=== PATIENT | female | born 1940 | race Caucasian/White ===

== ENCOUNTER → 2016-10-06 | Outpatient (CLI) | payer BC ==
[~2016-10-06] MED LIST: ACET325T30 PO; ALBUAER2 INH; CALC-20 PO; CALC500C3 PO; CARB1SOL OPB; CITA20TA9 PO; CTP/1 PO; DOCU-94 PO; HYDRCRE28 PR; LANS15CA6 PO; LEVE500T13 PO; LORA-741 PO; LSN20 PO; MAGNSUS5 PO; POLY335019 PO; PSYL55.43 PO; SENN8.6T15 PO; SYMIN160 INH; TRAM-10 PO
== END | disposition home or self-care (01) ==
LOC: C.LABSPEC 18:21
PROVIDERS: ATTEND Obstetrics & Gynecology
DX: N76.0 Acute vaginitis (principal)

== ENCOUNTER → 2016-11-26 | Outpatient (CLI) | payer BC ==
--- NOTE | 2016-11-26 15:09 | DIAGNOSTIC IMAGING REPORT ---
TWO VIEW CHEST CLINICAL HISTORY: Bronchiectasis. Cough. FINDINGS: PA and lateral chest radiographs are compared to study dated 04/05/2016 and correlated with chest CT dated 05/10/2016. The cardiomediastinal silhouette is unremarkable. There is atherosclerotic calcification of the thoracic aorta. Chronic interstitial thickening and nodularity is similar to previous. No airspace consolidation or pleural effusion is identified. Linear atelectasis versus scarring is present in the upper lobes bilaterally. There is no pneumothorax. The skeletal structures are osteopenic. Degenerative change and hyperkyphosis are noted in the thoracic spine. IMPRESSION: Chronic parenchymal changes and nodularity as above. No airspace consolidation or pleural effusion is identified. Electronically signed by: Diogo Moreno M.D. 11/26/2016 3:08 PM Dictated Date/Time: 11/26/2016 3:06 PM
== END | disposition home or self-care (01) ==
LOC: C.RAD1850 14:47
PROVIDERS: ATTEND Student in an Organized Health Care Education/Training Program
DX: R05 Cough (principal); Z87.09 Personal history of other diseases of the respiratory system

== ENCOUNTER → 2016-11-30 | Outpatient (CLI) | payer BC ==
[2016-11-30 12:27] LABS: BASO % 0.3 %; BASO ABS # 0.02 K/uL (0-0.2); COMPLETE YES; EOS % 2.2 %; HEMATOCRIT 38.1 % (37-47); IG% 0.1 %; LYMPH % 30.4 %; LYMPH ABS # 2.21 K/uL (1.2-3.4); MEAN CORPUSCULAR HEMOGLOBIN 27.8 pg (25-34); MEAN CORPUSCULAR HGB CONC 32.3 g/dl (32-36); MEAN PLATELET VOLUME 10.8 fL (7.4-10.4); MONO % 11.4 %; NEUT % 55.6 %; PLATELET COUNT 288 K/uL (130-400); RED BLOOD COUNT 4.43 M/uL (4.2-5.4); WHITE BLOOD COUNT 7.27 K/uL (4.8-10.8)
[2016-11-30 12:52] LABS: BLOOD UREA NITROGEN 10 mg/dl (7-18); BUN/CREATININE RATIO 16.3 (10-20); CALCIUM 9.2 mg/dl (8.5-10.1); CARBON DIOXIDE 29 mmol/L (21-32); CHLORIDE 100 mmol/L (98-107); CREATININE 0.63 mg/dl (0.60-1.20); GLUCOSE 84 mg/dl (70-99); POTASSIUM 4.6 mmol/L (3.5-5.1); SODIUM 136 mmol/L (136-145)
[2016-11-30 12:56] LABS: FERRITIN 45.9 ng/ml (8.0-388.0)
== END | disposition home or self-care (01) ==
LOC: C.LABWYN 16:42
PROVIDERS: ATTEND Internal Medicine
DX: D64.9 Anemia, unspecified (principal); E87.1 Hypo-osmolality and hyponatremia

== ENCOUNTER → 2017-04-07 | Outpatient (CLI) | payer BC ==
[2017-04-07 08:33] LABS: BASO % 0.4 %; BASO ABS # 0.02 K/uL (0-0.2); COMPLETE YES; HEMATOCRIT 38.9 % (37-47); IG% 0.2 %; LYMPH % 43.7 %; LYMPH ABS # 2.33 K/uL (1.2-3.4); MEAN CELL VOLUME 84.9 fL (80-100); MEAN CORPUSCULAR HEMOGLOBIN 27.3 pg (25-34); MEAN CORPUSCULAR HGB CONC 32.1 g/dl (32-36); MEAN PLATELET VOLUME 9.7 fL (7.4-10.4); MONO % 9.9 %; NEUT % 42.8 %; PLATELET COUNT 322 K/uL (130-400); RED BLOOD COUNT 4.58 M/uL (4.2-5.4); WHITE BLOOD COUNT 5.33 K/uL (4.8-10.8)
[2017-04-07 08:44] LABS: ALT/SGPT 20 U/L (12-78); BLOOD UREA NITROGEN 12 mg/dl (7-18); BUN/CREATININE RATIO 16.9 (10-20); CALCIUM 9.4 mg/dl (8.5-10.1); CARBON DIOXIDE 27 mmol/L (21-32); CHLORIDE 104 mmol/L (98-107); CHOLESTEROL 273 mg/dl (0-200); CREATININE 0.71 mg/dl (0.60-1.20); GLUCOSE 83 mg/dl (70-99); POTASSIUM 4.2 mmol/L (3.5-5.1); SODIUM 139 mmol/L (136-145); TRIGLYCERIDES 117 mg/dl (0-150); VERY LOW DENSITY LIPOPROT CALC 23 mg/dl
[2017-04-07 08:55] LABS: ALKALINE PHOSPHATASE 74 U/L (45-117); AST/SGOT 21 U/L (15-37); CHOLESTEROL/HDL RATIO 2.9; HDL CHOLESTEROL 95 mg/dl; LDL CHOLESTEROL CALCULATED 155 mg/dl
== END | disposition home or self-care (01) ==
LOC: C.LABWYN 08:05
PROVIDERS: ATTEND Internal Medicine
DX: E87.1 Hypo-osmolality and hyponatremia (principal); D64.9 Anemia, unspecified; I10 Essential (primary) hypertension

== ENCOUNTER → 2017-06-20 | Outpatient (CLI) | payer BC ==
--- NOTE | 2017-06-21 07:53 | MAMMOGRAPHY REPORT ---
BILATERAL DIGITAL SCREENING MAMMOGRAM TOMOSYNTHESIS WITH CAD: 06/20/2017 CLINICAL HISTORY: Asymptomatic. Personal history of breast cancer. TECHNIQUE: Breast tomosynthesis in addition to standard 2D mammography was performed. Current study was also evaluated with a Computer Aided Detection (CAD) system. COMPARISON: Comparison is made to exams dated: 06/15/2016 mammogram, 06/12/2015 mammogram, 06/19/2014 m ammogram, 06/07/2014 mammogram, and 06/03/2014 mammogram - [facility]. BREAST COMPOSITION: The tissue of both breasts is heterogeneously dense, which may obscure small mas ses. FINDINGS: There is a focal area of architectural distortion and associated asymmetry in the lower ou ter middle one third of the right breast, for which additional targeted ultrasound and possible addit ional mammographic views are recommended. There is stable asymmetry in the medial right breast and evidence of prior surgery in the left breast . A stable metallic biopsy marker in the 12:00 right breast and a few benign-appearing calcification s bilaterally. No other suspicious mass, architectural distortion or cluster of microcalcifications i s seen. IMPRESSION: ACR BI-RADS CATEGORY 0: INCOMPLETE EVALUATION: NEED ADDITIONAL IMAGING EVALUATION The focal area of architectural distortion and associated asymmetry in the lower outer right breast n eeds additional evaluation. The patient will be called to schedule an appointment. Approximately 10% of breast cancers are not detected with mammography. A negative mammographic report should not delay biopsy if a clinically suggestive mass is present. Yajaira Davila M.D. ay/:06/20/2017 21:11:10 It Security Specialist: Toyin MCCANN(Naman)(Cristela), [facility] letter sent: Addl Imaging 0 BI-RADS Code: ACR BI-RADS Category 0: Incomplete Evaluation: Need Additional Imaging Evaluation
== END | disposition home or self-care (01) ==
LOC: C.MAMM 10:14
PROVIDERS: ATTEND Obstetrics & Gynecology
DX: Z12.31 Encounter for screening mammogram for malignant neoplasm of breast (principal); R92.8 Other abnormal and inconclusive findings on diagnostic imaging of breast; N64.89 Other specified disorders of breast; Z85.3 Personal history of malignant neoplasm of breast

== ENCOUNTER → 2017-06-24 | Outpatient (CLI) | payer BC ==
--- NOTE | 2017-06-24 14:55 | MAMMOGRAPHY REPORT ---
ULTRASOUND OF RIGHT BREAST: 06/24/2017 CLINICAL HISTORY: Callback from screening mammogram for right breast asymmetry and associated archite ctural distortion. COMPARISON: Comparison is made to exams dated: 06/20/2017 mammogram, 06/15/2016 mammogram, 06/12/2015 m ammogram, 11/28/2014 mammogram, 06/03/2014 mammogram, and 05/30/2013 mammogram - [facility]. TECHNIQUE: Real-time targeted ultrasound of the right breast was performed. FINDINGS: Real-time, high-resolution targeted ultrasound was performed of the right breast in the re gion of the asymmetry with associated architectural distortion seen on the recent screening mammogram . In the right 9:00 subareolar breast, there is an irregular hypoechoic ill-defined mass with non-ci rcumscribed margins which measures 6 x 8 x 4 mm. This corresponds with the mammographic asymmetry wi th associated architectural distortion and is suspicious for malignancy. Recommend ultrasound guided core needle biopsy for further evaluation. Ultrasound was performed of the right axilla, which demo nstrates morphologically normal right axillary lymph nodes without evidence of axillary adenopathy. IMPRESSION: ACR BI-RADS CATEGORY 5: HIGHLY SUGGESTIVE OF MALIGNANCY - FOLLOW-UP RECOMMENDED 1. Irregular hypoechoic 8 mm mass in the right 9:00 subareolar breast, which corresponds with the kevin mographic asymmetry with associated architectural distortion. The mass is suspicious for malignancy and ultrasound-guided core needle biopsy is recommended for further evaluation. 2. No evidence of right axillary adenopathy. A phone call was made to the physician's office to confirm faxed results were received. The patient was verbally notified of the results. She tentatively scheduled the biopsy before leaving the [facility]. Shala Navarro M.D. /:06/24/2017 13:51:12 Medication Technician: Julia CROSS)(M), [facility] letter sent: Abnormal 4/5 BI-RADS Code: ACR BI-RADS Category 5: Highly Suggestive Of Malignancy
== END | disposition home or self-care (01) ==
LOC: C.MAMM 12:54
PROVIDERS: ATTEND Obstetrics & Gynecology
DX: N63 Unspecified lump in breast (principal)

== ENCOUNTER → 2017-06-29 | Outpatient (CLI) | payer BC ==
--- NOTE | 2017-06-29 08:40 | Discharge Instructions ---
Discharge Instructions Procedure Procedure Date: Jun 29, 2017. Reason for visit: Right Mass. Discharge Discharge Date: Jun 29, 2017. Discharge Diagnosis: post right breast ultrasound guided core biopsy Instructions Activity Recommendations: Additional Limitations (see below) Return to School/Work: no limitations Recommended Home Diet: No Limitations Provider Instructions: ACTIVITY RECOMMENDATIONS: * No lifting, pushing, pulling or exercising the affected side for three days. RETURN TO SCHOOL/WORK: * You may return to work/school after the procedure, but do not perform any strenuous activities for 24 to 48 hours. MEDICATIONS: * Tylenol (two 325 mg) every four to six hours if needed for mild pain (if not allergic to Tylenol). DIET: * Resume previous diet. SPECIAL CARE INSTRUCTIONS: * Keep biopsy site dry for 24 hours. May shower after 24 hours, but do not soak (bathe) incision. * May remove Tegaderm (plastic patch) tomorrow AFTER showering. * Leave the steri-strips on for one week. Allow the steri-strips to fall off by themselves. If not off after one week, you may remove them. You may place a Bandaid crosswise over the strips, if desired. * Apply ice 10 minutes on and 10 minutes off as needed. * Wear a bra at bedtime to sleep more comfortably for 2-3 days. * Your referring physician should have the results after approximately 5 to 7 business days. * Call for unusual bleeding, fever, drainage, etc or if you have any questions call [phone] during normal business hours or after hours call Dr Davila, . FOLLOW UP VISIT: Follow-up with Referring Physician as scheduled. Allergies Coded Allergies: Amoxicillin (Unverified Allergy, Intermediate, NAUSEA, 04/27/16) MAR OF 04/27/16 SAYS "NO KNOWN DRUG ALLERGIES" Clavulanic Acid (Unverified Allergy, Intermediate, NAUSEA, 04/27/16) MAR OF 04/27/16 SAYS "NO KNOWN DRUG ALLERGIES" Doxycycline (Unverified Allergy, Intermediate, NAUSEA, 04/27/16) MAR OF 04/27/16 SAYS "NO KNOWN DRUG ALLERGIES" Mometasone (Unverified Allergy, Intermediate, UNKNOWN, 04/27/16) MAR OF 04/27/16 SAYS "NO KNOWN DRUG ALLERGIES" Nitrofurantoin (Unverified Allergy, Intermediate, UNKNOWN, 04/27/16) MAR OF 04/27/16 SAYS "NO KNOWN DRUG ALLERGIES" Povidone Iodine (Verified Allergy, Mild, RED RASH AND SKIN IRRITATION, 04/27) MAR OF 04/27/16 SAYS "NO KNOWN DRUG ALLERGIES" Sulfa Antibiotics (Verified Adverse Reaction, Mild, NAUSEA/VOMITING, ) MAR OF 04/27/16 SAYS "NO KNOWN DRUG ALLERGIES" Harish Andrade Recommendations: Call your doctor if: * Temperature above 101 degrees * Pain not relieved by pain medicine ordered * There is increased drainage or redness from any incision * You have any unanswered questions or concerns. Your Doctors Instructions noted above were prepared by provider Yajaira Davila. Patient Signature Section: Patient Instructions Signature Page Juliamichele Rodriguez Patient (or Guardian) Signature/Date: I have read and understand the instructions given to me by my caregivers. Caregiver/RN/Doctor Signature/Date: The above-named patient and/or guardian has received patient instructions on this date. + Original Patient Signature Page (only) stays with chart. Please make copy for patient.
--- NOTE | 2017-06-29 13:16 | MAMMOGRAPHY REPORT ---
ULTRASOUND GUIDED BIOPSY RIGHT BREAST: 06/29/2017 CLINICAL HISTORY: Patient presents for ultrasound-guided core biopsy of a suspicious 8 mm spiculated hypoechoic mass in the 9:00 right breast. Remote history of left breast cancer status post breast co nservation therapy. COMPARISON: Comparison is made to exams dated: 06/24/2017 ultrasound, 06/20/2017 mammogram, 06/15/2016 mammogram, 06/12/2015 mammogram, 11/28/2014 mammogram, and 06/19/2014 mammogram - [facility] [address] [place]. PATIENT CONSENT: The procedure, risks and benefits were discussed with the patient and informed conse nt was obtained both verbally and in writing. Specific risks to this procedure include: bleeding, in fection, puncture of adjacent structure, nontarget biopsy, sampling error, pain, metal allergy and me dication reaction. PROCEDURE DESCRIPTION: A time out was performed and the right breast was agreed as the site of biopsy . The skin was prepped and draped in the usual sterile fashion. ChloraPrep was used for cleansing pu rposes as the patient reported a possible Betadine allergy. The spiculated, taller than wide hypoech oic mass in the 9:00 right breast was chosen as the target for biopsy. Subcutaneous and intraparenchy mal 1% buffered lidocaine, with and without epinephrine, was administered as local anesthesia. A skin incision was made. Through the incision, 5 samples were taken with a 14 gauge Achieve biopsy device . A ribbon shaped metallic marker was placed at the biopsy site. Hemostasis was achieved after manual compression. The patient tolerated the procedure well and there was no immediate complication. The samples were sent to the pathology department in an appropriately labeled container. Postprocedure right CC and ML 2-D and most images were obtained. There is a new ribbon-shaped biopsy marker clip within the mass with associated architectural distortion in question, in the 9:00 middle one third of the right breast. No significant post biopsy hematoma. IMPRESSION: ULTRASOUND GUIDED BIOPSY Status post ultrasound-guided core biopsy of a suspicious spiculated right 9:00 breast mass, with rib bon-shaped biopsy marker clip placed at the site. The patient will receive notification of the biopsy results from her referring physician. Yajaira Davila M.D. ay/:06/29/2017 09:33:10 Ham Pumper: Kiersten MCCANN(R)(M), [facility]
--- NOTE | 2017-06-29 13:17 | MAMMOGRAPHY REPORT ---
UNILATERAL RIGHT DIGITAL DIAGNOSTIC MAMMOGRAM TOMOSYNTHESIS: 06/29/2017 CLINICAL HISTORY: Status post ultrasound guided core biopsy of an irregular spiculated 6 mm mass in t he 9:00 right breast. Personal history of remote left breast cancer status post breast conservation therapy. Please refer to the report from right breast ultrasound guided core biopsy performed at the same time for full detail. IMPRESSION: POST PROCEDURE IMAGING FOR MARKER PLACEMENT Please refer to the report from right breast ultrasound guided core biopsy performed at the same time for full detail. Approximately 10% of breast cancers are not detected with mammography. A negative mammographic report should not delay biopsy if a clinically suggestive mass is present. Yajaira Davila M.D. ay/:06/29/2017 08:41:41 Boot And Saddle Repair Person: Kiersten CROSS)(Cristela), [facility] BI-RADS Code: Post Procedure Imaging For Marker Placement
== END | disposition home or self-care (01) ==
LOC: C.MAMM 07:49
PROVIDERS: ATTEND Obstetrics & Gynecology
DX: D05.11 Intraductal carcinoma in situ of right breast (principal)

== ENCOUNTER → 2017-07-25 | Outpatient (CLI) | payer BC ==
[~2017-07-25] MED LIST changes: -ALBUAER2 INH; +HYDR-3126 PO; -LANS15CA6 PO; -LEVE500T13 PO; +LISI-729 PO; -LSN20 PO; -MAGNSUS5 PO; +MOMLX PO; +PROP1TAB PO; +PSYL0.524 PO; -PSYL55.43 PO; +SENN1TAB86 PO; -SENN8.6T15 PO
--- NOTE | 2017-07-25 14:55 | MAMMOGRAPHY REPORT ---
SPECIMEN: 07/25/2017 CLINICAL HISTORY: Right breast lumpectomy specimen. Biopsy proven carcinoma in the 9:00 axis. Please refer to the report from right breast ultrasound-guided needle localization performed at the s ida time for full detail. IMPRESSION: SPECIMEN Please refer to the report from right breast ultrasound-guided needle localization performed at the s ida time for full detail. Yajaira Davila M.D. ay/:07/25/2017 11:53:15 International Controller: Gabrielle Bateman, [facility]
--- NOTE | 2017-07-25 14:55 | MAMMOGRAPHY REPORT ---
NEEDLE LOCALIZATION RIGHT BREAST: 07/25/2017 CLINICAL HISTORY: Biopsy proven carcinoma in the 9:00 right breast. Patient presents for preoperativ e needle and wire localization. COMPARISON: Comparison is made to exams dated: 07/15/2017 breast MRI, 06/29/2017 ultrasound biopsy, 1 mammogram, 06/24/2017 ultrasound, 06/20/2017 mammogram, and 06/15/2016 mammogram - [facility]. PATIENT CONSENT: The risks of the procedure were explained to the patient and informed consent was ob tained. The patient denied eating or drinking anything this morning that would preclude anesthesia. She also denied allergy to lidocaine. PROCEDURE DESCRIPTION: Prior mammograms, ultrasounds and ultrasound-guided biopsy dated 06/29/2017 we re reviewed. The hypoechoic solid mass in the 9:00 right breast is the intended target for preoperat nu localization. The associated ribbon-shaped biopsy marker clip is identified in the post procedur e mammograms from the same date. With the patient in the supine position, repeat targeted ultrasound was performed in the 9:00 right b reast. The hypoechoic mass and associated ribbon-shaped biopsy marker clip is identified at amenable to ultrasound-guided localization. The skin was cleansed with Betadine. 1% buffered lidocaine with out epinephrine was administered as local anesthesia. A 5cm Barraza II needle and wire combination wa s inserted into the breast and through the mass. Optimal positioning was confirmed and the wire was l ocked in place, leaving both the needle and wire within the breast, as per surgeon's preference. Rig ht CC and ML post localization 2-D and tomosynthesis images were obtained. There is alignment of the ribbon-shaped biopsy marker clip with the notch in the needle. Architectural distortion is seen malachi rounding the biopsy marker clip. The entire procedure including approach and needle length were discussed with the operating surgeon yesi hills to surgery. The patient tolerated the procedure well and there was no immediate complication. She was transferred to the operating room in satisfactory condition. The specimen radiograph demonstrates a portion of the localizing needle and wire, the central ribbon- shaped biopsy marker clip as well as a mass with associated architectural distortion, compatible with successful preoperative localization and subsequent surgical excision. IMPRESSION: NEEDLE LOCALIZATION Status post successful preoperative localization and subsequent surgical excision for recent biopsy-p roven carcinoma in the 9:00 right breast. The imaged specimen includes the intended abnormality. The patient will receive notification of the pathology results from her referring physician. Yajaira Davila M.D. ay/:07/25/2017 11:57:43 Dentures Lab Technician: Gabrielle CROSS)(M), [facility]
--- NOTE | 2017-07-25 14:57 | MAMMOGRAPHY REPORT ---
UNILATERAL RIGHT DIGITAL DIAGNOSTIC MAMMOGRAM TOMOSYNTHESIS: 07/25/2017 CLINICAL HISTORY: Status post ultrasound-guided needle localization of biopsy-proven carcinoma in the 9:00 right breast. Please refer to the report from right breast ultrasound-guided needle localization performed at the s ida time for full detail. IMPRESSION: Please refer to the report from right breast ultrasound-guided needle localization performed at the s ida time for full detail. Approximately 10% of breast cancers are not detected with mammography. A negative mammographic report should not delay biopsy if a clinically suggestive mass is present. Yajaira Davila M.D. ay/:07/25/2017 08:25:08 Inspector Experimental Assembly: Gabrielle MCCANN(Naman)(M), [facility] BI-RADS Code: n/a
== END | disposition home or self-care (01) ==
LOC: C.MAMM 07:43
PROVIDERS: ATTEND Surgery
DX: C50.911 Malignant neoplasm of unspecified site of right female breast (principal)

== ENCOUNTER → 2017-09-23 | Outpatient (CLI) | payer BC ==
[~2017-09-23] MED LIST changes: +ACET-1346 PO; -ACET325T30 PO; +ANAS1TAB59 PO; -CTP/1 PO; +HYDR25SU20 PR; +PROP80TA2 PO; +SENN8.6T96 PO; +TAMO20TA5 PO; +TAMOXIFEN CITRATE PO; +VNTHFA/IN INH
--- NOTE | 2017-09-23 10:43 | DIAGNOSTIC IMAGING REPORT ---
CHEST 2 VIEWS ROUTINE HISTORY: Productive cough. Atypical chest pain. BRONCHIECTASIS COMPARISON: Chest 11/26/2016. FINDINGS: The heart is normal in size. No pleural effusions. No pneumothorax. Small linear scarlike density within the right upper lobe, unchanged. Surgical clips within the right breast. Stable scarlike density within the left upper lobe compared to a 07/03/2015 examination. No new focal lung consolidations to suggest pneumonia. IMPRESSION: Stable chronic changes as described above. No new focal lung consolidations to suggest pneumonia. Electronically signed by: Lewis Mcgarry M.D. 09/23/2017 10:42 AM Dictated Date/Time: 09/23/2017 10:37 AM
== END | disposition home or self-care (01) ==
LOC: C.RAD 10:21
PROVIDERS: ATTEND Internal Medicine
DX: Z51.0 Encounter for antineoplastic radiation therapy (principal); J47.9 Bronchiectasis, uncomplicated; D05.11 Intraductal carcinoma in situ of right breast

== ENCOUNTER → 2017-10-27 | Outpatient (CLI) | payer BC ==
[~2017-10-27] MED LIST changes: -ANAS1TAB59 PO; -HYDR25SU20 PR; -PROP80TA2 PO; -SENN8.6T96 PO; -TAMO20TA5 PO; -TAMOXIFEN CITRATE PO
[2017-10-27 12:24] LABS: HEMATOCRIT 41.1 % (37-47); HEMOGLOBIN 13.2 g/dL (12.0-16.0); MEAN CELL VOLUME 87.3 fL (80-100); MEAN CORPUSCULAR HGB CONC 32.1 g/dl (32-36); MEAN PLATELET VOLUME 10.1 fL (7.4-10.4); PLATELET COUNT 308 K/uL (130-400); RED CELL DISTRIBUTION WIDTH CV 14.5 % (11.5-14.5); RED CELL DISTRIBUTION WIDTH SD 46.5 fL (36.4-46.3); WHITE BLOOD COUNT 5.29 K/uL (4.8-10.8)
[2017-10-27 13:32] LABS: ALBUMIN 3.7 gm/dl (3.4-5.0); ALT/SGPT 21 U/L (12-78); BLOOD UREA NITROGEN 17 mg/dl (7-18); CALCIUM 9.3 mg/dl (8.5-10.1); CARBON DIOXIDE 28 mmol/L (21-32); CREATININE 0.67 mg/dl (0.60-1.20); GLUCOSE 85 mg/dl (70-99); POTASSIUM 3.9 mmol/L (3.5-5.1); SODIUM 134 mmol/L (136-145)
[2017-10-27 13:35] LABS: ALKALINE PHOSPHATASE 77 U/L (45-117); AST/SGOT 21 U/L (15-37); TOTAL PROTEIN 7.6 gm/dl (6.4-8.2); TRANSFERRIN 313 mg/dl (200-360)
== END | disposition home or self-care (01) ==
LOC: C.LABWYN 09:44
PROVIDERS: ATTEND Internal Medicine
DX: D64.9 Anemia, unspecified (principal); E87.1 Hypo-osmolality and hyponatremia

== ENCOUNTER → 2017-11-17 | Outpatient (CLI) | payer BC ==
[~2017-11-17] MED LIST changes: +ANAS1TAB19 PO
[2017-11-17 13:22] VITALS: BP 156/75; PULSE 72; TEMP 36.8; O2SAT 96
--- NOTE | 2017-11-17 16:45 | Radiation Oncology Follow-Up ---
Radiation Oncology Follow-Up Date of Visit Nov 17, 2017. Reason For Visit One-month follow-up in cancer survivorship care plan Radiation Completion Date Hypo - 10/11/17 Diagnosis (1) Breast cancer Onset Date: 06/29/2017 Histology Subtype: Ductal Stage: l Permanent Comment: Abnormal right breast mammogram Status post ultrasound-guided core needle biopsy 06/29/2017 Infiltrating ductal carcinoma, grade 2 Estrogen receptor positive, progesterone receptor positive, HER-2/saud negative Status post image guided localization lumpectomy and sentinel lymph node biopsy 07/25/2017 Stage pT1b pN0M0 Oncotype DX score of 18 Status post completion of radiation therapy 10/11/2017. She received 5130 cGy utilizing hypo-fractionation. Last Edited By: Debbie Daugherty on Oct 19, 2017 10:09 History of Present Illness Ms. Rodriguez was diagnosed with a left breast cancer in 1993. She was treated with external radiation using tangential beams delivering a dose of 50 Gy without a boost. She has been followed since then has done well with bilateral screening mammograms. On 06/20/2017 she was found to have a new focal area of architectural distortion and associated asymmetry in the lower outer middle one third of the right breast. Additional targeted ultrasound and mammographic images were recommended. On 06/24/2017 the patient underwent an ultrasound of the right breast. This showed an irregular hypoechoic 8mm mass in the right breast at the 9 o'clock position in the subareolar region corresponding to the mammographic abnormality. This mass is suspicious and an ultrasound-guided core needle biopsy was recommended for further evaluation. There was no evidence of right axillary adenopathy appreciated. On 06/29/2017 patient underwent an ultrasound-guided core needle biopsy at the 9 o'clock position of the right breast. She had previously undergone a benign stereotactic biopsy of the right breast on 06/19/2014. This did show calcifications with no tumor seen. Case: [id number]. The more recent biopsy unfortunately revealed an infiltrating ductal carcinoma oftype. [place] grade 2 of 3. 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 There was no perineural or lymphovascular space invasion identified. Estrogen receptors were positive (100%, strong). Progesterone receptors were weak positive (1%, strongly). HER-2/saud was negative by IHC and confirmed negative by FISH analysis. Case: [id number]. Patient was seen by Dr. Ben Lopez who discussed treatment options with this patient. Patient ultimately opted to proceed with a breast conserving therapy consisting of a right partial mastectomy and sentinel normal biopsy. This was performed on 07/25/2017. This confirmed an invasive carcinoma [place] grade 2 of 3 measuring 0.8 x 0.8 x 0.5 cm. 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 The margins were evaluated and were negative. The invasive carcinoma was 2 mm from the anterior margin. The DCIS was less than 1 mm from the anterior margin. A total of 2 sentinel lymph nodes were identified and both were negative. The final AJCC pathologic staging was therefore a pT1b pN0( sn-), ER positive, OH positive and HER-2/saud negative. Patient was seen by Dr. Gael Del Valle for evaluation and discussion of the role of adjuvant therapy. He has ordered an Oncotype DX test with results pending. We were asked to see the patient in referral to discuss with her the role of adjuvant radiation. Her Oncotype DX score came back at 18. This was reviewed with the patient by medical oncology. Final decision was no chemotherapy. She completed radiation therapy October 11, 2017. She received 5130 cGy utilizing hypo-fractionation. Interim History She has been doing well over this past month. The skin irritation that occurred at the end of treatment has completely resolved. She has continued to use the gel daily. She has noted no masses or tenderness and no change of the axilla. She has had no swelling of her arm. She would like to return to using her regular deodorant. She was seen in medical oncology and is now on a aromatase inhibitor. She is tolerating this well. She denies hot flashes. She may have some mild increase in arthralgias. Allergies Coded Allergies: Povidone Iodine (Verified Allergy, Mild, RED RASH AND SKIN IRRITATION, ) MAR OF 04/27/16 SAYS "NO KNOWN DRUG ALLERGIES" Amoxicillin (Unverified Adverse Reaction, Intermediate, NAUSEA, 07/25/17) Clavulanic Acid (Unverified Adverse Reaction, Intermediate, NAUSEA, ) Doxycycline (Unverified Adverse Reaction, Intermediate, NAUSEA, 07/25/17) Mometasone (Unverified Adverse Reaction, Intermediate, NAUSEA, 07/25/17) Nitrofurantoin (Unverified Adverse Reaction, Intermediate, nausea, ) Sulfa Antibiotics (Verified Adverse Reaction, Mild, NAUSEA/VOMITING, 07/25) MAR OF 04/27/16 SAYS "NO KNOWN DRUG ALLERGIES" Home Medications Scheduled Anastrozole (Arimidex), 1 TAB PO DAILY Budesonide/Formoterol Fumarate (Symbicort 160/4.5 Inhaler ), 2 PUFFS INH BID Calcium Carbonate-Vitamin D (Calcium 600 + D), 1 TAB PO BID Citalopram Hydrobromide (Celexa), 30 MG PO QAM Docusate Sodium (Colace), 1 CAP PO BID17 Hydrocortisone (Rectal) (Proctozone-Hc), 1 APPLN OH BID Lisinopril (Zestril), 5 MG PO QAM Polyethylene Glycol 3350 (Miralax), 17 GM PO QAM Propranolol (Inderal), 60 MG PO QAM Psyllium (Metamucil), 1 DOSE PO QAM Sennosides-Docusate Sodium (Sennalax-S), 1 TAB PO NOON Scheduled PRN Acetaminophen (Acetaminophen), 2 TABS PO Q4 PRN for Pain Albuterol Hfa (Ventolin Hfa), 2-4 PUFFS INH Q4 PRN for SOB/Wheezing Calcium Carbonate (Tums), 1 TAB PO QID PRN for Indigestion Carboxymethylcellulose Sodium (Refresh), 1 DROP OPB Q6 PRN for DRYNESS Hydroxyzine Hcl (Atarax), 25 MG PO UD PRN for ITCHING Lorazepam (Ativan), 0.5 MG PO Q4 PRN for Anxiety Magnesium Hydroxide (Milk of Magnesia), 1 DOSE PO UD PRN for Constipation Tramadol (Ultram), 50 MG PO Q4H PRN for Pain Review of Systems Gastrointestinal: Symptoms: WNL GI Comments: Chronic Constipation Oral: Symptoms: No Problems Respiratory: Symptoms: WNL Urinary: Symptoms: WNL Skin: Symptoms: No Problems Breast: Right Upper Arm Measurement: 26.5 Right Mid Arm Measurement: 20.9 Right Wrist Measurement: 15.0 Left Upper Arm Measurement: 27.2 Left Mid Arm Measurement: 20.9 Left Wrist Measurement: 14.6 Arm Dominence: Right Additional Notes: She completed a distress management report and answered "no" to all questions. Physical Exam Vital Signs Date Time Temp Pulse Resp B/P (MAP) Pulse Ox O2 Delivery O2 Flow Rate FiO2 11/17/17 13:22 36.8 72 16 156/75 96 ECOG Performance Status: 0 Fatigue: None General Appearance: no apparent distress Eyes: normal inspection, EOMI ENT: normal ENT inspection, hearing grossly normal Neck: no adenopathy, thyroid normal Respiratory/Chest: lungs clear, no respiratory distress, no accessory muscle use Breast: Breast examination reveals well-healed incisions of the right breast. There are no masses or tenderness and no axillary adenopathy. She has no skin retractions or nipple changes. Using the [place] score of cosmesis she has excellent outcome. The left breast showed no masses or tenderness and no axillary adenopathy. Cardiovascular: regular rate, rhythm, no gallop, no murmur Extremities: no pedal edema Neurologic/Psychiatric: no motor/sensory deficits, alert, normal mood/affect Pain Management Patient Reports Pain: No Pain Management Plan She denies pain therefore requires no pain management. Laboratory Laboratory Results: not applicable Pathology Pathology Results: not applicable Imaging Imaging Studies: not applicable Assessment & Plan Plan: She will continue regular follow-up with medical oncology and her primary care physician. She continues on the aromatase inhibitor. We discussed follow- up mammography. She had a mammogram scheduled for May. We discussed canceling that appointment and going forward with a right breast mammogram in 2 months and then bilateral mammography in 8 months. The studies were set up for the patient. Today we completed a cancer survivorship care plan. A copy of the document was given to the patient. She was given a survivorship booklet. We asked her to return to our office in 6 months. She may call if she has any questions or concerns. Total Time In Follow-Up I spent 20 minutes speaking to the patient and performing examination. I spent 20 minutes reviewing information, preparing the survivorship document, and completing this note. Copy To Ben Miller M.D.; Gael Del Valle MD; Justin Garg M.D. Problem Qualifiers (1) Breast cancer: Breast location: central portion of breast Estrogen receptor status: positive Patient sex: female Laterality: right Qualified Codes: C50.111 - Malignant neoplasm of central portion of right female breast; Z17.0 - Estrogen receptor positive status [ER+]
== END | disposition home or self-care (01) ==
LOC: C.ONC 13:01
PROVIDERS: ATTEND Physician Assistant Medical
DX: Z08 Encounter for follow-up examination after completed treatment for malignant neoplasm (principal); Z92.3 Personal history of irradiation; Z85.3 Personal history of malignant neoplasm of breast

== ENCOUNTER → 2017-12-20 | Outpatient (CLI) | payer BC ==
[2017-12-20 13:01] LABS: BLOOD UREA NITROGEN 17 mg/dl (7-18); CALCIUM 9.2 mg/dl (8.5-10.1); CARBON DIOXIDE 30 mmol/L (21-32); CREATININE 0.62 mg/dl (0.60-1.20); GLUCOSE 81 mg/dl (70-99); POTASSIUM 4.8 mmol/L (3.5-5.1); SODIUM 137 mmol/L (136-145)
== END | disposition home or self-care (01) ==
LOC: C.LABWYN 15:46
PROVIDERS: ATTEND Internal Medicine
DX: E87.1 Hypo-osmolality and hyponatremia (principal)

== ENCOUNTER → 2018-01-16 | Outpatient (CLI) | payer BC ==
--- NOTE | 2018-01-17 07:40 | MAMMOGRAPHY REPORT ---
UNILATERAL RIGHT DIGITAL DIAGNOSTIC MAMMOGRAM TOMOSYNTHESIS WITH CAD: 01/16/2018 CLINICAL HISTORY: 77-year-old woman with right breast invasive ductal carcinoma diagnosed in June 2017 status post lumpectomy and radiation therapy. She presents for the first evaluation in the [facility] after treatment. TECHNIQUE: Right breast tomosynthesis in addition to standard 2D mammography was performed. Spot mag nification right CC and ML views were also performed over the surgical site. Current study was also evaluated with a Computer Aided Detection (CAD) system. COMPARISON: Comparison is made to exams dated: 07/25/2017 specimen, 06/20/2017 mammogram, 06/15/2016 m ammogram, 06/12/2015 mammogram, 11/28/2014 mammogram, and 06/19/2014 mammogram - [facility]ter. BREAST COMPOSITION: The tissue of the right breast is heterogeneously dense, which may obscure small masses. FINDINGS: There is expected architectural distortion in the central right breast, at the site of rece nt lumpectomy. Both the dumbbell-shaped and ribbon shaped biopsy marker clips were removed at the ti me of surgery. Now, 2 slightly larger linear surgical clips are seen in the posterior, retroareolar right breast. There is mild diffuse skin thickening and trabecular edema, likely related to prior tr eatment. Minimal vascular calcification and a few benign rim calcifications in the right breast. No suspicious mass, architectural distortion, suspicious asymmetry or cluster of suspicious microcalcif ications is seen. IMPRESSION: ACR-BI-RADS CATEGORY 3: PROBABLY BENIGN Expected postsurgical and postradiation changes in the right breast, without definite mammographic ev idence of malignancy. Recommend another close follow-up right diagnostic tomosynthesis mammogram in 6 months, to ensure longer stability after treatment. Annual left mammography will also be due at at time. These results and recommendations were discussed with the patient at the time of the exam. Approximately 10% of breast cancers are not detected with mammography. A negative mammographic report should not delay biopsy if a clinically suggestive mass is present. Yajaira Davila M.D. ay/:01/16/2018 11:52:12 Software Engineer Developer: Toyin CROSS)(Cristela), [facility] letter sent: Follow Up Recommended 3 BI-RADS Code: ACR-BI-RADS Category 3: Probably Benign
== END | disposition home or self-care (01) ==
LOC: C.MAMM 11:13
PROVIDERS: ATTEND Physician Assistant Medical
DX: Z85.3 Personal history of malignant neoplasm of breast (principal); Z92.3 Personal history of irradiation

== ENCOUNTER → 2018-01-18 | Outpatient (CLI) | payer BC ==
--- NOTE | 2018-01-18 16:40 | DIAGNOSTIC IMAGING REPORT ---
CHEST 2 VIEWS ROUTINE CLINICAL HISTORY: SOB, COUGH COMPARISON STUDY: 09/23/2017 FINDINGS: There is a retrocardiac opacity consistent with a hiatal hernia. Heart is normal in size. There is no failure. There is pulmonary emphysema. There is chronic linear scarring/atelectatic change in the perihilar regions. There is no acute parenchymal consolidation. There are no significant pleural effusions.[ IMPRESSION: Emphysema and stable areas of scarring. No acute findings Electronically signed by: Francis Leyva M.D. 01/18/2018 4:39 PM Dictated Date/Time: 01/18/2018 4:38 PM
== END | disposition home or self-care (01) ==
LOC: C.RAD1850 16:22
PROVIDERS: ATTEND Nurse Practitioner Adult Health
DX: R06.02 Shortness of breath (principal); R05 Cough; J43.9 Emphysema, unspecified

== ENCOUNTER → 2018-01-26 | Outpatient (CLI) | payer BC ==
--- NOTE | 2018-01-26 15:56 | DIAGNOSTIC IMAGING REPORT ---
SINGLE VIEW PELVIS; 2 VIEWS RIGHT HIP CLINICAL HISTORY: Right hip pain. FINDINGS: An AP view of the pelvis with AP and frog-leg views of the right hip are compared to study dated 01/31/2016. The skeletal structures are osteopenic. There is no radiographic evidence of acute fracture involving the hips or bony pelvis. There is mild arthritic change and joint space narrowing seen in the hips. Sclerotic change is noted in the sacroiliac joints. Lumbosacral spondylosis is partially visualized. The overlying soft tissues are within normal limits. Enthesophytes arise from the anterior superior iliac spine bilaterally. Phleboliths are noted in the pelvis. There is no bowel obstruction. Atherosclerotic calcification is observed in the femoral arteries. IMPRESSION: Osteopenia and mild degenerative change as above. No acute bony abnormality is seen involving the hips or pelvis. Electronically signed by: Diogo Moreno M.D. 01/26/2018 3:55 PM Dictated Date/Time: 01/26/2018 3:53 PM
== END | disposition home or self-care (01) ==
LOC: C.LAB1850 15:21
PROVIDERS: ATTEND Internal Medicine
DX: M54.9 Dorsalgia, unspecified (principal); R26.9 Unspecified abnormalities of gait and mobility; M85.861 Other specified disorders of bone density and structure, right lower leg

== ENCOUNTER → 2018-01-27 | Outpatient (CLI) | payer BC ==
--- NOTE | 2018-01-27 12:17 | DIAGNOSTIC IMAGING REPORT ---
L FOOT MIN 3 VIEWS ROUTINE CLINICAL HISTORY: M25.476 Swelling of foot [id number] Injury of foot, leftleftR pain. Trauma. COMPARISON: None. DISCUSSION: Nondisplaced transverse cortical fracture base fifth metatarsal. Mild degenerative change of the remaining osseous structures. Mild soft tissue edema. No evidence for dislocation. IMPRESSION: Nondisplaced transverse cortical fracture base fifth metatarsal. The above report was generated using voice recognition software. It may contain grammatical, syntax or spelling errors. Electronically signed by: Paul Georges M.D. 01/27/2018 12:16 PM Dictated Date/Time: 01/27/2018 12:12 PM
== END | disposition home or self-care (01) ==
LOC: C.RAD1850 11:54
PROVIDERS: ATTEND Internal Medicine
DX: S99.922A Unspecified injury of left foot, initial encounter (principal); M25.476 Effusion, unspecified foot; X58.XXXA Exposure to other specified factors, initial encounter

== ENCOUNTER → 2018-02-07 | Outpatient (CLI) | payer BC | END | disposition home or self-care (01) | LOC: C.MAMM 10:42 | PROVIDERS: ATTEND Internal Medicine | DX: M81.0 Age-related osteoporosis without current pathological fracture (principal) ==

== ENCOUNTER → 2018-05-11 | Day surgery (SDC) | payer BC ==
[2018-05-05 09:13] VITALS: Ht 158.8 cm; Wt 61.4 kg
[~2018-05-11] VITALS: Ht 158.8 cm; Wt 61.4 kg
[~2018-05-11] MED LIST changes: -ANAS1TAB19 PO; -CALC500C3 PO; -HYDR-3126 PO; +HYDR25SU20 PR; -HYDRCRE28 PR; +IOPAMIDOL INJ 61% 15 ML VIAL ONE; +LIDOCAINE HCL 1% MPF 5 ML VIAL ONE; -MOMLX PO; -PROP1TAB PO; +PROP80TA2 PO; +SENN8.6T96 PO; +SODIUM CHLORIDE 0.9% INJ 10 ML VIAL ONE; +TAMO20TA5 PO; +TAMOXIFEN CITRATE PO; -VNTHFA/IN INH
--- NOTE | 2018-05-11 14:22 | History & Physical Bridge - SC ---
H&P Re-Evaluation Bridge Note: I have examined the patient, reviewed the History & Physical and in the interval since the performance of the History & Physical I have noted the following changes of clinical significance: No changes noted
--- NOTE | 2018-05-11 14:48 | [facility] Post Operative Brief Note ---
Immediate Operative Summary Operative Date May 11, 2018. Pre-Operative Diagnosis Right sacral radiculopathy Lumbar spinal stenosis Post-Operative Diagnosis Same Procedure(s) Performed Lumbar Epidural Steroid Injection Surgeon Dr Cassidy Farm Assistant Surgeon(s) None Estimated Blood Loss 0 Findings Consistent with Post-Op Diagnosis Specimens NA Drains None Anesthesia Type Local Complication(s) none Disposition Disposition:
--- NOTE | 2018-05-11 14:49 | Discharge Instructions ---
Discharge Instructions Date of Service May 11, 2018. Visit Reason for Visit: Radiculopathy, Sacral And Sacrococcgeal Region Discharge Discharge Diagnosis / Problem: right leg pain Discharge Goals Goal(s): Decrease discomfort, Improve function Medications Stopped Medications Name(s): Was told to avoid ASA products. Activity Recommendations Activity Limitations: resume your previous activity Anesthesia . Post Anesthesia Instructions: If you have had General Anesthesia or IV Sedation: * Do not drive today. * Resume driving when surgeon permits. * Do not make important decisions or sign legal documents today. * Call surgeon for: 1. Temperature elevations greater than 101 degrees F. 2. Uncontrollable pain. 3. Excessive bleeding. 4. Persistent nausea and vomiting. 5. Medication intolerance (nausea, vomiting or rash). * For nausea and vomiting use only clear liquids such as: tea, soda, bouillon until nausea subsides, then gradually increase diet as tolerated. * If you have any concerns or questions, call your surgeon's office. If physician is unavailable and it is an emergency, call 911 or go to the nearest emergency room. . Diet Recommendations Recommended Home Diet: resume previous diet Procedures Procedures Performed: Lumbar Epidural Steroid Injection Pending Studies Studies pending at discharge: no Medical Emergencies . Who to Call and When: Medical Emergencies: If at any time you feel your situation is an emergency, please call 911 immediately. . Non-Emergent Contact Non-Emergency issues call your: Specialist . . "Provider Documentation" section prepared by Ilan Cassidy. .
[2018-05-11 14:54] VITALS: BP 159/67; PULSE 64; O2SAT 97
--- NOTE | 2018-05-11 16:47 | OPERATIVE REPORT ---
DATE OF OPERATION: 05/11/2018 PREOPERATIVE DIAGNOSIS: Lumbar stenosis L5-S1 with a right S1 radiculopathy. POSTOPERATIVE DIAGNOSIS: Lumbar stenosis L5-S1 with a right S1 radiculopathy. PROCEDURE: Right paramedian L5-S1 intralaminar epidural steroid injection under fluoroscopic guidance. INDICATIONS: Patient is a 77-year-old white female who has had a 1 year history of low back pain with radiating pain down the right L5 dermatomal distribution. She has failed physical therapy and presents today for an epidural injection to provide her with relief from radicular pain. PHYSICAL EXAMINATION: Pleasant female, seated comfortably. She has some right buttocks pain, tenderness to palpation, right radicular pain. She has a negative seated straight leg raise without focal motor or sensory deficits. CONSENT: Verbal and written consent was obtained from the patient. Risks and benefits were reviewed. Risks include but are not limited to epidural abscess, epidural hematoma, allergic reaction, dural puncture. Patient wishes to proceed. DETAILS OF PROCEDURE: Patient was taken back to the special procedures room of the [facility] where she was maintained in a prone position. Backside was cleansed with Betadine x3 and a dry sterile dressing was applied. Fluoroscope was used to identify the L5-S1 intralaminar space and overlying skin was anesthetized with 4 mL of lidocaine 1% with a 25-gauge 1.5-inch needle. A 22-gauge 3-1/2 inch Tuohy needle was then directed down towards the intralaminar space. It was advanced under lateral fluoroscopic guidance. Loss of resistance was noted at a depth of 6.5 cm. Isovue-300 contrast 1 mL was injected which demonstrated epidural uptake pattern. She then underwent injection after negative aspiration of 40 mg Depo-Medrol and 4 mL of preservative-free sodium chloride. Injection was well tolerated. DISPOSITION: 1. Patient is taken out into the discharge recovery area where she will be discharged home once discharge criteria are met. 2. Follow up in the [facility] office in 4 weeks' time. I attest to the content of the Intraoperative Record and any orders documented therein. Any exception s are noted below.
== END | disposition home or self-care (01) ==
LOC: X.SURG 13:15
PROVIDERS: ATTEND Physical Medicine & Rehabilitation
DX: M48.061 Spinal stenosis, lumbar region without neurogenic claudication (principal); M54.18 Radiculopathy, sacral and sacrococcygeal region; L57.0 Actinic keratosis; M19.90 Unspecified osteoarthritis, unspecified site; Z85.820 Personal history of malignant melanoma of skin; Z85.828 Personal history of other malignant neoplasm of skin; Z85.3 Personal history of malignant neoplasm of breast; Z88.2 Allergy status to sulfonamides

== ENCOUNTER → 2018-05-18 | Outpatient (CLI) | payer BC ==
[~2018-05-18] MED LIST changes: -IOPAMIDOL INJ 61% 15 ML VIAL ONE; -LIDOCAINE HCL 1% MPF 5 ML VIAL ONE; -SODIUM CHLORIDE 0.9% INJ 10 ML VIAL ONE
[2018-05-18 13:43] VITALS: BP 119/64; PULSE 72; TEMP 37.2; O2SAT 93
--- NOTE | 2018-05-18 14:34 | Radiation Oncology Follow-Up ---
Radiation Oncology Follow-Up Date of Visit May 18, 2018. Reason For Visit 6 month follow up Radiation Completion Date 10/11/17 Diagnosis (1) Breast cancer Onset Date: 06/29/2017 Histology Subtype: Ductal Stage: l Permanent Comment: Abnormal right breast mammogram Status post ultrasound-guided core needle biopsy 06/29/2017 Infiltrating ductal carcinoma, grade 2 Estrogen receptor positive, progesterone receptor positive, HER-2/saud negative Status post image guided localization lumpectomy and sentinel lymph node biopsy 07/25/2017 Stage pT1b pN0M0 Oncotype DX score of 18 Status post completion of radiation therapy 10/11/2017. She received 5130 cGy utilizing hypo-fractionation. Last Edited By: Debbie Daugherty on Oct 19, 2017 10:09 History of Present Illness Ms. Rodriguez was diagnosed with a left breast cancer in 1993. She was treated with external radiation using tangential beams delivering a dose of 50 Gy without a boost. She has been followed since then has done well with bilateral screening mammograms. On 06/20/2017 she was found to have a new focal area of architectural distortion and associated asymmetry in the lower outer middle one third of the right breast. Additional targeted ultrasound and mammographic images were recommended. On 06/24/2017 the patient underwent an ultrasound of the right breast. This showed an irregular hypoechoic 8mm mass in the right breast at the 9 o'clock position in the subareolar region corresponding to the mammographic abnormality. This mass is suspicious and an ultrasound-guided core needle biopsy was recommended for further evaluation. There was no evidence of right axillary adenopathy appreciated. On 06/29/2017 patient underwent an ultrasound-guided core needle biopsy at the 9 o'clock position of the right breast. She had previously undergone a benign stereotactic biopsy of the right breast on 06/19/2014. This did show calcifications with no tumor seen. Case: [id number]. The more recent biopsy unfortunately revealed an infiltrating ductal carcinoma oftype. Killian grade 2 of 3. 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 There was no perineural or lymphovascular space invasion identified. Estrogen receptors were positive (100%, strong). Progesterone receptors were weak positive (1%, strongly). HER-2/saud was negative by IHC and confirmed negative by FISH analysis. Case: [id number]. Patient was seen by Dr. Ben Lopez who discussed treatment options with this patient. Patient ultimately opted to proceed with a breast conserving therapy consisting of a right partial mastectomy and sentinel normal biopsy. This was performed on 07/25/2017. This confirmed an invasive carcinoma Killian grade 2 of 3 measuring 0.8 x 0.8 x 0.5 cm. 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 The margins were evaluated and were negative. The invasive carcinoma was 2 mm from the anterior margin. The DCIS was less than 1 mm from the anterior margin. A total of 2 sentinel lymph nodes were identified and both were negative. The final AJCC pathologic staging was therefore a pT1b pN0( sn-), ER positive, [place] positive and HER-2/saud negative. Patient was seen by Dr. Gael Del Valle for evaluation and discussion of the role of adjuvant therapy. He has ordered an Oncotype DX test with results pending. We were asked to see the patient in referral to discuss with her the role of adjuvant radiation. Her Oncotype DX score came back at 18. This was reviewed with the patient by medical oncology. Final decision was no chemotherapy. She completed radiation therapy October 11, 2017. She received 5130 cGy utilizing hypo-fractionation. Interim History She has been doing well over the past 6 months. She denies any changes to her breast. She is noted no masses or tenderness and no change of the axilla. She has no swelling of her arm. She is up-to-date on mammography. She had been placed on Arimidex for antiestrogen therapy. She unfortunately developed arthralgias. She reviewed this with the medical oncologist and she was changed to tamoxifen. She is tolerating this very well. She denies joint pain or discomfort. She has no hot flashes. Allergies Coded Allergies: Povidone Iodine (Verified Allergy, Mild, RED RASH AND SKIN IRRITATION, ) MAR OF 04/27/16 SAYS "NO KNOWN DRUG ALLERGIES" Amoxicillin (Unverified Adverse Reaction, Intermediate, NAUSEA, 05/11/18) Clavulanic Acid (Unverified Adverse Reaction, Intermediate, NAUSEA, ) Doxycycline (Unverified Adverse Reaction, Intermediate, NAUSEA, 05/11/18) Mometasone (Unverified Adverse Reaction, Intermediate, NAUSEA, 05/11/18) Nitrofurantoin (Unverified Adverse Reaction, Intermediate, nausea, 05/11/18 ) Sulfa Antibiotics (Verified Adverse Reaction, Mild, NAUSEA/VOMITING, ) MAR OF 04/27/16 SAYS "NO KNOWN DRUG ALLERGIES" Home Medications Scheduled Budesonide/Formoterol Fumarate (Symbicort 160/4.5 Inhaler ), 2 PUFFS INH BID Calcium Carbonate-Vitamin D (Calcium 600 + D), 1 TAB PO BID Citalopram Hydrobromide (Celexa), 40 MG PO QAM Docusate Sodium (Colace), 1 CAP PO BID17 Lisinopril (Zestril), 5 MG PO QAM Polyethylene Glycol 3350 (Miralax), 17 GM PO QAM Propranolol (Inderal), 80 MG PO DAILY Psyllium (Metamucil), 1 DOSE PO QAM Sennosides-Docusate Sodium (Sennalax-S), 1 TAB PO NOON Sennosides-Docusate Sodium (Doc-Q-Lax), 1 TAB PO BID Tamoxifen Citrate (Nolvadex), 1 TAB PO DAILY Scheduled PRN Acetaminophen (Acetaminophen), 2 TABS PO Q4 PRN for Pain Carboxymethylcellulose Sodium (Refresh), 1 DROP OPB Q6 PRN for DRYNESS Hydrocortisone Acetate (Rectal (Anusol-Hc), 1 SUPP WY HS PRN for CONSTI Lorazepam (Ativan), 0.5 MG PO Q4 PRN for Anxiety Tramadol (Ultram), 50 MG PO Q4H PRN for Pain Review of Systems Gastrointestinal: Symptoms: Constipation GI Comments: under control with meds Oral: Symptoms: No Problems Respiratory: Symptoms: WNL Urinary: Symptoms: WNL Skin: Symptoms: No Problems Breast: Right Upper Arm Measurement: 26.0 Right Mid Arm Measurement: 20.5 Right Wrist Measurement: 15.0 Left Upper Arm Measurement: 26.5 Left Mid Arm Measurement: 20.5 Left Wrist Measurement: 15.5 Arm Dominence: Right Physical Exam Vital Signs Date Time Temp Pulse Resp B/P (MAP) Pulse Ox O2 Delivery O2 Flow Rate FiO2 05/18/18 13:43 37.2 72 20 119/64 93 Fatigue: None General Appearance: no apparent distress Eyes: normal inspection, EOMI ENT: normal ENT inspection, hearing grossly normal Neck: no adenopathy, thyroid normal Respiratory/Chest: lungs clear, no respiratory distress, no accessory muscle use Breast: Breast examination reveals bilateral well-healed incisions. There are no masses or tenderness and no axillary adenopathy. On the right there is mild fibrous changes in the area of the incision. There is no edema. She has no nipple changes or skin retractions. Using the Momence score cosmesis she has an excellent outcome. Cardiovascular: regular rate, rhythm, no gallop, no murmur Extremities: no pedal edema Neurologic/Psychiatric: no motor/sensory deficits, alert, normal mood/affect Pain Management Patient Reports Pain: Yes Side: Right Pain Location: Back Patient Preferred Pain Scale: 0 - 10 Initial Pain Intensity: 5.0 Pain Management Plan This is related to arthritis discomfort in her lower back. This is being followed by her primary care provider. Laboratory Laboratory Results: not applicable Pathology Pathology Results: were reviewed, and pertinent findings noted in HPI Imaging Imaging Studies: were reviewed, and pertinent findings noted below Imaging Comments Patient: SUE RODRIGUEZ [facility] Rec: [id number] Address1: [address] Address2: [facility] ID: [id number] Date: 1940 Sex: F Ref Phy: Aliza Pena M.D. Att Phy: Debbie Daugherty PA-C [facility] Phy: [facility] Phy: Yajaira Davila MD [facility] Zip: [place] [address] SC: C.MAMM Report #: [id number] Dental Practitioner: MARCOS Diagnosis: HX R BREAST CA, S/P RADIATION Service Date: 01/16/18 MNE: [id number] Ordering Dr: Debbie Daugherty PA-C CC: Debbie Daugherty PA-C CONF: DICTATED BY: Yajaira Davila MD MAMMOGRAPHY REPORT UNILATERAL RIGHT DIGITAL DIAGNOSTIC MAMMOGRAM TOMOSYNTHESIS WITH CAD: 01/16/2018 CLINICAL HISTORY: 77-year-old woman with right breast invasive ductal carcinoma diagnosed in June 2017 status post lumpectomy and radiation therapy. She presents for the first evaluation in the right breast after treatment. TECHNIQUE: Right breast tomosynthesis in addition to standard 2D mammography was performed. Spot magnification right CC and ML views were also performed over the surgical site. Current study was also evaluated with a Computer Aided Detection (CAD) system. COMPARISON: Comparison is made to exams dated: 07/25/2017 specimen, 06/20/2017 mammogram, 06/15/2016 mammogram, 06/12/2015 mammogram, 11/28/2014 mammogram, and mammogram - [facility]. BREAST COMPOSITION: The tissue of the right breast is heterogeneously dense, which may obscure small masses. FINDINGS: There is expected architectural distortion in the central right breast , at the site of recent lumpectomy. Both the dumbbell-shaped and ribbon shaped biopsy marker clips were removed at the time of surgery. Now, 2 slightly larger linear surgical clips are seen in the posterior, retroareolar right breast. There is mild diffuse skin thickening and trabecular edema, likely related to prior treatment. Minimal vascular calcification and a few benign rim calcifications in the right breast. No suspicious mass, architectural distortion, suspicious asymmetry or cluster of suspicious microcalcifications is seen. IMPRESSION: ACR-BI-RADS CATEGORY 3: PROBABLY BENIGN Expected postsurgical and postradiation changes in the right breast, without definite mammographic evidence of malignancy. Recommend another close follow- up right diagnostic tomosynthesis mammogram in 6 months, to ensure longer stability after treatment. Annual left mammography will also be due at that time. These results and recommendations were discussed with the patient at the time of the exam. Approximately 10% of breast cancers are not detected with mammography. A negative mammographic report should not delay biopsy if a clinically suggestive mass is present. Yajaira Davila M.D. ay/:01/16/2018 11:52:12 Senior Devops Engineer: Toyin MCCANN(Naman)(Cristela), [facility] letter sent: Follow Up Recommended 3 BI-RADS Code: ACR-BI-RADS Category 3: Probably Benign Dictated by: Yajaira Davila MD Signed by: Yajaira Davila MD Assessment & Plan Plan: Continue with scheduled mammography. She has mammogram scheduled for July 18, 2018. Continue follow-up with her primary care physician and medical oncologist. We asked her to return to our office in 1 year. She may call if she has any questions or concerns in the interim. Total Time In Follow-Up I spent 20 minutes speaking to the patient in performing examination. I spent 15 minutes reviewing information and completing this note. AK Copy To Ben Miller M.D.; Gael Del Valle MD; Justin Garg M.D. Problem Qualifiers (1) Breast cancer: Breast location: central portion of breast Estrogen receptor status: positive Patient sex: female Laterality: right Qualified Codes: C50.111 - Malignant neoplasm of central portion of right female breast; Z17.0 - Estrogen receptor positive status [ER+]
== END | disposition home or self-care (01) ==
LOC: C.ONC 13:15
PROVIDERS: ATTEND Physician Assistant Medical
DX: Z08 Encounter for follow-up examination after completed treatment for malignant neoplasm (principal); Z92.3 Personal history of irradiation; Z85.3 Personal history of malignant neoplasm of breast

== ENCOUNTER 2021-08-14 08:03 | Inpatient (IN) ==
--- NOTE | 2021-08-14 08:30 | Emergency Department Note ---
Impression & Plan Confusion ED Provider Note Provider: Tripp Orellana MD DATE OF SERVICE: 08/14/2021 CHIEF COMPLAINT: Confusion HISTORY OF PRESENT ILLNESS: Patient is a 80-year-old female past medical history of benign tremor, osteoporosis, breast cancer, subdural hematoma status post evacuation, and recent fall with right distal tibial fracture presenting via ambulance from her facility today with report acute onset this morning of confusion. Evidently last night the patient was oriented and doing well. She recently fell and was seen by orthopedics and placed in a boot with her right foot. Per EMS nursing report the patient evidently this morning did not remember this and does intermittently seem to be confused about what is going on. Patient herself denies any pain. She is unable to tell me the year or why she is here. Patient denies shortness of breath or headache or dizziness. She denies any nausea or pain. She states her tremors a little bit worse but she always has it. Patient does repeatedly ask for my name during the interview seemingly forgetting it. REVIEW OF SYSTEMS: A total of 10 review of systems was obtained and negative except as stated above in the HPI. PAST MEDICAL HISTORY: As noted above MEDICATIONS: Reviewed medication list from the facility SOCIAL HISTORY: Resides at [facility] PHYSICAL EXAM: GENERAL: alert and oriented to person in no acute distress on stretcher but not oriented to recent events or year Head: Atraumatic with for prior but appear to be healed bur hole sites from prior subdural evacuation EYES: No injection, discharge or icterus. PERRL NECK: Trachea midline. Supple. ENT: Mucous membranes pink and moist. LUNGS: Airway patent. No retractions. Breath sounds clear HEART: Regular rate and rhythm. No chest wall tenderness ABDOMEN: Soft and non-tender, without guarding or rebound. SKIN: Acyanotic, warm, dry, without rashes EXTREMITIES: Without swelling, tenderness or deformity except for boot on the right lower foot with intact sensation in the right foot. NEUROLOGICAL: No focal deficits with resting tremor of the upper extremities appreciated no aphasia. No facial droop or slurred speech. EK bpm normal sinus rhythm. No PVC or PAC. No acute ST segment elevation or depression some nonspecific T wave changes. CONTINUOUS CARDIAC MONITORING: was ordered and showed a heart rate of 70-90s bpm in normal sinus rhythm Patient's laboratory studies and imaging reviewed. Differential includes Infection, dehydration, metabolic abnormality, hypo/hyperglycemia, electrolyte disturbance, anemia, hypoxia, cardiac sources, intracerebral event, toxicologic, neurologic, as well as other pathologies. IMPRESSION/MEDICAL DECISION MAKING: Patient presents with onset of confusion overnight. Patient fell several days ago and broke her ankle and does not remember this. Acute change per EMS report from the staff. Patient noted to be somewhat hypertensive here. No significant focal numbness or weakness. Patient does repeat questions and asks my name several times during the interview. CT the head shows evidence of chronic with possible acute subdural hemorrhage. Discussed with the patient and given her somewhat confused state her daughter via phone. Discussed with Dr. Simon of [facility] and attempted to push the images there electronically for him to evaluate. In discussion with the patient's daughter via phone reports that the patient usually frequently calling her daughter and asking for updates and giving updates when she is at the ER in the hospital and this is not like her to not be in as close contact as normal. Upon reviewing the imaging with neurosurgery they believed the images were similar and did not see any findings to explain her confusion from this and there was no mass- effect. Again we did not have recent comparative imaging here but they did not again do not feel that this was a new bleed. Blood work here is reassuring. Patient is known to be hypertensive. Chest x- ray clear. Given the question of possible head injury a CT there is her compl aints completed though she does not have significant pain here. No significant lecture light abnormalities of thyroid dysfunction or troponin elevation. Urine sample was ordered and cath sample was obtained not that impressive for UTI. Given her confusion believe she needs further work-up here and the hospitalist was contacted. DIAGNOSIS: Acute confusion DISPOSITION: Hospitalist will evaluate for further care. I did update the patient's daughter Guillermina via phone regarding the lack of findings at this point but plan for further care here at the hospital for further evaluation. She did inquired about the possibility of an MRI being performed and I stated of the hospitalist team would likely consider this and be in close contact with her to try to further update her and work to evaluate her mothers confusion. Past Med/Surg History Medical History (Updated 08/14/21 @ 12:55 by Rey Del Toro MD) Acute subdural hematoma H/O malignant neoplasm of breast History of basal cell cancer Surgical History S/P breast lumpectomy S/P dilation and curettage S/P knee surgery Family History Father Hypertension Stroke Unknown Cancer Denies family history of Colon cancer Ovarian cancer Prostate cancer Myocardial infarction Breast cancer Social History Smoking Status: Never smoker Second Hand Exposure: Yes; Hx Alcohol Use: No Hx Substance Use: No Preferred Language: Uzbek Communication Ability: Effective Visual Impairment: No Limitations Hearing Ability: Normal Beliefs That Will Affect Care: None marital status: current occupational status: retired Feels Safe at Home: Yes Childhood Exposure to Second-Hand Smoke: No Dental Care, Regularly: Yes Physical Activity Frequency: 1-2 Times per Week Seatbelt Use: always Sunscreen Use: Yes Allergies Allergies Allergy/AdvReac Type Severity Reaction Status Date / Time povidone-iodine Allergy Mild RED RASH Verified 08/14/21 10:56 AND SKIN IRRITATION amoxicillin AdvReac Intermediate NAUSEA Verified 08/14/21 10:56 clavulanic acid AdvReac Intermediate NAUSEA Verified 08/14/21 10:56 doxycycline AdvReac Intermediate NAUSEA Verified 08/14/21 10:56 mometasone furoate AdvReac Intermediate NAUSEA Verified 08/14/21 10:56 nitrofurantoin AdvReac Intermediate nausea Verified 08/14/21 10:56 Sulfa (Sulfonamide AdvReac Mild NAUSEA/VOMI Verified 08/14/21 10:56 Antibiotics) TING Home Meds Home Medications Medication Instructions Recorded Confirmed polyethylene glycol 3350 17 17 gm PO QAM 05/17/19 08/14/21 gram/dose oral powder (Miralax) sennosides 8.6 mg-docusate sodium 1 tab PO QDL 05/17/19 08/14/21 50 mg tablet (Senna Plus) tamoxifen 20 mg tablet 20 mg PO QAM 06/02/19 08/14/21 calcium carbonate 600 mg (1,500 1 tab PO BID tab 06/04/19 08/14/21 mg)-vitamin D3 200 unit tablet docusate sodium 100 mg capsule 100 mg PO BID cap 06/04/19 08/14/21 cholecalciferol (vitamin D3) 50 50 mcg PO QAM 03/03/21 08/14/21 mcg (2,000 unit) capsule hydrocortisone 2.5 % topical cream 1 applic AZ DAILY PRN 04/24/21 08/14/21 with perineal applicator (Proctozone-HC) artificial tears with lanolin eye 1 applic OPB HS 08/14/21 08/14/21 ointment citalopram 40 mg tablet (Celexa) 40 mg PO QAM 08/14/21 08/14/21 guaifenesin 100 mg/5 mL oral 200 mg PO Q4H PRN 08/14/21 08/14/21 liquid (Tussin Expectorant) lisinopril 10 mg tablet 5 mg PO QAM 08/14/21 08/14/21 polyvinyl alcohol-povidone (PF) 1 drp OPHTHALMIC (EYE) 6XD 08/14/21 08/14/21 1.4 %-0.6 % eye drops in a dropperette (Refresh Classic (PF)) propranolol 120 mg capsule,24 120 mg PO QAM 08/14/21 08/14/21 hr,extended release Previous Rx's Medication Instructions Recorded acetaminophen 500 mg capsule 500 mg PO BID PRN #180 cap 03/31/20 tramadol 50 mg tablet 50 mg PO HS PRN #30 tab 09/02/20 budesonide-formoterol HFA 160 2 puff INH BID #10.2 gm 02/05/21 mcg-4.5 mcg/actuation aerosol inhaler (Symbicort) gabapentin 400 mg capsule 400 mg PO TID #90 cap 06/29/21 lorazepam 0.5 mg tablet (Ativan) 0.5 mg PO Q12H PRN #20 tab 07/16/21 Results & Data (ED) Vital Signs Vital Signs - 24 hr 08/14/21 08:10 08/14/21 08:23 08/14/21 08:26 Temperature 36.7 C Temperature Source Oral Pulse Rate 80 81 Pulse Rate [Apical] Pulse Rate from SpO2 Sensor 238 H Pulse Rhythm Regular Pulse Rhythm [Apical] Pulse Strength Normal Respiratory Rate 22 17 Respiratory Effort / Characteristics Non-Labored Spontaneous Respiratory Depth Normal Respiratory Pattern Regular Blood Pressure 227/87 H Blood Pressure [Left Arm] Blood Pressure Mean 133 Blood Pressure Mean [Left Arm] Blood Pressure Position Sitting Blood Pressure Position [Left Arm] Pulse Oximetry 94 84 L 98 Oxygen Delivery Method Room Air Nasal Cannula Oxygen Flow Rate 2 Sepsis Recent Fever Within 48 Hours No Sepsis New/Unexplained Change in Mental Status No Sepsis Action Taken by Nursing No Action Required 08/14/21 08:30 08/14/21 08:40 08/14/21 08:56 Temperature Temperature Source Pulse Rate 74 76 79 Pulse Rate [Apical] Pulse Rate from SpO2 Sensor 75 Pulse Rhythm Pulse Rhythm [Apical] Pulse Strength Respiratory Rate 19 22 Respiratory Effort / Characteristics Respiratory Depth Respiratory Pattern Blood Pressure Blood Pressure [Left Arm] Blood Pressure Mean Blood Pressure Mean [Left Arm] Blood Pressure Position Blood Pressure Position [Left Arm] Pulse Oximetry 96 Oxygen Delivery Method Oxygen Flow Rate Sepsis Recent Fever Within 48 Hours Sepsis New/Unexplained Change in Mental Status Sepsis Action Taken by Nursing 08/14/21 08:58 08/14/21 09:00 08/14/21 11:00 Temperature Temperature Source Pulse Rate 78 Pulse Rate [Apical] 77 Pulse Rate from SpO2 Sensor 77 Pulse Rhythm Pulse Rhythm [Apical] Regular Pulse Strength Respiratory Rate 18 14 16 Respiratory Effort / Characteristics Non-Labored Non-Labored Respiratory Depth Normal Normal Respiratory Pattern Blood Pressure 207/93 H Blood Pressure [Left Arm] 198/91 H 158/78 H Blood Pressure Mean 131 Blood Pressure Mean [Left Arm] 126 104 Blood Pressure Position Blood Pressure Position [Left Arm] Lying Pulse Oximetry 100 99 94 Oxygen Delivery Method Nasal Cannula Room Air Oxygen Flow Rate 2 Sepsis Recent Fever Within 48 Hours Sepsis New/Unexplained Change in Mental Status Sepsis Action Taken by Nursing 08/14/21 13:00 Temperature Temperature Source Pulse Rate Pulse Rate [Apical] 92 H Pulse Rate from SpO2 Sensor Pulse Rhythm Pulse Rhythm [Apical] Regular Pulse Strength Respiratory Rate 16 Respiratory Effort / Characteristics Non-Labored Respiratory Depth Normal Respiratory Pattern Blood Pressure Blood Pressure [Left Arm] 164/84 H Blood Pressure Mean Blood Pressure Mean [Left Arm] 110 Blood Pressure Position Blood Pressure Position [Left Arm] Pulse Oximetry 95 Oxygen Delivery Method Room Air Oxygen Flow Rate Sepsis Recent Fever Within 48 Hours Sepsis New/Unexplained Change in Mental Status Sepsis Action Taken by Nursing Laboratory Data Result diagrams: 08/14/21 08:25 08/14/21 08:25 Lab Results 08/14/21 08/14/21 08/14/21 Range/Units 08:25 08:25 08:25 WBC 7.35 (4.8-10.8) K/uL RBC 3.77 L (4.2-5.4) M/uL Hgb 10.8 L (12.0-16.0) g/dL Hct 34.1 L (37-47) % MCV 90.5 (80-100) fL MCH 28.6 (25-34) pg MCHC 31.7 L (32-36) g/dL RDW Std Deviation 47.0 H (36.4-46.3) fL RDW Coeff of Adarsh 14.1 (11.5-14.5) % Plt Count 300 (130-400) K/uL MPV 9.3 (7.4-10.4) fL Immature Gran % (Auto) 0.3 % Neut % (Auto) 68.4 % Lymph % (Auto) 21.1 % Madison % (Auto) 7.9 % Eos % (Auto) 1.9 % Baso % (Auto) 0.4 % Neut # (Auto) 5.03 (1.4-6.5) K/uL Lymph # (Auto) 1.55 (1.2-3.4) K/uL Madison # (Auto) 0.58 (0.11-0.59) K/uL Eos # (Auto) 0.14 (0-0.5) K/uL Baso # (Auto) 0.03 (0-0.2) K/uL Immature Gran # (Auto) 0.02 (0.00-0.02) K/uL PT 9.8 (9.0-12.0) Seconds INR 1.0 (0.9-1.1) Sodium 139 (136-145) mmol/L Potassium 3.8 (3.5-5.1) mmol/L Chloride 104 (98-107) mmol/L Carbon Dioxide 27 (21-32) mmol/L Anion Gap 8.0 (3-11) BUN 13 (7-18) mg/dl Creatinine 0.71 (0.6-1.2) mg/dl Est Cr Clr Drug Dosing 49.1 ml/min Est GFR ( Amer) 92.6 ml/min Est GFR (Non-Af Amer) 79.9 ml/min BUN/Creatinine Ratio 18.5 (10-20) Glucose 101 H (70-99) mg/dl Lactate (0.4-2.0) mmol/L Calcium 8.8 (8.5-10.1) mg/dl Total Bilirubin 0.5 (0.2-1) mg/dl AST 20 (15-37) U/L ALT 18 (12-78) U/L Alkaline Phosphatase 54 (45-117) U/L Troponin I < 0.015 (0-0.045) ng/ml Total Protein 6.8 (6.4-8.2) gm/dl Albumin 2.9 L (3.4-5.0) gm/dl Globulin 3.9 (2.5-4.0) gm/dl Albumin/Globulin Ratio 0.7 L (0.9-2) TSH 1.180 (0.300-4.500) uIu/ml Urine Color Urine Appearance (Clear) Urine pH (4.5-7.5) Ur Specific Titus (1.000-1.030) Urine Protein (Negative) Urine Glucose (UA) (Negative) Urine Ketones (Negative) Urine Blood (Negative) Urine Nitrite (Negative) Urine Bilirubin (Negative) Urine Urobilinogen (Negative) Ur Leukocyte Esterase (Negative) Urine RBC Urine WBC Ur Epithelial Cells Amorphous Sediment (None Prsent) Urine Bacteria 08/14/21 08/14/21 Range/Units 08:25 11:50 WBC (4.8-10.8) K/uL RBC (4.2-5.4) M/uL Hgb (12.0-16.0) g/dL Hct (37-47) % MCV (80-100) fL MCH (25-34) pg MCHC (32-36) g/dL RDW Std Deviation (36.4-46.3) fL RDW Coeff of Adarsh (11.5-14.5) % Plt Count (130-400) K/uL MPV (7.4-10.4) fL Immature Gran % (Auto) % Neut % (Auto) % Lymph % (Auto) % Madison % (Auto) % Eos % (Auto) % Baso % (Auto) % Neut # (Auto) (1.4-6.5) K/uL Lymph # (Auto) (1.2-3.4) K/uL Madison # (Auto) (0.11-0.59) K/uL Eos # (Auto) (0-0.5) K/uL Baso # (Auto) (0-0.2) K/uL Immature Gran # (Auto) (0.00-0.02) K/uL PT (9.0-12.0) Seconds INR (0.9-1.1) Sodium (136-145) mmol/L Potassium (3.5-5.1) mmol/L Chloride (98-107) mmol/L Carbon Dioxide (21-32) mmol/L Anion Gap (3-11) BUN (7-18) mg/dl Creatinine (0.6-1.2) mg/dl Est Cr Clr Drug Dosing ml/min Est GFR ( Amer) ml/min Est GFR (Non-Af Amer) ml/min BUN/Creatinine Ratio (10-20) Glucose (70-99) mg/dl Lactate 0.6 (0.4-2.0) mmol/L Calcium (8.5-10.1) mg/dl Total Bilirubin (0.2-1) mg/dl AST (15-37) U/L ALT (12-78) U/L Alkaline Phosphatase (45-117) U/L Troponin I (0-0.045) ng/ml Total Protein (6.4-8.2) gm/dl Albumin (3.4-5.0) gm/dl Globulin (2.5-4.0) gm/dl Albumin/Globulin Ratio (0.9-2) TSH (0.300-4.500) uIu/ml Urine Color Yellow Urine Appearance Cloudy A (Clear) Urine pH 8.5 H (4.5-7.5) Ur Specific Titus 1.014 (1.000-1.030) Urine Protein Negative (Negative) Urine Glucose (UA) Negative (Negative) Urine Ketones Trace H (Negative) Urine Blood Negative (Negative) Urine Nitrite Negative (Negative) Urine Bilirubin Negative (Negative) Urine Urobilinogen Negative (Negative) Ur Leukocyte Esterase Negative (Negative) Urine RBC Not Reportable Urine WBC Not Reportable Ur Epithelial Cells Not Reportable Amorphous Sediment Present A (None Prsent) Urine Bacteria Not Reportable Administered Medications Discontinued Medications Acetaminophen (Acetaminophen 650 Mg Supp) 650 mg AZ NOW STA Stop: 08/14/21 11:38 Last Admin: 08/14/21 12:39 Dose: Not Given Documented by: [id number] Acetaminophen (Acetaminophen 325 Mg Tab) 650 mg PO NOW STA Stop: 08/14/21 11:38 Last Admin: 08/14/21 11:49 Dose: 650 mg Documented by: [id number] Imaging Data Radiologist's Impression: Chest X-Ray 08/14/21 08:26 SINGLE VIEW CHEST CLINICAL HISTORY: Change in mental status. FINDINGS: An AP, portable, upright chest radiograph is compared to study dated 11/12/2020 and correlated with chest CT dated 05/10/2016. A hiatal hernia is noted. The heart is top normal for projection noting atherosclerotic calcifica tion of the thoracic aorta. Chronic interstitial thickening and nodularity is similar to prior studies. There is bibasilar scarring/atelectasis. No airspace consolidation or large pleural effusion is identified. No pneumothorax is seen. The skeletal structures are osteopenic. The bony thorax is grossly intact. IMPRESSION: Chronic changes as above with no acute cardiopulmonary abnormality. ACT 112: Negative or not required by law. Electronically signed by: Diogo Moreno M.D. 08/14/2021 9:[address] 08/14/21 08:26 CT SCAN OF THE BRAIN WITHOUT IV CONTRAST CLINICAL HISTORY: Change in mental status. COMPARISON STUDY: CT of the brain dated 04/27/2016 TECHNIQUE: Unenhanced axial CT scan of the brain is performed from the vertex to the skull base. A dose lowering technique was utilized adhering to the principles of ALARA. CT DOSE: 614.27 mGy.cm FINDINGS: Brain parenchyma: There are age-related involutional changes noting mild subcortical and periventricular microangiopathic change. There is no parenchymal hemorrhage, mass effect, or evidence of acute territorial ischemia by CT criteria. Hyman-white matter differentiation is preserved. There is a low- attenuation extra-axial collection along the frontal convexity which measures up to 7 mm in diameter. This likely represents a chronic subdural hemorrhage/hygroma. There is hyperdense thickening versus trace hypodense extra- axial fluid seen along the anterior falx. There is also mildly complex fluid along the anterior bifrontal convexity seen on axial images #18-24. Ventricles, sulci, cisterns: Prominent secondary to involutional change. Intracranial vasculature: There is atherosclerotic calcification of the cavernous carotid and vertebral arteries. Calvarium: There are bilateral frontal and parietal chen holes. Sinuses and mastoids: There is subtotal opacification of the maxillary antra and the left ethmoid sinuses. Thickening and sclerosis of the sinus constantino indicating chronicity. Mild mucosal thickening is noted within the right ethmoid sinuses. The mastoid air cells are well pneumatized. Orbits: The bony orbits are grossly intact. There are bilateral ocular lens implants. IMPRESSION: 1. There is no parenchymal hemorrhage, mass effect, or evidence of acute territorial ischemia by CT criteria. 2. There is a small low-attenuation extra-axial fluid collection along the right frontal convexity which likely resents a chronic subdural hematoma/hygroma. 3. There is hyperdense thickening versus trace complex/hyperdense extra-axial fluid along the anterior interhemispheric falx, as well as minimally complex fluid seen anteriorly along the bifrontal convexity. These findings are suspicious for a small acute to subacute on chronic subdural hemorrhage. Correlation with any more recent prior outside imaging examinations is recommended. ACT 112: Negative or not required by law. Electronically signed by: Diogo Moreno M.D. 08/14/2021 9:[address] 08/14/21 09:42 CT cervical spine wo con CLINICAL HISTORY: fall TECHNIQUE: Multidetector row helical CT of the cervical spine was performed without administration of intravenous contrast. Coronal and sagittal reform ations were obtained. Automated dose lowering techniques and/or adjustment according to patient size were utilized for this exam. Comparison: None available at the time of this dictation. FINDINGS: No acute fractures or subluxations are identified. The alignment is normal. Degenerative changes are seen in the visualized spine. Biapical scarring is seen. Calcification of the posterior longitudinal ligament is incidentally noted. IMPRESSION: Degenerative changes without evidence of acute bony injury. ACT 112: Negative or not required by law. Electronically signed by: Derick Dubose M.D. 08/14/2021 10:36 AM Discharge Plan Visit Data Chief Complaint: Confusion Stated Complaint: AMS, CONFUSION ED Provider: Tripp Orellana Discharge Problem: Confusion Patient Disposition: Being Evaluated by Hospitalist Forms Stand Alone Forms: My [facility] Prescriptions Prescriptions: No Action sennosides-docusate sodium [Senna Plus] 8.6-50 mg tablet 1 tab PO QDL RF: 0 polyethylene glycol 3350 [Miralax] 17 gram/dose powder 17 gm PO QAM RF: 0 acetaminophen 500 mg capsule 500 mg PO BID PRN (Reason: pain) Qty: 180 RF: 3 tramadol 50 mg tablet 50 mg PO HS PRN (Reason: pain) Qty: 30 RF: 2 Symbicort 160-4.5 mcg/actuation HFA aerosol inhaler 2 puff INH BID Qty: 10.2 RF: 11 gabapentin 400 mg capsule 400 mg PO TID Qty: 90 RF: 5 lorazepam [Ativan] 0.5 mg tablet 0.5 mg PO Q12H PRN (Reason: anxiety) Qty: 20 RF: 0 tamoxifen 20 mg tablet 20 mg PO QAM RF: 0 docusate sodium 100 mg capsule 100 mg PO BID RF: 0 calcium carbonate-vitamin D3 600 mg(1,500mg) -200 unit tablet 1 tab PO BID RF: 0 hydrocortisone [Proctozone-HC] 2.5 % cream with perineal applicator 1 applic [place] DAILY PRN (Reason: Hemorrhoids) RF: 0 cholecalciferol (vitamin D3) 50 mcg (2,000 unit) capsule 50 mcg PO QAM RF: 0 guaifenesin [Tussin Expectorant] 100 mg/5 mL Liquid 200 mg PO Q4H PRN (Reason: Cough) RF: 0 Refresh Classic (PF) 1.4-0.6 % Dropperette 1 drp OPHTHALMIC (EYE) 6XD RF: 0 Refresh P.M. (lanolin) Ointment 1 applic OPB HS RF: 0 citalopram [Celexa] 40 mg tablet 40 mg PO QAM RF: 0 lisinopril 10 mg tablet 5 mg PO QAM RF: 0 propranolol 120 mg capsule,extended release 24 hr 120 mg PO QAM RF: 0 Referrals Referrals: Justin Garg MD [Primary Care Provider] -
[2021-08-14 08:36] LABS: Basophils # (auto) 0.03 K/uL (0-0.2); Basophils % (auto) 0.4 %; Eosinophils # (auto) 0.14 K/uL (0-0.5); Eosinophils % (auto) 1.9 %; Hematocrit (blood only) 34.1 % (37-47); Hemoglobin 10.8 g/dL (12.0-16.0); Immature Granulocytes # (auto) 0.02 K/uL (0.00-0.02); Immature Granulocytes % (auto) 0.3 %; Lymphocytes # (auto) 1.55 K/uL (1.2-3.4); Lymphocytes % (auto) 21.1 %; Mean Corpuscular Hemoglobin 28.6 pg (25-34); Mean Corpuscular Hgb Conc 31.7 g/dL (32-36); Mean Corpuscular Volume 90.5 fL (80-100); Mean Platelet Volume 9.3 fL (7.4-10.4); Monocytes # (auto) 0.58 K/uL (0.11-0.59); Monocytes % (auto) 7.9 %; Neutrophils # (auto) 5.03 K/uL (1.4-6.5); Neutrophils % (auto) 68.4 %; Platelet Count 300 K/uL (130-400); RDW Coefficient of Variation 14.1 % (11.5-14.5); Red Blood Count 3.77 M/uL (4.2-5.4); White Blood Count 7.35 K/uL (4.8-10.8)
[2021-08-14 08:49] LABS: Prothrombin Time 9.8 Seconds (9.0-12.0)
[2021-08-14 08:55] LABS: Alanine Aminotransferase 18 U/L (12-78); Albumin Level 2.9 gm/dl (3.4-5.0); Aspartate Aminotransferase 20 U/L (15-37); BUN Creatinine Ratio 18.5 (10-20); Blood Urea Nitrogen 13 mg/dl (7-18); Calcium 8.8 mg/dl (8.5-10.1); Carbon Dioxide 27 mmol/L (21-32); Chloride 104 mmol/L (98-107); Creatinine Clr Calc Pharmacy 49.1 ml/min; Est GFR (African American) 92.6 ml/min; Est GFR (Non-African American) 79.9 ml/min; Glucose 101 mg/dl (70-99); Potassium 3.8 mmol/L (3.5-5.1); Sodium 139 mmol/L (136-145)
[2021-08-14 09:06] LABS: Albumin Globulin Ratio 0.7 (0.9-2); Alkaline Phosphatase 54 U/L (45-117); Bilirubin,Total 0.5 mg/dl (0.2-1); Globulin 3.9 gm/dl (2.5-4.0); Total Protein 6.8 gm/dl (6.4-8.2); Troponin I < 0.015 ng/ml (0-0.045)
--- NOTE | 2021-08-14 09:09 | CT Scan Report ---
CT SCAN OF THE BRAIN WITHOUT IV CONTRAST CLINICAL HISTORY: Change in mental status. COMPARISON STUDY: CT of the brain dated 04/27/2016 TECHNIQUE: Unenhanced axial CT scan of the brain is performed from the vertex to the skull base. A do se lowering technique was utilized adhering to the principles of ALARA. CT DOSE: 614.27 mGy.cm FINDINGS: Brain parenchyma: There are age-related involutional changes noting mild subcortical and periventric ular microangiopathic change. There is no parenchymal hemorrhage, mass effect, or evidence of acute t erritorial ischemia by CT criteria. Hyman-white matter differentiation is preserved. There is a low-at tenuation extra-axial collection along the frontal convexity which measures up to 7 mm in diameter. T his likely represents a chronic subdural hemorrhage/hygroma. There is hyperdense thickening versus tr ham hypodense extra-axial fluid seen along the anterior falx. There is also mildly complex fluid dallin g the anterior bifrontal convexity seen on axial images #18-24. Ventricles, sulci, cisterns: Prominent secondary to involutional change. Intracranial vasculature: There is atherosclerotic calcification of the cavernous carotid and vertebr al arteries. Calvarium: There are bilateral frontal and parietal chen holes. Sinuses and mastoids: There is subtotal opacification of the maxillary antra and the left ethmoid sin uses. Thickening and sclerosis of the sinus constantino indicating chronicity. Mild mucosal thickening is n oted within the right ethmoid sinuses. The mastoid air cells are well pneumatized. Orbits: The bony orbits are grossly intact. There are bilateral ocular lens implants. IMPRESSION: 1. There is no parenchymal hemorrhage, mass effect, or evidence of acute territorial ischemia by CT c riteria. 2. There is a small low-attenuation extra-axial fluid collection along the right frontal convexity wh ich likely resents a chronic subdural hematoma/hygroma. 3. There is hyperdense thickening versus trace complex/hyperdense extra-axial fluid along the anterio r interhemispheric falx, as well as minimally complex fluid seen anteriorly along the bifrontal conve xity. These findings are suspicious for a small acute to subacute on chronic subdural hemorrhage. Cor relation with any more recent prior outside imaging examinations is recommended. ACT 112: Negative or not required by law. Electronically signed by: Diogo Moreno M.D. 08/14/2021 9:08 AM
--- NOTE | 2021-08-14 09:53 | XRay Report ---
SINGLE VIEW CHEST CLINICAL HISTORY: Change in mental status. FINDINGS: An AP, portable, upright chest radiograph is compared to study dated 11/12/2020 and correlat ed with chest CT dated 05/10/2016. A hiatal hernia is noted. The heart is top normal for projection no ting atherosclerotic calcification of the thoracic aorta. Chronic interstitial thickening and nodular ity is similar to prior studies. There is bibasilar scarring/atelectasis. No airspace consolidation o r large pleural effusion is identified. No pneumothorax is seen. The skeletal structures are osteopen ic. The bony thorax is grossly intact. IMPRESSION: Chronic changes as above with no acute cardiopulmonary abnormality. ACT 112: Negative or not required by law. Electronically signed by: Diogo Moreno M.D. 08/14/2021 9:52 AM
--- NOTE | 2021-08-14 10:37 | CT Scan Report ---
CT cervical spine wo con CLINICAL HISTORY: fall TECHNIQUE: Multidetector row helical CT of the cervical spine was performed without administration of intravenous contrast. Coronal and sagittal reformations were obtained. Automated dose lowering techn iques and/or adjustment according to patient size were utilized for this exam. Comparison: None available at the time of this dictation. FINDINGS: No acute fractures or subluxations are identified. The alignment is normal. Degenerative changes are seen in the visualized spine. Biapical scarring is seen. Calcification of the posterior longitudinal ligament is incidentally noted. IMPRESSION: Degenerative changes without evidence of acute bony injury. ACT 112: Negative or not required by law. Electronically signed by: Derick Dubose M.D. 08/14/2021 10:36 AM
[2021-08-14] MEDS ORDERED: ACETAMINOPHEN 325 MG TAB PO STA (11:37)
[2021-08-14] MEDS ORDERED: ACETAMINOPHEN 650 MG SUPP PR STA (11:37)
[2021-08-14 12:03] LABS: Appearance Urine Cloudy (Clear); Bilirubin Urine Negative (Negative); Blood Urine Negative (Negative); Color Urine Yellow; Glucose Urine UA Negative (Negative); Ketones Urine Trace (Negative); Leukocyte Esterase Urine Negative (Negative); Nitrite Urine Negative (Negative); Protein Urine Negative (Negative); Specific Gravity Urine 1.014 (1.000-1.030); Urobilinogen Urine Negative (Negative); pH Urine 8.5 (4.5-7.5)
[2021-08-14 12:17] LABS: Amorphous Sediment Urine Present (None Prsent)
--- NOTE | 2021-08-14 12:23 | History & Physical Report ---
Date of Service August 14, 2021 Assessment & Plan (1) Subdural hematoma: Plan: Patient presents with encephalopathy of undetermined etiology at this time. Initial serology and urine analysis are unremarkable. Images of her brain appear to be consistent with a resolving subdural hematoma. Reportedly Dr. Ugalde spoke with Dr. Simon of [facility] neurosurgery who reviewed the images and felt this was evolution of resolution of previous chronic subdu ral hematoma but did not feel this was an acute new bleed. Repeat imaging 24 hours to determine if any change look for secondary causes of metabolic or toxic encephalopathy provide a safe environment and supportive care stopping neurontin and ultram in case of toxic encephalopathy, these are long standing meds however with age gfr is changing, these are typically for LBP, will apply lidoderm patch (2) Fracture of distal end of fibula: Plan: Recent fall with tib-fib fracture splinting remains in place certainly concerned if there is a metabolic cause of her fall prior to this that may be now manifesting itself as encephalopathy (3) Depression: Plan: Continues on Celexa (4) Breast cancer: Plan: Continues on tamoxifen (5) Hypertension: Plan: Lisinopril is used and propranolol may be used for tremor (6) Asthma: Plan: continue symbicort (7) DVT prophylaxis: Plan: Chemoprophylaxis contraindicated with concern for subdural hematoma History of Present Illness Primary Care Provider: Justin Garg MD 80-year-old female past medical history of benign tremor, osteoporosis, breast cancer, subdural hematoma status post evacuation, and recent fall. 08/11/21. with right distal tibial fracture presenting via ambulance from her facility today with report acute onset this morning of confusion. Evidently last night the patient was oriented and doing well. Shewas seen by orthopedics and placed in a boot 08/11/21 of her right foot. Per EMS nursing report the patient evidently this morning did not remember this and does intermittently seem to be confused about what is going on. Patient herself denies any pain. She is unable to tell me the year or why she is here. Patient denies shortness of breath or headache or dizziness. She denies any nausea or pain. She states her tremors a little bit worse but she always has it. Patient does repeatedly ask for my name during the interview seemingly forgetting it. CT of head 11/19/21 shows small extra axial fluid collection representing chronic sdh, there are other areas that may seem to be actue on chronic shh, however m[place] [facility] [place] concurs this is not acute but evolution of change of previous sdh Allergies Allergy/AdvReac Type Severity Reaction Status Date / Time povidone-iodine Allergy Mild RED RASH Verified 08/14/21 10:56 AND SKIN IRRITATION amoxicillin AdvReac Intermediate NAUSEA Verified 08/14/21 10:56 clavulanic acid AdvReac Intermediate NAUSEA Verified 08/14/21 10:56 doxycycline AdvReac Intermediate NAUSEA Verified 08/14/21 10:56 mometasone furoate AdvReac Intermediate NAUSEA Verified 08/14/21 10:56 nitrofurantoin AdvReac Intermediate nausea Verified 08/14/21 10:56 Sulfa (Sulfonamide AdvReac Mild NAUSEA/VOMI Verified 08/14/21 10:56 Antibiotics) TING Home Medications Medication Instructions Recorded Confirmed Type polyethylene glycol 3350 17 17 gm PO QAM 05/17/19 08/14/21 History gram/dose oral powder (Miralax) sennosides 8.6 mg-docusate sodium 1 tab PO QDL 05/17/19 08/14/21 History 50 mg tablet (Senna Plus) tamoxifen 20 mg tablet 20 mg PO QAM 06/02/19 08/14/21 History calcium carbonate 600 mg (1,500 1 tab PO BID tab 06/04/19 08/14/21 History mg)-vitamin D3 200 unit tablet docusate sodium 100 mg capsule 100 mg PO BID cap 06/04/19 08/14/21 History acetaminophen 500 mg capsule 500 mg PO BID PRN #180 cap 03/31/20 08/14/21 Rx tramadol 50 mg tablet 50 mg PO HS PRN #30 tab 09/02/20 08/14/21 Rx budesonide-formoterol HFA 160 2 puff INH BID #10.2 gm 02/05/21 08/14/21 Rx mcg-4.5 mcg/actuation aerosol inhaler (Symbicort) cholecalciferol (vitamin D3) 50 50 mcg PO QAM 03/03/21 08/14/21 History mcg (2,000 unit) capsule hydrocortisone 2.5 % topical cream 1 applic OK DAILY PRN 04/24/21 08/14/21 History with perineal applicator (Proctozone-HC) gabapentin 400 mg capsule 400 mg PO TID #90 cap 06/29/21 08/14/21 Rx lorazepam 0.5 mg tablet (Ativan) 0.5 mg PO Q12H PRN #20 tab 07/16/21 08/14/21 Rx artificial tears with lanolin eye 1 applic OPB HS 08/14/21 08/14/21 History ointment citalopram 40 mg tablet (Celexa) 40 mg PO QAM 08/14/21 08/14/21 History guaifenesin 100 mg/5 mL oral 200 mg PO Q4H PRN 08/14/21 08/14/21 History liquid (Tussin Expectorant) lisinopril 10 mg tablet 5 mg PO QAM 08/14/21 08/14/21 History polyvinyl alcohol-povidone (PF) 1 drp OPHTHALMIC (EYE) 6XD 08/14/21 08/14/21 History 1.4 %-0.6 % eye drops in a dropperette (Refresh Classic (PF)) propranolol 120 mg capsule,24 120 mg PO QAM 08/14/21 08/14/21 History hr,extended release Past Med/Surg History Medical History (Updated 08/14/21 @ 12:55 by Rey Del Toro MD) Acute subdural hematoma H/O malignant neoplasm of breast History of basal cell cancer Surgical History S/P breast lumpectomy S/P dilation and curettage S/P knee surgery Family History Father Hypertension Stroke Unknown Cancer Denies family history of Colon cancer Ovarian cancer Prostate cancer Myocardial infarction Breast cancer Social History Smoking Status: Never smoker Second Hand Exposure: Yes; Hx Alcohol Use: No Hx Substance Use: No Preferred Language: Mauritanian Communication Ability: Effective Visual Impairment: No Limitations Hearing Ability: Normal Beliefs That Will Affect Care: None marital status: current occupational status: retired Feels Safe at Home: Yes Childhood Exposure to Second-Hand Smoke: No Dental Care, Regularly: Yes Physical Activity Frequency: 1-2 Times per Week Seatbelt Use: always Sunscreen Use: Yes Review of Systems Review of Systems: Mild distress and fatigue, has persistent daily intention tremors mild headache resolved with tylenol , no visual changes no speech or swallowing issues no chest pain, pressure or palpitations no shortness of breath, cough or wheezes no abdominal pain, nausea or vomiting, diarrhea or constipation no dysuria, hematuria or frequency right ankle pain with boot in place, no back pain, CVA tenderness or radicular pain bruising of right ankle no focal signs of weakness or numbness or altered sensation no complaints of anxiety or depression.. Physical Exam Physical Exam: The patient appeared well nourished and normally developed. Vital signs as documented. Head exam is normocephalic pt has previous bur holes healed on frontal scalp Neck is without JVD, thyromegaly, or carotid bruits. Lungs are clear to auscultation, no focal loss of breath sounds Cardiac exam, Rhythm is regular.. No murmurs, rubs or gallops. Abdominal exam reveals normal bowel sounds, soft non tender, no masses Extremities are nonedematous and both pedal pulses are present Neurologic exam is alert and oriented, no focal loss of strength or sensation, significant tremor Skin is without bruises or rashes Psychologically is without concerns for anxiety or depression.. Results & Data Results & Data ([facility]) Vital Signs (Past 12 Hours) Vital Signs Temp Pulse Pulse Resp BP BP Pulse Ox 08/14/21 11:00 77 16 158/78 H 94 08/14/21 09:00 78 14 207/93 H 99 08/14/21 08:58 18 198/91 H 100 08/14/21 08:56 79 22 08/14/21 08:40 76 08/14/21 08:30 74 19 96 08/14/21 08:26 98 08/14/21 08:23 81 17 84 L 08/14/21 08:10 98.1 F 80 22 227/87 H 94 PG Care Time/CCT Total # of Minutes Spent Total Time Spent with Patient: Total time spent is greater than 50% in coordination of care (as documented) at patient's floor/unit and/or counseling patient: Coding Level of Care Code INT OBSERVATION CARE 50M LVL 2 Diagnoses Subdural hematoma S06.5X9A Fracture of distal end of fibula S82.831A Encounter type: initial encounter Fracture morphology: unspecified fracture morphology Fracture type: closed Laterality: right Depression F32.9 Breast cancer C50.919 Hypertension I10 DVT prophylaxis Z29.9 Asthma J45.909 (1) Fracture of distal end of fibula Encounter type: initial encounter Fracture morphology: unspecified fracture morphology Fracture type: closed Laterality: right Qualified Code(s): S82.831A - Other fracture of upper and lower end of right fibula, initial encoun ter for closed fracture
[2021-08-14] MEDS ORDERED: HYDROCORTISONE HC 2.5% CRM 30GM TUBE EXT PRN (18:29)
--- NOTE | 2021-08-14 18:33 | Electrocardiogram Report ---
Test Reason : Blood Pressure : / mmHG Vent. Rate : 078 BPM Atrial Rate : 078 BPM P-R Int : 166 ms QRS Dur : 092 ms QT Int : 372 ms P-R-T Axes : 086 021 023 degrees QTc Int : 424 ms Poor data quality, interpretation may be adversely affected Normal sinus rhythm Left atrial enlargement Possible Old Septal infarct (cited on or before 31-JAN-2016) Abnormal ECG When compared with ECG of 14-JUL-2017 10:39, No significant change Confirmed by Benigno Parks ([id number]) on 08/14/2021 6:32:39 PM Referred By: REFERRED SELF Confirmed By:Benigno Parks
[2021-08-14] MEDS: LIDOCAINE 5% 1 PATCH TD SCH (19:16)
[2021-08-14] MEDS: LORazepam 0.5 MG TAB PO PRN (19:16)
[2021-08-14] MEDS: ACETAMINOPHEN 500 MG TAB PO PRN (19:16)
[2021-08-14] MEDS ORDERED: hydrALAZINE HCL 20 MG/ML VIAL IV PRN (20:57)
[2021-08-14] MEDS: ARTIFICIAL TEARS OP SCH (21:27)
[2021-08-14] MEDS: ARTIFICIAL TEARS OP OINT 3.5 GM TUBE OP SCH (21:31)
[2021-08-14] MEDS: CALCIUM 600MG + VIT D 400 IU TAB PO SCH (21:32)
[2021-08-14] MEDS: DOCUSATE SODIUM 100 MG CAP PO SCH (21:33)
[2021-08-15] MEDS: ACETAMINOPHEN 500 MG TAB PO PRN ×2 (00:41→11:51)
[2021-08-15] MEDS: ONDANSETRON INJ 2 MG/ML 2 ML VIAL IV PRN ×2 (04:46→13:22)
[2021-08-15 07:05] LABS: BUN Creatinine Ratio 19.7 (10-20); Calcium 9.7 mg/dl (8.5-10.1); Creatinine Clr Calc Pharmacy 53.7 ml/min; Est GFR (African American) 96.5 ml/min; Est GFR (Non-African American) 83.3 ml/min; Potassium 3.6 mmol/L (3.5-5.1)
[2021-08-15] MEDS: LORazepam 0.5 MG TAB PO PRN (07:27)
--- NOTE | 2021-08-15 08:55 | CT Scan Report ---
CT head/brain wo con CLINICAL HISTORY: 80 years-old Female with eval for changes of SDH. Follow-up study in a patient wit h bilateral subdural collections TECHNIQUE: Multiple axial CT images of the head were obtained without contrast. A dose lowering tech nique was utilized adhering to the principles of ALARA. CT DOSE: 537.48 mGy.cm COMPARISON: None. FINDINGS: No acute intracranial hemorrhage, midline shift, intracranial mass, hydrocephalus, or acute territori al infarct. Small acute versus subacute on chronic subdural hematomas are noted anteriorly measuring up to 5 mm on the left and 7 mm on the right, unchanged. Age-related involutional changes with white matter hypodensities suggestive of chronic microvascular ischemic disease. Cerebral vascular calcific ations. Senescent calcifications of the lentiform nuclei. The calvarium is intact. [place] holes of the calvarium redemonstrated. Moderate mucoperiosteal thicken ing of the paranasal sinuses. Unremarkable mastoid air cells. Prior bilateral lens repair. IMPRESSION: Unchanged subcentimeter acute versus subacute on chronic bifrontal subdural hematomas. N o associated mass effect or midline shift. ACT 112: Negative or not required by law. The above report was generated using voice recognition software. It may contain grammatical, syntax o r spelling errors. Electronically signed by: Enmanuel Deleon M.D. 08/15/2021 8:53 AM
[2021-08-15] MEDS ORDERED: lisinopril 5 MG TAB PO SCH (09:00)
[2021-08-15] MEDS: CALCIUM 600MG + VIT D 400 IU TAB PO SCH ×2 (10:18→22:26)
[2021-08-15] MEDS: POLYETHYLENE (MIRALAX) 17 GM PACK PO SCH (10:18)
[2021-08-15] MEDS: CHOLECALCIFEROL 1,000 UNITS 25 MCG TAB PO SCH (10:19)
[2021-08-15] MEDS: CITALOPRAM 40 MG TAB PO SCH (10:19)
[2021-08-15] MEDS: PROPRANOLOL HCL 60 MG LA CAP PO SCH (10:19)
[2021-08-15] MEDS: TAMOXIFEN CITRATE 10 MG TABLET PO SCH (10:19)
[2021-08-15] MEDS: DOCUSATE SODIUM 100 MG CAP PO SCH ×2 (10:19→22:29)
[2021-08-15] MEDS: FLUTICASONE/VILANTEROL 200/25MCG 14 PUFFS/INHALER INH SCH (10:20)
[2021-08-15] MEDS: DOCUSATE SODIUM/SENNA 50/8.6MG TAB PO SCH (11:51)
--- NOTE | 2021-08-15 18:05 | Hospitalist Progress Note ---
Date of Service August 15, 2021 Assessment & Plan (1) Subdural hematoma: Plan: - Patient presents with encephalopathy of undetermined etiology at this time. - serology and urine analysis are unremarkable. Images of her brain appear to be consistent with a resolving subdural hematoma. - Reportedly Dr. Orellana spoke with Dr. Simon of [facility] rosurgery who reviewed the images and felt this was evolution of resolution of previous chronic subdural hematoma but did not feel this was an acute new bleed. - Repeat imaging performed this AM and findings are stable - No neurologic deficits - Obtain MRI w/o contrast in AM - Neurontin and Ultram held in event could be contributing to toxic encephalopathy (2) Fracture of distal end of fibula: Plan: - Recent fall with tib-fib fracture splinting remains in place - PT/OT (3) Depression: Plan: - Continues on Celexa (4) Breast cancer: Plan: - Continues on tamoxifen (5) Hypertension: Plan: - Lisinopril is used and propranolol may be used for tremor - BP has been uncontrolled. Increase Lisinopril to 10mg daily and watch (6) Asthma: Plan: - continue symbicort (7) DVT prophylaxis: Plan: - Chemoprophylaxis contraindicated with concern for subdural hematoma Plan: Follow up labs in AM, f/u urine culture, MRI ordered for tomorrow AM Discussed case with Dr. Bailon, felt that nothing more to be done at this time if H does not feel that CT findings are new bleeding, he will plan to see in neuro clinic as outpatient PT/OT Discussed plan with patient's daughter, Guillermina May be able to return home tomorrow (to [facility]) Admission and Anticipated Discharge Date Admission Date: August 14, 2021 Supervising Physician Co-Signing Physician Notes Attending Attestation - Chart reviewed, care plan d/w LAURENT Johnson. I agree w/ the klein components of her documentation. 80yo female with fall on 08/10 at her [facility]. this resulted in right distal fibula fracture. s/p ER visit at that time - splinted, d/c back to [facility]. Since the fall she has had ongoing confusion. Uncertain if any head injury during that fall. No head CT on 08/10. Encephalopathy ongoing. Hyponatremia? subacute/chronic SDH? combination of factors vs other? Repeat BMP am. Agree with MRI brain. PT, OT evals. Cont splint right ankle. Jules Judd MD Subjective Julia Rodriguez was seen on rounds this morning. She has a known h/o SDH requiring evacuation. Pt was hospitalized 08/14 due to encephalopathy of unknown etiology. Pt sustained a fall on Friday 08/10, suffered distal tib/fib fracture, splinted and returned to [facility]. Per staff, pt more confused, which was an acute change, prompting her ER eval. Unfortunately, work up at this time is not impressive for an exact cause to explain her symptoms. Urine was not overly impressive, although culture is pending. CT head revealed findings suspicious for a small acute to subacute on chronic SDH. Scans were reviewed by [facility] and they felt that findings did not demonstrate a new bleed. On rounds, pt is awake, alert and offers no complaints. She cannot recollect why she came to the hospital or events from yesterday that lead to her hospitalization. She does recall her recent fall and injury. She denies headache, blurred vision, weakness, numbness/tingling, n/v/d, gu symptoms to include dysuria, hematuria, denies cp or dyspnea. No cough or congestion. No issues reported by nursing staff. Review of Systems Review of Systems: CONSTITUTIONAL: Denies weight loss/gain, fever and chills, fatigue, malaise, generalized weakness. HEENT: Denies changes in vision and hearing. RESPIRATORY: Denies SOB, cough, wheezing. CV: Denies palpitations, CP, lower extremity edema, orthopnea, PND. GI: Denies abdominal pain, nausea, vomiting and diarrhea. : Denies dysuria and urinary frequency, urgency, hesitancy. MUSCULOSKELETAL: +recent fall w/ fracture of R tib/fib SKIN: Denies rash and pruritus. NEUROLOGICAL: Denies headache, syncope, focal weakness, numbness, tingling. PSYCHIATRIC: Denies recent changes in mood. +depression. Physical Exam Physical Exam: GENERAL: 80 yo elderly WF. Well-developed, well-nourished. NAD. LUNGS: Clear to auscultation bilaterally. No accessory muscle use. No W/R/R. CARDIOVASCULAR: Regular rate and rhythm. No M/G/R. No JVD. ABDOMEN: Soft, non-tender and non-distended. No palpable masses. Bowel sounds normoactive x 4 quad. EXTREMITIES: No edema. Non-tender. Peripheral pulses +2/4. Distal RLE in boot. NEUROLOGIC: A&O x3. No focal neurological deficits. CN II-XII grossly intact. Resting tremor noted in B/L UE. PSYCHIATRIC: Cooperative. Appropriate mood and affect. SKIN: Warm, dry, intact. No rashes or lesions. Results & Data Results & Data ([facility]) Vital Signs (Past 12 Hours) Vital Signs Temp Pulse Resp BP Pulse Ox 08/15/21 14:18 37.1 C 90 16 159/64 H 94 08/15/21 07:18 36.8 C 88 16 160/69 H 92 Laboratory Results 08/14/21 08:25 08/15/21 05:[address] 08/15/21 07:00 CT head/brain wo con CLINICAL HISTORY: 80 years-old Female with eval for changes of SDH. Follow-up study in a patient with bilateral subdural collections TECHNIQUE: Multiple axial CT images of the head were obtained without contrast. A dose lowering technique was utilized adhering to the principles of ALARA. CT DOSE: 537.48 mGy.cm COMPARISON: None. FINDINGS: No acute intracranial hemorrhage, midline shift, intracranial mass, hydr ocephalus, or acute territorial infarct. Small acute versus subacute on chronic subdural hematomas are noted anteriorly measuring up to 5 mm on the left and 7 mm on the right, unchanged. Age-related involutional changes with white matter hypodensities suggestive of chronic microvascular ischemic disease. Cerebral vascular calcifications. Senescent calcifications of the lentiform nuclei. The calvarium is intact. [place] holes of the calvarium redemonstrated. Moderate mucoperiosteal thickening of the paranasal sinuses. Unremarkable mastoid air cells. Prior bilateral lens repair. IMPRESSION: Unchanged subcentimeter acute versus subacute on chronic bifrontal subdural hematomas. No associated mass effect or midline shift. ACT 112: Negative or not required by law. The above report was generated using voice recognition software. It may contain grammatical, syntax or spelling errors. Electronically signed by: Enmanuel Deleon M.D. 08/15/2021 8:53 AM PG Care Time/CCT Total # of Minutes Spent Total Time Spent with Patient: Total time spent is greater than 50% in coordination of care (as documented) at patient's floor/unit and/or counseling patient: Coding Level of Care Code 56969 Subseq Obs Care Lvl 2 Diagnoses Subdural hematoma S06.5X9A Fracture of distal end of fibula S82.831A Encounter type: initial encounter Fracture morphology: unspecified fracture morphology Fracture type: closed Laterality: right Depression F32.9 Breast cancer C50.919 Hypertension I10 Asthma J45.909 DVT prophylaxis Z29.9 (1) Fracture of distal end of fibula Encounter type: initial encounter Fracture morphology: unspecified fracture morphology Fracture type: closed Laterality: right Qualified Code(s): S82.831A - Other fracture of upper and lower end of right fibula, initial encounter for closed fracture
[2021-08-15] MEDS: SODIUM CHLORIDE 0.9% 1000ML 1,000 ML IV SCH (19:04)
[2021-08-15] MEDS: ARTIFICIAL TEARS OP SCH (19:09)
[2021-08-15] MEDS: ARTIFICIAL TEARS OP OINT 3.5 GM TUBE OP SCH (22:26)
[2021-08-15] MEDS: LIDOCAINE 5% 1 PATCH TD SCH (22:26)
[2021-08-16] MEDS: ACETAMINOPHEN 500 MG TAB PO PRN (00:25)
[2021-08-16] MEDS: SODIUM CHLORIDE 0.9% 1000ML 1,000 ML IV SCH (06:15)
[2021-08-16 08:08] LABS: Hematocrit (blood only) 32.2 % (37-47); Hemoglobin 10.4 g/dL (12.0-16.0); Mean Corpuscular Hemoglobin 28.4 pg (25-34); Mean Corpuscular Hgb Conc 32.3 g/dL (32-36); Mean Platelet Volume 9.6 fL (7.4-10.4); Platelet Count 323 K/uL (130-400); RDW Coefficient of Variation 13.9 % (11.5-14.5); RDW Standard Deviation 45.4 fL (36.4-46.3); Red Blood Count 3.66 M/uL (4.2-5.4); White Blood Count 7.43 K/uL (4.8-10.8)
[2021-08-16] MEDS: TAMOXIFEN CITRATE 10 MG TABLET PO SCH (08:14)
[2021-08-16] MEDS: PROPRANOLOL HCL 60 MG LA CAP PO SCH (08:14)
[2021-08-16] MEDS: CITALOPRAM 40 MG TAB PO SCH (08:14)
[2021-08-16] MEDS: CHOLECALCIFEROL 1,000 UNITS 25 MCG TAB PO SCH (08:15)
[2021-08-16] MEDS: CALCIUM 600MG + VIT D 400 IU TAB PO SCH ×2 (08:15→19:59)
[2021-08-16] MEDS: POLYETHYLENE (MIRALAX) 17 GM PACK PO SCH (08:16)
[2021-08-16] MEDS: FLUTICASONE/VILANTEROL 200/25MCG 14 PUFFS/INHALER INH SCH (08:16)
[2021-08-16 08:43] LABS: BUN Creatinine Ratio 22.3 (10-20); Calcium 8.8 mg/dl (8.5-10.1); Creatinine Clr Calc Pharmacy 59.1 ml/min; Est GFR (African American) 99.6 ml/min; Potassium 3.9 mmol/L (3.5-5.1)
[2021-08-16] MEDS ORDERED: lisinopril 10 MG TAB PO SCH (09:00)
[2021-08-16 10:39] LABS: Folate (Folic Acid) 15.6 ng/ml (>5.38)
[2021-08-16] MEDS: LORazepam 0.5 MG TAB PO PRN (12:39)
[2021-08-16] MEDS: DOCUSATE SODIUM/SENNA 50/8.6MG TAB PO SCH (12:40)
[2021-08-16] MEDS: DOCUSATE SODIUM 100 MG CAP PO SCH ×2 (12:40→19:59)
--- NOTE | 2021-08-16 13:24 | Magnetic Resonance Report ---
MR brain IAC wo con HISTORY: 80 years-old Female AMS, SDH acutely altered mental status. Acute versus subacute on chroni c subdural hematomas. History of prior brain surgery. COMPARISON: Head CT 08/15/2021, 08/14/2021 and 04/27/2016, brain MRI 02/01/2016 TECHNIQUE: Multiplanar multisequence MRI of the brain was obtained without the use of IV contrast uti lizing internal auditory canal protocol FINDINGS: No restricted diffusion to suggest acute or subacute infarct. Senescent demineralization of the lenti form nuclei. Punctate focus of blooming artifact is noted within the inferior right cerebellar hemisp here. Age-related involutional changes with ex vacuo ventriculomegaly. Moderate T2/FLAIR hyperintensi ties suggest chronic microvascular ischemic disease. Encephalomalacia and gliosis of the left occipit al lobe is new from 2016. The bilateral VII and VIII cranial nerves and internal auditory canals appe ar normal. Cisternal portions of the 5th nerves appear normal. The study is mildly motion degraded. T iny subacute on chronic appearing bifrontal subdural hematomas measure up to approximately 5 mm bilat erally. This appears to have mildly decreased in size on the right from prior. Cerebral venous sinuses and major arterial flow voids appear patent. There are holes of the superior calvarium are redemonstrated. Prior bilateral lens repair. Moderate mucosal thickening of the paranas al sinuses. The mastoid air cells are clear. IMPRESSION: 1. Small subacute on chronic appearing bifrontal subdural hematomas are redemonstrated. There is no a ssociated mass effect or midline shift. 2. Unremarkable appearance of the internal auditory canals, VII and VIII cranial nerves. 3. Atrophy with chronic microvascular ischemic disease. 4. 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 ACT 112: Negative or not required by law. The above report was generated using voice recognition software. It may contain grammatical, syntax o r spelling errors. Electronically signed by: Enmanuel Deleon M.D. 08/16/2021 1:23 PM
[2021-08-16] MEDS ORDERED: lisinopril 10 MG TAB PO STA (17:01)
--- NOTE | 2021-08-16 17:23 | Hospitalist Progress Note ---
Date of Service August 16, 2021 Assessment & Plan (1) Subdural hematoma: Plan: - Patient presents with encephalopathy of undetermined etiology at this time. - serology and urine analysis are unremarkable. Images of her brain appear to be consistent with a resolving subdural hematoma. - Reportedly Dr. Orellana spoke with Dr. Simon of [facility] saud rosurgery who reviewed the images and felt this was evolution of resolution of previous chronic subdural hematoma but did not feel this was an acute new bleed. - Repeat imaging performed this AM and findings are stable - No neurologic deficits - Frontal headache - MRI obtained this AM, results noted above, reviewed CT and MRI films over the phone with Dr. Bailon - Believes findings likely represent subacute SDH which could've occurred weeks ago, certainly unable to provide exact time event occurred - Neurontin and Ultram held in event could be contributing to toxic encephalopathy--however doubt this is the cause (2) Hyponatremia: Plan: ?ENCODING CLERK d/t subacute SDH - Obtain urine and serum osmolalities - Random urine sodium - Trend Sodium (3) Fracture of distal end of fibula: Plan: - Recent fall with tib-fib fracture splinting remains in place - PT/OT (4) Depression: Plan: - Continues on Celexa (5) Breast cancer: Plan: - Continues on tamoxifen (6) Hypertension: Plan: - Pt is on both Lisinopril is used and propranolol. Propranolol may be rxd for her tremor - BP has been uncontrolled - Lisinopril increased to 10mg this AM - BPs still trending high, will give a dose of 10mg now and increase to 20mg daily (7) Asthma: Plan: - continue symbicort (8) DVT prophylaxis: Plan: - Chemoprophylaxis contraindicated with concern for subdural hematoma Plan: Repeat labs in AM Discussed case and reviewed images with Dr. Bailon, does not believe there is an ything more to be done at this time as she is clinically stable. Will see as outpatient. Continue PT/OT Discussed plan with patient's daughter, Guillermina, at bedside. Initial plan was for d/c but daughter was concerned that pt still seems confused. Monitor today, add labs to assess for ENCODING CLERK. Make full admit. May be able to return home tomorrow (to [facility]) at [facility]. Admission and Anticipated Discharge Date Admission Date: August 14, 2021 Supervising Physician Co-Signing Physician Notes Attending Attestation - Pt seen/examined, chart reviewed, care plan d/w LAURENT Johnson. I agree w/ the klein components of her documentation. 80yo female with fall on 08/10 at her [facility]. this resulted in right distal fibula fracture. s/p ER visit at that time - splinted, d/c back to [facility]. Since the fall she has had ongoing confusion. Uncertain if any head injury during that fall. No head CT on 08/10. During my bedside visit the daughter was present. She is concerned that her mother is still confused. She feels there has been no improvement in her confusion since admission. Apparently keeps asking where she is, etc. During the visit she knew the day of the week, could tell me the months of the year backwards starting with August, and knew the year/month. c/o headache yesterday. stated she "felt anxious." stated she "just didn't feel right." VS - BPs elevated, afebrile gen - essential tremor noted of arms face - no droop speech - clear/fluent neck - no JVD mouth - MMM heart - RRR, s1 s2, no murmur lungs - cta b/l abd - soft NT ND BS+ ext - right ankle in splint neuro - strength 5/5 x 4 exts, tremor labs reviewed Na 132 CTs of head and MRI brain reviewed urine cx neg to date A/P: 1. subacute on chronic SDH 2. encephalopathy 3. recent fall on 08/10 with resulting right distal fibula fracture 4. hyponatremia new-onset 5. uncontrolled HTN 6. long-standing essential tremor I suspect encephalopathy is 2nd to #1 My suspicion is that during a recent fall (1-2 weeks ago) she suffered the new subacute SDH This easily could have caused her confusion and headache Neurosurgery at [facility] reviewed CT head from admission and told [facility] ER attending that surgical intervention was not needed Low Na could be contributing to encephalopathy ?reset osmostat or SIADH from SDH? other? agree w/ work-up for low Na keep overnight; obtain neuro consultation strongly consider sending MRI brain to [facility] neurosurgery for their review needs better BP control change observation to full admission status care plan d/w daughter at bedside Jules Judd MD Subjective Julia Rodriguez was seen on rounds this morning. She has a known h/o SDH requiring evacuation back in 2016. Pt was hospitalized 08/14 due to encephalopathy of unknown etiology. Pt sustained a fall on Friday 08/10, suffered distal tib/fib fracture, splinted and returned to [facility]. Per staff, pt more confused, which was an acute change, prompting her ER eval. Unfortunately, work up is somewhat inconclusive for an exact cause to explain her symptoms. Urine was not overly impressive, although culture is pending. CT head revealed findings suspicious for a small acute to subacute on chronic SDH. Scans were reviewed by [facility] and ey felt that findings did not demonstrate a new bleed. On rounds, pt is awake, alert and offers no complaints. She cannot recollect why she came to the hospital or events that lead to her hospitalization. She does recall her recent fall and injury. Today, pt does admit to a right sided frontal headache. She denies blurred vision, weakness, numbness/tingling, n/v/d, gu symptoms to include dysuria, hematuria, denies cp or dyspnea. No cough or congestion. No issues reported by nursing staff. Her daughter, who just traveled from [place], is adamant that her mother is not at her baseline and is still confused. Review of Systems Review of Systems: CONSTITUTIONAL: Denies weight loss/gain, fever and chills, fatigue, malaise, generalized weakness. HEENT: Denies changes in vision and hearing. RESPIRATORY: Denies SOB, cough, wheezing. CV: Denies palpitations, CP, lower extremity edema, orthopnea, PND. GI: Denies abdominal pain, nausea, vomiting and diarrhea. : Denies dysuria and urinary frequency, urgency, hesitancy. MUSCULOSKELETAL: +recent fall w/ fracture of R tib/fib SKIN: Denies rash and pruritus. NEUROLOGICAL: +confusion per daughter, but pt answers screening questions appropriately. Denies headache, syncope, focal weakness, numbness, tingling. PSYCHIATRIC: Denies recent changes in mood. +depression. Physical Exam Physical Exam: GENERAL: 80 yo elderly WF. Well-developed, well-nourished. NAD. LUNGS: Clear to auscultation bilaterally. No accessory muscle use. No W/R/R. CARDIOVASCULAR: Regular rate and rhythm. No M/G/R. No JVD. ABDOMEN: Soft, non-tender and non-distended. No palpable masses. Bowel sounds normoactive x 4 quad. EXTREMITIES: No edema. Non-tender. Peripheral pulses +2/4. Distal RLE in boot. NEUROLOGIC: A&O x3. No focal neurological deficits. CN II-XII grossly intact. Resting tremor noted in B/L UE. PSYCHIATRIC: Cooperative. Appropriate mood and affect. SKIN: Warm, dry, intact. No rashes or lesions. Results & Data Results & Data ([facility]) Vital Signs (Past 12 Hours) Vital Signs Temp Pulse Resp BP BP Pulse Ox 08/16/21 16:51 79 165/85 H 08/16/21 14:40 36.3 C L 77 16 187/82 H 176/82 H 97 08/16/21 07:03 36.8 C 77 16 171/77 H 91 Laboratory Results 08/16/21 06:35 08/16/21 06:35 Diagnostic Findings Internal Auditory Canal MRI 08/16/21 08:00 MR brain IAC wo con HISTORY: 80 years-old Female AMS, SDH acutely altered mental status. Acute versus subacute on chronic subdural hematomas. History of prior brain surgery. COMPARISON: Head CT 08/15/2021, 08/14/2021 and 04/27/2016, brain MRI 02/01/2016 TECHNIQUE: Multiplanar multisequence MRI of the brain was obtained without the use of IV contrast utilizing internal auditory canal protocol FINDINGS: No restricted diffusion to suggest acute or subacute infarct. Senescent demineralization of the lentiform nuclei. Punctate focus of blooming artifact is noted within the inferior right cerebellar hemisphere. Age-related involutional changes with ex vacuo ventriculomegaly. Moderate T2/FLAIR hyperintensities suggest chronic microvascular ischemic disease. Encephalomalacia and gliosis of the left occipital lobe is new from 2016. The bilateral VII and VIII cranial nerves and internal auditory canals appear normal. Cisternal portions of the 5th nerves appear normal. The study is mildly motion degraded. Tiny subacute on chronic appearing bifrontal subdural hematomas measure up to approximately 5 mm bilaterally. This appears to have mildly decreased in size on the right from prior. Cerebral venous sinuses and major arterial flow voids appear patent. There are holes of the superior calvarium are redemonstrated. Prior bilateral lens repair. Moderate mucosal thickening of the paranasal sinuses. The mastoid air cells are clear. IMPRESSION: 1. Small subacute on chronic appearing bifrontal subdural hematomas are redemonstrated. There is no associated mass effect or midline shift. 2. Unremarkable appearance of the internal auditory canals, VII and VIII cranial nerves. 3. Atrophy with chronic microvascular ischemic disease. 4. 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 ACT 112: Negative or not required by law. The above report was generated using voice recognition software. It may contain grammatical, syntax or spelling errors. Electronically signed by: Enmanuel Deleon M.D. 08/16/2021 1:23 PM PG Care Time/CCT Total # of Minutes Spent Total Time Spent with Patient: Total time spent is greater than 50% in coordination of care (as documented) at patient's floor/unit and/or counseling patient: Coding Level of Care Code 09048 Subseq Hosp Care Lvl 3 Diagnoses Subdural hematoma S06.5X9A Fracture of distal end of fibula S82.831A Encounter type: initial encounter Fracture morphology: unspecified fracture morphology Fracture type: closed Laterality: right Depression F32.9 Breast cancer C50.919 Hypertension I10 Asthma J45.909 DVT prophylaxis Z29.9 Hyponatremia E87.1 (1) Fracture of distal end of fibula Encounter type: initial encounter Fracture morphology: unspecified fracture morphology Fracture type: closed Laterality: right Qualified Code(s): S82.831A - Other fracture of upper and lower end of right fibula, initial encounter for closed fracture
[2021-08-16] MEDS: LIDOCAINE 5% 1 PATCH TD SCH (19:57)
[2021-08-16] MEDS: ARTIFICIAL TEARS OP SCH (19:58)
[2021-08-16] MEDS: ARTIFICIAL TEARS OP OINT 3.5 GM TUBE OP SCH (20:20)
[2021-08-17 07:10] LABS: Calcium 9.1 mg/dl (8.5-10.1); Creatinine Clr Calc Pharmacy 54.5 ml/min; Est GFR (Non-African American) 83.7 ml/min; Potassium 3.8 mmol/L (3.5-5.1)
[2021-08-17] MEDS: ACETAMINOPHEN 500 MG TAB PO PRN (08:24)
[2021-08-17] MEDS ORDERED: lisinopril 20 MG TAB PO SCH (09:00)
[2021-08-17] MEDS: POLYETHYLENE (MIRALAX) 17 GM PACK PO SCH ×2 (09:19→12:14)
[2021-08-17] MEDS: CITALOPRAM 40 MG TAB PO SCH (09:19)
[2021-08-17] MEDS: DOCUSATE SODIUM 100 MG CAP PO SCH (09:19)
[2021-08-17] MEDS: TAMOXIFEN CITRATE 10 MG TABLET PO SCH (09:19)
[2021-08-17] MEDS: PROPRANOLOL HCL 60 MG LA CAP PO SCH (09:19)
[2021-08-17] MEDS: CALCIUM 600MG + VIT D 400 IU TAB PO SCH (09:20)
[2021-08-17] MEDS: CHOLECALCIFEROL 1,000 UNITS 25 MCG TAB PO SCH (09:20)
[2021-08-17] MEDS: FLUTICASONE/VILANTEROL 200/25MCG 14 PUFFS/INHALER INH SCH (09:20)
--- NOTE | 2021-08-17 09:20 | Neurology Consultation ---
Date of Consultation August 17, 2021 Assessment & Plan (1) Subdural hematoma: (2) Confusion: (3) Benign familial tremor: (4) Depression: (5) Lumbar radiculopathy: this patient has very small bilateral frontal convexity subdural hematomas with a small amount subacute on top of chronic. These have been stable over the last several days between CT and MRI imaging. Reviewed the CT films and the MRI films and concur that these are small and likely stable. Clinically she is doing well. I do not detect any significant encephalopathy. She may have some very mild underlying dementia but this is quite stable and she seems near her baseline. She has essential tremor of a familial nature which is stable. There is no Parkinson's disease. She is on propranolol. She admits to depression because she does not want to be in the hospital. Her lumbar spine pain and radicular issues are improved and stable currently. Recommendations: 1. I see no need for additional neurologic testing or treatment changes at this time. 2. Repeat CT in 1-2 weeks and follow to make sure the subdurals are improving. 3. We can follow as an outpatient. Overall, I spent a total of 60 minutes with this case including review of records, review of CT and MRI films, direct evaluation of the patient at bedside, and discussion of the case with the patient at bedside, and Dr. Mack, including differential diagnosis and treatment options. History of Present Illness Reason for Consultation: Patient is an 80-year-old, who was asked to see the request of Dr. Mack, for neurologic consultation regarding mental status changes and subdural hematomas. Requesting Physician: Dr. Mack Attending Physician: Gavin Mack MD History of Present Illness Patient is well known to me who I have been following for many years with essential tremor she has tried and failed multiple medications for tremor including gabapentin, primidone, and propranolol ( 120 milligrams does help some but higher doses give her side effects). She continues to have mild to moderate essential tremor of the arms and legs. In March of 2016 she was at [facility] for following of subdural hematomas and some cognitive issues at that time. She ended up having a bur hole drainage procedure and was followed by neurosurgery for 6 months without further issue. They last saw her in July of 2016. the subdurals were small hygromas at that time and she still had some mild cognitive issues. I have been following her for tremor and lumbosacral pain and radiculopathy having last seen her in March of 2021. she lives at [facility] and is stable. On August 11 she caught her foot and fell twisting her ankle and went to the emergency room. X-ray showed a distal fibula fracture. She was put in a boot. Other laboratory studies and chest x-ray were unremarkable. She is afebrile. She was brought to the emergency room early in the morning on August 14 for confusion. Blood pressure was 227/87. She was afebrile. CBC showed mild anemia Chem profile was unremarkable including a TSH. Chest x-ray was unremarkable. CT scan of the head showed some subacute on chronic subdural hematoma of a mild nature in the frontal convexities. MRI of the brain August 16 showed small her subacute on chronic bifrontal subdural hematomas. In addition there was a small ischemic stroke of an old the nature id left occipital head region not seen on the previous MRI of January of 2016. The patient currently feels depressed. She has no pain, headache, vision problems, swallowing problems, weakness, or numbness. Allergies Allergy/AdvReac Type Severity Reaction Status Date / Time povidone-iodine Allergy Mild RED RASH Verified 08/14/21 10:56 AND SKIN IRRITATION amoxicillin AdvReac Intermediate NAUSEA Verified 08/14/21 10:56 clavulanic acid AdvReac Intermediate NAUSEA Verified 08/14/21 10:56 doxycycline AdvReac Intermediate NAUSEA Verified 08/14/21 10:56 mometasone furoate AdvReac Intermediate NAUSEA Verified 08/14/21 10:56 nitrofurantoin AdvReac Intermediate nausea Verified 08/14/21 10:56 Sulfa (Sulfonamide AdvReac Mild NAUSEA/VOMI Verified 08/14/21 10:56 Antibiotics) TING Home Medications Medication Instructions Recorded Confirmed Type polyethylene glycol 3350 17 17 gm PO QAM 05/17/19 08/14/21 History gram/dose oral powder (Miralax) sennosides 8.6 mg-docusate sodium 1 tab PO QDL 05/17/19 08/14/21 History 50 mg tablet (Senna Plus) tamoxifen 20 mg tablet 20 mg PO QAM 06/02/19 08/14/21 History calcium carbonate 600 mg (1,500 1 tab PO BID tab 06/04/19 08/14/21 History mg)-vitamin D3 200 unit tablet docusate sodium 100 mg capsule 100 mg PO BID cap 06/04/19 08/14/21 History acetaminophen 500 mg capsule 500 mg PO BID PRN #180 cap 03/31/20 08/14/21 Rx tramadol 50 mg tablet 50 mg PO HS PRN #30 tab 09/02/20 08/14/21 Rx budesonide-formoterol HFA 160 2 puff INH BID #10.2 gm 02/05/21 08/14/21 Rx mcg-4.5 mcg/actuation aerosol inhaler (Symbicort) cholecalciferol (vitamin D3) 50 50 mcg PO QAM 03/03/21 08/14/21 History mcg (2,000 unit) capsule hydrocortisone 2.5 % topical cream 1 applic CO DAILY PRN 04/24/21 08/14/21 History with perineal applicator (Proctozone-HC) gabapentin 400 mg capsule 400 mg PO TID #90 cap 06/29/21 08/14/21 Rx lorazepam 0.5 mg tablet (Ativan) 0.5 mg PO Q12H PRN #20 tab 07/16/21 08/14/21 Rx artificial tears with lanolin eye 1 applic OPB HS 08/14/21 08/14/21 History ointment citalopram 40 mg tablet (Celexa) 40 mg PO QAM 08/14/21 08/14/21 History guaifenesin 100 mg/5 mL oral 200 mg PO Q4H PRN 08/14/21 08/14/21 History liquid (Tussin Expectorant) lisinopril 10 mg tablet 5 mg PO QAM 08/14/21 08/14/21 History polyvinyl alcohol-povidone (PF) 1 drp OPHTHALMIC (EYE) 6XD 08/14/21 08/14/21 History 1.4 %-0.6 % eye drops in a dropperette (Refresh Classic (PF)) propranolol 120 mg capsule,24 120 mg PO QAM 08/14/21 08/14/21 History hr,extended release lisinopril 20 mg tablet 20 mg PO DAILY #30 tab 08/16/21 Rx Patient History Medical History Acute subdural hematoma H/O malignant neoplasm of breast History of basal cell cancer Surgical History S/P breast lumpectomy S/P dilation and curettage S/P knee surgery Family History Father Hypertension Stroke Unknown Cancer Denies family history of Colon cancer Ovarian cancer Prostate cancer Myocardial infarction Breast cancer Social History Smoking Status: Never smoker Second Hand Exposure: Yes; Hx Alcohol Use: Yes Alcohol type: other Hx Substance Use: No Preferred Language: Thai Communication Ability: Impaired Visual Impairment: No Limitations Hearing Ability: Normal Maintenance Specialist Required: No Beliefs That Will Affect Care: None marital status: Current Living Situation: Shelter Current Living Situation Comment: [facility] [place] current occupational status: retired How many Children do You have: 2 Feels Safe at Home: Yes Safety Concerns: Feels Safe At This Time Childhood Exposure to Second-Hand Smoke: No Dental Care, Regularly: Yes Physical Activity Frequency: 1-2 Times per Week Seatbelt Use: always Sunscreen Use: Yes Assistive Devices: Walker Review of Systems Constitutional: no fever, no fatigue and no weakness Eyes: no diplopia, no eye pain and no worsening vision Ear, Nose, Mouth, Throat: no ear pain, no tinnitus, no hearing loss, no dizziness, no snoring, no hoarseness and no dysphagia Respiratory: no cough and no dyspnea Cardiovascular: no chest pain, no palpitations and no lightheadedness Gastrointestinal: no abdominal pain, no nausea and no vomiting Genitourinary: no dysuria, no urinary frequency and no urinary incontinence Musculoskeletal: + back pain; no neck pain, no radicular pain, no joint pain and no myalgia Integumentary: no rash and no lesions Neurologic: no gait abnormality, no localized weakness, no generalized weakness, no tingling, no numbness, no tremor(s), no abnormal movements, no headache(s), no abnormal speech, no confusion and no memory loss Psychiatric: + depression; no irritability, no anxiety, no difficulty con centrating, no confusion and no hallucinations Endocrine: no fatigue and no flushing Hematologic / Lymphatic: no easy bleeding and no easy bruising Allergy / Immunological: no urticaria and no problem reported Exam (Neuro) Physical Exam: The patient is right-handed. The patient is awake, alert, and attentive. Speech is normal without any aphasia or dysarthria. The patient can name objects, repeat phrases, and has normal spontaneous speech. Mentation and thought processes are intact, with orientation to person, place and time, and normal fund of knowledge. Attention and concentration are normal. Mood and affect are normal and appropriate. General appearance and grooming are normal. Short and long-term memory are intact He conversation. She knew where she lived, where she is now, her age, the town, the day of the week, the month, and the year. he followed commands well and was pleasant and cooperative. Pupils are 3 mm bilaterally and reactive to light. Extraocular eye muscles are intact without nystagmus. Visual acuity and visual anderson seem normal grossly to confrontation. There are no deficits to sensation in the face in all 3 distributions of the fifth cranial nerve bilaterally. Corneal reflexes are positive bilaterally. Facial strength and symmetry was normal bilaterally. Hearing seems normal bilaterally. Palate moves well without asymmetry. There is normal sternocleidomastoid and trapezius (shoulder shrug) strength bilaterally. Tongue is midline with good strength bilaterally. Neck has a full range of motion without discomfort. There are no cervical bruits bilaterally. There are no cranial or ocular bruits. Heart is without murmur. There is a regular rhythm and rate. Cervical, thoracic, and lumbar spine are nontender to palpation. Gait was not tested but stance sitting up in chair is quite normal With outstretched arms there is no drift. There are no resting tremors, but there was [id number] postural and action tremors bilaterally. This included the arms and the right leg. There was no head or voice tremor today. There is no ataxia with finger to nose testing. There is good facility in the hands. No other abnormal involuntary movements are noted. Motor strength is 5/5 diffusely in the arms bilaterally including deltoids, biceps, triceps, brachioradialis, wrist flexors and extensors, geospatial imagery intelligence analyst, and intrinsic hand muscles. Motor strength is 5/5 diffusely in the legs bilaterally including hip flexors, quadriceps, hamstrings, gastrocnemius, tibialis anterior, tibialis posterior, and Peroneii muscles. Toe extensors are normal and there is good bulk in the extensor digitorum brevis muscles bilaterally. The limbs have good tone without rigidity or spasticity. There is no atrophy noted in the muscles. Muscle bulk is normal, there is no tenderness to palpation, no myotonia to percussion, and no fasciculations seen. Sensory examination is intact to touch and pin throughout all 4 limbs diffusely. Reflexes are 1/4 in the biceps, triceps, brachioradialis, quadriceps, and Achilles tendons bilaterally. There is no clonus bilaterally. Toes are downgoing with plantar stimulation on the left, and the right was in a boot which I did not remove. There is no peripheral edema noted in the left foot Results & Data ([facility]) Vital Signs (Past 12 Hours) Vital Signs Temp Pulse Resp BP BP Pulse Ox 08/17/21 07:27 36.9 C 84 16 173/72 H 92 08/16/21 22:49 37.1 C 75 17 162/72 H 95 PG Care Time/CCT Total # of Minutes Spent Total Time Spent with Patient: Total time spent is greater than 50% in coordination of care (as documented) at patient's floor/unit and/or counseling patient: Coding Level of Care Code 86664 Initial Inpt Care Lvl 3 Diagnoses Subdural hematoma S06.5X9A Confusion R41.0 Depression F32.9 Lumbar radiculopathy M54.16 Benign familial tremor G25.0
[2021-08-17] MEDS: DOCUSATE SODIUM/SENNA 50/8.6MG TAB PO SCH (12:01)
[2021-08-17] MEDS: LORazepam 0.5 MG TAB PO PRN (14:51)
[2021-08-17 15:18] VITALS: BP 167/65; PULSE 79; TEMP 97.7; O2SAT 93
--- NOTE | 2021-08-17 19:08 | Discharge Summary ---
Date of Service August 17, 2021 Admission HPI Per Admitting Provider 80-year-old female past medical history of benign tremor, osteoporosis, breast cancer, subdural hematoma status post evacuation, and recent fall. 08/11/21. with right distal tibial fracture presenting via ambulance from her facility today with report acute onset this morning of confusion. Evidently last night the patient was oriented and doing well. Shewas seen by orthopedics and placed in a boot 08/11/21 of her right foot. Per EMS nursing report the patient evidently this morning did not remember this and does intermittently seem to be confused about what is going on. Patient herself denies any pain. She is unable to tell me the year or why she is here. Patient denies shortness of breath or headache or dizziness. She denies any nausea or pain. She states her tremors a little bit worse but she always has it. Patient does repeatedly ask for my name during the interview seemingly forgetting it. CT of head 08/14/21 shows small extra axial fluid collection representing chronic sdh, there are other areas that may seem to be actue on chronic shh, however m[place] [facility] [place] concurs this is not acute but evolution of change of previous sdh Admission Exam Per Admitting Provider The patient appeared well nourished and normally developed. Vital signs as documented. Head exam is normocephalic pt has previous bur holes healed on frontal scalp Neck is without JVD, thyromegaly, or carotid bruits. Lungs are clear to auscultation, no focal loss of breath sounds Cardiac exam, Rhythm is regular.. No murmurs, rubs or gallops. Abdominal exam reveals normal bowel sounds, soft non tender, no masses Extremities are nonedematous and both pedal pulses are present Neurologic exam is alert and oriented, no focal loss of strength or sensation, significant tremor Skin is without bruises or rashes Psychologically is without concerns for anxiety or depression.. Principal Diagnosis Subacute on chronic subdural hematoma Discharge Exam General: Alert to name, place. Nondistressed, sitting up in chair at time of assessment HEENT: Atraumatic, normocephalic. Visual acuity and hearing grossly intact. Pupils equal and reactive to light. Extraocular movements intact without nystagmus Pulm: CTAB A&P. -wheezes, -rales, -rhonchi. Symmetrical chest rise. No increase work of breathing. No respiratory distress. Cardiac: RRR, -mrg. Radial pulses intact and symmetrical. Abdominal: Nontender, nondistended, soft. BS present. extremities: moving all extremities equally, no asymmetrical strength deficits Discharge Data Allergies Allergy/AdvReac Type Severity Reaction Status Date / Time povidone-iodine Allergy Mild RED RASH Verified 08/14/21 10:56 AND SKIN IRRITATION amoxicillin AdvReac Intermediate NAUSEA Verified 08/14/21 10:56 clavulanic acid AdvReac Intermediate NAUSEA Verified 08/14/21 10:56 doxycycline AdvReac Intermediate NAUSEA Verified 08/14/21 10:56 mometasone furoate AdvReac Intermediate NAUSEA Verified 08/14/21 10:56 nitrofurantoin AdvReac Intermediate nausea Verified 08/14/21 10:56 Sulfa (Sulfonamide AdvReac Mild NAUSEA/VOMI Verified 08/14/21 10:56 Antibiotics) TING Consultations 08/14/21 11:28 ED Decision to Admit Stat 08/17/21 07:57 Consult Neurology Routine Ordered Studies 08/14/21 08:26 CT head/brain wo con Stat 08/14/21 09:42 CT cervical spine wo con Stat 08/15/21 07:00 CT head/brain wo con Routine 08/16/21 08:00 MR brain IAC wo con Routine Hospital Course (1) Subdural hematoma: Julia is a 80-year-old female with a past medical history of chronic subdural hematoma who presented with acute altered mental status To do as outpatient: 1. Daily blood pressure checks and blood pressure checks as needed for hypotension, adjust lisinopril as needed for blood pressure. Patient with history of orthostasis, hypertensive during hospital admission but also with increased anxiety 2. Follow mental status, concern for subacute on chronic subdural hematoma as noted below Subdural hematoma - serology and urine analysis are unremarkable. Images of her brain appear to be consistent with a resolving subdural hematoma. - Reportedly Dr. Orellana spoke with Dr. Simon of [facility] neurosurgery who reviewed the images and felt this was evolution of resolution of previous chronic subdural hematoma but did not feel this was an acute new bleed. - No neurologic deficits - CT-H: IMPRESSION: Unchanged subcentimeter acute versus subacute on chronic bifrontal subdural hematomas. No associated mass effect or midline shift. Frontal headache - MRI: Small subacute on chronic appearing bifrontal subdural hematomas are redemonstrated. There is no associated mass effect or midline shift. - Ct-Cspine: IMPRESSION:Degenerative changes without evidence of acute bony injury. -Discussed and reviewed with neurology and patient and family, likely represent subacute SDH which could've occurred weeks ago, certainly unable to provide exact time event occurred. Patient clinically improved during admission, discussed with family that these are subacute and may have contributed to her acute symptoms and if so would have gradual improvement. Patient is at risk for subdural hematoma intracranial injury due to age/falls No surgical intervention was indicated (2) Hyponatremia: Urine and serum osmolarity's did not indicate salt wasting Improving at discharge (3) Fracture of distal end of fibula: - Recent fall with tib-fib fracture splinting remains in place - PT/OT (4) Depression: - Continues on Celexa (5) Breast cancer: - Continues on tamoxifen (6) Hypertension: - Pt is on both Lisinopril is used and propranolol. Propranolol for her tremor - BP has been poorly controlled -Patient required escalation of lisinopril to 20 mg daily for blood pressure control in the hospital, of no on review this has happened patient in previous hospitalizations but has a history of returning and actually becoming hypotensive with dizziness. Discussed with patient and her family, discharged to resume lisinopril 10 mg daily with daily blood pressure checks and blood pressure checks as needed for any orthostasis with further adjustments by Dr. Garg's office (7) Asthma: - continue symbicort (8) DVT prophylaxis: - Chemoprophylaxis contraindicated with concern for subdural hematoma Total Time Total Time Spent Total Time Spent (In Minutes): 45 minutes including direct patient care, review of labs/images, coordination of care, and documentation Discharge Plan Discharge Items Patient Disposition: Personal Fpc Reason For Visit: ENCEPAHLOPATHY, SUDURAL HEMATOMA, RIGHT DISTAL FIB Discharge Diagnosis: Confusion, unclear cause Activity: Resume your previous activity Weightbearing: Full weightbearing Weightbearing Comment: As tolerated Non-emergency contact: Primary Care Provider and Surgeon Call non-emergency contact if: you have any medication questions, your symptoms worsen and your pain is not controlled Follow-up/Referrals: Justin Garg MD [Primary Care Provider] - 09/01/21 10:15 am () Diet: Regular Addtl Attending Provider Instructions: 1. Take medications as outlined on discharge instructions. 2. Continue wearing boot on right leg and follow up with orthopedics as directed. 3. Continue physical therapy at home. 4. Blood pressure has been high during your hospitalization - your Lisinopril has been increased to 20mg once a day. 4. Follow up with family doctor this week to reassess blood pressure. Please have Maxi check your blood pressure DAILY and additionally anytime you are dizzy/lightheaded. If your blood pressure is too low your blood pressure medication (lisinopril) should be reduced. Pending Studies at Discharge: No Stand-Alone Forms: My [employer], Smoking Cessation Skilled Items Patient informed of condition?: Yes DNR: No Discharge Level of Care: Other Communicable Disease: No Discharge Prognosis: Stable Lines: None Urinary Catheter: No Medications and DC Order Prescriptions: New lisinopril 20 mg Tablet 10 mg PO QAM 30 Days Qty: 15 RF: 0 Continued sennosides-docusate sodium [Senna Plus] 8.6-50 mg tablet 1 tab PO QDL RF: 0 polyethylene glycol 3350 [Miralax] 17 gram/dose powder 17 gm PO QAM RF: 0 acetaminophen 500 mg capsule 500 mg PO BID PRN (Reason: pain) Qty: 180 RF: 3 Symbicort 160-4.5 mcg/actuation HFA aerosol inhaler 2 puff INH BID Qty: 10.2 RF: 11 gabapentin 400 mg capsule 400 mg PO TID Qty: 90 RF: 5 lorazepam [Ativan] 0.5 mg tablet 0.5 mg PO Q12H PRN (Reason: anxiety) Qty: 20 RF: 0 tamoxifen 20 mg tablet 20 mg PO QAM RF: 0 docusate sodium 100 mg capsule 100 mg PO BID RF: 0 calcium carbonate-vitamin D3 600 mg(1,500mg) -200 unit tablet 1 tab PO BID RF: 0 hydrocortisone [Proctozone-HC] 2.5 % cream with perineal applicator 1 applic GA DAILY PRN (Reason: Hemorrhoids) RF: 0 cholecalciferol (vitamin D3) 50 mcg (2,000 unit) capsule 50 mcg PO QAM RF: 0 guaifenesin [Tussin Expectorant] 100 mg/5 mL Liquid 200 mg PO Q4H PRN (Reason: Cough) RF: 0 Refresh Classic (PF) 1.4-0.6 % Dropperette 1 drp OPHTHALMIC (EYE) 6XD RF: 0 artificial tears with lanolin Ointment 1 applic OPB HS RF: 0 citalopram [Celexa] 40 mg tablet 40 mg PO QAM RF: 0 propranolol 120 mg capsule,extended release 24 hr 120 mg PO QAM RF: 0 Discontinued tramadol 50 mg tablet 50 mg PO HS PRN (Reason: pain) Qty: 30 RF: 2 lisinopril 10 mg tablet 5 mg PO QAM RF: 0 Discharge Orders: Discharge Order (Routine); Ordered 08/17/21 Ordered By: Gavin Mack Admission Data Admit Date/Time: 08/16/21 17:03 Attending Provider: Gavin Mack Admit Provider: Rey Del Toro Primary Care Provider: Justin Garg Other Providers: Rey Del Toro ; Aris Bailon Other Interventions: Discharge Summary Assessment (RN) Last Done: 08/17/21 16:28 Coding Level of Care Code D/C DAY MANAGEMENT >30 MINS Diagnoses Subdural hematoma S06.5X9A Hyponatremia E87.1 Fracture of distal end of fibula S82.831A Encounter type: initial encounter Fracture morphology: unspecified fracture morphology Fracture type: closed Laterality: right Depression F32.9 Breast cancer C50.919 Hypertension I10 Asthma J45.909 DVT prophylaxis Z29.9
== END 2021-08-17 17:33 | disposition home or self-care (01) | DRG 65 ==
LOC: EDINP 08:03 → ED 08:03 → SUATTDRO 12:32 → 3E 20:00 → SUATTDRO 08-16 17:03

== ENCOUNTER 2023-11-30 05:14 | Inpatient (IN) ==
--- NOTE | 2023-11-30 05:30 | Emergency Department Note ---
Impression & Plan Abscess of anal or rectal region, Hypertensive emergency, Acute pulmonary edema, Intractable pain, Thickened endometrium ED Provider Note Name: SUE COSTA Age: 83 Sex: Female Arrives Via: Ambulance Informant: Patient ED Provider: Basilio Kolb MD Chief Complaint: Rectal pain Impression: As per impressions above Medical Decision Making: Very pleasant 83-year-old female arrives from [facility] for evaluation of rectal pain believed to be secondary to hemorrhoid. Ongoing pain for the last week now the point where she is severely uncomfortable and unable to even lay still in bed overnight. Arrives very anxious and upset and fair amount of distress. Examination without any significant external rectal findings however does have fair amount of tenderness on digital rectal exam. No overt fluctuance. Given amount of pain initial thought was significant hypertension secondary to stress response. She was given IV fentanyl followed by IV Dilaudid with improvement in pain however blood pressure remains significantly elevated. She is given 2 rounds of labetalol IV with minimal improvement in blood pressure. During this she was sent to CT which does reveal a posterior rectal phlegmon. Laboratory findings returning relatively reassuring no evidence of sepsis. Due to continued hypertension a dose of IV hydralazine was ordered. Just prior to this being given blood pressure had trended down to about 180 so it was held for the moment. As patient required multiple rounds of IV narcotics for the pain she is having to likely need to be admitted. I discussed this with the patient she is comfortable with that but is quite anxious. She is awake alert oriented she was given a small dose of IV Ativan which she takes daily p.o. Noted just mild hypoxia but no altered mental status or concern for respiratory issue. With the persistent hypertension EKG was obtained and troponin was added on. Fortunately is relatively reassuring. Patient has allergy to Augmentin thus will be treated with Cipro Flagyl for the perirectal infection. I discussed the case with the hospitalist around 7 AM plan to admit. Unfortunately a few hours later patient rapidly deteriorating. She came severely short of breath anxious. Bronwyn castillo was called and I went to evaluate patient. She was found to be severely hypertensive blood pressure to 70s significantly dyspneic with diffuse wet lung sounds. Examination consistent with acute pulmonary edema likely in the setting of hypertensive crisis. She was given sublingual nitro and Nitropaste while nitro drip was obtained. She was started on BiPAP. She was given a dose of IV Ativan due to severe agitation which did seem to help calm her down and allow us to medically manage her better. She did seem to improve on BiPAP and nitro drip were able to get pressures down to 185. Throughout this hospitalist was at bedside as well helping to co-manage. Patient was given 20 mg IV Lasix as she is Lasix ihsan. Multiple repeat assessments of patient she is answering questions appropriately no neurodeficits. At this point given hypertensive crisis requiring nitro and BiPAP I would hold off on emergently sending her to CT for either chest or even head imaging. I did obtain chest x-ray which shows questionable congestive increase compared to previous. We discussed possibility of aspiration however patient did not seem to be having any issues with that earlier. Also discussed possibility of allergic reaction to IV Cipro she had been receiving however no evidence of hives rash or facial swelling. Of note there is the noted thickened endometrium on CT of the pelvis. Patient denies any rectal or vaginal bleeding that she has noticed. Has not been having specific suprapubic discomfort the last few weeks but does note that she has been having on and off low back pains which has been followed by her PCP. Will not necessarily emergent headache this is 1 more thing that can be further evaluated during her stay in the hospital or early discharge. I did discuss this with the patient made it clear that this will need further evaluation. Triage/Nursing Notes reviewed by Me I do not feel patient was in severe septic or septic shock. I feel her respiratory and cardiac issues are secondary to hypertensive emergency and severe pain amongst other causes. Differential:Perirectal abscess, phlegmon, cellulitis, hemorrhoid, thrombosed hemorrhoid, internal hemorrhoid, shingles, herpetic otherwise, Daksha's, many other pathologies considered. As for hypertension concern for hypertensive urgency/emergency, ACS, many other pathologies considered Vital Signs: reviewed and remarkable for hypertension Interventions: Labetalol 10 mg IV x 2, hydralazine 10 mg IV, Dilaudid 0.25 mg IV, fentanyl 25 mcg IV, Ativan 0.5 mg IV, nitro sublingual tab, nitro 2 inch paste, nitro drip, Lasix 20 mg IV Labs:ED labs Reviewed by me and remarkable for no significant abnormalities Imaging:CT of the pelvis with IV contrast as per my informal interpretation there is some inflammatory stranding in the posterior rectum. There is large mass/thickening of the uterus. Moderate osteoarthritis throughout. Read confirmed by radiologist. EKG:As per my interpretation. Indication hypertension. Normal sinus rhythm 93 bpm with TC of 447. There is no ectopy nor ischemia. There is a left bundle branch block which is similar to EKG of November 01, 2022. Cardiac/Tele Monitoring: Cardiac Monitoring: An Order was placed for continuous cardiac monitoring. The monitor shows a rate of 90 with a normal sinus rhythm. Consults:Dr. Harish Andrade Hospitalist Social Determinants of Health: Patient resides in nursing facility Plan: Disposition:Hospitalization. Condition: Critical History of Present Illness: 83-year-old female arrives for evaluation of rectal pain. Patient with rectal pain over the last week. She states it been gradually worsening. Is now to the point where she has pain all the time. She has been out of abdominal sleep due to the pain. Tylenol at home did not help. Notes a long history of hemorrhoids but had not had any issues many years. Denies any fevers, chills, urinary burning, abdominal pain, suprapubic pain. She has been dealing with some low back pain in the last few months but denies significant pain currently. No pain radiating down her legs at the moment. Denies any black or bloody stools. No recent nausea or vomiting or other concerning signs or symptoms. Past Medical History:See Below Home Medications:See Below Allergies:See Below Vitals:Blood Pressure: 220/120, Pulse 86, RR 22, T 36.8C, O2 96% on RA Physical Exam: GENERAL: Patient is very uncomfortable and anxious appearing and in moderate distress. RESPIRATORY: No dyspnea. Clear to auscultation and equal bilaterally. CARDIOVASCULAR: Regular rate and rhythm.No murmur appreciated. GASTROINTESTINAL: Abdomen soft, non-tender, no peritonitis. RECTAL: Normal perirectal area with only a small nonthrombosed nontender hemorrhoid noted. Entire rectum is quite tender to palpation without fluctuance appreciated. Brown stool. PELVIS: External vaginal examination completed. There is no abscess fluctuance appreciated. There is slight irritation in the left lower but there is no evidence of ulcerations or herpetic lesions. BACK: No midline tenderness, no CVA tenderness EXTREMITIES: Normal motion all extremities, no cyanosis, no edema. NEUROLOGIC: Alert and oriented. No focal neurologic deficits appreciated SKIN: No rash, no jaundice, no diaphoresis. PSYCH: Appropriate GCS: 15 ED Course: Times/Reassessments: Many repeat assessments of patient throughout stay. Despite improvement in pain blood pressure remained elevated thus IV antihypertensives were started. Did have some response though rapidly worsening later during stay. Rapid response called and I attended resuscitation. Critical Care: I have personally spent 90 minutes of critical care time in the direct management of this patient. Acute hypertensive emergency leading to flash pulmonary edema requiring resuscitation. This was a life/limb threatening event. This 90 minutes is in excess of all separately billable procedures. Basilio Kolb MD Past Med/Surg History Medical History Bronchiectasis Subdural hematoma H/O malignant neoplasm of breast History of basal cell cancer Acute subdural hematoma Hypertension Surgical History S/P knee surgery S/P dilation and curettage S/P breast lumpectomy Family History Father Hypertension Stroke Unknown Cancer Denies family history of Colon cancer Ovarian cancer Prostate cancer Myocardial infarction Breast cancer Social History Smoking Status: Unknown if ever smoked Second Hand Exposure: Yes; Do You Dip or Chew Tobacco: No; Hx Alcohol Use: No Hx Substance Use: No Preferred Language: Mohawk Communication Ability: Effective Visual Impairment: No Limitations Hearing Ability: Normal 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 Beliefs That Will Affect Care: None marital status: Current Living Situation: Alone [facility] current occupational status: retired How many Children do You have: 2 Feels Safe at Home: Yes Childhood Exposure to Second-Hand Smoke: No Dental Care, Regularly: Yes Physical Activity Frequency: 1-2 Times per Week Seatbelt Use: always Sunscreen Use: Yes Assistive Devices: Special Shoe and Walker Allergies Allergies Allergy/AdvReac Type Severity Reaction Status Date / Time povidone-iodine Allergy Mild RED RASH Verified 11/24/23 15:02 AND SKIN IRRITATION amoxicillin AdvReac Intermediate NAUSEA Verified 11/24/23 15:02 clavulanic acid AdvReac Intermediate NAUSEA Verified 11/24/23 15:02 doxycycline AdvReac Intermediate NAUSEA Verified 11/24/23 15:02 mometasone furoate AdvReac Intermediate NAUSEA Verified 11/24/23 15:02 nitrofurantoin AdvReac Intermediate nausea Verified 11/24/23 15:02 Sulfa (Sulfonamide AdvReac Mild NAUSEA/VOMI Verified 11/24/23 15:02 Antibiotics) TING Home Meds Home Medications Medication Instructions Recorded Confirmed polyethylene glycol 3350 17 17 gm PO QAM 05/17/19 11/30/23 gram/dose oral powder (Miralax) calcium carbonate 600 mg-vitamin 1 tab PO BIDM 06/04/19 11/30/23 D3 5 mcg (200 unit) tablet docusate sodium 100 mg capsule 100 mg PO BID 06/04/19 11/30/23 cholecalciferol (vitamin D3) 50 50 mcg PO QAM 03/03/21 11/30/23 mcg (2,000 unit) capsule polyvinyl alcohol-povidone (PF) 1 drp OPB QID 08/14/21 11/30/23 1.4 %-0.6 % eye drops in a dropperette (Refresh Classic (PF)) acetaminophen 500 mg capsule 1,000 mg PO TID PRN pain 09/23/21 11/30/23 sennosides 8.6 mg-docusate sodium 1 tab PO BID 10/15/22 11/30/23 50 mg tablet (Senna Plus) alendronate 70 mg tablet (Fosamax) 70 mg PO .weekly 10/26/22 11/30/23 white petrolatum-mineral oil 57.3 1 applic OPB HS 11/01/22 11/30/23 %-42.5 % eye ointment (Refresh P.M.) cyclosporine 0.05 % eye drops in a 1 drp ophthalmic (eye) Q12H 11/30/23 11/30/23 dropperette (Restasis) nystatin 100,000 unit/gram topical 1 applic topical DAILY PRN Rash 11/30/23 11/30/23 cream Previous Rx's Medication Instructions Recorded Flutter Valve #1 ea 10/26/22 fluticasone propionate 50 1 spray intranasal DAILY #16 grams 03/14/23 mcg/actuation nasal spray,suspension propranolol 80 mg capsule,24 80 mg PO QAM #90 caps 06/10/23 hr,extended release citalopram 40 mg tablet (Celexa) 40 mg PO QAM #90 tabs 07/07/23 tamoxifen 20 mg tablet 20 mg PO QAM #30 tabs 07/07/23 lisinopril 2.5 mg tablet 2.5 mg PO DAILY #90 tabs 08/03/23 mecobalamin (vitamin B12) 1,000 1,000 mcg sublingual DAILY #30 tabs 09/09/23 mcg disintegrating tablet,sublingual mirtazapine 15 mg tablet (Remeron) 15 mg PO DAILY #90 tabs 10/06/23 budesonide-formoterol HFA 160 2 puff inhalation BID #10.2 grams 10/29/23 mcg-4.5 mcg/actuation aerosol inhaler buspirone 5 mg tablet 5 mg PO BID #180 tabs 11/01/23 lorazepam 0.5 mg tablet (Ativan) 0.5 mg PO DAILY PRN anxiety #20 11/07/23 tabs nystatin-triamcinolone 100,000 1 applic topical TID #30 grams 11/07/23 unit/gram-0.1 % topical ointment diclofenac sodium 1 % topical gel 2 g topical QID #100 grams 11/24/23 (Voltaren Arthritis Pain) tramadol 50 mg tablet 50 mg PO BID PRN pain #30 tabs 11/25/23 hydrocortisone 1 % topical cream 1 applic [place] BID 10 days #28.4 grams 11/30/23 with perineal applicator hydrocortisone acetate 25 mg 25 mg [place] DAILY #12 ea 11/30/23 rectal suppository Results & Data (ED) Vital Signs Vital Signs - 24 hr 11/30/23 05:25 11/30/23 05:36 11/30/23 06:33 Temperature 36.9 C Temperature Source Oral Pulse Rate 147 H 92 H Pulse Rate [Finger] 121 H Pulse Rhythm Regular Pulse Rhythm [Finger] Regular Pulse Strength Normal Pulse Strength [Finger] Normal Respiratory Rate 20 18 Respiratory Effort / Characteristics Non-Labored Spontaneous Non-Labored Spontaneous Respiratory Depth Normal Normal Respiratory Pattern Regular Regular Blood Pressure 224/104 H 239/104 H Blood Pressure [Right Arm] 199/85 H Blood Pressure Mean 144 Blood Pressure Mean [Right Arm] 123 Blood Pressure Position Lying Blood Pressure Position [Right Arm] Lying Pulse Oximetry 94 93 Oxygen Delivery Method Room Air Room Air Oxygen Flow Rate Sepsis Recent Fever Within 48 Hours No Sepsis New/Unexplained Change in Mental Status N/A Sepsis Action Taken by Nursing No Action Required 11/30/23 06:35 11/30/23 07:26 11/30/23 07:38 Temperature Temperature Source Pulse Rate 85 76 78 Pulse Rate [Finger] Pulse Rhythm Pulse Rhythm [Finger] Pulse Strength Pulse Strength [Finger] Respiratory Rate Respiratory Effort / Characteristics Respiratory Depth Respiratory Pattern Blood Pressure 255/108 H 255/130 H Blood Pressure [Right Arm] Blood Pressure Mean Blood Pressure Mean [Right Arm] Blood Pressure Position Blood Pressure Position [Right Arm] Pulse Oximetry Oxygen Delivery Method Oxygen Flow Rate Sepsis Recent Fever Within 48 Hours Sepsis New/Unexplained Change in Mental Status Sepsis Action Taken by Nursing 11/30/23 08:07 11/30/23 08:29 11/30/23 09:00 Temperature Temperature Source Pulse Rate 87 Pulse Rate [Finger] 90 92 H Pulse Rhythm Pulse Rhythm [Finger] Regular Regular Pulse Strength Pulse Strength [Finger] Normal Respiratory Rate 20 20 Respiratory Effort / Characteristics Non-Labored Spontaneous Non-Labored Spontaneous Respiratory Depth Normal Normal Respiratory Pattern Regular Regular Blood Pressure Blood Pressure [Right Arm] 217/97 H 244/123 H Blood Pressure Mean Blood Pressure Mean [Right Arm] 137 163 Blood Pressure Position Blood Pressure Position [Right Arm] Pulse Oximetry 93 99 Oxygen Delivery Method Room Air Nasal Cannula Oxygen Flow Rate 2 Sepsis Recent Fever Within 48 Hours Sepsis New/Unexplained Change in Mental Status Sepsis Action Taken by Nursing 11/30/23 09:10 Temperature Temperature Source Pulse Rate 83 Pulse Rate [Finger] Pulse Rhythm Pulse Rhythm [Finger] Pulse Strength Pulse Strength [Finger] Respiratory Rate Respiratory Effort / Characteristics Respiratory Depth Respiratory Pattern Blood Pressure Blood Pressure [Right Arm] Blood Pressure Mean Blood Pressure Mean [Right Arm] Blood Pressure Position Blood Pressure Position [Right Arm] Pulse Oximetry Oxygen Delivery Method Oxygen Flow Rate Sepsis Recent Fever Within 48 Hours Sepsis New/Unexplained Change in Mental Status Sepsis Action Taken by Nursing Laboratory Data 11/30/23 05:31 11/30/23 05:31 Lab Results 11/30/23 11/30/23 11/30/23 Range/Units 05:31 05:38 08:11 WBC 8.99 (4.8-10.8) K/ul RBC 3.92 L (4.20-5.40) M/uL Hgb 11.2 L (12.0-16.0) g/dl POC Hgb 12.9 (12.0-16.0) g/dl Hct 34.2 L (37.0-47.0) % POC Hct 38 (37-47) % MCV 87.2 (80.0-100.0) fL MCH 28.6 (25.0-34.0) pg MCHC 32.7 (32.0-36.0) g/dL RDW Std Deviation 45.4 (36.4-46.3) fL RDW Coeff of Adarsh 14.2 (11.5-14.5) % Plt Count 300 (130-400) K/uL MPV 9.8 (9.4-12.4) fL Immature Gran % (Auto) 0.3 % Neut % (Auto) 74.4 % Lymph % (Auto) 14.1 % Craven % (Auto) 9.8 % Eos % (Auto) 1.1 % Baso % (Auto) 0.3 % Neut # (Auto) 6.68 H (1.40-6.50) K/uL Lymph # (Auto) 1.27 (1.20-3.40) K/uL Craven # (Auto) 0.88 H (0.11-0.59) K/uL Eos # (Auto) 0.10 (0.00-0.50) K/uL Baso # (Auto) 0.03 (0.00-0.20) K/uL Immature Gran # (Auto) 0.03 (0.01-0.20) K/uL POC Sodium 140 (135-144) mmol/L Sodium 139 (136-145) mmol/L POC Potassium 3.8 (3.3-5.0) mmol/L Potassium 3.8 (3.5-5.1) mmol/L POC Chloride 102 (101-112) mmol/L Chloride 104 (98-107) mmol/L Carbon Dioxide 28 (21-32) mmol/L POC Total CO2 28 (24-31) mmol/L Anion Gap 7 (3-11) POC Anion Gap 16.0 (16-25) mmol/L POC BUN 13 (7-18) mg/dl BUN 14 (6-23) mg/dl Creatinine 0.68 (0.6-1.2) mg/dl POC Creatinine 0.8 (0.6-1.3) mg/dl Est Cr Clr Drug Dosing 48.7 ml/min Est GFR ( Amer) 93.1 ml/min Est GFR (Non-Af Amer) 80.3 ml/min BUN/Creatinine Ratio 20.6 H (10-20) Glucose 94 (70-99(Fasting)) mg/dl POC Glucose (other) 99 (70-99) mg/dl Calcium 9.1 (8.6-10.3) mg/dl POC Ioniz Calcium Chris 1.22 (1.12-1.32) mmol/l Total Bilirubin 0.4 (0.2-1.0) mg/dl Direct Bilirubin 0.1 (0-0.2) mg/dl AST 20 (13-39) U/L ALT 10 (7-52) U/L Alkaline Phosphatase 59 (34-104) U/L Troponin I High Sens 12.2 (0-14) pg/ml Total Protein 6.8 (6.0-8.3) gm/dl Albumin 4.0 (3.4-5.0) gm/dl Lipase 20 (11-82) U/L SARS-CoV-2, RNA, NAAT NEGATIVE (NEGATIVE) Administered Medications Acetaminophen (Acetaminophen 325 Mg Tab) 650 mg PO Q6H [facility] Stop: 12/30/23 11:59 Last Admin: 11/30/23 18:45 Dose: 650 mg Documented By: Admin: 11/30/23 14:15 Dose: 650 mg Documented By: AMB Artificial Tears (Artificial Tears) 1 drops OP BID JENNIFER; Protocol Stop: 12/30/23 11:29 Last Admin: 11/30/23 15:29 Dose: 1 drops Documented By: AMB Buspirone HCl (Buspirone 5 Mg Tab) 5 mg PO BID [facility] Stop: 12/30/23 11:05 Last Admin: 11/30/23 14:15 Dose: 5 mg Documented By: AMB Citalopram Hydrobromide (Citalopram 40 Mg Tab) 40 mg PO QAM [facility] Stop: 12/30/23 11:05 Last Admin: 11/30/23 14:15 Dose: 40 mg Documented By: AMB Metronidazole (Flagyl) 500 mg in 100 mls @ 100 mls/hr IV Q8H JENNIFER; Protocol Stop: 12/10/23 15:59 Last Infusion: 11/30/23 18:49 Dose: Infused Documented By: Admin: 11/30/23 17:27 Dose: 100 mls/hr Documented By: AMB Lisinopril (Lisinopril 5 Mg Tab) 5 mg PO DAILY [facility] Stop: 12/30/23 11:05 Last Admin: 11/30/23 13:42 Dose: Not Given Documented By: AMB Polyethylene Glycol (Polyethylene (Miralax) 17 Gm Pack) 17 gm PO DAILY [facility] Stop: 12/30/23 11:05 Last Admin: 11/30/23 14:15 Dose: 17 gm Documented By: AMB Propranolol HCl (Propranolol Hcl La 80 Mg Capcr) 80 mg PO [facility] Stop: 12/30/23 11:05 Last Admin: 11/30/23 13:42 Dose: Not Given Documented By: AMB Tamoxifen Citrate (Tamoxifen Citrate 10 Mg Tablet) 20 mg PO [facility] Stop: 12/30/23 11:05 Last Admin: 11/30/23 13:43 Dose: Not Given Documented By: AMB Discontinued Medications Clonidine HCl (Clonidine Hcl 0.1 Mg Tab) 0.1 mg PO NOW ONE Stop: 11/30/23 09:40 Last Admin: 11/30/23 13:06 Dose: Not Given Documented By: AMB Fentanyl Citrate (Fentanyl Citrate Pf 100 Mcg/2 Ml Vial) 25 mcg IV NOW STA Stop: 11/30/23 05:26 Last Admin: 11/30/23 05:33 Dose: 25 mcg Documented By: ALBERTA Furosemide (Furosemide Inj 20 Mg/2 Ml Vial) Confirm Administered Dose 20 mg IV .STK-MED ONE Stop: 11/30/23 10:11 Last Admin: 11/30/23 10:11 Dose: 20 mg Documented By: NA Hydralazine HCl (Hydralazine Hcl 20 Mg/Ml Vial) 10 mg IV NOW STA Stop: 11/30/23 07:25 Last Admin: 11/30/23 09:08 Dose: Not Given Documented By: NA Hydralazine HCl (Hydralazine Hcl 20 Mg/Ml Vial) Confirm Administered Dose 20 mg .ROUTE .STK-MED ONE Stop: 11/30/23 09:06 Last Admin: 11/30/23 09:07 Dose: 10 mg Documented By: NA Hydromorphone HCl (Hydromorphone Inj 0.5 Mg/0.5 Ml Syr) 0.25 mg IV NOW STA Stop: 11/30/23 06:21 Last Admin: 11/30/23 06:32 Dose: 0.25 mg Documented By: ALBERTA Hydromorphone HCl (Hydromorphone Inj 0.5 Mg/0.5 Ml Syr) 0.25 mg IV NOW STA Stop: 11/30/23 07:32 Last Admin: 11/30/23 08:15 Dose: 0.25 mg Documented By: ANGELO Sodium Chloride (Nss) 500 mls @ 999 mls/hr IV .Q31M ONE Stop: 11/30/23 05:55 Last Infusion: 11/30/23 06:07 Dose: Infused Documented By: Admin: 11/30/23 05:34 Dose: 999 mls/hr Documented By: ALBERTA Ciprofloxacin (Cipro / D5w) 400 mg in 200 mls @ 100 mls/hr IV NOW STA; Protocol Stop: 11/30/23 09:11 Last Infusion: 11/30/23 10:59 Dose: Infused Documented By: Infusion: 11/30/23 09:42 Dose: 0 mls/hr Documented By: Admin: 11/30/23 08:16 Dose: 100 mls/hr Documented By: ANGELO Metronidazole (Flagyl) 500 mg in 100 mls @ 100 mls/hr IV NOW STA; Protocol Stop: 11/30/23 08:11 Last Infusion: 11/30/23 09:42 Dose: Infused Documented By: Admin: 11/30/23 08:24 Dose: 100 mls/hr Documented By: ANGELO Nitroglycerin/Dextrose (Nitroglycerin/D5w 100 Mcg/Ml) 250 mls @ 0 mls/hr IV .Q0M JENNIFER; Protocol Stop: 12/30/23 09:59 Last Titration: 11/30/23 17:54 Dose: Infused Documented By: Titration: 11/30/23 10:45 Dose: 0 mcg/min, 0 mls/hr Documented By: Titration: 11/30/23 09:57 Dose: 10 mcg/min, 6 mls/hr Documented By: Admin: 11/30/23 09:50 Dose: 5 mcg/min, 3 mls/hr Documented By: ANGELO Co-signed By: ERICK Ioversol (Optiray 320 500ml) 100 ml IV ONCE ONE Stop: 11/30/23 06:21 Last Admin: 11/30/23 06:21 Dose: 85 ml Documented By: STEVE Labetalol HCl (Labetalol Hcl Iv 5 Mg/Ml 20ml) 10 mg IV NOW STA Stop: 11/30/23 06:21 Last Admin: 11/30/23 06:33 Dose: 10 mg Documented By: ALBERTA Co-signed By: DONNY Labetalol HCl (Labetalol Hcl Iv 5 Mg/Ml 20ml) 10 mg IV NOW STA Stop: 11/30/23 06:48 Last Admin: 11/30/23 07:26 Dose: 10 mg Documented By: BISI Co-signed By: ANGELO Lorazepam (Lorazepam 1 Mg/1 Ml Syr Ed Inj Use) 0.5 mg IV ONE STA Stop: 11/30/23 07:35 Last Admin: 11/30/23 08:23 Dose: 0.5 mg Documented By: ANGELO Lorazepam (Lorazepam 1 Mg/1 Ml Syr Ed Inj Use) Confirm Administered Dose 1 mg .ROUTE .STK-MED ONE Stop: 11/30/23 09:56 Last Admin: 11/30/23 09:56 Dose: 0.5 mg Documented By: ANGELO Nitroglycerin (Nitroglycerin 2% Ointment 30gm Tube) Confirm Administered Dose 18 inch EXT .STK-MED ONE Stop: 11/30/23 09:48 Last Admin: 11/30/23 09:47 Dose: 2 inch Documented By: ANGELO Nitroglycerin (Nitroglycerin Sl 0.4 Mg/Tab Tab) Confirm Administered Dose 0.4 mg .ROUTE .STK-MED ONE Stop: 11/30/23 09:48 Last Admin: 11/30/23 09:46 Dose: 0.4 mg Documented By: ANGELO Nitroglycerin (Nitroglycerin 2% Ointment 30gm Tube) 2 inch EXT NOW STA Stop: 11/30/23 09:48 Last Admin: 11/30/23 10:38 Dose: Not Given Documented By: ANGELO Nitroglycerin (Nitroglycerin Sl 0.4 Mg/Tab Tab) 0.4 mg SL NOW STA Stop: 11/30/23 09:48 Last Admin: 11/30/23 10:39 Dose: Not Given Documented By: ANGELO Nitroglycerin/Dextrose (Nitroglycerin/D5w 100 Mcg/Ml Btl) Confirm Administered Dose 25 mg .ROUTE .STK-MED ONE Stop: 11/30/23 09:51 Last Admin: 11/30/23 10:39 Dose: Not Given Documented By: ANGELO Imaging Data Radiologist's Impression: Pelvis CT 11/30/23 05:25 CT pelvis w/IV con only CLINICAL HISTORY: concern carly-rectal abscess TECHNIQUE: Helical axial images of the pelvis were obtained and displayed at 5 and 1 mm intervals. Automated dose lowering techniques and/or adjustment according to patient size were utilized for this exam. This exam was performed with intravenous contrast. CT DOSE: 463.05 mGy.cm COMPARISON: None available at the time of this dictation. FINDINGS: Bladder: Unremarkable. Reproductive organs: Prominent thickening of the endometrium is seen. Bowel: There is a 7 mm hypodensity in the region of the posterior rectum (series 3 image 291). Lymph nodes Pelvic: Unremarkable. Mesenteric: Unremarkable. Peritoneum: Normal Vessels: Atherosclerotic calcifications are seen. Abdominal wall: A tiny umbilical helical hernia is seen. Bones: Degenerative changes in the visualized spine. IMPRESSION: 1. There is a hypodensity in the posterior rectum, nonspecific, may reflect developing phlegmon. No well-defined abscess is seen. 2. Prominent thickening of the endometrium. If not previously characterized, endometrial biopsy is recommended as this is suspicious for endometrial carcinoma in this postmenopausal patient. ACT 112: Positive. There are findings on this exam that require communication between the performing entity and the patient following Patient Test Result Information Act ([place] Act 112) guidelines. Electronically signed by: Derick Dubose M.D. 11/30/2023 6:48 AM Discharge Plan Visit Data Chief Complaint: Rectal Pain Stated Complaint: HEMORRHOIDS, PAIN X1 WEEK ED Provider: Basilio Kolb Discharge Problem: Abscess of anal or rectal region, Hypertensive emergency, Acute pulmonary edema, Intractable pain, Thickened endometrium Patient Disposition: Admitted As Inpatient Discharge Instructions Interventions: ED Discharge Assessment Last Done: 11/30/23 11:10
[2023-11-30] MEDS: fentaNYL citrate PF 100 MCG/2 ML VIAL IV STA (05:33)
[2023-11-30] MEDS: SODIUM CHLORIDE 0.9% 500 ML IV ONE (05:34)
[2023-11-30 05:50] LABS: iSTAT Creatinine 0.8 mg/dl (0.6-1.3); iSTAT Hemoglobin 12.9 g/dl (12.0-16.0); iSTAT Ionized Calcium 1.22 mmol/l (1.12-1.32); iSTAT Potassium 3.8 mmol/L (3.3-5.0)
[2023-11-30 06:00] LABS: Basophils # (auto) 0.03 K/uL (0.00-0.20); Basophils % (auto) 0.3 %; Eosinophils % (auto) 1.1 %; Hematocrit (blood only) 34.2 % (37.0-47.0); Hemoglobin 11.2 g/dl (12.0-16.0); Immature Granulocytes # (auto) 0.03 K/uL (0.01-0.20); Immature Granulocytes % (auto) 0.3 %; Lymphocytes # (auto) 1.27 K/uL (1.20-3.40); Lymphocytes % (auto) 14.1 %; Mean Corpuscular Hemoglobin 28.6 pg (25.0-34.0); Mean Corpuscular Hgb Conc 32.7 g/dL (32.0-36.0); Mean Corpuscular Volume 87.2 fL (80.0-100.0); Mean Platelet Volume 9.8 fL (9.4-12.4); Monocytes # (auto) 0.88 K/uL (0.11-0.59); Monocytes % (auto) 9.8 %; Neutrophils # (auto) 6.68 K/uL (1.40-6.50); Neutrophils % (auto) 74.4 %; Platelet Count 300 K/uL (130-400); RDW Coefficient of Variation 14.2 % (11.5-14.5); RDW Standard Deviation 45.4 fL (36.4-46.3); Red Blood Count 3.92 M/uL (4.20-5.40); White Blood Count 8.99 K/ul (4.8-10.8)
[2023-11-30] MEDS: OPTIRAY 320 500ml IV ONE (06:21)
[2023-11-30 06:31] LABS: Bilirubin,Total 0.4 mg/dl (0.2-1.0); Total Protein 6.8 gm/dl (6.0-8.3)
[2023-11-30] MEDS: HYDROmorphone INJ 0.5 MG/0.5 ML SYR IV STA ×2 (06:32→08:15)
[2023-11-30] MEDS: LABETALOL HCL IV 5 MG/ML 20ML IV STA ×2 (06:33→07:26)
[2023-11-30 06:34] LABS: Bilirubin Direct 0.1 mg/dl (0-0.2); Calcium 9.1 mg/dl (8.6-10.3); Potassium 3.8 mmol/L (3.5-5.1)
[2023-11-30 06:40] LABS: BUN Creatinine Ratio 20.6 (10-20); Creatinine Clr Calc Pharmacy 48.7 ml/min; Est GFR (African American) 93.1 ml/min; Est GFR (Non-African American) 80.3 ml/min
--- NOTE | 2023-11-30 06:50 | CT Scan Report ---
CT pelvis w/IV con only CLINICAL HISTORY: concern carly-rectal abscess TECHNIQUE: Helical axial images of the pelvis were obtained and displayed at 5 and 1 mm intervals. Au tomated dose lowering techniques and/or adjustment according to patient size were utilized for this e xam. This exam was performed with intravenous contrast. CT DOSE: 463.05 mGy.cm COMPARISON: None available at the time of this dictation. FINDINGS: Bladder: Unremarkable. Reproductive organs: Prominent thickening of the endometrium is seen. Bowel: There is a 7 mm hypodensity in the region of the posterior rectum (series 3 image 291). Lymph nodes Pelvic: Unremarkable. Mesenteric: Unremarkable. Peritoneum: Normal Vessels: Atherosclerotic calcifications are seen. Abdominal wall: A tiny umbilical helical hernia is seen. Bones: Degenerative changes in the visualized spine. IMPRESSION: 1. There is a hypodensity in the posterior rectum, nonspecific, may reflect developing phlegmon. No well-defined abscess is seen. 2. Prominent thickening of the endometrium. If not previously characterized, endometrial biopsy is r ecommended as this is suspicious for endometrial carcinoma in this postmenopausal patient. ACT 112: Positive. There are findings on this exam that require communication between the performing entity and the patient following Patient Test Result Information Act ([place] Act 112) guidelines. Electronically signed by: Derick Dubose M.D. 11/30/2023 6:48 AM
--- NOTE | 2023-11-30 07:34 | History & Physical Report ---
Date of Service November 30, 2023 Assessment & Plan (1) Hypertensive emergency: Plan: With acute pulmonary edema, acute hypoxic respiratory failure, max SBP 240-250 despite several doses IV labetalol and IV hydralazine given prior to that by ED May have been triggered by acute anxiety and pain despite ED treatment with IV opioids and dose of IV lorazepam prior to this. Treated as described above with nitroglycerine drip, lasix IV, IV lorazepam 0.5 mg, bipap from AM until midday Initially planned for ICU admission but improved rapidly so admitted to PCU -acute hypertension has resolved, no longer on nitro drip as of midday, BP normalized -acute hypoxic respiratory failure due to acute pulmonary edema resolved - now with sats in high 90s on 2L pnc -hold off on further diuretics for now -PRN IV labetalol or hydralazine for SBP >180 -lisinopril and propranolol not given today because of dramatic decrease in BP after above treatment - can resume when BP trending up -does not have history of heart failure and no evidence of chronic heart failure on exam (no peripheral edema or gross volume overload), further history from her daughter who corroborates no history of cardiac problems -troponin x 2 was negative. would not be surprising if she develops elevation given cardiac strain event -ordered TTE (2) Rolanda-rectal abscess: Plan: 83 y/o admitted with rectal pain and finding of probable posterior rectal phlegmon on Ct pelvis with contrast, no discrete abscess. Also severely hypertensive in the ED BP 239/104 which persisted despite pain control and labetalol IV Posterior rectal phlegmon - - continue cipro/flagyl - pain control - consider surgical consult if not promptly improving, reimaging at interval - ordered diet for dinner today (3) Hypoxia: Plan: Was not hypoxic on arrival to ED, developed following two small doses of IV opioids initially thought related to hypoventilation Then developed acute hypoxic respiratory failure due to acute pulmonary edema treated as above and resolved Mild, requiring 2L O2 presently -expect she will continue to auto-diurese -would not be surprising if she had some aspiration, monitor for this -caution with opioids -supplemental O2 as needed (4) Hypertension: Plan: see above resume propranolol and lisinopril in AM or when BP trends up daughter reports she is frequently severely hypertensive when acutely anxious, which has been difficult to manage (5) Thickened endometrium: Plan: Noted on CT pelvis, new finding Last BALL ENDER 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 Pena Has history of breast cancer treated in 2017, per chart: "Infiltrating ductal carcinoma, grade 2Estrogen receptor positive, progesterone receptor positive, HER-2/saud negativeStatus post image guided localization lumpectomy and sentinel lymph node biopsy 07/25/2017Stage pT1b [id number] DX score of 18Status post completion of radiation therapy 10/11/2017" -has had no vaginal bleeding -tamoxifen can cause EM hyperplasia and increases risk of endometrial cancer - held for now. Has been on 6-7 years. 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 Plan Chronic medical problems: History of bilateral SDH, traumatic - cognitive impairment accelerated following this Mild cognitive impairment - her daughter reports memory is typically quite poor and she is often confused, often disoriented in hospital setting Essential tremor - treated with propranolol Bronchiectasis history Depression Resident of [facility] Emergency contact listed is daughter Guillermina Rodriguez in [place] [phone] -I updated Guillermina by phone this am and again this afternoon Full code at this time, would not want prolonged life support per discussion with her daughter I spent 45 minutes critical care time at bedside assessing and treating immediately life threatening conditions of hypertensive emergency, acute pulmonary edema, acute hypoxic respiratory failure as documented above. History of Present Illness Chief Complaint: rectal pain Primary Care Provider: Tani Love Dr. Pro 83 y/o presented to ED with worsening rectal pain for past week. Pain has been progressively worsening, severe pain at the time of ED presentation. She attributes this pain to a hemorrhoid, but no hemorrhoid was present on exam. CT pelvis with IV contrast obtained, 7mm hypodensity posterior rectum suggestive of a phlegmon. Given cipro/flagyl. fentanyl 25 mcg, hydromorphone 0.25 mg, then mildly hypoxic on 2L O2 No N/V/D or abdominal pain. Eval in primary care for low back pain for previous week, Lspine xray obtained, currently not having low back pain Severely hypertensive 239/104 - labetalol 10 mg x 2 doses given - pain improved, IV lorazepam given for anxiety, despite this SBP remained 230. Hydralazine 10 mg IV ordered after discussion with ED MD but on recheck SBP down to 180 so held off. Soon after had rapidly progressive shortness of breath, worsening hypoxia, tachypnea and sinus tachycardia with HR in 130s, SBP 240-250. Breath sounds newly coarse and wet sounding. Donavan castillo was called I saw her during this episode with ED MD and donavan castillo team. Denied chest pain, no dyspnea, agitated and unable to give history. Treated with nitroglycerine IV drip increased from 5-->10, lasix 20 mg IV x 1, bipap. Immediate response with BP improving to 160s-180s and excellent UOP, improvement in dyspnea. Nitro drip was held and did not need to be restarted. Came off of bipap. Reassessed in early afternoon, denied CP and dyspnea, though breath sounds still coarse and only needing 2L O2 sats in high 90s. Reports that rectal pain has improved since this morning. Has been going on several weeks, worse past week. She thought was related to hemorrhoids. Confused at baseline but aware at [facility]. Endometrial thickening - noted on pelvic CT. No vaginal bleeding - she denies any history of vaginal bleeding but has been on tamoxifen for breast cancer for 6-7 years Pelvic exam by ED MD unremarkable Allergies Allergy/AdvReac Type Severity Reaction Status Date / Time povidone-iodine Allergy Mild RED RASH Verified 11/24/23 15:02 AND SKIN IRRITATION amoxicillin AdvReac Intermediate NAUSEA Verified 11/24/23 15:02 clavulanic acid AdvReac Intermediate NAUSEA Verified 11/24/23 15:02 doxycycline AdvReac Intermediate NAUSEA Verified 11/24/23 15:02 mometasone furoate AdvReac Intermediate NAUSEA Verified 11/24/23 15:02 nitrofurantoin AdvReac Intermediate nausea Verified 11/24/23 15:02 Sulfa (Sulfonamide AdvReac Mild NAUSEA/VOMI Verified 11/24/23 15:02 Antibiotics) TING Home Medications Medication Instructions Recorded Confirmed Type polyethylene glycol 3350 17 17 gm PO QAM 05/17/19 11/30/23 History gram/dose oral powder (Miralax) calcium carbonate 600 mg-vitamin 1 tab PO BIDM 06/04/19 11/30/23 History D3 5 mcg (200 unit) tablet docusate sodium 100 mg capsule 100 mg PO BID 06/04/19 11/30/23 History cholecalciferol (vitamin D3) 50 50 mcg PO QAM 03/03/21 11/30/23 History mcg (2,000 unit) capsule polyvinyl alcohol-povidone (PF) 1 drp OPB QID 08/14/21 11/30/23 History 1.4 %-0.6 % eye drops in a dropperette (Refresh Classic (PF)) acetaminophen 500 mg capsule 1,000 mg PO TID PRN pain 09/23/21 11/30/23 History sennosides 8.6 mg-docusate sodium 1 tab PO BID 10/15/22 11/30/23 History 50 mg tablet (Senna Plus) Flutter Valve #1 ea 10/26/22 11/24/23 Rx alendronate 70 mg tablet (Fosamax) 70 mg PO .weekly 10/26/22 11/30/23 History white petrolatum-mineral oil 57.3 1 applic OPB HS 11/01/22 11/30/23 History %-42.5 % eye ointment (Refresh P.M.) fluticasone propionate 50 1 spray intranasal DAILY #16 grams 03/14/23 11/30/23 Rx mcg/actuation nasal spray,suspension propranolol 80 mg capsule,24 80 mg PO QAM #90 caps 06/10/23 11/30/23 Rx hr,extended release citalopram 40 mg tablet (Celexa) 40 mg PO QAM #90 tabs 07/07/23 11/30/23 Rx tamoxifen 20 mg tablet 20 mg PO QAM #30 tabs 07/07/23 11/30/23 Rx lisinopril 2.5 mg tablet 2.5 mg PO DAILY #90 tabs 08/03/23 11/30/23 Rx mecobalamin (vitamin B12) 1,000 1,000 mcg sublingual DAILY #30 tabs 09/09/23 11/30/23 Rx mcg disintegrating tablet,sublingual mirtazapine 15 mg tablet (Remeron) 15 mg PO DAILY #90 tabs 10/06/23 11/30/23 Rx budesonide-formoterol HFA 160 2 puff inhalation BID #10.2 grams 10/29/23 11/30/23 Rx mcg-4.5 mcg/actuation aerosol inhaler buspirone 5 mg tablet 5 mg PO BID #180 tabs 11/01/23 11/30/23 Rx lorazepam 0.5 mg tablet (Ativan) 0.5 mg PO DAILY PRN anxiety #20 11/07/23 11/30/23 Rx tabs nystatin-triamcinolone 100,000 1 applic topical TID #30 grams 11/07/23 11/30/23 Rx unit/gram-0.1 % topical ointment diclofenac sodium 1 % topical gel 2 g topical QID #100 grams 11/24/23 11/30/23 Rx (Voltaren Arthritis Pain) tramadol 50 mg tablet 50 mg PO BID PRN pain #30 tabs 11/25/23 11/30/23 Rx cyclosporine 0.05 % eye drops in a 1 drp ophthalmic (eye) Q12H 11/30/23 11/30/23 History dropperette (Restasis) hydrocortisone 1 % topical cream 1 applic NH BID 10 days #28.4 grams 11/30/23 11/30/23 Rx with perineal applicator hydrocortisone acetate 25 mg 25 mg NH DAILY #12 ea 11/30/23 11/30/23 Rx rectal suppository nystatin 100,000 unit/gram topical 1 applic topical DAILY PRN Rash 11/30/23 11/30/23 History cream Past Med/Surg History Medical History Bronchiectasis Subdural hematoma H/O malignant neoplasm of breast History of basal cell cancer Acute subdural hematoma Hypertension Surgical History S/P knee surgery S/P dilation and curettage S/P breast lumpectomy Family History Father Hypertension Stroke Unknown Cancer Denies family history of Colon cancer Ovarian cancer Prostate cancer Myocardial infarction Breast cancer Social History Smoking Status: Unknown if ever smoked Second Hand Exposure: Yes; Do You Dip or Chew Tobacco: No; Hx Alcohol Use: No Hx Substance Use: No Preferred Language: Afghan Communication Ability: Effective Visual Impairment: No Limitations Hearing Ability: Normal Pathology Specialist Required: No Beliefs That Will Affect Care: None marital status: Current Living Situation: Alone Current Living Situation Comment: [employer] current occupational status: retired How many Children do You have: 2 Feels Safe at Home: Yes Childhood Exposure to Second-Hand Smoke: No Dental Care, Regularly: Yes Physical Activity Frequency: 1-2 Times per Week Seatbelt Use: always Sunscreen Use: Yes Assistive Devices: Special Shoe and Walker Physical Exam Physical Exam: PHYSICAL EXAMINATION Last 24h vital signs reviewed, see documentation in flowsheet General: in acute distress, also anxious and mildly agitated HEENT: Normocephalic, atraumatic, pupils round and equal, sclerae anicteric, no conjunctival injection, moist mucus membranes. L eyelid opening is smaller than right with droop- reports this is baseline Lungs: Tachypneic laboring with retractions, wet coarse sounding breath sounds bilaterally with anterior crackles Heart: Tachy Regular rate and rhythm, no murmurs. +JVD and distended EJs Abdomen: Soft, nontender, nondistended. Bowel sounds present. Extremities: Warm, dry, well-perfused. No extremity edema. Neuro: Confused, mildly agitated, makes verbal statements, face symmetric except eyelids, felisha, moves 4 extremities vigorously, has gross UE tremor (baseline) Psych: anxious affect and behavior Results & Data Results & Data Vital Signs (Past 12 Hours) Vital Signs Temp Pulse Pulse Resp BP BP Pulse Ox 11/30/23 06:35 85 11/30/23 06:33 92 H 239/104 H 11/30/23 05:36 121 H 18 199/85 H 93 11/30/23 05:25 36.9 C 147 H 20 224/104 H 94 O2 Del Method 11/30/23 06:35 11/30/23 06:33 11/30/23 05:36 Room Air 11/30/23 05:25 Room Air Laboratory Results 11/30/23 11/30/23 Range/Units 05:38 05:31 WBC 8.99 (4.8-10.8) K/ul RBC 3.92 L (4.20-5.40) M/uL Hgb 11.2 L (12.0-16.0) g/dl POC Hgb 12.9 (12.0-16.0) g/dl Hct 34.2 L (37.0-47.0) % POC Hct 38 (37-47) % MCV 87.2 (80.0-100.0) fL MCH 28.6 (25.0-34.0) pg MCHC 32.7 (32.0-36.0) g/dL RDW Std Deviation 45.4 (36.4-46.3) fL RDW Coeff of Adarsh 14.2 (11.5-14.5) % Plt Count 300 (130-400) K/uL MPV 9.8 (9.4-12.4) fL Immature Gran % (Auto) 0.3 % Neut % (Auto) 74.4 % Lymph % (Auto) 14.1 % [place] % (Auto) 9.8 % Eos % (Auto) 1.1 % Baso % (Auto) 0.3 % Neut # (Auto) 6.68 H (1.40-6.50) K/uL Lymph # (Auto) 1.27 (1.20-3.40) K/uL [place] # (Auto) 0.88 H (0.11-0.59) K/uL Eos # (Auto) 0.10 (0.00-0.50) K/uL Baso # (Auto) 0.03 (0.00-0.20) K/uL Immature Gran # (Auto) 0.03 (0.01-0.20) K/uL POC Sodium 140 (135-144) mmol/L Sodium 139 (136-145) mmol/L POC Potassium 3.8 (3.3-5.0) mmol/L Potassium 3.8 (3.5-5.1) mmol/L POC Chloride 102 (101-112) mmol/L Chloride 104 (98-107) mmol/L Carbon Dioxide 28 (21-32) mmol/L POC Total CO2 28 (24-31) mmol/L Anion Gap 7 (3-11) POC Anion Gap 16.0 (16-25) mmol/L POC BUN 13 (7-18) mg/dl BUN 14 (6-23) mg/dl Creatinine 0.68 (0.6-1.2) mg/dl POC Creatinine 0.8 (0.6-1.3) mg/dl Est Cr Clr Drug Dosing 48.7 ml/min Est GFR ( Amer) 93.1 ml/min Est GFR (Non-Af Amer) 80.3 ml/min BUN/Creatinine Ratio 20.6 H (10-20) Glucose 94 (70-99(Fasting)) mg/dl POC Glucose (other) 99 (70-99) mg/dl Calcium 9.1 (8.6-10.3) mg/dl POC Ioniz Calcium Chris 1.22 (1.12-1.32) mmol/l Total Bilirubin 0.4 (0.2-1.0) mg/dl Direct Bilirubin 0.1 (0-0.2) mg/dl AST 20 (13-39) U/L ALT 10 (7-52) U/L Alkaline Phosphatase 59 (34-104) U/L Troponin I High Sens Pending Total Protein 6.8 (6.0-8.3) gm/dl Albumin 4.0 (3.4-5.0) gm/dl Lipase 20 (11-82) U/L Diagnostic Findings Pelvis CT 11/30/23 05:25 CT pelvis w/IV con only CLINICAL HISTORY: concern rolanda-rectal abscess TECHNIQUE: Helical axial images of the pelvis were obtained and displayed at 5 and 1 mm intervals. Automated dose lowering techniques and/or adjustment according to patient size were utilized for this exam. This exam was performed with intravenous contrast. CT DOSE: 463.05 mGy.cm COMPARISON: None available at the time of this dictation. FINDINGS: Bladder: Unremarkable. Reproductive organs: Prominent thickening of the endometrium is seen. Bowel: There is a 7 mm hypodensity in the region of the posterior rectum (series 3 image 291). Lymph nodes Pelvic: Unremarkable. Mesenteric: Unremarkable. Peritoneum: Normal Vessels: Atherosclerotic calcifications are seen. Abdominal wall: A tiny umbilical helical hernia is seen. Bones: Degenerative changes in the visualized spine. IMPRESSION: 1. There is a hypodensity in the posterior rectum, nonspecific, may reflect developing phlegmon. No well-defined abscess is seen. 2. Prominent thickening of the endometrium. If not previously characterized, endometrial biopsy is recommended as this is suspicious for endometrial carcinoma in this postmenopausal patient. ACT 112: Positive. There are findings on this exam that require communication between the performing entity and the patient following Patient Test Result Information Act ([place] Act 112) guidelines. Electronically signed by: Derick Dubose M.D. 11/30/2023 6:48 AM CXR obtained during code purple - by my interpretation increased vascular markings compatable with acute pulmonary edema later radiologist interpretation read as clear EKG tracings reviewed - sinus tachycardia, LVH pattern, septal Qs unchanged since previous EKGs which I also reviewed PG Care Time/CCT Total # of Minutes Spent Total Time Spent with Patient: Total time spent is greater than 50% in coordination of care (as documented) at patient's floor/unit and/or counseling patient: Coding Level of Care Code 37024 INT INP/OBS CARE 3/75MIN Diagnoses Hypertensive emergency I16.1 Rolanda-rectal abscess K61.1 Hypoxia R09.02 Hypertension I10 Hypertension type: primary hypertension Thickened endometrium R93.89 (4) Hypertension Hypertension type: primary hypertension Qualified Code(s): I10 - Essential (primary) hypertension
[2023-11-30] MEDS: CIPROFLOXACIN / D5W 400 MG/200 ML BAG IV STA (08:16)
--- NOTE | 2023-11-30 08:16 | Electrocardiogram Report ---
Test Reason : Blood Pressure : / mmHG Vent. 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
[2023-11-30] MEDS: LORazepam 1 MG/1 ML SYR ED Inj Use IV STA (08:23)
[2023-11-30] MEDS: metroNIDAZOLE 500 MG/100 ML BAG IV STA (08:24)
[2023-11-30 08:34] LABS: Troponin I High Sensitivity 12.2 pg/ml (0-14)
[2023-11-30] MEDS: hydrALAZINE HCL 20 MG/ML VIAL ONE (09:07)
[2023-11-30] MEDS: hydrALAZINE HCL 20 MG/ML VIAL IV STA (09:08)
[2023-11-30] MEDS: NITROGLYCERIN SL 0.4 MG/TAB TAB ONE (09:46)
[2023-11-30] MEDS: NITROGLYCERIN 2% OINTMENT 30GM TUBE EXT ONE (09:47)
[2023-11-30] MEDS: NITROGLYCERIN/D5W 100MCG/ML 250 ML IV SCH (09:50)
[2023-11-30] MEDS ORDERED: STAT IV Infusion **Titration per Protocol STA (09:53)
[2023-11-30] MEDS: LORazepam 1 MG/1 ML SYR ED Inj Use ONE (09:56)
[2023-11-30] MEDS: FUROSEMIDE INJ 20 MG/2 ML VIAL IV ONE (10:11)
--- NOTE | 2023-11-30 10:15 | XRay Report ---
XR chest 1V portable CLINICAL HISTORY: hypoxia TECHNIQUE: Single frontal radiograph of the chest was obtained. Comparison: Comparison is made to chest radiograph 04/29/2023 FINDINGS: No lines and tubes are seen. Calcified aortic knob is seen. Reticular interstitial opacities are seen . No evidence of pleural effusion or pneumothorax. A hiatal hernia is seen. IMPRESSION: No acute chest disease. ACT 112: Negative or not required by law. Electronically signed by: Derick Dubose M.D. 11/30/2023 10:13 AM
--- NOTE | 2023-11-30 10:25 | Electrocardiogram Report ---
Test Reason : Blood Pressure : / mmHG Vent. 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
[2023-11-30] MEDS: NITROGLYCERIN 2% OINTMENT 30GM TUBE EXT STA (10:38)
[2023-11-30] MEDS: NITROGLYCERIN/D5W 100 MCG/ML BTL ONE (10:39)
[2023-11-30] MEDS: NITROGLYCERIN SL 0.4 MG/TAB TAB SL STA (10:39)
--- NOTE | 2023-11-30 10:45 | Communication Note ---
Date of Service: November 30, 2023 Julia developed worsening hypertension SBP to 240-250s, associated with tachycadia to 130s and dyspnea. Code jonathan called in ED. Very wet/coarse on exam, elevated neck veins, obtained CXR which was read as clear. Discussed with ED MD, presentation consistent with acute pulmonary edema. Nitroglycerin drip started, bipap started, lasix 20 mg IV administered as well as repeat dose of IV lorazepam for severe anxiety. Improved BP to SBP 160s-180s so far, remains tachypneic and coarse. I updated her daughter Guillermina Rodriguez by phone x 20 minutes. She states Julia has severe anxiety and BP spikes severely with anxiety, has memory impairment and is very forgetful with poor short term memory though comes accross well. Has living will which she will obtain. States that Julia would not want to live on half-way life support but to her knowledge would want full treatment inculding intubation and attempt at CPR.
[2023-11-30] MEDS ORDERED: HYDROmorphone INJ 0.5 MG/0.5 ML SYR IV PRN (11:06)
[2023-11-30] MEDS ORDERED: LABETALOL HCL IV 5 MG/ML 20ML IV PRN (11:06)
[2023-11-30] MEDS ORDERED: MELATONIN 3 MG TAB PO PRN (11:06)
[2023-11-30] MEDS ORDERED: hydrALAZINE HCL 20 MG/ML VIAL IV PRN (11:06)
[2023-11-30 11:23] LABS: iSTAT Arterial Blood Gas HCO3 26 meg/L (19-24); iSTAT Arterial Blood Gas pCO2 48 mmHg (35-46); iSTAT Arterial Blood Gas pH 7.34 (7.35-7.45); iSTAT Arterial Blood Gas pO2 311 mmHg (80-95); iSTAT Carbon Dioxide 27 mmol/L (24-31); iSTAT Hematocrit 40 % (37-47); iSTAT Hemoglobin 13.6 g/dl (12.0-16.0); iSTAT Potassium 3.9 mmol/L (3.3-5.0); iSTAT Sodium 137 mmol/L (135-144)
[2023-11-30 11:32] LABS: Appearance Urine Clear (Clear); Bacteria Urine Automated Negative (Negative); Bilirubin Urine Negative (Negative); Blood Urine Negative (Negative); Cast Urine Automated 0 /lpf (0-5); Color Urine Yellow; Epithelial Cell Urine Auto 0-5 /lpf (0-5); Glucose Urine UA Negative (Negative); Ketones Urine Negative (Negative); Leukocyte Esterase Urine Negative (Negative); Nitrite Urine Negative (Negative); RBC Urine Automated 0-4 /hpf (0-4); Specific Gravity Urine 1.019 (1.000-1.030); Urobilinogen Urine Negative (Negative); WBC Urine Automated 0 /hpf (0-5); pH Urine 7.5 (4.5-7.5)
[2023-11-30 11:35] LABS: Protein Urine 1+ (Negative)
--- OUTSIDE RECORDS SUMMARY | 2023-11-30 11:57 | External Medical Summary | Summary of Care ---
Author Name Unknown Organization [facility] Address [address] [place] [address] Phone [phone] Care Team Providers Care Architectural Technician Name Role Phone Justin Garg MD Primary Care Provider [phone] Reason for Visit * Reason Onset Date Comments Test Results 11/23/2023 Encounter Details Date Type Department Care Team (Late st Contact Info) Description 11/23/2023 Telephone Rheumatology [facility] [address] [place] [address] Steven Alaniz MD [address] [place] [address] Test Results Allergies Active Allergy Reactions Criticality Noted Date Comments Amoxicillin Nausea/vomiting High 04/07/2022 Other Reaction(s): Nausea/Vomiting Mometasone Furoate Other (Please comment) 02/26/2015 Throat irritation Amoxicillin-Pot Clavulanate Nausea/vomiting 02/26/2015 Povidone Iodine 02/05/2015 Clavulanic Acid High 04/07/2022 Other Reaction(s): NAUSEA Doxycycline Hyclate Nausea/vomiting 02/26/2015 Nitrofurantoin Macrocrystal Unknown 02/26/2015 Sulfa Antibiotics 09/23/2003 GI Upset documented as of this encounter (statuses as of 11/24/2023) Medications Medication Sig Dispensed Refills Start Date End Date Status Calcium Carb-Cholecalciferol 600-200 MG-UNIT per tablet Take 1 Tablet by mouth in the morning. 0 Active polyethylene glycol 3350 (MIRALAX) 119 gram POWD Take 119 g by mouth once. 0 Active senna-docusate (SENOKOT-S) 8.6-50 MG per tablet Take 1 Tablet by mouth in the morning. 0 Active Acetaminophen 325 MG CAPS Take by mouth. 0 Active LORAzepam (ATIVAN) 0.5 MG Tablet Take 1 Tablet by mouth every 6 hours as needed. 0 Active docusate sodium (COLACE) 100 MG Capsule Take 1 Capsule by mouth in the morning and 1 Capsule before bedtime. 0 Active lisinopril (PRINIVIL) 5 MG Tablet Take 0.5 Tablets by mouth in the morning. 0 Active Budesonide-Formoterol Fumarate 160-4.5 MCG/ACT Inhalation Aerosol Inhale 2 Puffs by mouth in the morning and 2 Puffs before bedtime. 0 Active Dextromethorphan-guaiF ENesin 10-100 MG/5ML Oral Liquid Take 5 mL by mouth in the morning and 5 mL before bedtime. 0 Active Pfjxszpzsfu-Gbwuyasd-M olysorb 0.5-1-0.5 % Ophthalmic Solution Instill into eye. 0 Active citalopram (CELEXA) 40 MG Tablet Take 1 Tablet by mouth in the morning. 0 08/30/2018 Active Tamoxifen Citrate 20 MG Tablet Take 1 Tablet by mouth in the morning. 0 08/30/2018 Active traMADol (ULTRAM) 50 MG Tablet Take 1 Tablet by mouth in the morning. 0 08/25/2018 Active Propranolol HCl ER 120 MG CP24 Take 1 Capsule by mouth in the morning. 0 08/30/2018 Active fluticasone (FLONASE) 50 MCG/ACT nasal spray Administer 1 [place] into nostril in the morning. 0 Active Cholecalciferol (VITAMIN D) 2000 units Capsule Take 2,000 Units by mouth daily. 0 Active guaiFENesin ER 600 MG Oral Tablet Extended Release 12 Hour Take 1 Tablet by mouth 2 times a day as needed for Cough. 0 Active PROCTOZONE-HC 2.5 % rectal cream As directed 0 09/18/2019 Active triamcinolone acetonide (ARISTOCORT) 0.1 % cream As directed 0 11/13/2019 Active Levocetirizine Dihydrochloride 5 MG Oral Tablet Take by mouth daily. 0 Active busPIRone HCl 10 MG Oral Tablet (Buspar) Take 1 Tablet by mouth in the morning and 1 Tablet at noon and 1 Tablet before bedtime. 0 Active Alendronate Sodium 70 MG Oral Tablet (Fosamax) Take 1 Tablet by mouth once a week. (take with 8oz of water, no food, drink or medications for 1/2 hr) 4 Tablet 12 10/27/2022 Active Azelastine HCl 0.1 % Nasal Solution (Astelin) spray 2 spray by intranasal route 2 times every day in each nostril 0 06/22/2022 Active Restasis 0.05 % Ophthalmic Emulsion Instill 1 Drop into eye. 0 Active Mirtazapine 15 MG Oral Tablet (Remeron) Mirtazapine Oral DAILY active 0 Active Refresh P.M. Ophthalmic Ointment 0 Activ e documented as of this encounter (statuses as of 11/24/2023) Active Problems Problem Noted Date Diagnosed Date Bronchiectasis without complication 10/27/2021 Senile osteoporosis 10/27/2021 SDH (subdural hematoma) 10/27/2021 Depression 10/27/2021 CA IN SITU BREAST 09/23/2003 documented as of this encounter (statuses as of 11/24/2023) Immunizations Name Administration Dates Next Due COVID-19 mRNA, LNP-s, No Pre serve, 2-Dose Series (Moderna) 07/21/2021,11/04/2020,10/07/2020 Season Influenza, Quad, PF, Adjuvanted, 65+ Yrs, IM (FLUAD) 06/26/2023 Seasonal Influenza, Quadriva lent Hd, 65+ Yrs 08/03/2022 Seasonal Influenza, Trivalen t, Adjuvanted, 65+ yrs 07/02/2019 Zoster Vaccine Recombinant (Shingrix) 06/16/2019 documented as of this encounter Social History Tobacco Use Types Packs/Day Years Used Date Smoking Tobacco: Never Smokeless Tobacco: Never Alcohol Use Standard Drinks/Week Comments No 0 (1 standard drink = 0.6 oz pur e alcohol) Sex and Gender Information Value Date Recorded Sex Assigned at Female 10/24/2023 8:58 PM EST Gender Identity Female 10/24/2023 8:58 PM EST Sexual Orientation Straight 10/24/2023 8: 58 PM EST Job Start Date Occupation Industry Not on file Not on file Not on file documented as of this encounter Miscellaneous Notes * Telephone Encounter - Steven Alaniz MD - 11/24/2023 2:50 PM EST E-mail was sent today with DEXA results * Telephone Encounter - Cesar Rosa OSA - 11/23/2023 3:16 PM EST [place] - Patient Related Communication Reason for Call: Results of Labs/Imaging and no communication in chart (Physician): Patient is requesting return call with dexa scan results. Thank you KARLA Oliver m documented in this encounter Plan of Treatment Upcoming Encounters Date Type Department Care Team (Late st Contact Info) Description 10/31/2024 11:00 AM EST Office Visit Rheumatology [facility] [id number] [place] [address] Steven Alaniz MD [facility] [employer] [place] [address] Health Maintenance Due Date Last Done Comments Depression Screening 1952 DTaP,Tdap,and Td Vaccines (1 - Tdap) 1958 VITAMIN D LEVEL ONCE IN A LIFETIME-USE SMARTSET# [id number] 1979 Pneumococcal Vaccine: 65+ Years (1 of 1 - PCV) 2004 Zoster Vaccines (2 of 2) 08/11/2019 06/16/2019 COVID-19 Vaccine (4 - 2022-2 4 season) 2023 07/21/2021, 11/04/2020, 10/07/2020 DXA Scan 11/14/2025 11/14/2023, 01/29/2021 Influenza Vaccine (FLU shot) Completed 09/2022, 08/03/2022, 07/02/2019 GARDASIL-HPV IMMUNIZATION SERIES Aged Out No longer eligible b ased on patient's age to complete this topic Hepatitis B Aged Out No longer eligi ble based on patient's age to complete this topic MENINGOCOCCAL (MENACTRA/MENVEO) Aged Out No longer eligible b ased on patient's age to complete this topic documented as of this encounter Medical Devices Not on filedocumented as of this encounter Care Teams Architectural Technician Relationship Specialty Start Date End Date Pro, Justin Mccarthy MD [address] [place] [address] PCP - General Internal Medicine 02/05/15 documented as of this encounter
[2023-11-30] MEDS: cloNIDine HCL 0.1 MG TAB PO ONE (13:06)
[2023-11-30] MEDS: lisinopril 5 MG TAB PO SCH (13:42)
[2023-11-30] MEDS: PROPRANOLOL HCL LA 80 MG CAPCR PO SCH (13:42)
[2023-11-30] MEDS: TAMOXIFEN CITRATE 10 MG TABLET PO SCH (13:43)
[2023-11-30] MEDS: ACETAMINOPHEN 325 MG TAB PO SCH (14:15)
[2023-11-30] MEDS: busPIRone 5 MG TAB PO SCH (14:15)
[2023-11-30] MEDS: CITALOPRAM 40 MG TAB PO SCH (14:15)
[2023-11-30] MEDS: POLYETHYLENE (MIRALAX) 17 GM PACK PO SCH (14:15)
[2023-11-30] MEDS: ARTIFICIAL TEARS OP SCH (15:29)
--- NOTE | 2023-11-30 17:10 | Billing Data ---
Date of Service November 30, 2023 Coding Level of Care Code 15748 CRITICAL CARE
[2023-11-30] MEDS: metroNIDAZOLE 500 MG/100 ML BAG IV SCH (17:27)
[2023-11-30] MEDS: CIPROFLOXACIN / D5W 400 MG/200 ML BAG IV SCH (19:40)
[2023-11-30] MEDS: MIRTAZAPINE TAB 15 MG TAB PO SCH (20:16)
[2023-12-01] MEDS: ACETAMINOPHEN 500 MG TAB PO PRN (06:21)
[2023-12-01 06:47] LABS: Hematocrit (blood only) 34.2 % (37.0-47.0); Hemoglobin 10.9 g/dl (12.0-16.0); Mean Corpuscular Hemoglobin 28.2 pg (25.0-34.0); Mean Corpuscular Hgb Conc 31.9 g/dL (32.0-36.0); Mean Corpuscular Volume 88.4 fL (80.0-100.0); Mean Platelet Volume 9.8 fL (9.4-12.4); Platelet Count 240 K/uL (130-400); RDW Coefficient of Variation 14.3 % (11.5-14.5); Red Blood Count 3.87 M/uL (4.20-5.40); White Blood Count 10.13 K/ul (4.8-10.8)
[2023-12-01 07:04] LABS: Calcium 8.3 mg/dl (8.6-10.3); Creatinine Clr Calc Pharmacy 39.4 ml/min; Est GFR (Non-African American) 63.8 ml/min; Potassium 3.3 mmol/L (3.5-5.1)
[2023-12-01] MEDS: FLUTICASONE/VILANTEROL 100/25MCG 14 PUFFS/INHALER INH SCH (07:54)
[2023-12-01] MEDS: ENOXAPARIN INJ 40 MG/0.4 ML SYR SQ SCH (07:57)
[2023-12-01] MEDS: POTASSIUM CHLORIDE CRTAB 20 MEQ TABCR PO STA (09:37)
[2023-12-01] MEDS: PROPRANOLOL HCL LA 80 MG CAPCR PO ONE (09:37)
[2023-12-01] MEDS: lisinopril 2.5 MG TAB PO SCH (09:41)
[2023-12-01] MEDS: PROCHLORPERAZINE 5 MG in SYRINGE 4 ML IV PRN (15:17)
--- NOTE | 2023-12-01 16:30 | XRay Report ---
SINGLE VIEW CHEST CLINICAL HISTORY: Cough. Hypoxia FINDINGS: An AP, portable, upright chest radiograph is compared to study dated 11/30/2023 and correlate d with chest CT dated 05/10/2016. There is a large hiatal hernia. The heart is enlarged and noting ath erosclerotic calcification of the thoracic aorta. The pulmonary vasculature is noncongested. Chronic interstitial thickening similar to previous. Foci of parenchymal scarring are seen throughout both shannon ngs. The lungs and pleural spaces are clear. No pneumothorax is seen. The skeletal structures are ost eopenic. There are chronic/healed left-sided rib fractures. The distal right clavicle is surgically a bsent. Surgical clips project over the right lower chest. IMPRESSION: 1. Cardiomegaly with no active disease in the chest. 2. Hiatal hernia. ACT 112: Negative or not required by law. Electronically signed by: Diogo Moreno M.D. 12/01/2023 4:28 PM
[2023-12-01] MEDS: PIPER/TAZO 4.5g in D5W MINI-B 100 ML IV ONE (17:13)
[2023-12-01] MEDS ORDERED: Nursing to Pharmacy Communication SCH (18:30)
[2023-12-01] MEDS ORDERED: [UNRECOGNIZED DRUG - OTHER] OP PRN (18:39)
--- NOTE | 2023-12-01 18:51 | Hospitalist Progress Note ---
Date of Service December 01, 2023 Assessment & Plan (1) Hypertensive emergency: Plan: With acute pulmonary edema, acute hypoxic respiratory failure, max SBP 240-250 despite several doses IV labetalol and IV hydralazine given prior to that by ED May have been triggered by acute anxiety and pain despite ED treatment with IV opioids and dose of IV lorazepam prior to this. Treated as described above with nitroglycerine drip, lasix IV, IV lorazepam 0.5 mg, bipap from AM until midday Initially planned for ICU admission but improved rapidly so admitted to PCU -acute hypertension has resolved, BP normal today on usual antihypertensives - propranolol and lisinopril -acute hypoxic respiratory failure due to acute pulmonary edema resolved - now with sats in mid- high 90s on 2L pnc -does not have history of heart failure and no evidence of chronic heart failure on exam (no peripheral edema or gross volume overload), further history from her daughter who corroborates no history of cardiac problems -troponin x 2 was negative -TTE reviewed - no rwma's normal EF 70%, hyperdynamic, no significant valvular disease, moderate concentric LVH (2) Rolanda-rectal abscess: Plan: 83 y/o admitted with rectal pain and finding of probable posterior rectal phlegmon on Ct pelvis with contrast, no discrete abscess. Also severely hypertensive in the ED BP 239/104 which persisted despite pain control and labetalol IV Posterior rectal phlegmon - - change cipro/flagyl to pip-tazo because I think flagyl is causing nausea, also will cover pulmonary pathogens if she did have aspiration - pain control - consider surgical consult if not promptly improving, reimaging at interval (3) Hypoxia: Plan: Was not hypoxic on arrival to ED, developed following two small doses of IV opioids initially thought related to hypoventilation Then developed acute hypoxic respiratory failure due to acute pulmonary edema treated as above and resolved Mild, requiring 2L O2 presently, has loose cough -CXR today - reviewed - hiatal hernia, clear -would not be surprising if she had some aspiration -caution with opioids -supplemental O2 as needed -pip-tazo as above (4) Hypertension: Plan: see above resumed propranolol and lisinopril - well controlled 11/30 daughter reports she is frequently severely hypertensive when acutely anxious, which has been difficult to manage (5) Thickened endometrium: Plan: Noted on CT pelvis, new finding Last WOOL HANDLER 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 Pena Has history of breast cancer treated in 2017, per chart: "Infiltrating ductal carcinoma, grade 2Estrogen receptor positive, progesterone receptor positive, HER-2/saud negativeStatus post image guided localization lumpectomy and sentinel lymph node biopsy 07/25/2017Stage pT1b [id number] DX score of 18Status post completion of radiation therapy 10/11/2017" -has had no vaginal bleeding -tamoxifen can cause EM hyperplasia and increases risk of endometrial cancer. Has been on 6-7 years. -discussed with her sheet metal smith Dr. Pena - she will arrange pelvic ultrasound in her office soon after discharge. Thinks ok to continue tamoxifen from her standpoint and I will also discuss with Dr. Churchill Plan Chronic medical problems: History of bilateral SDH, traumatic - cognitive impairment accelerated following this Mild cognitive impairment - her daughter reports memory is typically quite poor and she is often confused, often disoriented in hospital setting Essential tremor - treated with propranolol Bronchiectasis history Depression Resident of [facility] Emergency contact listed is daughter Guillermina Rodriguez in [place] [phone] -I updated Guillermina by phone x2 11/29, 11/30 Full code at this time, would not want prolonged life support per discussion with her daughter Admission and Anticipated Discharge Date Admission Date: November 30, 2023 Subjective Today has nausea and persistent rectal pain Forgetful but remembers that she was quite short of breath yesterday, today has cough no dyspnea Physical Exam 2 Physical Exam: PHYSICAL EXAMINATION Last 24h vital signs reviewed, see documentation in flowsheet General: calm, lying in bed HEENT: Normocephalic, atraumatic, pupils round and equal, sclerae anicteric, no conjunctival injection, moist mucus membranes. L eyelid opening is smaller than right with droop- reports this is baseline Lungs: Normal resp effort, mildly coarse bilaterally, +cough Heart: Regular rate and rhythm, no murmurs. no JVD Abdomen: Soft, nontender, nondistended. Bowel sounds present. Extremities: Warm, dry, well-perfused. No extremity edema. Neuro: Forgetful oriented to self and hospital, speech intact, face symmetric except eyelids, felisha, moves 4 extremities well, has gross UE tremor (baseline) Psych: normal affect and behavior Results & Data Results & Data Vital Signs (Past 12 Hours) Vital Signs Temp Pulse Pulse Resp BP Pulse Ox O2 Del Method 12/01/23 15:03 37.9 C H 99 H 18 136/80 94 Nasal Cannula 12/01/23 15:00 96 H 12/01/23 11:05 36.9 C 109 H 19 179/79 H 96 Nasal Cannula 12/01/23 10:35 Nasal Cannula 12/01/23 07:13 37.0 C 110 H 19 157/72 H 95 Nasal Cannula 12/01/23 07:13 98 H O2 Flow Rate 12/01/23 15:03 2 12/01/23 15:00 12/01/23 11:05 2 12/01/23 10:35 2 12/01/23 07:13 2 12/01/23 07:13 Laboratory Results 12/01/23 05:53 12/01/23 05:53 PG Care Time/CCT Total # of Minutes Spent Total Time Spent with Patient: I personally spent: 55 minutes today on clinical care activities including: reviewing chart notes and vital signs reviewing labs reviewing studies discussion with bridal sales consultant discussion with student career development specialist examining and counseling the patient counseling the patient's family writing orders documentation Coding Level of Care Code 71666 SUB INP/OBS CARE 3/50MIN Diagnoses Hypertensive emergency I16.1 Rolanda-rectal abscess K61.1 Hypoxia R09.02 Hypertension I10 Hypertension type: primary hypertension Thickened endometrium R93.89 (4) Hypertension Hypertension type: primary hypertension Qualified Code(s): I10 - Essential (primary) hypertension
[2023-12-01] MEDS: cycloSPORINE (RESTASIS) (POM) OP SCH (20:22)
[2023-12-01] MEDS: PIPERACILLIN/TAZOBACTAM 4.5 GM in DEXTROSE 5% MINI-B 100 ML IV SCH (21:48)
[2023-12-01] MEDS: oxyCODONE HCL IR 5 MG TAB (IMMEDIATE RELEASE) PO PRN (21:53)
[2023-12-02] MEDS: ADVANCED PROBIOTIC 625 MG CAPSULE PO SCH (07:36)
--- NOTE | 2023-12-02 17:26 | Hospitalist Progress Note ---
Date of Service December 02, 2023 Assessment & Plan (1) Rolanda-rectal abscess: Plan: 83 y/o admitted with rectal pain and finding of probable posterior rectal phlegmon on Ct pelvis with contrast, no discrete abscess. Also severely hypertensive in the ED BP 239/104 which persisted despite pain control and labetalol IV Posterior rectal phlegmon - - changed cipro/flagyl to pip-tazo because I think flagyl was causing nausea, also will cover pulmonary pathogens if she did have aspiration - pain control - consider surgical consult if not promptly improving, reimaging at interval - seems improved, no pain today (2) Hypertensive emergency: Plan: While in ED had presentation BPs with systolic in 210s and higher, did not respond to doses of labetalol, IV pain medication, and IV lorazepam for severe anxiety. Then developed acute pulmonary edema, acute hypoxic respiratory failure, max SBP 240-250 May have been triggered by acute anxiety and pain despite ED treatment with IV opioids and dose of IV lorazepam prior to this. Treated with nitroglycerin drip, lasix IV, IV lorazepam 0.5 mg, IV lasix, bipap from AM until midday Initially planned for ICU admission but improved rapidly so admitted to PCU -acute hypertension has resolved, BP normal on usual antihypertensives - propranolol and lisinopril -acute hypoxic respiratory failure due to acute pulmonary edema resolved - now with sats in mid- high 90s on 2L pnc -does not have history of heart failure and no evidence of chronic heart failure on exam (no peripheral edema or gross volume overload), further history from her daughter who corroborates no history of cardiac problems -troponin x 2 was negative -TTE 11/30 - no rwma's normal EF 70%, hyperdynamic, no significant valvular disease, moderate concentric LVH, normal volume status (3) Hypoxia: Plan: Was not hypoxic on arrival to ED, developed following two small doses of IV opioids initially thought related to hypoventilation Then developed acute hypoxic respiratory failure due to acute pulmonary edema treated as above and resolved Mild, requiring 2L O2 presently, has loose cough -CXR 11/30 - hiatal hernia, clear -would not be surprising if she had some aspiration -caution with opioids -supplemental O2 as needed -pip-tazo as above -improving (4) Hypertension: Plan: see above resumed propranolol and lisinopril - well controlled 11/30-12/01 daughter reports she is frequently severely hypertensive when acutely anxious, which has been difficult to manage (5) Thickened endometrium: Plan: Noted on CT pelvis, new finding 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 Pena Has history of breast cancer treated in 2017, per chart: "Infiltrating ductal carcinoma, grade 2Estrogen receptor positive, progesterone receptor positive, HER-2/saud negativeStatus post image guided localization lumpectomy and sentinel lymph node biopsy 07/25/2017Stage pT1b [id number] DX score of 18Status post completion of radiation therapy 10/11/2017" -has had no vaginal bleeding, though is forgetful -tamoxifen can cause EM hyperplasia and increases risk of endometrial cancer. Has been on 6-7 years. -discussed with her color sprayer Dr. Pena - she will arrange pelvic ultrasound in her office soon after discharge. -discussed with Dr. Churchill her oncologist - recommended holding tamoxifen until endometrium evaluated Plan Chronic medical problems: History of bilateral SDH, traumatic - cognitive impairment accelerated following this Mild cognitive impairment - her daughter reports memory is typically quite poor and she is often confused, often disoriented in hospital setting Essential tremor - treated with propranolol Bronchiectasis history Depression Resident of [facility] Emergency contact listed is daughter Guillermina Rodriguez in [place] [phone] -I updated Guillermina by phone x2 11/29, 11/30 Full code at this time, would not want prolonged life support per discussion with her daughter Admission and Anticipated Discharge Date Admission Date: November 30, 2023 Subjective No rectal pain or nausea today. Has some low back pain today which is not new, bilateral, nonradiating. Cough seems improved not short of breath Physical Exam 2 Physical Exam: PHYSICAL EXAMINATION Last 24h vital signs reviewed, see documentation in flowsheet General: calm, sitting up in chair HEENT: Normocephalic, atraumatic, pupils round and equal, sclerae anicteric, no conjunctival injection, moist mucus membranes. L eyelid opening is smaller than right with droop- reports this is baseline Lungs: Normal resp effort, clear to auscultation bilaterally with only slight scattered coarse sounds, not coughing presently Heart: Regular rate and rhythm, no murmurs. no JVD Abdomen: Soft, nontender, nondistended. Bowel sounds present. Extremities: Warm, dry, well-perfused. No extremity edema. Neuro: Forgetful oriented to self and hospital, speech intact, face symmetric except eyelids, felisha, moves 4 extremities well, has gross UE tremor (baseline) Psych: normal affect and behavior Results & Data Results & Data Vital Signs (Past 12 Hours) Vital Signs Temp Pulse Resp BP BP Pulse Ox Pulse Ox 12/02/23 15:00 37.0 C 79 18 109/63 95 12/02/23 11:48 94 12/02/23 10:55 37.0 C 76 16 133/54 L 94 12/02/23 08:34 12/02/23 07:32 36.9 C 78 16 129/57 L 95 O2 Del Method O2 Flow Rate O2 Flow Rate 12/02/23 15:00 Nasal Cannula 2 12/02/23 11:48 2 12/02/23 10:55 Nasal Cannula 2 12/02/23 08:34 Nasal Cannula 2 12/02/23 07:32 Nasal Cannula 2 Laboratory Results 12/01/23 05:53 12/01/23 05:53 PG Care Time/CCT Total # of Minutes Spent Total Time Spent with Patient: Total time spent is greater than 50% in coordination of care (as documented) at patient's floor/unit and/or counseling patient: Coding Level of Care Code 01859 SUB INP/OBS CARE 2/35MIN Diagnoses Rolanda-rectal abscess K61.1 Hypertensive emergency I16.1 Hypoxia R09.02 Hypertension I10 Hypertension type: primary hypertension Thickened endometrium R93.89 (4) Hypertension Hypertension type: primary hypertension Qualified Code(s): I10 - Essential (primary) hypertension
[2023-12-03 06:33] LABS: BUN Creatinine Ratio 23.4 (10-20); Est GFR (African American) 82.2 ml/min; Est GFR (Non-African American) 70.9 ml/min; Potassium 3.7 mmol/L (3.5-5.1)
[2023-12-03] MEDS: SODIUM CHLORIDE 0.9% 500 ML IV SCH (09:40)
--- NOTE | 2023-12-03 13:36 | Hospitalist Progress Note ---
Date of Service December 03, 2023 Assessment & Plan (1) Rolanda-rectal abscess: Plan: 83 y/o admitted with rectal pain and finding of probable posterior rectal phlegmon on Ct pelvis with contrast, no discrete abscess. Also severely hypertensive in the ED BP 239/104 which persisted despite pain control and labetalol IV Posterior rectal phlegmon - - cont pip-tazo. I think flagyl was causing nausea, also will cover pulmonary pathogens if she did have aspiration - consider surgical consult if not promptly improving, reimaging at interval probably Tuesday - reports pain today - some rectal pain with passing BM but most of her pain seems to be musculoskeletal - low back and bilateral SI - added scheduled APAP, getting infrequent doses of oxycodone 2.5 mg (2) Hypertensive emergency: Plan: While in ED had presentation BPs with systolic in 210s and higher, did not respond to doses of labetalol, IV pain medication, and IV lorazepam for severe anxiety. Then developed acute pulmonary edema, acute hypoxic respiratory failure, max SBP 240-250 May have been triggered by acute anxiety and pain despite ED treatment with IV opioids and dose of IV lorazepam prior to this. Treated with nitroglycerin drip, lasix IV, IV lorazepam 0.5 mg, IV lasix, bipap from AM until midday Initially planned for ICU admission but improved rapidly so admitted to PCU -acute hypertension has resolved, BP normal on usual antihypertensives - propranolol and lisinopril -acute hypoxic respiratory failure due to acute pulmonary edema resolved - now with sats in mid- high 90s on 2L pnc -does not have history of heart failure and no evidence of chronic heart failure on exam (no peripheral edema or gross volume overload), further history from her daughter who corroborates no history of cardiac problems -troponin x 2 was negative -TTE 11/30 - no rwma's normal EF 70%, hyperdynamic, no significant valvular disease, moderate concentric LVH, normal volume status (3) Hypoxia: Plan: Was not hypoxic on arrival to ED, developed following two small doses of IV opioids initially thought related to hypoventilation Then developed acute hypoxic respiratory failure due to acute pulmonary edema treated as above and resolved Mild, requiring 2L O2 presently, has loose cough -CXR 11/30 - hiatal hernia, clear. Has history of bronchiectasis. COVID neg on admission. -would not be surprising if she had some aspiration -caution with opioids -supplemental O2 as needed -pip-tazo as above -improving (4) Hypertension: Plan: see above resumed propranolol and lisinopril - well controlled 11/30-12/02 overall normal with a few high readings daughter reports she is frequently severely hypertensive when acutely anxious, which has been difficult to manage (5) Thickened endometrium: Plan: Noted on CT pelvis, new finding Last [facility] [employer] [facility] 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 Pena Has history of breast cancer treated in 2017, per chart: "Infiltrating ductal carcinoma, grade 2Estrogen receptor positive, progesterone receptor positive, HER-2/saud negativeStatus post image guided localization lumpectomy and sentinel lymph node biopsy 07/25/2017Stage pT1b [id number] DX score of 18Status post completion of radiation therapy 10/11/2017" -has had no vaginal bleeding, though is forgetful -tamoxifen can cause EM hyperplasia and increases risk of endometrial cancer. Has been on 6-7 years. -discussed with her business applications developer Dr. Pena - she will arrange pelvic ultrasound in her office soon after discharge. -discussed with Dr. Churchill her oncologist - recommended holding tamoxifen until endometrium evaluated Plan Chronic medical problems: History of bilateral SDH, traumatic - cognitive impairment accelerated following this Mild cognitive impairment - her daughter reports memory is typically quite poor and she is often confused, often disoriented in hospital setting Essential tremor - treated with propranolol Bronchiectasis history Depression Resident of [facility] Emergency contact listed is daughter Guillermina Rodriguez in [place] [phone] -I updated Guillermina by phone x2 11/29, 11/30, at bedside 12/01 Full code at this time, would not want prolonged life support per discussion with her daughter Admission and Anticipated Discharge Date Admission Date: November 30, 2023 Subjective Denied rectal pain yesterday but endorses it today. Had only mild discomfort when she had a BM just now. Cough persists but sig improved by observation, not short of breath any longer and mobility improved. Forgetful States she feels anxious, responded to reassurance Physical Exam 2 Physical Exam: PHYSICAL EXAMINATION Last 24h vital signs reviewed, see documentation in flowsheet General: calm, lying in bed HEENT: Normocephalic, atraumatic, pupils round and equal, sclerae anicteric, no conjunctival injection, moist mucus membranes. L eyelid opening is smaller than right with droop- reports this is baseline Lungs: Normal resp effort, clear to auscultation bilaterally with only slight scattered coarse sounds, not coughing presently Heart: Regular rate and rhythm, no murmurs. no JVD Abdomen: Soft, nontender, nondistended. Bowel sounds present. Extremities: Warm, dry, well-perfused. No extremity edema. Neuro: Forgetful oriented to self and hospital, forgot why she was in hospital, speech intact, face symmetric except eyelids, felisha, moves 4 extremities well, has UE tremor (baseline) Psych: mildly anxious affect and behavior Results & Data Results & Data Vital Signs (Past 12 Hours) Vital Signs Temp Pulse Resp BP Pulse Ox O2 Del Method O2 Flow Rate 12/03/23 07:45 Nasal Cannula 2 12/03/23 07:29 36.7 C 76 16 168/89 H 95 Nasal Cannula 2 Laboratory Results 12/01/23 05:53 12/03/23 05:38 PG Care Time/CCT Total # of Minutes Spent Total Time Spent with Patient: Total time spent is greater than 50% in coordination of care (as documented) at patient's floor/unit and/or counseling patient: Coding Level of Care Code 38089 SUB INP/OBS CARE 2/35MIN Diagnoses Rolanda-rectal abscess K61.1 Hypertensive emergency I16.1 Hypoxia R09.02 Hypertension I10 Hypertension type: primary hypertension Thickened endometrium R93.89 (4) Hypertension Hypertension type: primary hypertension Qualified Code(s): I10 - Essential (primary) hypertension
[2023-12-03] MEDS: ACETAMINOPHEN 325 MG TAB PO SCH ×2 (15:54→21:41)
[2023-12-03] MEDS ORDERED: Nursing to Pharmacy Communication SCH (18:00)
[2023-12-04 08:57] LABS: BUN Creatinine Ratio 20.7 (10-20); Calcium 8.3 mg/dl (8.6-10.3); Creatinine Clr Calc Pharmacy 57.1 ml/min; Est GFR (African American) 98.1 ml/min; Est GFR (Non-African American) 84.6 ml/min; Potassium 3.7 mmol/L (3.5-5.1)
--- NOTE | 2023-12-04 14:30 | Hospitalist Progress Note ---
Date of Service December 04, 2023 Assessment & Plan (1) Rolanda-rectal abscess: Plan: 83 y/o admitted with rectal pain and finding of probable posterior rectal phlegmon on Ct pelvis with contrast, no discrete abscess. Also severely hypertensive in the ED BP 239/104 which persisted despite pain control and labetalol IV Posterior rectal phlegmon - pain has significantly improved since presentation in ED - cont pip-tazo. - unreliable historian so will obtain repeat CT of pelvis tomorrow, transition to oral antibiotics and discharge if improved - most ( or all at this point) of her pain seems to be musculoskeletal - low back and bilateral SI - scheduled APAP, stop oxycodone since may provoke delirium - Imodium and probiotic added for antibiotic associated diarrhea (2) Hypertensive emergency: Plan: While in ED had presentation BPs with systolic in 210s and higher, did not respond to doses of labetalol, IV pain medication, and IV lorazepam for severe anxiety. Then developed acute pulmonary edema, acute hypoxic respiratory failure, max SBP 240-250 May have been triggered by acute anxiety and pain despite ED treatment with IV opioids and dose of IV lorazepam prior to this. Treated with nitroglycerin drip, lasix IV, IV lorazepam 0.5 mg, IV lasix, bipap from AM until midday Initially planned for ICU admission but improved rapidly so admitted to PCU -acute hypertension has resolved, BP normal on usual antihypertensives - propranolol and lisinopril -acute hypoxic respiratory failure due to acute pulmonary edema resolved - now with sats in mid- high 90s on 2L pnc -does not have history of heart failure and no evidence of chronic heart failure on exam (no peripheral edema or gross volume overload), further history from her daughter who corroborates no history of cardiac problems -troponin x 2 was negative -TTE 11/30 - no rwma's normal EF 70%, hyperdynamic, no significant valvular disease, moderate concentric LVH, normal volume status (3) Hypoxia: Plan: Was not hypoxic on arrival to ED, developed following two small doses of IV opioids initially thought related to hypoventilation Then developed acute hypoxic respiratory failure due to acute pulmonary edema treated as above and resolved Mild, requiring 2L O2 presently, has loose cough -CXR 11/30 - hiatal hernia, clear. Has history of bronchiectasis. COVID neg on admission. -would not be surprising if she had some aspiration -caution with opioids -supplemental O2 as needed - wean -pip-tazo as above -improving (4) Hypertension: Plan: see above resumed propranolol and lisinopril - well controlled 11/30-12/03 overall normal with a few high readings daughter reports she is frequently severely hypertensive when acutely anxious, which has been difficult to manage (5) Thickened endometrium: Plan: Noted on CT pelvis, new finding Last [employer] 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 Pena Has history of breast cancer treated in 2017, per chart: "Infiltrating ductal carcinoma, grade 2Estrogen receptor positive, progesterone receptor positive, HER-2/saud negativeStatus post image guided localization lumpectomy and sentinel lymph node biopsy 07/25/2017Stage pT1b [id number] DX score of 18Status post completion of radiation therapy 10/11/2017" -has had no vaginal bleeding, though is forgetful -tamoxifen can cause EM hyperplasia and increases risk of endometrial cancer. Has been on 6-7 years. -discussed with her portable trackman Dr. Pena - she will arrange pelvic ultrasound in her office soon after discharge. -discussed with Dr. Churchill her oncologist - recommended holding tamoxifen until endometrium evaluated Plan Chronic medical problems: History of bilateral SDH, traumatic - cognitive impairment accelerated following this Mild cognitive impairment - her daughter reports memory is typically quite poor and she is often confused, often disoriented in hospital setting Essential tremor - treated with propranolol Bronchiectasis history Depression Resident of [facility] Emergency contact listed is daughter Guillermina Rodriguez in [place] [phone] -I updated Guillermina by phone x2 11/29, 11/30, at bedside 12/01, 12/02 Full code at this time, would not want prolonged life support per discussion with her daughter Admission and Anticipated Discharge Date Admission Date: November 30, 2023 Subjective she reports feeling better, stronger and getting up to the bathroom with less assistance. had some loose stools no rectal pain with stools today continues to have bilateral low back pain unchanged continues to have cough, nonproductive Physical Exam 2 Physical Exam: PHYSICAL EXAMINATION Last 24h vital signs reviewed, see documentation in flowsheet General: sitting up in the chair, daughter visiting HEENT: Normocephalic, atraumatic, pupils round and equal, sclerae anicteric, no conjunctival injection, moist mucus membranes. L eyelid opening is smaller than right with droop- reports this is baseline Lungs: Normal resp effort, clear to auscultation bilaterally, dry cough Heart: Regular rate and rhythm, no murmurs. no JVD Abdomen: Soft, nontender, nondistended. Bowel sounds present. Extremities: Warm, dry, well-perfused. No extremity edema. Neuro: oriented to self and hospital, partially oriented to situation, forgetful, speech intact, face symmetric except eyelids, felisha, moves 4 extremities well, has UE tremor (baseline) Psych: normal affect and behavior Results & Data Results & Data Vital Signs (Past 12 Hours) Vital Signs Temp Pulse Resp BP Pulse Ox O2 Del Method O2 Flow Rate 12/04/23 07:45 Nasal Cannula 2 12/04/23 07:18 36.6 C 66 18 175/68 H 98 Nasal Cannula 2 Laboratory Results 12/01/23 05:53 12/04/23 08:18 PG Care Time/CCT Total # of Minutes Spent Total Time Spent with Patient: Total time spent is greater than 50% in coordination of care (as documented) at patient's floor/unit and/or counseling patient: Coding Level of Care Code 06276 SUB INP/OBS CARE 2/35MIN Diagnoses Rolanda-rectal abscess K61.1 Hypertensive emergency I16.1 Hypoxia R09.02 Hypertension I10 Hypertension type: primary hypertension Thickened endometrium R93.89 (4) Hypertension Hypertension type: primary hypertension Qualified Code(s): I10 - Essential (primary) hypertension
[2023-12-05] MEDS: HYDROmorphone INJ 0.5 MG/0.5 ML SYR IV STA ×2 (04:52→06:37)
[2023-12-05] MEDS: hydrALAZINE HCL 20 MG/ML VIAL IV ONE (04:53)
[2023-12-05] MEDS ORDERED: LIDOCAINE 4% CREAM 15 GM TUBE EXT PRN (06:15)
[2023-12-05] MEDS: OPTIRAY 320 100ml IV ONE (08:32)
[2023-12-05] MEDS: lisinopril 5 MG TAB PO SCH (09:04)
--- NOTE | 2023-12-05 09:05 | CT Scan Report ---
CT pelvis w/IV con only HISTORY: 83 years-old Female rectal pain, rectal phlegmon acute pelvic pain COMPARISON: 11/30/2023 TECHNIQUE: Multiple axial CT images of the pelvis were obtained with IV contrast. A dose lowering pat hnique was used consistent with the principals of FILEMON. FINDINGS: Atherosclerosis of the aorta and branch vessels. No lymphadenopathy. There is no bowel obstruction or bowel wall thickening identified. 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 No abscess or supralevator extension. M ild wall thickening of the anal rectal junction with trace adjacent inflammatory stranding. No ascite s or mesenteric inflammation. Uterine enlargement redemonstrated with the postmenopausal anteflexed uterus measuring 13.7 x 6.2 x 8 .1 cm pathologic hypodense masslike thickening within the endometrium is again noted measuring up to 4 cm. Soft tissue thickening is also noted within the cervix with a few probable nabothian cysts. No adnexal mass lesions. Unremarkable urinary bladder. Tiny fat filled umbilical hernia. Unremarkable soft tissues otherwise. No acute fracture. IMPRESSION: 1. 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 No abscess or supralevator extension. 2. Enlarged uterus with prominent pathologic thickening of the endometrium redemonstrated . Follow-up with gynecology is needed. 3. No lymphadenopathy. ACT 112: Negative or not required by law. The above report was generated using voice recognition software. It may contain grammatical, syntax o r spelling errors. Electronically signed by: Enmanuel Deleon M.D. 12/05/2023 9:03 AM
--- NOTE | 2023-12-05 11:23 | Surgery Consultation ---
Date of Consultation December 05, 2023 Assessment & Plan (1) Perianal fistula: This is an 83yF with a PMH of anxiety/depression, HLD, breast ca, h/o subdural hematoma, essential tremor, mild memory loss, who presents to the [facility] on 11/30/23 with complaints of rectal pain over the last 2 weeks that has been worse rachael. In the ER a CT pelvis was obtained that showed hypodensity in the posterior rectum, nonspecific, may reflect developing phlegmon, no well-defined abscess is seen. Patient found to be in hypertensive urgency and has been receiving treatment for such. 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 No abscess or supralevator extension. Patient has never had anything like this before. On 11/30 WBC 10. Vitals show patient is afebrile, on 2 L nasal cannula, and hypertensive. On exam carly-anally there is some mild discomfort to palpation, no obvious drainage or signs of infection easily appreciated. There is nothing to be drained from our perspective at this time. Would treat with a course of antibiotic and have patient follow up with a colorectal surgeon as an outpatient where they may consider fistulotomy. We will sign off but please call back with any questions/concerns. Supervising Physician Co-Signing Physician Notes Patient seen and examined, labs and imaging reviewed, agree with above. 83-year-old female with hypertensive urgency and perianal pain which is resolving with antibiotics. CT scan repeated today showed suspected perianal fistula. No drainage. On exam she is afebrile stable vitals. No obvious abscess or fistula on anal exam. MARIE with good tone, no mass. CT personally reviewed and interpreted and agree that this may represent perianal fistula but nothing on physical exam. At this point there is nothing to drain. Would recommend treatment with antibiotics and warm water soaks. Follow-up with colorectal surgeon as an outpatient. Surgery will sign off, call with questions or concerns History of Present Illness Attending Physician: Vianca Cloud MD History of Present Illness This is an 83yF with a PMH of anxiety/depression, HLD, breast ca, h/o subdural hematoma, essential tremor, mild memory loss, who presents to the [facility] on 11/30/23 with complaints of rectal pain. In the ER a CT pelvis was obtained that showed hypodensity in the posterior rectum, nonspecific, may reflect developing phlegmon, no well-defined abscess is seen. Patient found to be in hypertensive urgency and has been receiving treatment for such. Patient reports her pain started about 2 weeks ago and has been worsening. She denies any drainage. She has had some mild improvement. 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 No abscess or supralevator extension. Patient has never had anything like this before. Allergies Allergy/AdvReac Type Severity Reaction Status Date / Time povidone-iodine Allergy Mild RED RASH Verified 11/24/23 15:02 AND SKIN IRRITATION amoxicillin AdvReac Intermediate NAUSEA Verified 11/24/23 15:02 clavulanic acid AdvReac Intermediate NAUSEA Verified 11/24/23 15:02 doxycycline AdvReac Intermediate NAUSEA Verified 11/24/23 15:02 mometasone furoate AdvReac Intermediate NAUSEA Verified 11/24/23 15:02 nitrofurantoin AdvReac Intermediate nausea Verified 11/24/23 15:02 Sulfa (Sulfonamide AdvReac Mild NAUSEA/VOMI Verified 11/24/23 15:02 Antibiotics) TING Home Medications Medication Instructions Recorded Confirmed Type polyethylene glycol 3350 17 17 gm PO QAM 05/17/19 11/30/23 History gram/dose oral powder (Miralax) calcium carbonate 600 mg-vitamin 1 tab PO BIDM 06/04/19 11/30/23 History D3 5 mcg (200 unit) tablet docusate sodium 100 mg capsule 100 mg PO BID 06/04/19 11/30/23 History cholecalciferol (vitamin D3) 50 50 mcg PO QAM 03/03/21 11/30/23 History mcg (2,000 unit) capsule polyvinyl alcohol-povidone (PF) 1 drp OPB QID 08/14/21 11/30/23 History 1.4 %-0.6 % eye drops in a dropperette (Refresh Classic (PF)) acetaminophen 500 mg capsule 1,000 mg PO TID PRN pain 09/23/21 11/30/23 History sennosides 8.6 mg-docusate sodium 1 tab PO BID 10/15/22 11/30/23 History 50 mg tablet (Senna Plus) Flutter Valve #1 ea 10/26/22 11/24/23 Rx alendronate 70 mg tablet (Fosamax) 70 mg PO .weekly 10/26/22 11/30/23 History white petrolatum-mineral oil 57.3 1 applic OPB HS 11/01/22 11/30/23 History %-42.5 % eye ointment (Refresh P.M.) fluticasone propionate 50 1 spray intranasal DAILY #16 grams 03/14/23 11/30/23 Rx mcg/actuation nasal spray,suspension propranolol 80 mg capsule,24 80 mg PO QAM #90 caps 06/10/23 11/30/23 Rx hr,extended release citalopram 40 mg tablet (Celexa) 40 mg PO QAM #90 tabs 07/07/23 11/30/23 Rx tamoxifen 20 mg tablet 20 mg PO QAM #30 tabs 07/07/23 11/30/23 Rx lisinopril 2.5 mg tablet 2.5 mg PO DAILY #90 tabs 08/03/23 11/30/23 Rx mecobalamin (vitamin B12) 1,000 1,000 mcg sublingual DAILY #30 tabs 09/09/23 11/30/23 Rx mcg disintegrating tablet,sublingual mirtazapine 15 mg tablet (Remeron) 15 mg PO DAILY #90 tabs 10/06/23 11/30/23 Rx budesonide-formoterol HFA 160 2 puff inhalation BID #10.2 grams 10/29/23 11/30/23 Rx mcg-4.5 mcg/actuation aerosol inhaler buspirone 5 mg tablet 5 mg PO BID #180 tabs 11/01/23 11/30/23 Rx lorazepam 0.5 mg tablet (Ativan) 0.5 mg PO DAILY PRN anxiety #20 11/07/23 11/30/23 Rx tabs nystatin-triamcinolone 100,000 1 applic topical TID #30 grams 11/07/23 11/30/23 Rx unit/gram-0.1 % topical ointment diclofenac sodium 1 % topical gel 2 g topical QID #100 grams 11/24/23 11/30/23 Rx (Voltaren Arthritis Pain) tramadol 50 mg tablet 50 mg PO BID PRN pain #30 tabs 11/25/23 11/30/23 Rx cyclosporine 0.05 % eye drops in a 1 drp ophthalmic (eye) Q12H 11/30/23 11/30/23 History dropperette (Restasis) hydrocortisone 1 % topical cream 1 applic NV BID 10 days #28.4 grams 11/30/23 11/30/23 Rx with perineal applicator hydrocortisone acetate 25 mg 25 mg NV DAILY #12 ea 11/30/23 11/30/23 Rx rectal suppository nystatin 100,000 unit/gram topical 1 applic topical DAILY PRN Rash 11/30/23 11/30/23 History cream Patient History Medical History Bronchiectasis Subdural hematoma H/O malignant neoplasm of breast History of basal cell cancer Acute subdural hematoma Hypertension Surgical History S/P knee surgery S/P dilation and curettage S/P breast lumpectomy Family History Father Hypertension Stroke Unknown Cancer Denies family history of Colon cancer Ovarian cancer Prostate cancer Myocardial infarction Breast cancer Social History Smoking Status: Unknown if ever smoked Second Hand Exposure: Yes; Do You Dip or Chew Tobacco: No; Hx Alcohol Use: No Hx Substance Use: No Preferred Language: French Communication Ability: Effective Visual Impairment: No Limitations Hearing Ability: Normal 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 Required: No Beliefs That Will Affect Care: None marital status: Current Living Situation: Alone Current Living Situation Comment: [facility] current occupational status: retired How many Children do You have: 2 Feels Safe at Home: Yes Childhood Exposure to Second-Hand Smoke: No Dental Care, Regularly: Yes Physical Activity Frequency: 1-2 Times per Week Seatbelt Use: always Sunscreen Use: Yes Assistive Devices: Special Shoe and Walker Review of Systems Constitutional: no fever and no chills Gastrointestinal: rectal pain Musculoskeletal: + back pain Physical Exam Physical Exam: awake, no distress Respiratory: on supplemental O2, 2 L Gastrointestinal (Abdomen): Percussion/Palpation: abdomen soft Rectal Exam: no hemorrhoids + mild tenderness to palpation carly-anal area, no obvious signs of drainage or infection Results & Data Vital Signs (Past 12 Hours) Vital Signs Temp Pulse Resp BP BP Pulse Ox O2 Del Method 12/05/23 07:45 Nasal Cannula 12/05/23 07:36 98.1 F 77 16 195/77 H 96 Nasal Cannula 12/05/23 05:09 82 170/75 H 12/05/23 04:30 80 16 210/110 H 96 Nasal Cannula O2 Flow Rate 12/05/23 07:45 2 12/05/23 07:36 2 12/05/23 05:09 12/05/23 04:[address] pelvis w/IV con only HISTORY: 83 years-old Female rectal pain, rectal phlegmon acute pelvic pain COMPARISON: 11/30/2023 TECHNIQUE: Multiple axial CT images of the pelvis were obtained with IV contrast. A dose lowering technique was used consistent with the principals of FILEMON. FINDINGS: Atherosclerosis of the aorta and branch vessels. No lymphadenopathy. There is no bowel obstruction or bowel wall thickening identified. 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 No abscess or supralevator extension. Mild wall thickening of the anal rectal junction with trace adjacent inflammatory stranding. No ascites or mesenteric inflammation. Uterine enlargement redemonstrated with the postmenopausal anteflexed uterus measuring 13.7 x 6.2 x 8.1 cm pathologic hypodense masslike thickening within the endometrium is again noted measuring up to 4 cm. Soft tissue thickening is also noted within the cervix with a few probable nabothian cysts. No adnexal mass lesions. Unremarkable urinary bladder. Tiny fat filled umbilical hernia. Unremarkable soft tissues otherwise. No acute fracture. IMPRESSION: 1. 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 No abscess or supralevator extension. 2. Enlarged uterus with prominent pathologic thickening of the endometrium redemonstrated . Follow-up with gynecology is needed. 3. No lymphadenopathy. ACT 112: Negative or not required by law. The above report was generated using voice recognition software. It may contain grammatical, syntax or spelling errors. Electronically signed by: Enmanuel Deleon M.D. 12/05/2023 9:[address] pelvis w/IV con only CLINICAL HISTORY: concern carly-rectal abscess TECHNIQUE: Helical axial images of the pelvis were obtained and displayed at 5 and 1 mm intervals. Automated dose lowering techniques and/or adjustment accord ing to patient size were utilized for this exam. This exam was performed with intravenous contrast. CT DOSE: 463.05 mGy.cm COMPARISON: None available at the time of this dictation. FINDINGS: Bladder: Unremarkable. Reproductive organs: Prominent thickening of the endometrium is seen. Bowel: There is a 7 mm hypodensity in the region of the posterior rectum (series 3 image 291). Lymph nodes Pelvic: Unremarkable. Mesenteric: Unremarkable. Peritoneum: Normal Vessels: Atherosclerotic calcifications are seen. Abdominal wall: A tiny umbilical helical hernia is seen. Bones: Degenerative changes in the visualized spine. IMPRESSION: 1. There is a hypodensity in the posterior rectum, nonspecific, may reflect developing phlegmon. No well-defined abscess is seen. 2. Prominent thickening of the endometrium. If not previously characterized, endometrial biopsy is recommended as this is suspicious for endometrial carcinoma in this postmenopausal patient. ACT 112: Positive. There are findings on this exam that require communication between the performing entity and the patient following Patient Test Result Information Act ([place] Act 112) guidelines. Electronically signed by: Derick Dubose M.D. 11/30/2023 6:48 AM PG Care Time/CCT Total # of Minutes Spent Total Time Spent with Patient: Total time spent is greater than 50% in coordination of care (as documented) at patient's floor/unit and/or counseling patient: Coding Level of Care Code 30527 INT INP/OBS CARE 2/55MIN Diagnoses Perianal fistula K60.3
[2023-12-05] MEDS: POTASSIUM CHLORIDE CRTAB 20 MEQ TABCR PO STA (12:07)
[2023-12-05] MEDS: FUROSEMIDE INJ 20 MG/2 ML VIAL IV ONE (12:07)
--- NOTE | 2023-12-05 14:07 | Hospitalist Progress Note ---
Date of Service December 05, 2023 Assessment & Plan (1) Rolanda-rectal abscess: Plan: 83 y/o admitted with rectal pain and finding of probable posterior rectal phlegmon on Ct pelvis with contrast, no discrete abscess. Also severely hypertensive in the ED BP 239/104 which persisted despite pain control and labetalol IV Posterior rectal phlegmon - pain has significantly improved since presentation in ED overall though was painful overnight - cont pip-tazo. 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 No abscess or supralevator extension" -consulted general surgery - a lot of her pain seems to be musculoskeletal - low back and bilateral SI - scheduled APAP, PRN tramadol for MSK pain - Imodium PRN and probiotic added for antibiotic associated diarrhea (2) Hypertensive emergency: Plan: While in ED had presentation BPs with systolic in 210s and higher, did not respond to doses of labetalol, IV pain medication, and IV lorazepam for severe anxiety. Then developed acute pulmonary edema, acute hypoxic respiratory failure, max SBP 240-250 May have been triggered by acute anxiety and pain despite ED treatment with IV opioids and dose of IV lorazepam prior to this. Treated with nitroglycerin drip, lasix IV, IV lorazepam 0.5 mg, IV lasix, bipap from AM until midday Initially planned for ICU admission but improved rapidly so admitted to PCU -acute hypertension has resolved, BP normal on usual antihypertensives - propranolol and lisinopril -acute hypoxic respiratory failure due to acute pulmonary edema resolved - now with sats in mid- high 90s on 2L pnc -does not have history of heart failure and no evidence of chronic heart failure on exam (no peripheral edema or gross volume overload), further history from her daughter who corroborates no history of cardiac problems -troponin x 2 was negative -TTE 11/30 - no rwma's normal EF 70%, hyperdynamic, no significant valvular disease, moderate concentric LVH, normal volume status BP has increased again last 48h especially, hypertensive overnight and this am. -lasix 20 mg IV x 1 with potassium supp -PRN IV hydralazine reordered -increased lisinopril to 5 mg -address pain and anxiety, though not painful and not acutely anxious right now (3) Hypoxia: Plan: Was not hypoxic on arrival to ED, developed following two small doses of IV opioids initially thought related to hypoventilation Then developed acute hypoxic respiratory failure due to acute pulmonary edema treated as above and resolved Mild, requiring 2L O2 presently, has loose cough -CXR 11/30 - hiatal hernia, clear. Has history of bronchiectasis. COVID neg on admission. 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 Pena Has history of breast cancer treated in 2017, per chart: "Infiltrating ductal carcinoma, grade 2Estrogen receptor positive, progesterone receptor positive, HER-2/saud negativeStatus post image guided localization lumpectomy and sentinel lymph node biopsy 07/25/2017Stage pT1b [id number] DX score of 18Status post completion of radiation therapy 10/11/2017" -has had no vaginal bleeding, though is forgetful -tamoxifen can cause EM hyperplasia and increases risk of endometrial cancer. Has been on 6-7 years. -discussed with her signs and displays sales representative Dr. Pena - she will arrange pelvic ultrasound in her office soon after discharge. -discussed with Dr. Churchill her oncologist - recommended holding tamoxifen until endometrium evaluated Plan Chronic medical problems: History of bilateral SDH, traumatic - cognitive impairment accelerated following this Mild cognitive impairment - her daughter reports memory is typically quite poor and she is often confused, often disoriented in hospital setting Essential tremor - treated with propranolol Bronchiectasis history Depression Resident of [facility] Emergency contact listed is daughter Guillermina Rodriguez in [place] [phone] -I updated Guillermina by phone x2 11/29, 11/30, at bedside 12/01, 12/02 Full code at this time, would not want prolonged life support per discussion with her daughter Admission and Anticipated Discharge Date Admission Date: November 30, 2023 Subjective had a bad night, had low back pain radiating to bilateral thighs and increased rectal pain, was anxious and hypertensive again, treated with IV hydromorphone 0.25 then 0.5 mg. No pain right now. Breathing and cough has improved. Physical Exam 2 Physical Exam: PHYSICAL EXAMINATION Last 24h vital signs reviewed, see documentation in flowsheet General: lying down on bed HEENT: felisha,MMM. L eyelid opening is smaller than right with droop- reports this is baseline Lungs: Normal resp effort, clear to auscultation bilaterally anteriorly Heart: Regular rate and rhythm, no murmurs. EJs looks distended Abdomen: Soft, nontender, nondistended. Bowel sounds present. Extremities: Warm, dry, well-perfused. No extremity edema. Neuro: oriented to self and hospital, partially oriented to situation, forgetful, speech intact, face symmetric except eyelids, felisha, moves 4 extremities well, has UE tremor (baseline) Psych: anxious affect and behavior Results & Data Results & Data Vital Signs (Past 12 Hours) Vital Signs Temp Pulse Resp BP BP Pulse Ox O2 Del Method 12/05/23 07:45 Nasal Cannula 12/05/23 07:36 36.7 C 77 16 195/77 H 96 Nasal Cannula 12/05/23 05:09 82 170/75 H 12/05/23 04:30 80 16 210/110 H 96 Nasal Cannula O2 Flow Rate 12/05/23 07:45 2 12/05/23 07:36 2 12/05/23 05:09 12/05/23 04:30 2 Laboratory Results 12/01/23 05:53 12/04/23 08:18 PG Care Time/CCT Total # of Minutes Spent Total Time Spent with Patient: Total time spent is greater than 50% in coordination of care (as documented) at patient's floor/unit and/or counseling patient: Coding Level of Care Code 76732 SUB INP/OBS CARE 3/50MIN Diagnoses Rolanda-rectal abscess K61.1 Hypertensive emergency I16.1 Hypoxia R09.02 Hypertension I10 Hypertension type: primary hypertension Thickened endometrium R93.89 (4) Hypertension Hypertension type: primary hypertension Qualified Code(s): I10 - Essential (primary) hypertension
[2023-12-05] MEDS: traMADol HCL 50 MG TABLET PO PRN (16:57)
[2023-12-05] MEDS: KETOROLAC TROMETHAMINE 15 MG/ML VIAL IV ONE (23:50)
[2023-12-05] MEDS: FAMOTIDINE 20 MG TAB PO SCH (23:50)
[2023-12-06] MEDS: hydrALAZINE HCL 20 MG/ML VIAL IV PRN (07:23)
[2023-12-06 11:44] LABS: Basophils # (auto) 0.02 K/uL (0.00-0.20); Basophils % (auto) 0.3 %; Eosinophils # (auto) 0.09 K/uL (0.00-0.50); Eosinophils % (auto) 1.5 %; Hemoglobin 11.2 g/dl (12.0-16.0); Immature Granulocytes # (auto) 0.02 K/uL (0.01-0.20); Immature Granulocytes % (auto) 0.3 %; Lymphocytes # (auto) 1.27 K/uL (1.20-3.40); Lymphocytes % (auto) 20.6 %; Mean Corpuscular Hemoglobin 27.6 pg (25.0-34.0); Mean Corpuscular Hgb Conc 31.1 g/dL (32.0-36.0); Mean Corpuscular Volume 88.7 fL (80.0-100.0); Mean Platelet Volume 9.4 fL (9.4-12.4); Monocytes # (auto) 0.77 K/uL (0.11-0.59); Monocytes % (auto) 12.5 %; Neutrophils % (auto) 64.8 %; Platelet Count 254 K/uL (130-400); RDW Standard Deviation 46.1 fL (36.4-46.3); Red Blood Count 4.06 M/uL (4.20-5.40); White Blood Count 6.17 K/ul (4.8-10.8)
[2023-12-06 11:59] LABS: BUN Creatinine Ratio 23.1 (10-20); C Reactive Protein 1.44 mg/dl (0-0.5); Calcium 8.8 mg/dl (8.6-10.3); Est GFR (African American) 94.5 ml/min; Est GFR (Non-African American) 81.5 ml/min
--- NOTE | 2023-12-06 12:06 | Hospitalist Progress Note ---
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 diverticulitis? new onset IBD? other?? (3) Hypertensive emergency: Plan: present on admission systolics >200 developed acute CHF/pulm edema in the setting of her severely elevated BPs remains on propranolol and lisinopril but BPs still quite labile increase lisinopril to 5mg BID echo this admission - EF 70%, hyperdynamic, no significant valvular disease, moderate concentric LVH giving another dose of lasix 20mg x 1 today; can give PO (4) Hypoxia: Plan: 2nd to pulmonary edema? still requiring NC O2 give lasix again today if unable to wean O2 off then obtain chest CT given prior h/o bronchiectasis, etc (5) Hypertension: Plan: labile 2nd to anxiety? 2nd to pain? combination factors? 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 Pena Has history of breast cancer treated in 2017, per chart: "Infiltrating ductal carcinoma, grade 2Estrogen receptor positive, progesterone receptor positive, HER-2/saud negativeStatus post image guided localization lumpectomy and sentinel lymph node biopsy 07/25/2017Stage pT1b [id number] DX score of 18Status post completion of radiation therapy 10/11/2017" tamoxifen can cause EM hyperplasia and increases risk of endometrial cancer. Has been on such for 6-[address] Cloud discussed her case with iron and steel work supervisor Dr. Pena - she will arrange pelvic ultrasound in her office soon after discharge. Dr Cloud also discussed her care with Dr. Churchill from oncology - she recommended holding tamoxifen until endometrium evaluated post-discharge. Agree with the above plan. (7) Bronchiectasis: Plan: past h/o such has seen [facility] in the past for such add scheduled bronchodilators cont Breo 1 puff daily (8) History of subdural hematoma: Plan: 11/14/22 CT head - FINDINGS: Brain parenchyma: Small chronic bifrontal subdural hemorrhages have not significantly changed from recent prior examinations. There is no associated mass effect. This measures up to 7 mm on the right and 6 mm on the left. No acute subdural blood is identified. There is age-related involutional change noting mild to moderate subcortical and periventricular microangiopathic disease. There is no hemorrhage, mass effect, or evidence of acute territorial ischemia by CT criteria. Hyman-white matter differentiation is preserved. Ventricles, sulci, cisterns: Prominent secondary to involutional change. Intracranial vasculature: There is atherosclerotic calcification of the cavernous carotid and vertebral arteries. Calvarium: There are paired bifrontal chen holes. The skeletal structures are osteopenic. No depressed calvarial fracture is seen. Sinuses and mastoids: There is subtotal opacification of the maxillary antra with hyperdense secretions. This is similar to previous. Thickening and sclerosis of the sinus constantino indicates chronicity. There is irregular opacification of the left ethmoid sinuses. There is moderate mucosal thickening within the right sphenoid sinus and several right anterior ethmoid sinuses. Trace mucosal thickening is seen within the left sphenoid sinus. The mastoid air cells are well pneumatized. Orbits: The bony orbits are grossly intact. There are bilateral ocular lens implants. IMPRESSION: 1. There is no evidence of acute hemorrhage, mass effect, or territorial ischemia by CT criteria. 2. Postoperative change and small chronic bifrontal subdural hemorrhages as above. These are similar to recent prior examinations. 3. Paranasal sinus disease is similar to previous. by report has had cognitive changes/memory impairment ever since her original SDHs Plan Resident of [facility] Emergency contact listed is daughter Guillermina Rodriguez in [place] [phone] Dr Cloud spoke with her multiple times last week DVT proph - since SDHs are remote - lovenox 40mg daily being employed Admission and Anticipated Discharge Date Admission Date: November 30, 2023 Subjective pt reports she had severe rectal pain this am subsequently her BPs were very high - systolic >200 pain now improved states she continues with cough/congestion but denies dyspnea still requiring NC O2 - does not use O2 at home appetite fair no abd pain no N/V moving bowels Review of Systems Review of Systems: gen - no fevers or chills cv - no orthopnea pulm - denies dyspnea at rest GI - no blood per rectum Physical Exam Physical Exam: gen - thin, NAD, coughing at times neck - no obvious JVD mouth - MM dry; lips dry heart - RRR, s1 s2 lungs - course BS b/l, mild rales bases b/l abd - soft NT ND BS+ ext - no edema, pulses 2+ b/l psych - mildly forgetful but awake/alert Results & Data Results & Data Vital Signs (Past 12 Hours) Vital Signs Temp Pulse Resp BP BP Pulse Ox O2 Del Method 12/06/23 11:14 181/69 H 12/06/23 10:09 160/75 H 12/06/23 09:50 Nasal Cannula 12/06/23 06:59 36.8 C 88 18 243/123 H 244/119 H 98 Nasal Cannula O2 Flow Rate 12/06/23 11:14 12/06/23 10:09 12/06/23 09:50 2 12/06/23 06:59 2 Laboratory Results Laboratory Results - last 24 hr 12/06/23 10:37 WBC 6.17 RBC 4.06 L Hgb 11.2 L Hct 36.0 L MCV 88.7 MCH 27.6 MCHC 31.1 L RDW Std Deviation 46.1 RDW Coeff of Adarsh 14.0 Plt Count 254 MPV 9.4 Immature Gran % (Auto) 0.3 Neut % (Auto) 64.8 Lymph % (Auto) 20.6 [place] % (Auto) 12.5 Eos % (Auto) 1.5 Baso % (Auto) 0.3 Neut # (Auto) 4.00 Lymph # (Auto) 1.27 [place] # (Auto) 0.77 H Eos # (Auto) 0.09 Baso # (Auto) 0.02 Immature Gran # (Auto) 0.02 ESR 34 H Sodium 135 L Potassium 4.0 Chloride 99 Carbon Dioxide 31 Anion Gap 5 BUN 15 Creatinine 0.65 Est Cr Clr Drug Dosing 51.0 Est GFR ( Amer) 94.5 Est GFR (Non-Af Amer) 81.5 BUN/Creatinine Ratio 23.1 H Glucose 108 H Calcium 8.8 C-Reactive Protein 1.44 H PG Care Time/CCT Total # of Minutes Spent Total Time Spent with Patient: Total time spent is greater than 50% in coordination of care (as documented) at patient's floor/unit and/or counseling patient: Coding Level of Care Code 38874 SUB INP/OBS CARE 2/35MIN Diagnoses Rolanda-rectal abscess K61.1 Perianal fistula K60.3 Hypertensive emergency I16.1 Hypoxia R09.02 Hypertension I10 Hypertension type: primary hypertension Thickened endometrium R93.89 Bronchiectasis J47.9 History of subdural hematoma Z86.79 (5) Hypertension Hypertension type: primary hypertension Qualified Code(s): I10 - Essential (primary) hypertension
[2023-12-06] MEDS: FUROSEMIDE 20 MG TAB PO ONE (13:33)
[2023-12-06] MEDS: ALBUTEROL HFA 8 GM INHALER INH SCH ×2 (14:35→20:13)
[2023-12-06] MEDS: lisinopril 5 MG TAB PO SCH (19:37)
[2023-12-07 09:04] LABS: BUN Creatinine Ratio 16.9 (10-20); Calcium 8.6 mg/dl (8.6-10.3); Est GFR (African American) 82.2 ml/min; Est GFR (Non-African American) 70.9 ml/min; Potassium 3.6 mmol/L (3.5-5.1)
[2023-12-07] MEDS ORDERED: ALBUTEROL HFA 8 GM INHALER INH PRN (09:05)
[2023-12-07] MEDS: POTASSIUM CHLORIDE CRTAB 20 MEQ TABCR PO STA (12:32)
[2023-12-07] MEDS: FUROSEMIDE 20 MG TAB PO ONE (12:32)
[2023-12-07] MEDS: AMOXICILLIN/CLAVULANATE 875 MG TAB PO SCH (15:16)
--- NOTE | 2023-12-07 19:55 | Hospitalist Progress Note ---
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 diverticulitis? new onset IBD? other?? (3) Hypertensive emergency: Plan: present on admission systolics >200 developed acute CHF/pulm edema in the setting of her severely elevated BPs remains on propranolol and lisinopril increased lisinopril to 5mg BID still labile but overall trend of BPs is that of improvement echo this admission - EF 70%, hyperdynamic, no significant valvular disease, moderate concentric LVH will give another dose of lasix 20mg x 1 today suspect we are near euvolemia (4) Hypoxia: Plan: 2nd to pulmonary edema? 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 Pena Has history of breast cancer treated in 2017, per chart: "Infiltrating ductal carcinoma, grade 2Estrogen receptor positive, progesterone receptor positive, HER-2/saud negativeStatus post image guided localization lumpectomy and sentinel lymph node biopsy 07/25/2017Stage pT1b [id number] DX score of 18Status post completion of radiation therapy 10/11/2017" tamoxifen can cause EM hyperplasia and increases risk of endometrial cancer. Has been on such for 6-[address] Cloud discussed her case with data warehouse developer Dr. Pena - she will arrange pelvic ultrasound in her office soon after discharge. Dr Cloud also discussed her care with Dr. Churchill from oncology - she recommended holding tamoxifen until endometrium evaluated post-discharge. pt's daughter aware of this issue and need for f/u (7) Bronchiectasis: Plan: past h/o such has seen [facility] in the past for such add scheduled bronchodilators cont Breo 1 puff daily (8) History of subdural hematoma: Plan: 11/14/22 CT head - FINDINGS: Brain parenchyma: Small chronic bifrontal subdural hemorrhages have not significantly changed from recent prior examinations. There is no associated mass effect. This measures up to 7 mm on the right and 6 mm on the left. No acute subdural blood is identified. There is age-related involutional change noting mild to moderate subcortical and periventricular microangiopathic disease. There is no hemorrhage, mass effect, or evidence of acute territorial ischemia by CT criteria. Hyman-white matter differentiation is preserved. Ventricles, sulci, cisterns: Prominent secondary to involutional change. Intracranial vasculature: There is atherosclerotic calcification of the cavernous carotid and vertebral arteries. Calvarium: There are paired bifrontal chen holes. The skeletal structures are osteopenic. No depressed calvarial fracture is seen. Sinuses and mastoids: There is subtotal opacification of the maxillary antra with hyperdense secretions. This is similar to previous. Thickening and sclerosis of the sinus constantino indicates chronicity. There is irregular opacification of the left ethmoid sinuses. There is moderate mucosal thickening within the right sphenoid sinus and several right anterior ethmoid sinuses. Trace mucosal thickening is seen within the left sphenoid sinus. The mastoid air cells are well pneumatized. Orbits: The bony orbits are grossly intact. There are bilateral ocular lens implants. IMPRESSION: 1. There is no evidence of acute hemorrhage, mass effect, or territorial ischemia by CT criteria. 2. Postoperative change and small chronic bifrontal subdural hemorrhages as above. These are similar to recent prior examinations. 3. Paranasal sinus disease is similar to previous. by report has had cognitive changes/memory impairment ever since her original SDHs (9) Bilateral thigh pain: Plan: obtain dopplers - r/o DVT if negative could be referred pain from her lumbar spine DJD Plan Resident of [facility] Emergency contact listed is daughter Guillermina Rodriguez in [place] [phone] I spoke with Ms Rodriguez this evening extensive update given discussed plan of care likely can d/c back to [facility] next 1-2 days DVT proph - since SDHs are remote - lovenox 40mg daily being employed Admission and Anticipated Discharge Date Admission Date: November 30, 2023 Subjective patient sitting in chair eating her meal appetite has been good today per nursing staff rectal pain has been minimal did not need any pain meds today - just lidocaine jelly early this am no abd pain during my visit I removed her NC O2 - sats stayed 92% or more for 20+ minutes Review of Systems Review of Systems: cv - no chest pain pulm - minimal cough, no dyspnea, no VOGT GI - no N/V musculo - c/o b/l thigh pain posteriorly - started when ?? she reports earlier in the stay, but this has never been a voiced concern/complaint Physical Exam Physical Exam: gen - thin, NAD, no cough today; looks well; sitting in chair neck - no obvious JVD mouth - MMM heart - RRR, s1 s2, no murmur lungs - airation fair, no obvious rales or wheeze, decreased BS bases abd - soft NT ND BS+ ext - no edema, pulses 2+ b/l Results & Data Results & Data Vital Signs (Past 12 Hours) Vital Signs Temp Pulse Pulse Resp BP Pulse Ox O2 Del Method 12/07/23 19:25 36.8 C 81 14 111/63 93 Room Air 12/07/23 15:11 37.0 C 81 18 170/85 H 97 Room Air 12/07/23 07:59 82 18 95 Nasal Cannula O2 Flow Rate 12/07/23 19:25 12/07/23 15:11 12/07/23 07:59 2 Laboratory Results Laboratory Results - last 24 hr 12/07/23 07:38 Sodium 136 Potassium 3.6 Chloride 99 Carbon Dioxide 31 Anion Gap 6 BUN 13 Creatinine 0.77 Est Cr Clr Drug Dosing 43.0 Est GFR ( Amer) 82.2 Est GFR (Non-Af Amer) 70.9 BUN/Creatinine Ratio 16.9 Glucose 102 H Calcium 8.6 PG Care Time/CCT Total # of Minutes Spent Total Time Spent with Patient: Total time spent is greater than 50% in coordination of care (as documented) at patient's floor/unit and/or counseling patient: Coding Level of Care Code 63846 SUB INP/OBS CARE 350MIN Diagnoses Rolanda-rectal abscess K61.1 Perianal fistula K60.3 Hypertensive emergency I16.1 Hypoxia R09.02 Hypertension I10 Hypertension type: primary hypertension Thickened endometrium R93.89 Bronchiectasis J47.9 History of subdural hematoma Z86.79 Bilateral thigh pain M79.651; M79.652 (5) Hypertension Hypertension type: primary hypertension Qualified Code(s): I10 - Essential (primary) hypertension
[2023-12-08] MEDS: HYDROmorphone INJ 0.5 MG/0.5 ML SYR IV STA (03:20)
--- NOTE | 2023-12-08 07:00 | Ultrasound Report ---
BILATERAL LOWER EXTREMITY VENOUS DOPPLER HISTORY: Acute pain and swelling of the lower legs b/l thigh pain, eval DVT COMPARISON STUDY: None. FINDINGS: Limited visualization of the calf veins secondary to patient body habitus. There is normal compressibility, flow, and augmentation within the bilateral lower extremity deep venous systems. IMPRESSION: No DVT within the right or left lower extremity. ACT 112: Negative or not required by law. Electronically signed by: Enmanuel Deleon M.D. 12/08/2023 6:59 AM
[2023-12-08 08:16] LABS: BUN Creatinine Ratio 18.1 (10-20); Calcium 8.7 mg/dl (8.6-10.3); Est GFR (African American) 89.1 ml/min; Est GFR (Non-African American) 76.9 ml/min
[2023-12-08] MEDS: KETOROLAC TROMETHAMINE 15 MG/ML VIAL IV ONE (08:52)
--- NOTE | 2023-12-08 16:08 | CT Scan Report ---
CT OF THE LUMBAR SPINE CLINICAL HISTORY: L2/L3 radiculopathy, stenosis, pain COMPARISON STUDY: Lumbar spine MRI August 09, 2018. Lumbar spine radiographs November 24, 2023. TECHNIQUE: Helical axial images of the lumbar spine were obtained. Sagittal and coronal reconstruct ions were viewed. Automated exposure control was utilized for the study. A dose lowering technique was utilized adhering to the principles of ALARA. FINDINGS: For purposes of numbering on this exam, the L5-S1 disc space is assigned to axial image 269 of 364. There is moderate lumbar spine levoscoliosis. There is an acute to subacute compression frac ture of the superior plate of L3 with 20% loss of vertebral body height. No significant associated re tropulsion. Fracture slightly extends into the bilateral pedicles. No additional lumbar spine fractur es are present. Severe multilevel facet arthrosis, disc space narrowing and osteophytosis is present. The central canal and neural foramen are suboptimally assessed given CT technique. Suspected moderat e to severe central canal stenosis at L2-L3. There is moderate multilevel neural foraminal stenosis. Small left pleural effusion is incidentally noted. Partially visualized hernia with intrathoracic sto mach. Mild right lower lobe airspace opacities are present. There is a 2 mm right renal calculus. As described on prior studies, marked endometrial thickening is partially imaged on this study. IMPRESSION: 1. Acute to subacute mild compression fracture of the superior endplate of L3. No additional lumbar s pine fractures. 2. Moderate multilevel degenerative disc disease and severe facet arthrosis within the lumbar spine. Suspected moderate to severe central canal stenosis at L2-L3. 3. Moderate lumbar spine levoscoliosis. 4. Endometrial thickening, abnormal in a postmenopausal patient. Nonemergent gynecologic consultation is recommended. ACT 112: Negative or not required by law. Electronically signed by: Ra Novoa M.D. 12/08/2023 4:07 PM
[2023-12-08] MEDS: CELECOXIB 100 MG CAP PO SCH (16:27)
[2023-12-08 19:28] VITALS: O2SAT 92
[2023-12-08] MEDS: CALCITONIN SALMON NA 200 IU/AC 3.7 ML BTL SCH (19:30)
--- NOTE | 2023-12-08 21:15 | Hospitalist Progress Note ---
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 diverticulitis? new onset IBD? other?? (3) Hypertensive emergency: Plan: present on admission systolics >200 developed acute CHF/pulm edema in the setting of her severely elevated BPs remains on propranolol and lisinopril increased lisinopril to 5mg BID still labile but overall trend of BPs is that of improvement with more BP readings <150/160 echo this admission - EF 70%, hyperdynamic, no significant valvular disease, moderate concentric LVH appears euvolemic - no further lasix (4) Hypoxia: Plan: 2nd to pulmonary edema 2nd to bronchiectasis exacerbation resolved (5) Hypertension: Plan: cont lisinopril to 5mg BID cont inderal (6) Thickened endometrium: Plan: Noted on CT pelvis, new finding Last [facility] visit 03/[address] Pena Has history of breast cancer treated in 2017, per chart: "Infiltrating ductal carcinoma, grade 2Estrogen receptor positive, progesterone receptor positive, HER-2/saud negativeStatus post image guided localization lumpectomy and sentinel lymph node biopsy 07/25/2017Stage pT1b [id number] DX score of 18Status post completion of radiation therapy 10/11/2017" tamoxifen can cause EM hyperplasia and increases risk of endometrial cancer. Has been on such for [address] Cloud discussed her case with bag hanger Dr. Pena - she will arrange pelvic ultrasound in her office soon after discharge. Dr Cloud also discussed her care with Dr. Churchill from oncology - she recommended holding tamoxifen until endometrium evaluated post-discharge. pt's daughter aware of this issue and need for f/u (7) Bronchiectasis: Plan: past h/o such has seen [facility] in the past for such albuterol prn cont Breo 1 puff daily (8) History of subdural hematoma: Plan: 11/14/22 CT head - FINDINGS: Brain parenchyma: Small chronic bifrontal subdural hemorrhages have not significantly changed from recent prior examinations. There is no associated mass effect. This measures up to 7 mm on the right and 6 mm on the left. No acute subdural blood is identified. There is age-related involutional change noting mild to moderate subcortical and periventricular microangiopathic disease. There is no hemorrhage, mass effect, or evidence of acute territorial ischemia by CT criteria. Hyman-white matter differentiation is preserved. Ventricles, sulci, cisterns: Prominent secondary to involutional change. Intracranial vasculature: There is atherosclerotic calcification of the cavernous carotid and vertebral arteries. Calvarium: There are paired bifrontal chen holes. The skeletal structures are osteopenic. No depressed calvarial fracture is seen. Sinuses and mastoids: There is subtotal opacification of the maxillary antra with hyperdense secretions. This is similar to previous. Thickening and sclerosis of the sinus constantino indicates chronicity. There is irregular opacification of the left ethmoid sinuses. There is moderate mucosal thickening within the right sphenoid sinus and several right anterior ethmoid sinuses. Trace mucosal thickening is seen within the left sphenoid sinus. The mastoid air cells are well pneumatized. Orbits: The bony orbits are grossly intact. There are bilateral ocular lens implants. IMPRESSION: 1. There is no evidence of acute hemorrhage, mass effect, or territorial ischemia by CT criteria. 2. Postoperative change and small chronic bifrontal subdural hemorrhages as above. These are similar to recent prior examinations. 3. Paranasal sinus disease is similar to previous. by report has had cognitive changes/memory impairment ever since her original SDHs (9) Bilateral thigh pain: Plan: obtained dopplers - NO DVT suspect radicular pain from SEVERE spinal stenosis of l-spine MRI 2018 l-spine: 1. No acute fracture or subluxation. 2. Levoscoliosis of the lumbar spine with advanced multilevel discogenic degenerative changes, spondylitic spurring and facet arthropathy as detailed above resulting in multilevel central canal and foraminal narrowing. 3. Severe central canal stenosis at L2-L3. 4. Nonspecific prominence of the postmenopausal uterus. This finding could be correlated with pelvic ultrasound if of further clinical concern. due to ongoing c/o pain I ordered lumbar spine CT - this shows a mild acute/subacute compression Fracture at L3 I don't suspect this is causing the thigh pain - suspect it is the pre-existing spinal stenosis at L2-L3 added celebrex 100mg daily for pain control cont tylenol scheduled consider gabapentin but hold for now - I am concerned about side effects with her and her baseline dementia she is NOT having back pain at this time - thus, LSO brace likely to not be of significant benefit Plan [facility] Emergency contact listed is daughter Guillermina Rodriguez in [place] [phone] I spoke with Ms Rodriguez 12/06 -- extensive update given discussed plan of care DVT proph - since SDHs are remote - lovenox 40mg daily being employed if pains are controlled on 12/08 consider d/c back to [facility] Admission and Anticipated Discharge Date Admission Date: November 30, 2023 Subjective pt c/o bilateral pain in the L2 or L3 dermatome (ant upper thighs) when pain comes on it is throbbing and like a toothache pain is severe denies any back pain minimal rectal pain (had such with having a BM) but otherwise rectal pain is much better eating fair ambulated 200 feet with PT today with rolling walker; PT does not mention significant pains with walking patient anxious about "feeling in the dark" but we have discussed her problems and care plan numerous times this week we reviewed plan of care once again today Review of Systems Review of Systems: gen - no fevers or chills cv - no cp, no orthopnea pulm - mild cough but no dyspnea GI - no abd pain or N/V Physical Exam Physical Exam: gen - thin, NAD, occasional cough; comfortable neck - no obvious JVD mouth - MMM heart - RRR, s1 s2, no murmur lungs - minimal rales bases, occasional wheeze abd - soft NT ND BS+ ext - no edema, pulses 2+ b/l neuro - patellar reflexes are 3+, achilles on left 3+, 2+ on right; ankle clonus present; strength in legs 5/5 b/l (hip flexion and ankle dorsiflexion/plantarflexion) psych - pleasant confusion Results & Data Results & Data Vital Signs (Past 12 Hours) Vital Signs Temp Pulse Resp BP BP Pulse Ox O2 Del Method 12/08/23 19:30 Room Air 12/08/23 19:28 36.8 C 84 16 133/65 92 Room Air 12/08/23 16:41 168/88 H 12/08/23 15:46 36.9 C 75 16 170/100 H 94 Room Air Laboratory Results Laboratory Results - last 24 hr 12/08/23 06:47 Sodium 138 Potassium 4.0 Chloride 102 Carbon Dioxide 31 Anion Gap 5 BUN 13 Creatinine 0.72 Est Cr Clr Drug Dosing 46.0 Est GFR ( Amer) 89.1 Est GFR (Non-Af Amer) 76.9 BUN/Creatinine Ratio 18.1 Glucose 92 Calcium 8.7 Diagnostic Findings Lumbar Spine CT 12/08/23 14:58 CT OF THE LUMBAR SPINE CLINICAL HISTORY: L2/L3 radiculopathy, stenosis, pain COMPARISON STUDY: Lumbar spine MRI August 09, 2018. Lumbar spine radiographs November 24, 2023. TECHNIQUE: Helical axial images of the lumbar spine were obtained. Sagittal and coronal reconstructions were viewed. Automated exposure control was utilized for the study. A dose lowering technique was utilized adhering to the principles of ALARA. FINDINGS: For purposes of numbering on this exam, the L5-S1 disc space is assigned to axial image 269 of 364. There is moderate lumbar spine levoscoliosis. There is an acute to subacute compression fracture of the superior plate of L3 with 20% loss of vertebral body height. No significant associated retropulsion. Fracture slightly extends into the bilateral pedicles. No additional lumbar spine fractures are present. Severe multilevel facet arthrosis, disc space narrowing and osteophytosis is present. The central canal and neural foramen are suboptimally assessed given CT technique. Suspected moderate to severe central canal stenosis at L2-L3. There is moderate multilevel neural foraminal stenosis. Small left pleural effusion is incidentally noted. Partially visualized hernia with intrathoracic stomach. Mild right lower lobe airspace opacities are present. There is a 2 mm right renal calculus. As described on prior studies, marked endometrial thickening is partially imaged on this study. IMPRESSION: 1. Acute to subacute mild compression fracture of the superior endplate of L3. No additional lumbar spine fractures. 2. Moderate multilevel degenerative disc disease and severe facet arthrosis within the lumbar spine. Suspected moderate to severe central canal stenosis at L2-L3. 3. Moderate lumbar spine levoscoliosis. 4. Endometrial thickening, abnormal in a postmenopausal patient. Nonemergent gynecologic consultation is recommended. ACT 112: Negative or not required by law. Electronically signed by: Ra Novoa M.D. 12/08/2023 4:07 PM PG Care Time/CCT Total # of Minutes Spent Total Time Spent with Patient: Total time spent is greater than 50% in coordination of care (as documented) at patient's floor/unit and/or counseling patient: Coding Level of Care Code 24254 SUB INP/OBS CARE 2/35MIN Diagnoses Rolanda-rectal abscess K61.1 Perianal fistula K60.3 Hypertensive emergency I16.1 Hypoxia R09.02 Hypertension I10 Hypertension type: primary hypertension Thickened endometrium R93.89 Bronchiectasis J47.9 History of subdural hematoma Z86.79 Bilateral thigh pain M79.651; M79.652 (5) Hypertension Hypertension type: primary hypertension Qualified Code(s): I10 - Essential (primary) hypertension
[2023-12-09] MEDS: HYDROmorphone INJ 0.5 MG/0.5 ML SYR IV STA (02:56)
[2023-12-09 07:34] LABS: BUN Creatinine Ratio 27.9 (10-20); C Reactive Protein 0.73 mg/dl (0-0.5); Creatinine Clr Calc Pharmacy 48.7 ml/min; Est GFR (African American) 93.1 ml/min; Est GFR (Non-African American) 80.3 ml/min; Potassium 4.3 mmol/L (3.5-5.1)
[2023-12-09 08:06] VITALS: RESP 18; TEMP 97.3
--- NOTE | 2023-12-09 12:50 | Discharge Summary ---
Date of Service December 09, 2023 Admission HPI Per Admitting Provider 83 y/o presented to ED with worsening rectal pain for past week. Pain has been progressively worsening, severe pain at the time of ED presentation. She attributes this pain to a hemorrhoid, but no hemorrhoid was present on exam. CT pelvis with IV contrast obtained, 7mm hypodensity posterior rectum suggestive of a phlegmon. Given cipro/flagyl. fentanyl 25 mcg, hydromorphone 0.25 mg, then mildly hypoxic on 2L O2 No N/V/D or abdominal pain. Eval in primary care for low back pain for previous week, Lspine xray obtained, currently not having low back pain Severely hypertensive 239/104 - labetalol 10 mg x 2 doses given - pain improved, IV lorazepam given for anxiety, despite this SBP remained 230. Hydralazine 10 mg IV ordered after discussion with ED MD but on recheck SBP down to 180 so held off. Soon after had rapidly progressive shortness of breath, worsening hypoxia, tachypnea and sinus tachycardia with HR in 130s, SBP 240-250. Breath sounds newly coarse and wet sounding. Donavan castillo was called I saw her during this episode with ED MD and donavan castillo team. Denied chest pain, no dyspnea, agitated and unable to give history. Treated with nitroglycerine IV drip increased from 5-->10, lasix 20 mg IV x 1, bipap. Immediate response with BP improving to 160s-180s and excellent UOP, improvement in dyspnea. Nitro drip was held and did not need to be restarted. Came off of bipap. Reassessed in early afternoon, denied CP and dyspnea, though breath sounds still coarse and only needing 2L O2 sats in high 90s. Reports that rectal pain has improved since this morning. Has been going on several weeks, worse past week. She thought was related to hemorrhoids. Confused at baseline but aware at [facility]. Endometrial thickening - noted on pelvic CT. No vaginal bleeding - she denies any history of vaginal bleeding but has been on tamoxifen for breast cancer for 6-7 years Pelvic exam by ED MD unremarkable Discharge Exam gen - thin, NAD, occasional cough; comfortable neck - no obvious JVD mouth - MMM heart - RRR, s1 s2, no murmur lungs - minimal rales bases, occasional wheeze abd - soft NT ND BS+ ext - no edema, pulses 2+ b/l neuro - patellar reflexes are 3+, achilles on left 3+, 2+ on right; ankle clonus present; strength in legs 5/5 b/l (hip flexion and ankle dorsiflexion/plantarflexion) psych - pleasant confusion Discharge Data Allergies Allergy/AdvReac Type Severity Reaction Status Date / Time povidone-iodine Allergy Mild RED RASH Verified 11/24/23 15:02 AND SKIN IRRITATION amoxicillin AdvReac Intermediate NAUSEA Verified 11/24/23 15:02 clavulanic acid AdvReac Intermediate NAUSEA Verified 11/24/23 15:02 doxycycline AdvReac Intermediate NAUSEA Verified 11/24/23 15:02 mometasone furoate AdvReac Intermediate NAUSEA Verified 11/24/23 15:02 nitrofurantoin AdvReac Intermediate nausea Verified 11/24/23 15:02 Sulfa (Sulfonamide AdvReac Mild NAUSEA/VOMI Verified 11/24/23 15:02 Antibiotics) TING Consultations 11/30/23 07:25 ED Decision to Admit Stat 12/05/23 10:37 Consult General Surgery Routine 12/05/23 16:25 Consult [facility] programs Routine Ordered Studies 11/30/23 05:25 CT pelvis w/IV con only Stat 12/05/23 07:18 CT pelvis w/IV con only Urgent 12/07/23 17:25 US venous doppler LE BI Routine 12/08/23 14:58 CT lumbar spine wo con Routine Hospital Course (1) Rolanda-rectal abscess: probable posterior rectal phlegmon on CT pelvis with contrast x 2 no discrete abscess day #9 of abx - cont augmentin plan 14 days in total of IV/PO abx second CT with 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 diverticulitis? new onset IBD? other?? (3) Hypertensive emergency: present on admission systolics >200 developed acute CHF/pulm edema in the setting of her severely elevated BPs remains on propranolol and lisinopril increased lisinopril to 5mg BID still labile but overall trend of BPs is that of improvement with more BP readings <150/160 echo this admission - EF 70%, hyperdynamic, no significant valvular disease, moderate concentric LVH appears euvolemic - no further lasix (4) Hypoxia: 2nd to pulmonary edema 2nd to bronchiectasis exacerbation resolved (5) Hypertension: cont lisinopril to 5mg BID cont inderal (6) Thickened endometrium: Noted on CT pelvis, new finding Last [employer] visit 03/[address] Pena Has history of breast cancer treated in 2017, per chart: "Infiltrating ductal carcinoma, grade 2Estrogen receptor positive, progesterone receptor positive, HER-2/saud negativeStatus post image guided localization lumpectomy and sentinel lymph node biopsy 07/25/2017Stage pT1b [id number] DX score of 18Status post completion of radiation therapy 10/11/2017" tamoxifen can cause EM hyperplasia and increases risk of endometrial cancer. Has been on such for 6-[address] Cloud discussed her case with glycerin operator Dr. Pena - she will arrange pelvic ultrasound in her office soon after discharge. Dr Cloud also discussed her care with Dr. Churchill from oncology - she recommended holding tamoxifen until endometrium evaluated post-discharge. pt's daughter aware of this issue and need for f/u (7) Bronchiectasis: past h/o such has seen [facility] in the past for such albuterol prn cont Breo 1 puff daily (8) History of subdural hematoma: 11/14/22 CT head - FINDINGS: Brain parenchyma: Small chronic bifrontal subdural hemorrhages have not significantly changed from recent prior examinations. There is no associated ma ss effect. This measures up to 7 mm on the right and 6 mm on the left. No acute subdural blood is identified. There is age-related involutional change noting mild to moderate subcortical and periventricular microangiopathic disease. There is no hemorrhage, mass effect, or evidence of acute territorial ischemia by CT criteria. Hyman-white matter differentiation is preserved. Ventricles, sulci, cisterns: Prominent secondary to involutional change. Intracranial vasculature: There is atherosclerotic calcification of the cavernous carotid and vertebral arteries. Calvarium: There are paired bifrontal chen holes. The skeletal structures are osteopenic. No depressed calvarial fracture is seen. Sinuses and mastoids: There is subtotal opacification of the maxillary antra with hyperdense secretions. This is similar to previous. Thickening and sclerosis of the sinus constantino indicates chronicity. There is irregular opacification of the left ethmoid sinuses. There is moderate mucosal thickening within the right sphenoid sinus and several right anterior ethmoid sinuses. Trace mucosal thickening is seen within the left sphenoid sinus. The mastoid air cells are well pneumatized. Orbits: The bony orbits are grossly intact. There are bilateral ocular lens implants. IMPRESSION: 1. There is no evidence of acute hemorrhage, mass effect, or territorial ischemia by CT criteria. 2. Postoperative change and small chronic bifrontal subdural hemorrhages as above. These are similar to recent prior examinations. 3. Paranasal sinus disease is similar to previous. by report has had cognitive changes/memory impairment ever since her original SDHs (9) Bilateral thigh pain: obtained dopplers - NO DVT suspect radicular pain from SEVERE spinal stenosis of l-spine MRI 2018 l-spine: 1. No acute fracture or subluxation. 2. Levoscoliosis of the lumbar spine with advanced multilevel discogenic degenerative changes, spondylitic spurring and facet arthropathy as detailed above resulting in multilevel central canal and foraminal narrowing. 3. Severe central canal stenosis at L2-L3. 4. Nonspecific prominence of the postmenopausal uterus. This finding could be correlated with pelvic ultrasound if of further clinical concern. due to ongoing c/o pain I ordered lumbar spine CT - this shows a mild acute/subacute compression Fracture at L3 I don't suspect this is causing the thigh pain - suspect it is the pre-existing spinal stenosis at L2-L3 added celebrex 100mg daily for pain control cont tylenol scheduled consider gabapentin but hold for now - I am concerned about side effects with her and her baseline dementia she is NOT having back pain at this time - thus, LSO brace likely to not be of significant benefit Plan Resident of [facility] Emergency contact listed is daughter Guillermina Rodriguez in [place] [phone] I spoke with Ms Rodriguez 12/06 -- extensive update given discussed plan of care DVT proph - since SDHs are remote - lovenox 40mg daily being employed if pains are controlled on 12/08 consider d/c back to [facility] Discharge Plan Discharge Items Patient Disposition: Personal Intermediate Reason For Visit: PERIRECTAL PHELGMON Discharge Diagnosis: 1. rolanda-rectal phlegmon - improved - colorectal surgery follow-up needed 2. question of anal fistula - colorectal surgery follow-up needed 3. hypertensive emergency - resolved 4. uncontrolled hypertension - improved 5. acute pulmonary edema due to #3 - resolved 6. chronic bronchiectasis 7. abnormal uterus on CT imaging - gynecology follow-up needed 8. very mild L3 compression fracture 9. severe lumbar spinal stenosis 10. prior history of subdural hematoma 11. cognitive impairment 12. anxiety Activity: Resume your previous activity Non-emergency contact: Primary Care Provider Call non-emergency contact if: you have any medication questions, your symptoms worsen, your pain is not controlled, your pain is worsening, your pain is unusua l for you, your pain is concerning for you and you have a fever Follow-up/Referrals: Aliza Pena MD, [facility] [Physician] - (first available, ideally within 4 weeks - abnormal uterus on CT imaging, need for ultrasound etc. DR Cristela SANDOVAL'S OFFICE, [place], WILL CALL THE PATIENT WITH AN OFFICE VISIT.) Pro,Justin Funez MD [Family Provider] - 12/16/23 11:00 am (5-7 days ) Dayton Mejia MD, [facility] [Physician] - 12/16/23 2:[address] [facility] [Primary Care Provider] - Michelle Wright MD [Outside Practitioners] - (colorectal surgeon for rolanda-rectal phlegmon, ?fistula -- referral is in process.) Diet: Regular Addtl Attending Provider Instructions: Mrs Rodriguez was hospitalized due to a rolanda-rectal phlegmon that was seen on CT scan of the pelvis. This was the cause of her presenting rectal pain. The rolanda-rectal phlegmon was treated with 10+ days of IV then oral antibiotics. Rectal pain has improved while here. General surgery saw Mrs Rodriguez in consult and advised follow-up with a colorectal surgeon after discharge. This referral is in process. Her stay was complicated by acute pulmonary edema due to hypertensive emergency. She had systolic blood pressures well over 200 upon presentation to the hospital. Pulmonary edema resolved with diuretics. She also complained of bilateral upper thigh pain. This is likely due to severe lumbar spinal stenosis. She has seen Dr Cassidy with pain management in the past for this problem. A repeat lumbar spine CT showed a mild compression fracture at L3. She has minimal to no back pain from this compression fracture. If she was to have worsening back pain in the future could consider fitting her for a back brace at the [facility] clinic. This was deferred for now since her low back pain at this time is minimal. Finally, on CT scans, the uterus appears thickened and abnormal. She will need follow-up with [facility], Dr Sandoval, for this problem. Recommendations - 1. follow-up appointments - see separate section. 2. please check orthostatic blood pressures once a day for the next 3 days. If orthostatics are positive please inform her primary care physician, Dr Garg, and blood pressure medicine adjustments would have to be made. Return to [facility] if - * Mrs Rodriguez has uncontrolled rectal pain * Mrs Rodriguez has severe diarrhea * Mrs Rodriguez has worsening shortness of breath * Mrs Rodriguez has uncontrolled back or leg pains * any other concerns It was our pleasure caring for Mrs Rodriguez! Pending Studies at Discharge: No Stand-Alone Forms: My [facility], Smoking Cessation Skilled Items Patient informed of condition?: Yes DNR: No Discharge Level of Care: Other Communicable Disease: No Discharge Prognosis: Stable Lines: None Urinary Catheter: No Medications and DC Order Prescriptions: New albuterol sulfate [Ventolin HFA] 90 mcg/actuation Hfa Aerosol Inhaler 2 puff inhalation QIDR PRN (Reason: cough/wheeze/shortness of breath) Qty: 6.7 0RF Rx Instructions: use with spacer device amoxicillin-pot clavulanate 875-125 mg Tablet 1 tab PO BID Qty: 8 0RF lidocaine [Anecream] 4 % Cream 1 applic EXT TID PRN (Reason: rectal pain) Qty: 15 0RF celecoxib [Celebrex] 100 mg Capsule 100 mg PO DAILY 7 Days Qty: 7 0RF (DME) Spacer for Inhaler Misc See Rx Instructions .Route Qty: 1 0RF Rx Instructions: As directed guaifenesin [Mucinex] 600 mg tablet extended release 12hr 600 mg PO BID 7 Days Qty: 14 0RF Continued polyethylene glycol 3350 [Miralax] 17 gram/dose powder 17 gm PO QAM sennosides-docusate sodium [Senna Plus] 8.6-50 mg tablet 1 tab PO BID Patient Comments: gave verbal to [facility] varsha Cao at [facility], bid, hold if having loose stools Rx Instructions: hold for loose stools fluticasone propionate 50 mcg/actuation spray,suspension 1 spray intranasal DAILY Qty: 16 3RF Rx Instructions: administer into each nostril daily propranolol 80 mg capsule,extended release 24hr 80 mg PO QAM Qty: 90 3RF citalopram [Celexa] 40 mg tablet 40 mg PO QAM Qty: 90 3RF mirtazapine [Remeron] 15 mg tablet 15 mg PO DAILY Qty: 90 1RF budesonide-formoterol 160-4.5 mcg/actuation HFA aerosol inhaler 2 puff inhalation BID Qty: 10.2 2RF Rx Instructions: Needs generic, not symbicort buspirone 5 mg tablet 5 mg PO BID Qty: 180 1RF nystatin-triamcinolone 100,000-0.1 unit/gram-% ointment 1 applic topical TID Qty: 30 2RF Rx Instructions: apply a generous amount to vulva lorazepam [Ativan] 0.5 mg tablet 0.5 mg PO DAILY PRN (Reason: anxiety) Qty: 20 0RF hydrocortisone 1 % cream with perineal applicator 1 applic NE BID 10 Days Qty: 28.4 0RF docusate sodium 100 mg capsule 100 mg PO BID calcium carbonate-vitamin D3 600 mg(1,500mg) -200 unit tablet 1 tab PO BIDM alendronate [Fosamax] 70 mg tablet 70 mg PO .weekly Rx Instructions: wednesdays (DME) Flutter Valve Device See Rx Instructions .MEDSUPPLY Qty: 1 0RF Rx Instructions: Use it every 6 hours when awake. mecobalamin (vitamin B12) 1,000 mcg tablet,disintegrating 1,000 mcg sublingual DAILY Qty: 30 5RF Rx Instructions: place tablet under tongue and allow to dissolve for at least30 secs before swallowing cholecalciferol (vitamin D3) 50 mcg (2,000 unit) capsule 50 mcg PO QAM Refresh Classic (PF) 1.4-0.6 % Dropperette 1 drp OPB QID Refresh P.M. 57.3-42.5 % Ointment 1 applic OPB HS nystatin 100,000 unit/gram Cream 1 applic TOPICAL DAILY PRN (Reason: Rash) cyclosporine [Restasis] 0.05 % Dropperette 1 drp OPHTHALMIC (EYE) Q12H Changed tramadol 50 mg tablet 50 mg PO Q8H PRN (Reason: pain) Qty: 30 0RF lisinopril 5 mg tablet 5 mg PO BID Qty: 60 2RF acetaminophen 500 mg capsule 1,000 mg PO TID MDD 3g 14 Days Qty: 84 0RF Held tamoxifen 20 mg tablet 20 mg PO QAM Qty: 30 5RF Hold Instructions: hold unless directed by Dr Sandoval, your glycerin operator, states it is safe to resume. diclofenac sodium [Voltaren Arthritis Pain] 1 % gel 2 g topical QID Qty: 100 2RF Hold Instructions: please hold until the 1 week of celebrex course is complete. 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
[2023-12-09 13:14] VITALS: BP 168/88; PULSE 82
== END 2023-12-09 13:56 | disposition home or self-care (01) | DRG 304 ==
LOC: ED 05:14 → EDINP 09:11 → SUATTDRO 09:11 → 2S 11:10 → 3N 12-02 20:42

== ENCOUNTER 2023-12-11 08:01 | Inpatient (IN) ==
--- NOTE | 2023-12-11 08:55 | Emergency Department Note ---
Impression & Plan Intractable back pain, Endometrial mass, Uterine mass, Perirectal fistula, Lumbar compression fracture ED Provider Note NAME: SUE COSTA AGE: 83 SEX: F : 1940 ARRIVES VIA: Ambulance INFORMANT: Patient ED PROVIDER(S): Ed Smith MD CHIEF COMPLAINT: Back pain, referred PLAN: Disposition: Admit MEDICAL DECISION MAKING: The patient is a pleasant 83-year-old woman with past medical history of cognitive impairment, remote breast cancer, bronchiectasis who presents to the emergency department from her personal-retirement at [employer] for evaluation of intractable back pain since being discharged from this facility 2 days ago following an admission from 11/29-12/08 for back pain and rectal pain attributed to perirectal fistula where she was treated with antibiotics, seen by surgery with plan for outpatient colorectal surgery follow-up. Her imaging also demonstrated masslike thickening of the endometrium measuring 6 cm in size where uterus was enlarged to 13.7 x 8 x 6 cm. 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 A mild compression fracture of the lumbar spine was also noted. The patient is a poor historian but describes pain that is most severe inferior to bilateral gluteal muscles. She denies fevers, chills, cough congestion. The patient reports she was being treated with Tylenol for pain. Tramadol has been also prescribed on her discharge. On my evaluation the patient is fatigued appearing but no distress, afebrile with blood pressure 160s/80s and vital signs otherwise stable. Mild tenderness to palpation of lower lumbar spine extending bilateral to lower gluteal region. WBC within normal limits without neutrophilia or left shift. H/H approximate to prior values. Platelets within normal limits. Chemistry without metabolic acidosis. BUN/creatinine 27, consistent with patient's clinically dry appearance. LFTs are unremarkable. UA without convincing evidence of infection. CT of the abdomen pelvis was performed and demonstrates no change in small left perirectal fistula. No evidence of abscess. Unchanged 6cm endometrial mass suspicious for malignancy again noted. L3 compression fracture unchanged. Findings were reviewed with the patient and her daughter over the phone. Given the patient's intractable pain, they agree with plan for admission for further evaluation. Case was discussed with Dr. Mack, [facility] [place], who will evaluate the patient for admission. Further management per admitting team. Triage Nursing notes reviewed and agree them. Prior/external medical records reviewed Vital Signs: reviewed Differential diagnosis: Musculoskeletal, disc herniation, fracture, metastatic disease, cord compression, discitis, sciatica, cauda equina, infection, aortic disease, renal colic, gastrointestinal, as well as other pathologies. ER treatment provided: See below. Diagnostics interpreted by me: Cardiac Monitoring: An order for continuous cardiac monitoring was placed and demonstrated normal sinus rhythm, 75 bpm, no ectopy. Laboratory studies: See below Imaging studies: See below Consultation(s): Case was discussed with Dr. Mack, [facility] [place], who will evaluate the patient for admission. HPI: The patient is a pleasant 83-year-old woman with past medical history of cognitive impairment, remote breast cancer, bronchiectasis who presents to the emergency department from her personal-retirement at [facility] for evaluation of intractable back pain since being discharged from this facility 2 days ago following an admission from 11/29-12/08 for back pain and rectal pain attributed to perirectal fistula where she was treated with antibiotics, seen by surgery with plan for outpatient colorectal surgery follow-up. Her imaging also demonstrated masslike thickening of the endometrium measuring 6 cm in size where uterus was enlarged to 13.7 x 8 x 6 cm. 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 A mild compression fracture of the lumbar spine was also noted. The patient is a poor historian but describes pain that is most severe inferior to bilateral gluteal muscles. She denies fevers, chills, cough congestion. The patient reports she was being treated with Tylenol for pain. Tramadol has been also prescribed on her discharge. ROS: See above HPI for pertinent positives & negatives. A total of 10 systems reviewed and were otherwise negative. VITALS:See Below PHYSICAL EXAMINATION: GENERAL: Awake, alert, uncomfortable-appearing, in no distress HENT: Normocephalic, atraumatic. Oropharynx with dry mucous membranes and otherwise unremarkable. EYES: Normal conjunctiva. Sclera non-icteric. NECK: Supple. No nuchal rigidity. FROM. No JVD. RESPIRATORY: Clear to auscultation. CARDIAC: Regular rate, normal rhythm. Extremities warm and well perfused. Pulses equal. ABDOMEN: Soft, non-distended. No tenderness to palpation. No rebound or guarding. No masses. MUSCULOSKELETAL: Chest examination reveals no tenderness. Mild tenderness to palpation of lower lumbar spine extending bilateral to lower gluteal region. There is no CVA tenderness to palpation. No joint edema. LOWER EXTREMITIES: Calves are equal size bilaterally and non-tender. No edema. No discoloration. NEURO: Generalized weakness without focal sensory or motor deficits noted. SKIN: No rash or jaundice noted. Ed Smith MD Past Med/Surg History Medical History Anxiety and depression Bronchiectasis Subdural hematoma H/O malignant neoplasm of breast History of basal cell cancer Acute subdural hematoma Hypertension Surgical History S/P knee surgery S/P dilation and curettage S/P breast lumpectomy Family History Father Hypertension Stroke Unknown Cancer Denies family history of Colon cancer Ovarian cancer Prostate cancer Myocardial infarction Breast cancer Social History Smoking Status: Never smoker Second Hand Exposure: Yes; Do You Dip or Chew Tobacco: No; Hx Alcohol Use: No Hx Substance Use: No Preferred Language: Hebrew Communication Ability: Effective Visual Impairment: No Limitations Hearing Ability: Normal 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 Beliefs That Will Affect Care: None marital status: Current Living Situation: Personal Care Facility Current Living Situation Comment: [facility] current occupational status: retired How many Children do You have: 2 Other Information That Helps Us Care for You: No Feels Safe at Home: Yes Safety Concerns: Feels Safe At This Time Childhood Exposure to Second-Hand Smoke: No Dental Care, Regularly: Yes Physical Activity Frequency: 1-2 Times per Week Seatbelt Use: always Sunscreen Use: Yes Assistive Devices: Special Shoe and Walker Allergies Allergies Allergy/AdvReac Type Severity Reaction Status Date / Time povidone-iodine Allergy Mild RED RASH Verified 11/24/23 15:02 AND SKIN IRRITATION amoxicillin AdvReac Intermediate NAUSEA Verified 11/24/23 15:02 clavulanic acid AdvReac Intermediate NAUSEA Verified 11/24/23 15:02 doxycycline AdvReac Intermediate NAUSEA Verified 11/24/23 15:02 mometasone furoate AdvReac Intermediate NAUSEA Verified 11/24/23 15:02 nitrofurantoin AdvReac Intermediate nausea Verified 11/24/23 15:02 Sulfa (Sulfonamide AdvReac Mild NAUSEA/VOMI Verified 11/24/23 15:02 Antibiotics) TING Home Meds Home Medications Medication Instructions Recorded Confirmed polyethylene glycol 3350 17 17 gm PO QAM 05/17/19 12/11/23 gram/dose oral powder (Miralax) calcium carbonate 600 mg-vitamin 1 tab PO BIDM 06/04/19 12/11/23 D3 5 mcg (200 unit) tablet docusate sodium 100 mg capsule 100 mg PO BID 06/04/19 12/11/23 cholecalciferol (vitamin D3) 50 50 mcg PO QAM 03/03/21 12/11/23 mcg (2,000 unit) capsule polyvinyl alcohol-povidone (PF) 1 drp OPB QID 08/14/21 12/11/23 1.4 %-0.6 % eye drops in a dropperette (Refresh Classic (PF)) sennosides 8.6 mg-docusate sodium 1 tab PO BID 10/15/22 12/11/23 50 mg tablet (Senna Plus) alendronate 70 mg tablet (Fosamax) 70 mg PO .weekly 10/26/22 12/11/23 white petrolatum-mineral oil 57.3 1 applic OPB HS 11/01/22 12/11/23 %-42.5 % eye ointment (Refresh P.M.) cyclosporine 0.05 % eye drops in a 1 drp ophthalmic (eye) Q12H 11/30/23 12/11/23 dropperette (Restasis) nystatin 100,000 unit/gram topical 1 applic topical DAILY PRN Rash 11/30/23 12/11/23 cream Previous Rx's Medication Instructions Recorded Flutter Valve #1 ea 10/26/22 fluticasone propionate 50 1 spray intranasal DAILY #16 grams 03/14/23 mcg/actuation nasal spray,suspension propranolol 80 mg capsule,24 80 mg PO QAM #90 caps 06/10/23 hr,extended release citalopram 40 mg tablet (Celexa) 40 mg PO QAM #90 tabs 07/07/23 tamoxifen 20 mg tablet 20 mg PO QAM #30 tabs 07/07/23 mecobalamin (vitamin B12) 1,000 1,000 mcg sublingual DAILY #30 tabs 09/09/23 mcg disintegrating tablet,sublingual mirtazapine 15 mg tablet (Remeron) 15 mg PO DAILY #90 tabs 10/06/23 budesonide-formoterol HFA 160 2 puff inhalation BID #10.2 grams 10/29/23 mcg-4.5 mcg/actuation aerosol inhaler buspirone 5 mg tablet 5 mg PO BID #180 tabs 11/01/23 lorazepam 0.5 mg tablet (Ativan) 0.5 mg PO DAILY PRN anxiety #20 11/07/23 tabs nystatin-triamcinolone 100,000 1 applic topical TID #30 grams 11/07/23 unit/gram-0.1 % topical ointment diclofenac sodium 1 % topical gel 2 g topical QID #100 grams 11/24/23 (Voltaren Arthritis Pain) hydrocortisone 1 % topical cream [address] BID 10 days #28.4 grams 11/30/23 with perineal applicator Spacer for Inhaler #1 ea 12/09/23 acetaminophen 500 mg capsule 1,000 mg (2 x 500 mg) PO TID pain 12/09/23 14 days #84 caps albuterol sulfate 90 mcg/actuation 2 puff inhalation QIDR PRN 12/09/23 aerosol inhaler (Ventolin HFA) cough/wheeze/shortness of breath #6.7 grams amoxicillin 875 mg-potassium 1 tab PO BID #8 tabs 12/09/23 clavulanate 125 mg tablet celecoxib 100 mg capsule (Celebrex) 100 mg PO DAILY 7 days #7 caps 12/09/23 guaifenesin 600 mg tablet, 600 mg PO BID 7 days #14 tabs 12/09/23 extended release 12 hr (Mucinex) lidocaine 4 % topical cream 1 applic EXT TID PRN rectal pain 12/09/23 (Anecream) #15 grams lisinopril 5 mg tablet 5 mg PO BID #60 tabs 12/09/23 tramadol 50 mg tablet 50 mg PO Q8H PRN pain #30 tabs 12/09/23 Results & Data (ED) Vital Signs Vital Signs - 24 hr 12/11/23 08:11 12/11/23 08:15 12/11/23 08:16 Temperature 36.7 C Temperature Source Oral Pulse Rate 79 81 81 Pulse Rate from SpO2 Sensor 81 Respiratory Rate 19 21 Blood Pressure 165/84 H Blood Pressure Mean 111 Pulse Oximetry 93 83 L Oxygen Delivery Method Room Air Oxygen Flow Rate Sepsis Recent Fever Within 48 Hours No Sepsis New/Unexplained Change in Mental Status N/A Sepsis Action Taken by Nursing No Action Required 12/11/23 08:19 12/11/23 08:19 12/11/23 08:20 Temperature Temperature Source Pulse Rate 79 80 Pulse Rate from SpO2 Sensor 79 80 Respiratory Rate 15 14 Blood Pressure 165/84 H Blood Pressure Mean 137 Pulse Oximetry 91 86 L Oxygen Delivery Method Oxygen Flow Rate Sepsis Recent Fever Within 48 Hours Sepsis New/Unexplained Change in Mental Status Sepsis Action Taken by Nursing 12/11/23 08:30 12/11/23 08:40 12/11/23 08:50 Temperature Temperature Source Pulse Rate 76 80 79 Pulse Rate from SpO2 Sensor 76 80 79 Respiratory Rate 14 12 18 Blood Pressure Blood Pressure Mean Pulse Oximetry 97 99 98 Oxygen Delivery Method Oxygen Flow Rate Sepsis Recent Fever Within 48 Hours Sepsis New/Unexplained Change in Mental Status Sepsis Action Taken by Nursing 12/11/23 09:00 12/11/23 09:01 12/11/23 09:10 Temperature Temperature Source Pulse Rate 76 73 Pulse Rate from SpO2 Sensor 76 73 Respiratory Rate 24 22 Blood Pressure Blood Pressure Mean Pulse Oximetry 99 92 100 Oxygen Delivery Method Room Air Oxygen Flow Rate Sepsis Recent Fever Within 48 Hours Sepsis New/Unexplained Change in Mental Status Sepsis Action Taken by Nursing 12/11/23 09:20 12/11/23 09:30 12/11/23 09:40 Temperature Temperature Source Pulse Rate 78 80 82 Pulse Rate from SpO2 Sensor 77 81 82 Respiratory Rate 15 23 17 Blood Pressure Blood Pressure Mean Pulse Oximetry 98 99 98 Oxygen Delivery Method Oxygen Flow Rate Sepsis Recent Fever Within 48 Hours Sepsis New/Unexplained Change in Mental Status Sepsis Action Taken by Nursing 12/11/23 09:50 12/11/23 10:00 12/11/23 10:10 Temperature Temperature Source Pulse Rate 81 80 79 Pulse Rate from SpO2 Sensor 81 80 80 Respiratory Rate 21 20 15 Blood Pressure Blood Pressure Mean Pulse Oximetry 100 99 98 Oxygen Delivery Method Oxygen Flow Rate Sepsis Recent Fever Within 48 Hours Sepsis New/Unexplained Change in Mental Status Sepsis Action Taken by Nursing 12/11/23 10:20 12/11/23 10:30 12/11/23 10:40 Temperature Temperature Source Pulse Rate 80 78 83 Pulse Rate from SpO2 Sensor 80 78 84 Respiratory Rate 17 21 14 Blood Pressure Blood Pressure Mean Pulse Oximetry 99 98 99 Oxygen Delivery Method Oxygen Flow Rate Sepsis Recent Fever Within 48 Hours Sepsis New/Unexplained Change in Mental Status Sepsis Action Taken by Nursing 12/11/23 10:44 12/11/23 10:50 12/11/23 11:00 Temperature Temperature Source Pulse Rate 84 89 84 Pulse Rate from SpO2 Sensor 83 87 85 Respiratory Rate 16 17 21 Blood Pressure Blood Pressure Mean Pulse Oximetry 98 100 96 Oxygen Delivery Method Nasal Cannula Oxygen Flow Rate 2 Sepsis Recent Fever Within 48 Hours Sepsis New/Unexplained Change in Mental Status Sepsis Action Taken by Nursing 12/11/23 11:11 12/11/23 11:20 12/11/23 11:30 Temperature Temperature Source Pulse Rate 80 74 76 Pulse Rate from SpO2 Sensor 74 75 Respiratory Rate 22 16 17 Blood Pressure Blood Pressure Mean Pulse Oximetry 97 97 Oxygen Delivery Method Nasal Cannula Nasal Cannula Oxygen Flow Rate 2 2 Sepsis Recent Fever Within 48 Hours Sepsis New/Unexplained Change in Mental Status Sepsis Action Taken by Nursing 12/11/23 11:40 12/11/23 11:55 12/11/23 11:55 Temperature Temperature Source Pulse Rate 77 Pulse Rate from SpO2 Sensor 77 84 Respiratory Rate 16 Blood Pressure 221/95 H Blood Pressure Mean 147 Pulse Oximetry 99 100 Oxygen Delivery Method Nasal Cannula Nasal Cannula Oxygen Flow Rate 2 2 Sepsis Recent Fever Within 48 Hours Sepsis New/Unexplained Change in Mental Status Sepsis Action Taken by Nursing 12/11/23 12:00 12/11/23 12:10 12/11/23 12:30 Temperature Temperature Source Pulse Rate 78 78 Pulse Rate from SpO2 Sensor 79 78 89 Respiratory Rate 13 22 Blood Pressure Blood Pressure Mean Pulse Oximetry 98 99 91 Oxygen Delivery Method Nasal Cannula Nasal Cannula Nasal Cannula Oxygen Flow Rate 2 2 2 Sepsis Recent Fever Within 48 Hours Sepsis New/Unexplained Change in Mental Status Sepsis Action Taken by Nursing 12/11/23 12:40 12/11/23 12:50 12/11/23 13:00 Temperature Temperature Source Pulse Rate Pulse Rate from SpO2 Sensor 73 74 75 Respiratory Rate Blood Pressure Blood Pressure Mean Pulse Oximetry 98 99 98 Oxygen Delivery Method Nasal Cannula Nasal Cannula Nasal Cannula Oxygen Flow Rate 2 2 2 Sepsis Recent Fever Within 48 Hours Sepsis New/Unexplained Change in Mental Status Sepsis Action Taken by Nursing 12/11/23 13:10 12/11/23 13:20 12/11/23 13:30 Temperature Temperature Source Pulse Rate Pulse Rate from SpO2 Sensor 77 78 84 Respiratory Rate Blood Pressure Blood Pressure Mean Pulse Oximetry 98 98 99 Oxygen Delivery Method Nasal Cannula Oxygen Flow Rate 2 Sepsis Recent Fever Within 48 Hours Sepsis New/Unexplained Change in Mental Status Sepsis Action Taken by Nursing 12/11/23 13:40 12/11/23 13:50 12/11/23 14:00 Temperature Temperature Source Pulse Rate Pulse Rate from SpO2 Sensor 86 83 83 Respiratory Rate Blood Pressure Blood Pressure Mean Pulse Oximetry 100 99 99 Oxygen Delivery Method Oxygen Flow Rate Sepsis Recent Fever Within 48 Hours Sepsis New/Unexplained Change in Mental Status Sepsis Action Taken by Nursing 12/11/23 14:10 12/11/23 14:20 12/11/23 14:30 Temperature Temperature Source Pulse Rate Pulse Rate from SpO2 Sensor 92 H 77 75 Respiratory Rate Blood Pressure Blood Pressure Mean Pulse Oximetry 95 98 97 Oxygen Delivery Method Oxygen Flow Rate Sepsis Recent Fever Within 48 Hours Sepsis New/Unexplained Change in Mental Status Sepsis Action Taken by Nursing Laboratory Data Attestation: I reviewed the patient's lab results. 12/11/23 08:58 12/11/23 08:58 Lab Results 12/11/23 12/11/23 12/11/23 Range/Units 08:58 09:49 12:33 WBC 7.93 (4.8-10.8) K/ul RBC 3.87 L (4.20-5.40) M/uL Hgb 10.8 L (12.0-16.0) g/dl Hct 33.9 L (37.0-47.0) % MCV 87.6 (80.0-100.0) fL MCH 27.9 (25.0-34.0) pg MCHC 31.9 L (32.0-36.0) g/dL RDW Std Deviation 45.1 (36.4-46.3) fL RDW Coeff of Adarsh 14.1 (11.5-14.5) % Plt Count 341 (130-400) K/uL MPV 9.3 L (9.4-12.4) fL Immature Gran % (Auto) 0.6 % Neut % (Auto) 67.3 % Lymph % (Auto) 20.6 % [place] % (Auto) 9.2 % Eos % (Auto) 1.9 % Baso % (Auto) 0.4 % Neut # (Auto) 5.34 (1.40-6.50) K/uL Lymph # (Auto) 1.63 (1.20-3.40) K/uL [place] # (Auto) 0.73 H (0.11-0.59) K/uL Eos # (Auto) 0.15 (0.00-0.50) K/uL Baso # (Auto) 0.03 (0.00-0.20) K/uL Immature Gran # (Auto) 0.05 (0.01-0.20) K/uL PT Cancelled 10.8 INR Cancelled 1.0 Sodium 138 (136-145) mmol/L Potassium 4.2 (3.5-5.1) mmol/L Chloride 105 (98-107) mmol/L Carbon Dioxide 28 (21-32) mmol/L Anion Gap 5 (3-11) BUN 18 (6-23) mg/dl Creatinine 0.65 (0.6-1.2) mg/dl Est Cr Clr Drug Dosing 51.0 ml/min Est GFR ( Amer) 94.5 ml/min Est GFR (Non-Af Amer) 81.5 ml/min BUN/Creatinine Ratio 27.7 H (10-20) Glucose 92 (70-99(Fasting)) mg/dl Calcium 8.8 (8.6-10.3) mg/dl Total Bilirubin 0.3 (0.2-1.0) mg/dl AST 23 (13-39) U/L ALT 12 (7-52) U/L Alkaline Phosphatase 70 (34-104) U/L Total Protein 6.1 (6.0-8.3) gm/dl Albumin 3.5 (3.4-5.0) gm/dl Globulin 2.6 (2.5-4.0) gm/dl Albumin/Globulin Ratio 1.3 (0.9-2) Lipase 33 (11-82) U/L Procalcitonin Cancelled < 0.02 Urine Color Yellow Urine Appearance Clear (Clear) Urine pH 6.0 (4.5-7.5) Ur Specific [place] > 1.045 H (1.000-1.030) Urine Protein Negative (Negative) Urine Glucose (UA) Negative (Negative) Urine Ketones Negative (Negative) Urine Blood Negative (Negative) Urine Nitrite Negative (Negative) Urine Bilirubin Negative (Negative) Urine Urobilinogen Negative (Negative) Ur Leukocyte Esterase Negative (Negative) SARS-CoV-2, RNA, NAAT (NEGATIVE) 12/11/23 Range/Units 14:00 WBC (4.8-10.8) K/ul RBC (4.20-5.40) M/uL Hgb (12.0-16.0) g/dl Hct (37.0-47.0) % MCV (80.0-100.0) fL MCH (25.0-34.0) pg MCHC (32.0-36.0) g/dL RDW Std Deviation (36.4-46.3) fL RDW Coeff of Adarsh (11.5-14.5) % Plt Count (130-400) K/uL MPV (9.4-12.4) fL Immature Gran % (Auto) % Neut % (Auto) % Lymph % (Auto) % [place] % (Auto) % Eos % (Auto) % Baso % (Auto) % Neut # (Auto) (1.40-6.50) K/uL Lymph # (Auto) (1.20-3.40) K/uL [place] # (Auto) (0.11-0.59) K/uL Eos # (Auto) (0.00-0.50) K/uL Baso # (Auto) (0.00-0.20) K/uL Immature Gran # (Auto) (0.01-0.20) K/uL PT INR Sodium (136-145) mmol/L Potassium (3.5-5.1) mmol/L Chloride (98-107) mmol/L Carbon Dioxide (21-32) mmol/L Anion Gap (3-11) BUN (6-23) mg/dl Creatinine (0.6-1.2) mg/dl Est Cr Clr Drug Dosing ml/min Est GFR ( Amer) ml/min Est GFR (Non-Af Amer) ml/min BUN/Creatinine Ratio (10-20) Glucose (70-99(Fasting)) mg/dl Calcium (8.6-10.3) mg/dl Total Bilirubin (0.2-1.0) mg/dl AST (13-39) U/L ALT (7-52) U/L Alkaline Phosphatase (34-104) U/L Total Protein (6.0-8.3) gm/dl Albumin (3.4-5.0) gm/dl Globulin (2.5-4.0) gm/dl Albumin/Globulin Ratio (0.9-2) Lipase (11-82) U/L Procalcitonin Urine Color Urine Appearance (Clear) Urine pH (4.5-7.5) Ur Specific [place] (1.000-1.030) Urine Protein (Negative) Urine Glucose (UA) (Negative) Urine Ketones (Negative) Urine Blood (Negative) Urine Nitrite (Negative) Urine Bilirubin (Negative) Urine Urobilinogen (Negative) Ur Leukocyte Esterase (Negative) SARS-CoV-2, RNA, NAAT NEGATIVE (NEGATIVE) Administered Medications Acetaminophen (Acetaminophen 325 Mg Tab) 650 mg PO Q4H PRN PRN Reason: Fever/Mild Pain (Pain 1,2,3) Stop: 01/10/24 18:08 Last Admin: 12/11/23 20:26 Dose: 650 mg Documented By: ASM Amoxicillin/Clavulanate Potassium (Amoxicillin/Clavulanate 875 Mg Tab) 1 tab PO BID [facility]; Protocol Stop: 12/13/23 20:59 Last Admin: 12/11/23 20:03 Dose: 1 tab Documented By: CHRISSY Artificial Tears (Artificial Tears) 1 drops OP Q12H [facility] Stop: 01/10/24 20:59 Last Admin: 12/11/23 20:10 Dose: 1 drops Documented By: CHRISSY Buspirone HCl (Buspirone 5 Mg Tab) 5 mg PO BID [facility] Stop: 01/10/24 20:59 Last Admin: 12/11/23 20:03 Dose: 5 mg Documented By: ASM Calcitonin [place] (Calcitonin [place] Na 200 Iu/Ac 3.7 Ml Btl) 1 sprays NA DAILY [facility] Stop: 01/10/24 14:44 Last Admin: 12/11/23 15:35 Dose: 1 sprays Documented By: EMMA Calcium Carbonate (Calcium Carbonate 1250mg Tab) 1,250 mg PO BID [facility] Stop: 01/10/24 14:29 Last Admin: 12/11/23 20:06 Dose: 1,250 mg Documented By: Admin: 12/11/23 15:35 Dose: 1,250 mg Documented By: EMMA Diclofenac Sodium (Diclofenac Sod 1% Gel 100 Gm Tube) 2 gm EXT QID [facility]; Protocol Stop: 01/10/24 18:29 Last Admin: 12/11/23 19:54 Dose: 2 gm Documented By: ASM Docusate Sodium (Docusate Sodium 100 Mg Cap) 100 mg PO BID [facility] Stop: 01/10/24 20:59 Last Admin: 12/11/23 20:02 Dose: 100 mg Documented By: ASM Gabapentin (Gabapentin 300 Mg Cap) 300 mg PO HS [facility] Stop: 01/10/24 20:59 Last Admin: 12/11/23 20:02 Dose: 300 mg Documented By: ASM Guaifenesin (Guaifenesin 600 Mg Tabcr) 600 mg PO BID [facility] Stop: 01/10/24 20:59 Last Admin: 12/11/23 20:04 Dose: 600 mg Documented By: ASM Heparin Sodium (Porcine) (Heparin Sod 5,000 Unit/0.5 Ml Vial) 5,000 units SQ Q12 [facility] Stop: 01/10/24 20:59 Last Admin: 12/11/23 20:03 Dose: 5,000 units Documented By: ASM Hydralazine HCl (Hydralazine Hcl 20 Mg/Ml Vial) 2.5 mg IV Q8H PRN PRN Reason: Persistent, severe HTN Stop: 01/10/24 18:08 Last Admin: 12/12/23 00:06 Dose: 2.5 mg Documented By: CHRISSY Hydrocortisone (Hydrocortisone Hc 2.5% Crm 30gm Tube) 1 appln EXT BID [facility] Stop: 01/10/24 20:59 Last Admin: 12/11/23 23:39 Dose: Not Given Documented By: ASM Hydromorphone HCl (Hydromorphone Inj 1 Mg/Ml Syringe) 0.5 mg IV Q4H PRN PRN Reason: Severe Pain (7,8,9,10) on NRS Stop: 12/25/23 18:08 Last Admin: 12/11/23 19:51 Dose: 0.5 mg Documented By: ASM Lidocaine (Lidocaine 4% Cream 15 Gm Tube) 1 appln EXT TID PRN PRN Reason: rectal pain Stop: 01/10/24 18:08 Last Admin: 12/11/23 20:04 Dose: 1 appln Documented By: CHRISSY Lisinopril (Lisinopril 5 Mg Tab) 5 mg PO BID [facility] Stop: 01/10/24 20:59 Last Admin: 12/11/23 20:04 Dose: 5 mg Documented By: CHRISSY Senna/Docusate Sodium (Docusate Sodium/Senna 50/8.6mg Tab) 1 tab PO BID [facility] Stop: 01/10/24 20:59 Last Admin: 12/11/23 20:03 Dose: 1 tab Documented By: CHRISSY Discontinued Medications Hydromorphone HCl (Hydromorphone Inj 0.5 Mg/0.5 Ml Syr) 0.5 mg IV NOW STA Stop: 12/11/23 15:29 Last Admin: 12/11/23 15:36 Dose: 0.5 mg Documented By: EMMA Sodium Chloride (Nss) 500 mls @ 999 mls/hr IV .Q31M ONE Stop: 12/11/23 09:23 Last Infusion: 12/11/23 09:45 Dose: Infused Documented By: Admin: 12/11/23 09:03 Dose: 999 mls/hr Documented By: PRERNA Acetaminophen (Ofirmev) 1,000 mg in 100 mls @ 400 mls/hr IV NOW STA Stop: 12/11/23 09:07 Last Infusion: 12/11/23 09:45 Dose: Infused Documented By: Admin: 12/11/23 09:03 Dose: 400 mls/hr Documented By: PRERNA Ioversol (Optiray 320 100ml) 93 ml IV ONCE ONE Stop: 12/11/23 11:48 Last Admin: 12/11/23 11:47 Dose: 93 ml Documented By: JENNIFER Labetalol HCl (Labetalol Hcl Iv 5 Mg/Ml 20ml) 10 mg IV NOW STA Stop: 12/11/23 15:29 Last Admin: 12/11/23 15:36 Dose: 10 mg Documented By: EMMA Co-signed By: CHRISTINE Labetalol HCl (Labetalol Hcl Iv 5 Mg/Ml 20ml) 5 mg IV Q5M PRN PRN Reason: Severe, persistent HTN Last Admin: 12/11/23 17:11 Dose: 5 mg Documented By: EMMA Co-signed By: CHRISTINE Admin: 12/11/23 17:00 Dose: 5 mg Documented By: EMMA Co-signed By: CHRISTINE Admin: 12/11/23 16:50 Dose: 5 mg Documented By: EMMA Co-signed By: CHRISTINE Lidocaine (Lidocaine 5% 1 Patch) 1 patch TD NOW STA Stop: 12/11/23 14:04 Last Admin: 12/11/23 15:21 Dose: 1 patch Documented By: EMMA Lisinopril (Lisinopril 5 Mg Tab) 5 mg PO NOW ONE Stop: 12/11/23 16:44 Last Admin: 12/11/23 16:50 Dose: 5 mg Documented By: EMMA Miscellaneous (Remove Lidoderm Patch) 1 each N/A DAILY@2100 JENNIFER Stop: 12/11/23 21:01 Last Admin: 12/11/23 20:22 Dose: 1 each Documented By: CHRISSY Morphine Sulfate (Morphine Sulfate 2 Mg/Ml Carp) 1 mg IV NOW STA Stop: 12/11/23 08:54 Last Admin: 12/11/23 10:05 Dose: Not Given Documented By: ML Morphine Sulfate (Morphine Sulfate 2 Mg/Ml Carp) 1 mg IV NOW STA Stop: 12/11/23 12:07 Last Admin: 12/11/23 12:17 Dose: 1 mg Documented By: EMMA Polyethylene Glycol (Polyethylene (Miralax) 17 Gm Pack) 17 gm PO NOW STA Stop: 12/11/23 16:02 Last Admin: 12/11/23 19:57 Dose: Not Given Documented By: CHRISSY Propranolol HCl (Propranolol Hcl 80 Mg Tab) 80 mg PO NOW STA Stop: 12/11/23 13:51 Last Admin: 12/11/23 15:21 Dose: 80 mg Documented By: EMMA Imaging Data Radiologist's Impression: Abdomen/Pelvis CT 12/11/23 08:[address] WITH IV CONTRAST CT DOSE: 390.05 mGy.cm HISTORY: rectal pelvic pain, endometrial mass TECHNIQUE: Multiaxial CT images of the abdomen and pelvis were performed following the use of intravenous contrast. A dose lowering technique was utilized adhering to the principles of ALARA. COMPARISON STUDY: Pelvis CT 12/05/2023. Lumbar spine CT 12/08/2023. FINDINGS: Trace left pleural effusion. Moderate to large hiatus hernia containing the proximal stomach. Partially visualized right breast soft tissue thickening favors postoperative change. The liver, gallbladder, spleen, adrenal glands, and pancreas are unremarkable. No hydronephrosis. A few subcentimeter bilateral renal hypodense lesions are technically too small to characterize but favor cysts. Extensive calcified plaque within the abdominal aorta. No evidence for an aortic aneurysm. No retroperitoneal or pelvic lymphadenopathy. The bladder is unremarkable. Abnormal thickening and enhancement within the endometrium suggestive of an endometrial mass. This measures up to 6 cm. Tiny left perirectal fistula again noted. No evidence for a perirectal abscess. No bowel wall thickening or obstruction. Coyw-gp-edmmioyg fecal retention. No pneumoperitoneum. No pneumatosis. Punctate focus of gas within the bladder lumen is likely due to prior catheterization. The main portal vein is patent. Subacute mild superior endplate compression fracture at L3, unchanged. Levoscoliosis and degenerative changes within the lumbar spine. No acute fractures identified. IMPRESSION: 1. No significant change in the small left perirectal fistula. No evidence for a perirectal abscess at this time. 2. Endometrial abnormality/mass again noted. This is highly suspicious for an underlying malignancy. Gynecologic consultation recommended. 3. Subacute mild superior endplate compression fracture at L3, unchanged. 4. No bowel wall thickening or obstruction. 5. Trace left pleural effusion. 6. Moderate to large hiatus hernia. ACT 112: Negative or not required by law. Electronically signed by: Lewis Mcgarry M.D. 12/11/2023 12:11 PM Discharge Plan Visit Data Chief Complaint: Infection Stated Complaint: PAIN FROM INFECTION ED Provider: Ed Smith Discharge Problem: Intractable back pain, Endometrial mass, Uterine mass, Perirectal fistula, Lumbar compression fracture Patient Disposition: Admitted As Inpatient Discharge Instructions Interventions: ED Discharge Assessment Last Done: 12/11/23 18:02 Discharge Problem: Lumbar compression fracture Qualifiers: Encounter type: subsequent encounter Lumbar vertebra fracture level: L3
[2023-12-11] MEDS: ACETAMINOPHEN 1,000 MG/100 ML VIAL IV STA (09:03)
[2023-12-11] MEDS: SODIUM CHLORIDE 0.9% 500 ML IV ONE (09:03)
[2023-12-11 09:29] LABS: Basophils # (auto) 0.03 K/uL (0.00-0.20); Basophils % (auto) 0.4 %; Eosinophils # (auto) 0.15 K/uL (0.00-0.50); Eosinophils % (auto) 1.9 %; Hematocrit (blood only) 33.9 % (37.0-47.0); Hemoglobin 10.8 g/dl (12.0-16.0); Immature Granulocytes # (auto) 0.05 K/uL (0.01-0.20); Immature Granulocytes % (auto) 0.6 %; Lymphocytes # (auto) 1.63 K/uL (1.20-3.40); Lymphocytes % (auto) 20.6 %; Mean Corpuscular Hemoglobin 27.9 pg (25.0-34.0); Mean Corpuscular Hgb Conc 31.9 g/dL (32.0-36.0); Mean Corpuscular Volume 87.6 fL (80.0-100.0); Mean Platelet Volume 9.3 fL (9.4-12.4); Monocytes # (auto) 0.73 K/uL (0.11-0.59); Monocytes % (auto) 9.2 %; Neutrophils # (auto) 5.34 K/uL (1.40-6.50); Neutrophils % (auto) 67.3 %; Platelet Count 341 K/uL (130-400); RDW Coefficient of Variation 14.1 % (11.5-14.5); RDW Standard Deviation 45.1 fL (36.4-46.3); Red Blood Count 3.87 M/uL (4.20-5.40); White Blood Count 7.93 K/ul (4.8-10.8)
[2023-12-11 09:48] LABS: Albumin Globulin Ratio 1.3 (0.9-2); Albumin Level 3.5 gm/dl (3.4-5.0); BUN Creatinine Ratio 27.7 (10-20); Bilirubin,Total 0.3 mg/dl (0.2-1.0); Calcium 8.8 mg/dl (8.6-10.3); Est GFR (African American) 94.5 ml/min; Est GFR (Non-African American) 81.5 ml/min; Globulin 2.6 gm/dl (2.5-4.0); Potassium 4.2 mmol/L (3.5-5.1); Total Protein 6.1 gm/dl (6.0-8.3)
[2023-12-11] MEDS: MoRPHine SULFATE 2 MG/ML CARP IV STA ×2 (10:05→12:17)
[2023-12-11 10:43] LABS: Prothrombin Time 10.8 Seconds (9.0-12.0)
[2023-12-11] MEDS: OPTIRAY 320 100ml IV ONE (11:47)
--- NOTE | 2023-12-11 12:13 | CT Scan Report ---
ABDOMEN AND PELVIS CT WITH IV CONTRAST CT DOSE: 390.05 mGy.cm HISTORY: rectal pelvic pain, endometrial mass TECHNIQUE: Multiaxial CT images of the abdomen and pelvis were performed following the use of intrave nous contrast. A dose lowering technique was utilized adhering to the principles of ALARA. COMPARISON STUDY: Pelvis CT 12/05/2023. Lumbar spine CT 12/08/2023. FINDINGS: Trace left pleural effusion. Moderate to large hiatus hernia containing the proximal stomac h. Partially visualized right breast soft tissue thickening favors postoperative change. The liver, g allbladder, spleen, adrenal glands, and pancreas are unremarkable. No hydronephrosis. A few subcentim eter bilateral renal hypodense lesions are technically too small to characterize but favor cysts. Ext ensive calcified plaque within the abdominal aorta. No evidence for an aortic aneurysm. No retroperit man or pelvic lymphadenopathy. The bladder is unremarkable. Abnormal thickening and enhancement wit hin the endometrium suggestive of an endometrial mass. This measures up to 6 cm. Tiny left perirectal fistula again noted. No evidence for a perirectal abscess. No bowel wall thickening or obstruction. Fwdx-ge-apbevhuh fecal retention. No pneumoperitoneum. No pneumatosis. Punctate focus of gas within t he bladder lumen is likely due to prior catheterization. The main portal vein is patent. Subacute mil d superior endplate compression fracture at L3, unchanged. Levoscoliosis and degenerative changes wit hin the lumbar spine. No acute fractures identified. IMPRESSION: 1. No significant change in the small left perirectal fistula. No evidence for a perirectal abscess a t this time. 2. Endometrial abnormality/mass again noted. This is highly suspicious for an underlying malignancy. Gynecologic consultation recommended. 3. Subacute mild superior endplate compression fracture at L3, unchanged. 4. No bowel wall thickening or obstruction. 5. Trace left pleural effusion. 6. Moderate to large hiatus hernia. ACT 112: Negative or not required by law. Electronically signed by: Lewis Mcgarry M.D. 12/11/2023 12:11 PM
[2023-12-11 13:08] LABS: Appearance Urine Clear (Clear); Bilirubin Urine Negative (Negative); Blood Urine Negative (Negative); Color Urine Yellow; Glucose Urine UA Negative (Negative); Ketones Urine Negative (Negative); Leukocyte Esterase Urine Negative (Negative); Nitrite Urine Negative (Negative); Protein Urine Negative (Negative); Specific Gravity Urine > 1.045 (1.000-1.030); Urobilinogen Urine Negative (Negative)
--- NOTE | 2023-12-11 13:28 | History & Physical Report ---
Date of Service December 11, 2023 Assessment & Plan (1) Lumbar radiculopathy: Plan: Intractable lower back pain and bilateral sciatic pain shooting down her legs since her [place] discharge on 12/08 Inability to ambulate at home; walker at baseline No saddle anesthesia A/P CT revealed a 6 cm endometrial mass that is highly suspicious for underlying malignancy Hold home tramadol Pain management as follows: Acetaminophen 650 mg p.o. q4h as needed for pain 13 Dilaudid 0.250.50mg IV q4h as needed for pain 46 Lidocaine patch application/removal daily to lower back Lidocaine 4% cream application TID as needed for rectal pain Calcitonin 200 units (1 spray) IN into each nostril daily + calcium supplementation Patient reports that she takes gabapentin daily, but no gabapentin on med [facility] or with tachycardia brought in from [place]; will add on Gabapentin 300 mg p.o. HS; caution with concominant use of opioids Fall precautions PT/OT consult A.m. CBC, BMP (2) Endometrial mass: Plan: As noted in #1 Likely contributing to her pain Scheduled follow-up on 02/10/[address] Stack (3) Hypertensive emergency: Plan: HTN emergency present on time of admission; labetalol 10 mg IV given in the ED Labetalol 5 mg IV q5m as needed for severe, persistent HTN (SBP>180 or DBP>110); PCU status Hydralazine 2.5mg IV q8h as needed for refratory BP Continue propranolol (which is also used to treat her resting tremor) Continue lisinopril BID (4) Anxiety and depression: Plan: Patient exhibits significant anxiety at time of admission regarding course of treatment, as well as outpatient [facility] follow-up Continue citalopram Continue BuSpar Lorazepam 0.5mg daily as needed for anxiety (5) Perianal fistula: Plan: Patient was discharged on Augmentin on 12/08; continue course of Augmentin x 3 days Plan Disposition: Obs - Admit to PCU telemetry DNR/DNI Regular diet (aspiration precautions) VTE PPx: Heparin 5000u SQ q12h History of Present Illness Chief Complaint: Infection Primary Care Provider: Tani Farrell Julia is an 83-year-old female with PMH of tension headache, and HTN emergency, subdural hematoma, osteoporosis, orthostatic hypotension, lumbar radiculopathy, HLD, anxiety depression, benign familial tremor, and perianal fistula. She presented for intractable radicular pain since her discharge from [place] on 12/08. The pain is located near her sacrum/rectum, with radiation down both legs bilaterally to the thighs. She describes it as a sharp, intermittent pain, that she rates a 9/10 at its worst. Worse with movement. She denies saddle anesthesia. Last BM was yesterday on 12/09, but she does note moderate pain with BMs. Hx of hemorrhoids and constipation. No blood in the urine/stool. Patient has been taking Tylenol (two 5 mg tablets 3 times per day) which has been helping with her pain, but not fully alleviating it. She did not take any of her regular morning medications today; no recent change in medications. She does note that she wears glasses at baseline, and is concerned that she left them back at [facility] where she is from. Patient is feeling very anxious at time of admission. She reports that she does have a good support system with her 2 daughters who live in [place]. No supplemental oxygen at home. No CPAP. Patient uses a walker at baseline; denies any recent falls, or injury/trauma to the legs or back. She does note she has had some ambulatory dysfunction due to the radicular pain. Patient denies smoking, tobacco use, and alcohol use. She is hypertensive at 165/84 at time of admission; vitals otherwise stable. ED course: Morphine sulfate 1 mg IV x 2 Acetaminophen 1000 mg IV NSS 500 mL IV ROS: Patient endorses pain just above the rectum shooting down her legs b/l, ambulatory dysfunction, productive cough, and tremor in both hands (chronic). Patient denies fever, chills, night-sweats, dizziness/lightheadedness, CURRIE, chest pain, SOB, pleuritic CP, hemoptysis, abdominal pain, N/V/D, saddle anesthesia, or numbness/tingling going down the legs. Allergies Allergy/AdvReac Type Severity Reaction Status Date / Time povidone-iodine Allergy Mild RED RASH Verified 11/24/23 15:02 AND SKIN IRRITATION amoxicillin AdvReac Intermediate NAUSEA Verified 11/24/23 15:02 clavulanic acid AdvReac Intermediate NAUSEA Verified 11/24/23 15:02 doxycycline AdvReac Intermediate NAUSEA Verified 11/24/23 15:02 mometasone furoate AdvReac Intermediate NAUSEA Verified 11/24/23 15:02 nitrofurantoin AdvReac Intermediate nausea Verified 11/24/23 15:02 Sulfa (Sulfonamide AdvReac Mild NAUSEA/VOMI Verified 11/24/23 15:02 Antibiotics) TING Home Medications Medication Instructions Recorded Confirmed Type polyethylene glycol 3350 17 17 gm PO QAM 05/17/19 12/11/23 History gram/dose oral powder (Miralax) calcium carbonate 600 mg-vitamin 1 tab PO BIDM 06/04/19 12/11/23 History D3 5 mcg (200 unit) tablet docusate sodium 100 mg capsule 100 mg PO BID 06/04/19 12/11/23 History cholecalciferol (vitamin D3) 50 50 mcg PO QAM 03/03/21 12/11/23 History mcg (2,000 unit) capsule polyvinyl alcohol-povidone (PF) 1 drp OPB QID 08/14/21 12/11/23 History 1.4 %-0.6 % eye drops in a dropperette (Refresh Classic (PF)) sennosides 8.6 mg-docusate sodium 1 tab PO BID 10/15/22 12/11/23 History 50 mg tablet (Senna Plus) Flutter Valve #1 ea 10/26/22 11/24/23 Rx alendronate 70 mg tablet (Fosamax) 70 mg PO .weekly 10/26/22 12/11/23 History white petrolatum-mineral oil 57.3 1 applic OPB HS 11/01/22 12/11/23 History %-42.5 % eye ointment (Refresh P.M.) fluticasone propionate 50 1 spray intranasal DAILY #16 grams 03/14/23 12/11/23 Rx mcg/actuation nasal spray,suspension propranolol 80 mg capsule,24 80 mg PO QAM #90 caps 06/10/23 12/11/23 Rx hr,extended release citalopram 40 mg tablet (Celexa) 40 mg PO QAM #90 tabs 07/07/23 12/11/23 Rx tamoxifen 20 mg tablet 20 mg PO QAM #30 tabs 07/07/23 12/11/23 Rx mecobalamin (vitamin B12) 1,000 1,000 mcg sublingual DAILY #30 tabs 09/09/23 12/11/23 Rx mcg disintegrating tablet,sublingual mirtazapine 15 mg tablet (Remeron) 15 mg PO DAILY #90 tabs 10/06/23 12/11/23 Rx budesonide-formoterol HFA 160 2 puff inhalation BID #10.2 grams 10/29/23 12/11/23 Rx mcg-4.5 mcg/actuation aerosol inhaler buspirone 5 mg tablet 5 mg PO BID #180 tabs 11/01/23 12/11/23 Rx lorazepam 0.5 mg tablet (Ativan) 0.5 mg PO DAILY PRN anxiety #20 11/07/23 12/11/23 Rx tabs nystatin-triamcinolone 100,000 1 applic topical TID #30 grams 11/07/23 12/11/23 Rx unit/gram-0.1 % topical ointment diclofenac sodium 1 % topical gel 2 g topical QID #100 grams 11/24/23 12/11/23 Rx (Voltaren Arthritis Pain) cyclosporine 0.05 % eye drops in a 1 drp ophthalmic (eye) Q12H 11/30/23 12/11/23 History dropperette (Restasis) hydrocortisone 1 % topical cream 1 applic AK BID 10 days #28.4 grams 11/30/23 12/11/23 Rx with perineal applicator nystatin 100,000 unit/gram topical 1 applic topical DAILY PRN Rash 11/30/23 12/11/23 History cream Spacer for Inhaler #1 ea 12/09/23 Rx acetaminophen 500 mg capsule 1,000 mg (2 x 500 mg) PO TID pain 12/09/23 12/11/23 Rx 14 days #84 caps albuterol sulfate 90 mcg/actuation 2 puff inhalation QIDR PRN 12/09/23 12/11/23 Rx aerosol inhaler (Ventolin HFA) cough/wheeze/shortness of breath #6.7 grams amoxicillin 875 mg-potassium 1 tab PO BID #8 tabs 12/09/23 12/11/23 Rx clavulanate 125 mg tablet celecoxib 100 mg capsule (Celebrex) 100 mg PO DAILY 7 days #7 caps 12/09/23 12/11/23 Rx guaifenesin 600 mg tablet, 600 mg PO BID 7 days #14 tabs 12/09/23 12/11/23 Rx extended release 12 hr (Mucinex) lidocaine 4 % topical cream 1 applic EXT TID PRN rectal pain 12/09/23 12/11/23 Rx (Anecream) #15 grams lisinopril 5 mg tablet 5 mg PO BID #60 tabs 12/09/23 12/11/23 Rx tramadol 50 mg tablet 50 mg PO Q8H PRN pain #30 tabs 12/09/23 12/11/23 Rx Past Med/Surg History Medical History (Updated 12/11/23 @ 15:15 by Lewis Hardy PA-C) Anxiety and depression Bronchiectasis Subdural hematoma H/O malignant neoplasm of breast History of basal cell cancer Acute subdural hematoma Hypertension Surgical History S/P knee surgery S/P dilation and curettage S/P breast lumpectomy Family History Father Hypertension Stroke Unknown Cancer Denies family history of Colon cancer Ovarian cancer Prostate cancer Myocardial infarction Breast cancer Social History Smoking Status: Never smoker Second Hand Exposure: Yes; Do You Dip or Chew Tobacco: No; Hx Alcohol Use: No Hx Substance Use: No Preferred Language: Kittitian Communication Ability: Effective Visual Impairment: No Limitations Hearing Ability: Normal 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 Beliefs That Will Affect Care: None marital status: Current Living Situation: Alone Current Living Situation Comment: [facility] current occupational status: retired How many Children do You have: 2 Feels Safe at Home: Yes Childhood Exposure to Second-Hand Smoke: No Dental Care, Regularly: Yes Physical Activity Frequency: 1-2 Times per Week Seatbelt Use: always Sunscreen Use: Yes Assistive Devices: Special Shoe and Walker Review of Systems Review of Systems: See HPI above Physical Exam Physical Exam: General: Anxious; moderate physical distress secondary to radicular pain; non- toxic appearing; frail; cooperative; 96% SpO2 on 1L NC HEENT: normocephalic, atraumatic; no scleral icterus; PERRLA; dry mucus membrane; vision and hearing intact Neck: supple; no JVD; no lymphadenopathy; trachea midline Skin: warm, dry without signs of tenting; no cyanosis; no rashes, bruising, lesions, or erythema noted CV: chest wall NTP; RRR; S1/S2 normal; no murmurs/rubs/gallops; pulses intact and symmetric at radial, DP, and PT Lungs: no acute respiratory distress; symmetrical chest wall expansion; clear breath sounds across all lung anderson w/o adventitious sounds; no wheezing ABD: Soft, NTP; BS present; no rebound/guarding; no ascites; no distention; negative CVA tenderness MSK: no tics or fasciculations; no edema noted in the LEs b/l, nonerythematous; pain with active/passive ROM of the hips; ankle plantar/dorsiflexion strength 5/5 bilaterally; patient demonstrates ability to wiggle toes Rectum: No redness, swelling, or lesions noted; right buttocks TTP Neuro: A&Ox3; normal mood and affect; fluent speech; no focal deficits; sensation grossly intact in the LEs b/l Results & Data Results & Data Vital Signs (Past 12 Hours) Vital Signs Temp Pulse Resp BP Pulse Ox O2 Del Method 12/11/23 10:50 89 17 100 12/11/23 10:44 84 16 98 12/11/23 10:40 83 14 99 12/11/23 10:30 78 21 98 12/11/23 10:20 80 17 99 12/11/23 10:10 79 15 98 12/11/23 10:00 80 20 99 12/11/23 09:50 81 21 100 12/11/23 09:40 82 17 98 12/11/23 09:30 80 23 99 12/11/23 09:20 78 15 98 12/11/23 09:10 73 22 100 12/11/23 09:01 92 Room Air 12/11/23 09:00 76 24 99 12/11/23 08:50 79 18 98 12/11/23 08:40 80 12 99 12/11/23 08:30 76 14 97 12/11/23 08:20 80 14 86 L 12/11/23 08:19 79 15 91 12/11/23 08:19 165/84 H 12/11/23 08:16 81 12/11/23 08:15 81 21 83 L 12/11/23 08:11 36.7 C 79 19 165/84 H 93 Room Air Laboratory Results Abnormal lab results 12/11/23 12/11/23 Range/Units 08:58 12:33 RBC 3.87 L (4.20-5.40) M/uL Hgb 10.8 L (12.0-16.0) g/dl Hct 33.9 L (37.0-47.0) % MCHC 31.9 L (32.0-36.0) g/dL MPV 9.3 L (9.4-12.4) fL Ellis # (Auto) 0.73 H (0.11-0.59) K/uL BUN/Creatinine Ratio 27.7 H (10-20) Ur Specific [place] > 1.045 H (1.000-1.030) Diagnostic Findings Abdomen/Pelvis CT 12/11/23 08:[address] WITH IV CONTRAST CT DOSE: 390.05 mGy.cm HISTORY: rectal pelvic pain, endometrial mass TECHNIQUE: Multiaxial CT images of the abdomen and pelvis were performed following the use of intravenous contrast. A dose lowering technique was utilized adhering to the principles of ALARA. COMPARISON STUDY: Pelvis CT 12/05/2023. Lumbar spine CT 12/08/2023. FINDINGS: Trace left pleural effusion. Moderate to large hiatus hernia containing the proximal stomach. Partially visualized right breast soft tissue thickening favors postoperative change. The liver, gallbladder, spleen, adrenal glands, and pancreas are unremarkable. No hydronephrosis. A few subcentimeter bilateral renal hypodense lesions are technically too small to characterize but favor cysts. Extensive calcified plaque within the abdominal aorta. No evidence for an aortic aneurysm. No retroperitoneal or pelvic lymphadenopathy. The bladder is unremarkable. Abnormal thickening and enhancement within the endometrium suggestive of an endometrial mass. This measures up to 6 cm. Tiny left perirectal fistula again noted. No evidence for a perirectal abscess. No bowel wall thickening or obstruction. Ubgu-je-fzfzersv fecal retention. No pneumoperitoneum. No pneumatosis. Punctate focus of gas within the bladder lumen is likely due to prior catheterization. The main portal vein is patent. Subacute mild superior endplate compression fracture at L3, unchanged. Levoscoliosis and degenerative changes within the lumbar spine. No acute fractures identified. IMPRESSION: 1. No significant change in the small left perirectal fistula. No evidence for a perirectal abscess at this time. 2. Endometrial abnormality/mass again noted. This is highly suspicious for an underlying malignancy. Gynecologic consultation recommended. 3. Subacute mild superior endplate compression fracture at L3, unchanged. 4. No bowel wall thickening or obstruction. 5. Trace left pleural effusion. 6. Moderate to large hiatus hernia. ACT 112: Negative or not required by law. Electronically signed by: Lewis Mcgarry M.D. 12/11/2023 12:11 PM Code Status & VTE Plan Code Status DNR/DNI VTE Prophylaxis Plan VTE Prophylaxis will be ordered: Yes Supervising Physician Co-Signing Physician Notes Patient seen and examined, chart reviewed, case discussed with Lewis Hardy and I agree with the assessment and plan as above except as otherwise noted Labs and images reviewed Julia is an 83-year-old female with a recent admission for hypertensive emergency, perirectal abscess recommended for outpatient follow-up with colorectal surgeon and discharged on antibiotics, suspected perianal fistula seen on CT but with which tract could not be seen on exam, hypoxia due to pulmonary edema and bronchiectasis, and a history of mild frontal subdural hemorrhages stable without acute change discharged to [facility] 12/09/2023. She re-presents with inability to ambulate due to back pain. CT of the abdomen and pelvis shows no significant change in the small left perirectal fistula, no evidence of perirectal abscess, endometrial abnormality is redemonstrated this is pending outpatient follow-up with NUCLEAR OPERATIONS SPECIALIST, unchanged L3 fracture, trace left pleural effusion, and a moderate to large hiatal hernia. There is no acute change on imaging. Pt reports intractable pain in the lower back and with radiation into both legs. At bedside evaluation she reports she has severe pain in her mid low back and this radiates into the thighs but does not go further than the knee has both sharp and burning quality. No urinary change. Sensation is soft touch in the lower extremities bilaterally is intact without deficit. Hip flexion, ankle dorsiflexion/plantarflexion are 5/5 bilaterally she has no strength loss, but is needed to sustained hip flexion due to pain. No urinary/bowel retention or incontinence. Tylenol, lidocaine patch, calcitonin with calcium supplementation due to borderline serum calcium level for back pain and with history of subacute compression fracture. Will also gabapentin for neuropathic pain and tramadol as available for breakthrough. Celebrex is continued. No EMERY. Will attempt to optimize pain and consult PT/OT. Patient was pending outpatient follow-up for her [facility] mass, will let DRIVER [facility]ESMAN know that she is admitted for pain control in case they wish to expedite pelvic ult rasound. Tamoxifen remains held pending endometrial evaluation. Augmentin continued, she is on day 8. She has no abdominal/pelvic/flank pain on exam. PG Care Time/CCT Total # of Minutes Spent Total Time Spent with Patient: Total time spent is greater than 50% in coordination of care (as documented) at patient's floor/unit and/or counseling patient: C[place] [address] INT INP/OBS CARE 3/75MIN Patient Type Established History Comprehensive Exam Comprehensive Medical Decision Making High Complexity Diagnoses Lumbar radiculopathy M54.16 Endometrial mass N94.89 Hypertensive emergency I16.1 Anxiety and depression F41.9; F32.A Perianal fistula K60.3
[2023-12-11] MEDS: PROPRANOLOL HCL 80 MG TAB PO STA (15:21)
[2023-12-11] MEDS: LIDOCAINE 5% 1 PATCH TD STA (15:21)
[2023-12-11] MEDS: CALCIUM CARBONATE 1250MG TAB PO SCH (15:35)
[2023-12-11] MEDS: CALCITONIN SALMON NA 200 IU/AC 3.7 ML BTL SCH (15:35)
[2023-12-11] MEDS: HYDROmorphone INJ 0.5 MG/0.5 ML SYR IV STA (15:36)
[2023-12-11] MEDS: LABETALOL HCL IV 5 MG/ML 20ML IV STA (15:36)
[2023-12-11] MEDS: LABETALOL HCL IV 5 MG/ML 20ML IV PRN (16:50)
[2023-12-11] MEDS: lisinopril 5 MG TAB PO ONE (16:50)
[2023-12-11] MEDS ORDERED: ALBUTEROL HFA 8 GM INHALER INH PRN (18:09)
[2023-12-11] MEDS ORDERED: NALOXONE HCL 0.4 MG/1 ML VIAL/CARP IV PRN (18:09)
[2023-12-11] MEDS ORDERED: LORazepam 0.5 MG TAB PO PRN (18:09)
[2023-12-11] MEDS: HYDROmorphone INJ 1 MG/ML SYRINGE IV PRN (19:51)
[2023-12-11] MEDS: DICLOFENAC SOD 1% GEL 100 GM TUBE EXT SCH (19:54)
[2023-12-11] MEDS: POLYETHYLENE (MIRALAX) 17 GM PACK PO STA (19:57)
[2023-12-11] MEDS: DOCUSATE SODIUM 100 MG CAP PO SCH (20:02)
[2023-12-11] MEDS: GABAPENTIN 300 MG CAP PO SCH (20:02)
[2023-12-11] MEDS: DOCUSATE SODIUM/SENNA 50/8.6MG TAB PO SCH (20:03)
[2023-12-11] MEDS: AMOXICILLIN/CLAVULANATE 875 MG TAB PO SCH (20:03)
[2023-12-11] MEDS: HEPARIN SOD 5,000 UNIT/0.5 ML VIAL SQ SCH (20:03)
[2023-12-11] MEDS: busPIRone 5 MG TAB PO SCH (20:03)
[2023-12-11] MEDS: LIDOCAINE 4% CREAM 15 GM TUBE EXT PRN (20:04)
[2023-12-11] MEDS: guaiFENesin 600 MG TABCR PO SCH (20:04)
[2023-12-11] MEDS: lisinopril 5 MG TAB PO SCH (20:04)
[2023-12-11] MEDS: ARTIFICIAL TEARS OP SCH (20:10)
[2023-12-11] MEDS: ACETAMINOPHEN 325 MG TAB PO PRN (20:26)
[2023-12-11] MEDS: HYDROCORTISONE HC 2.5% CRM 30GM TUBE EXT SCH (23:39)
[2023-12-12] MEDS: hydrALAZINE HCL 20 MG/ML VIAL IV PRN (00:06)
[2023-12-12] MEDS: HYDROmorphone INJ 0.5 MG/0.5 ML SYR IV PRN (03:04)
[2023-12-12 07:14] LABS: Basophils # (auto) 0.02 K/uL (0.00-0.20); Basophils % (auto) 0.2 %; Eosinophils # (auto) 0.06 K/uL (0.00-0.50); Eosinophils % (auto) 0.6 %; Hematocrit (blood only) 33.3 % (37.0-47.0); Hemoglobin 10.7 g/dl (12.0-16.0); Immature Granulocytes # (auto) 0.06 K/uL (0.01-0.20); Immature Granulocytes % (auto) 0.6 %; Lymphocytes # (auto) 1.58 K/uL (1.20-3.40); Lymphocytes % (auto) 15.3 %; Mean Corpuscular Hgb Conc 32.1 g/dL (32.0-36.0); Mean Corpuscular Volume 87.2 fL (80.0-100.0); Mean Platelet Volume 9.4 fL (9.4-12.4); Monocytes # (auto) 0.99 K/uL (0.11-0.59); Monocytes % (auto) 9.6 %; Neutrophils # (auto) 7.62 K/uL (1.40-6.50); Neutrophils % (auto) 73.7 %; Platelet Count 354 K/uL (130-400); RDW Coefficient of Variation 14.1 % (11.5-14.5); RDW Standard Deviation 44.7 fL (36.4-46.3); Red Blood Count 3.82 M/uL (4.20-5.40); White Blood Count 10.33 K/ul (4.8-10.8)
[2023-12-12 07:34] LABS: BUN Creatinine Ratio 21.1 (10-20); Calcium 9.3 mg/dl (8.6-10.3); Creatinine Clr Calc Pharmacy 58.1 ml/min; Est GFR (African American) 98.7 ml/min; Est GFR (Non-African American) 85.1 ml/min
[2023-12-12] MEDS: MIRTAZAPINE TAB 15 MG TAB PO SCH (07:48)
[2023-12-12] MEDS: CHOLECALCIFEROL 25 MCG (1000 UNITS) TAB PO SCH (07:48)
[2023-12-12] MEDS: PROPRANOLOL HCL LA 80 MG CAPCR PO SCH (07:48)
[2023-12-12] MEDS: TAMOXIFEN CITRATE 10 MG TABLET PO SCH (07:48)
[2023-12-12] MEDS: CITALOPRAM 40 MG TAB PO SCH (07:48)
[2023-12-12] MEDS: FLUTICASONE PROPIONATE NA SPR 16 GM BTL SCH (07:49)
[2023-12-12] MEDS: FLUTICASONE/VILANTEROL 200/25MCG 14 PUFFS/INHALER INH SCH (07:49)
[2023-12-12] MEDS: POLYETHYLENE (MIRALAX) 17 GM PACK PO SCH (07:49)
--- NOTE | 2023-12-12 10:33 | XRay Report ---
SINGLE VIEW CHEST CLINICAL HISTORY: Hypoxia. FINDINGS: An AP, portable, upright chest radiograph is compared to study dated 12/01/2023 and correlate d with chest CT dated 05/10/2016. There is a hiatal hernia. The heart is enlarged and noting atheroscl erotic calcification of the thoracic aorta. The pulmonary vasculature is noncongested. Chronic inters titial thickening is similar to previous. Foci of parenchymal scarring are seen throughout both lungs . The lungs and pleural spaces are otherwise clear. No pneumothorax is seen. The skeletal structures are osteopenic. There are chronic/healed left-sided rib fractures. Surgical clips project over the [facility] lower chest. IMPRESSION: 1. Cardiomegaly with no active disease in the chest. 2. Hiatal hernia. ACT 112: Negative or not required by law. Electronically signed by: Diogo Moreno M.D. 12/12/2023 10:31 AM
--- NOTE | 2023-12-12 11:57 | Consultation ---
Date of Consultation December 12, 2023 Assessment & Plan (1) Lumbar compression fracture: Dr. Elias has reviewed imaging. At this point she does not have back pain. I would like to pursue an MRI of the lumbar spine without contrast as well as an MRI of the pelvis without contrast for further evaluation on acuity of compression fracture, severity of spinal stenosis and possible metastatic disease. Patient is comfortable with this plan. Will make further recommendations based upon MRI review. Will hold off on bracing until MRI has been completed. History of Present Illness Attending Physician: Ben Cox MD History of Present Illness Is a very pleasant 83-year-old female who presents after recent discharge 2 days ago due to perirectal fistula/abscess and hypertensive urgency. She has had bilateral buttock pain that is fairly constant for the past 2 weeks. No specific accident, trauma, fall. She denies lower back pain. Pain does not not radiate below mid thigh. Right buttock is worse than left. Denies groin pain. She typically ambulates with a walker .she has remote history of breast cancer. Currently also being worked up for possible endometrial mass. Allergies Allergy/AdvReac Type Severity Reaction Status Date / Time povidone-iodine Allergy Mild RED RASH Verified 11/24/23 15:02 AND SKIN IRRITATION amoxicillin AdvReac Intermediate NAUSEA Verified 11/24/23 15:02 clavulanic acid AdvReac Intermediate NAUSEA Verified 11/24/23 15:02 doxycycline AdvReac Intermediate NAUSEA Verified 11/24/23 15:02 mometasone furoate AdvReac Intermediate NAUSEA Verified 11/24/23 15:02 nitrofurantoin AdvReac Intermediate nausea Verified 11/24/23 15:02 Sulfa (Sulfonamide AdvReac Mild NAUSEA/VOMI Verified 11/24/23 15:02 Antibiotics) TING Home Medications Medication Instructions Recorded Confirmed Type polyethylene glycol 3350 17 17 gm PO QAM 05/17/19 12/11/23 History gram/dose oral powder (Miralax) calcium carbonate 600 mg-vitamin 1 tab PO BIDM 06/04/19 12/11/23 History D3 5 mcg (200 unit) tablet docusate sodium 100 mg capsule 100 mg PO BID 06/04/19 12/11/23 History cholecalciferol (vitamin D3) 50 50 mcg PO QAM 03/03/21 12/11/23 History mcg (2,000 unit) capsule polyvinyl alcohol-povidone (PF) 1 drp OPB QID 08/14/21 12/11/23 History 1.4 %-0.6 % eye drops in a dropperette (Refresh Classic (PF)) sennosides 8.6 mg-docusate sodium 1 tab PO BID 10/15/22 12/11/23 History 50 mg tablet (Senna Plus) Flutter Valve #1 ea 10/26/22 11/24/23 Rx alendronate 70 mg tablet (Fosamax) 70 mg PO .weekly 10/26/22 12/11/23 History white petrolatum-mineral oil 57.3 1 applic OPB HS 11/01/22 12/11/23 History %-42.5 % eye ointment (Refresh P.M.) fluticasone propionate 50 1 spray intranasal DAILY #16 grams 03/14/23 12/11/23 Rx mcg/actuation nasal spray,suspension propranolol 80 mg capsule,24 80 mg PO QAM #90 caps 06/10/23 12/11/23 Rx hr,extended release citalopram 40 mg tablet (Celexa) 40 mg PO QAM #90 tabs 07/07/23 12/11/23 Rx tamoxifen 20 mg tablet 20 mg PO QAM #30 tabs 07/07/23 12/11/23 Rx mecobalamin (vitamin B12) 1,000 1,000 mcg sublingual DAILY #30 tabs 09/09/23 12/11/23 Rx mcg disintegrating tablet,sublingual mirtazapine 15 mg tablet (Remeron) 15 mg PO DAILY #90 tabs 10/06/23 12/11/23 Rx budesonide-formoterol HFA 160 2 puff inhalation BID #10.2 grams 10/29/23 12/11/23 Rx mcg-4.5 mcg/actuation aerosol inhaler buspirone 5 mg tablet 5 mg PO BID #180 tabs 11/01/23 12/11/23 Rx lorazepam 0.5 mg tablet (Ativan) 0.5 mg PO DAILY PRN anxiety #20 11/07/23 12/11/23 Rx tabs nystatin-triamcinolone 100,000 1 applic topical TID #30 grams 11/07/23 12/11/23 Rx unit/gram-0.1 % topical ointment diclofenac sodium 1 % topical gel 2 g topical QID #100 grams 11/24/23 12/11/23 Rx (Voltaren Arthritis Pain) cyclosporine 0.05 % eye drops in a 1 drp ophthalmic (eye) Q12H 11/30/23 12/11/23 History dropperette (Restasis) hydrocortisone 1 % topical cream 1 applic [place] BID 10 days #28.4 grams 11/30/23 12/11/23 Rx with perineal applicator nystatin 100,000 unit/gram topical 1 applic topical DAILY PRN Rash 11/30/23 12/11/23 History cream Spacer for Inhaler #1 ea 12/09/23 Rx acetaminophen 500 mg capsule 1,000 mg (2 x 500 mg) PO TID pain 12/09/23 12/11/23 Rx 14 days #84 caps albuterol sulfate 90 mcg/actuation 2 puff inhalation QIDR PRN 12/09/23 12/11/23 Rx aerosol inhaler (Ventolin HFA) cough/wheeze/shortness of breath #6.7 grams amoxicillin 875 mg-potassium 1 tab PO BID #8 tabs 12/09/23 12/11/23 Rx clavulanate 125 mg tablet celecoxib 100 mg capsule (Celebrex) 100 mg PO DAILY 7 days #7 caps 12/09/23 12/11/23 Rx guaifenesin 600 mg tablet, 600 mg PO BID 7 days #14 tabs 12/09/23 12/11/23 Rx extended release 12 hr (Mucinex) lidocaine 4 % topical cream 1 applic EXT TID PRN rectal pain 12/09/23 12/11/23 Rx (Anecream) #15 grams lisinopril 5 mg tablet 5 mg PO BID #60 tabs 12/09/23 12/11/23 Rx tramadol 50 mg tablet 50 mg PO Q8H PRN pain #30 tabs 12/09/23 12/11/23 Rx Patient History Medical History Anxiety and depression Bronchiectasis Subdural hematoma H/O malignant neoplasm of breast History of basal cell cancer Acute subdural hematoma Hypertension Surgical History S/P knee surgery S/P dilation and curettage S/P breast lumpectomy Family History Father Hypertension Stroke Unknown Cancer Denies family history of Colon cancer Ovarian cancer Prostate cancer Myocardial infarction Breast cancer Social History Smoking Status: Never smoker Second Hand Exposure: Yes; Do You Dip or Chew Tobacco: No; Hx Alcohol Use: No Hx Substance Use: No Preferred Language: Serbian Communication Ability: Effective Visual Impairment: No Limitations Hearing Ability: Normal Stakeholder Manager Required: No Beliefs That Will Affect Care: None marital status: Current Living Situation: Personal Care Facility Current Living Situation Comment: [facility] current occupational status: retired How many Children do You have: 2 Other Information That Helps Us Care for You: No Feels Safe at Home: Yes Safety Concerns: Feels Safe At This Time Childhood Exposure to Second-Hand Smoke: No Dental Care, Regularly: Yes Physical Activity Frequency: 1-2 Times per Week Seatbelt Use: always Sunscreen Use: Yes Assistive Devices: Special Shoe and Walker Review of Systems Review of Systems: All systems reviewed & are unremarkable except as noted in HPI & below Physical Exam Physical Exam: She sitting in a chair eating lunch no acute distress alert and oriented x 3 She is nontender to palpation and percussion to the midline thoracic and lumbar spine She is nontender over the sciatic notch regions bilaterally She does have tenderness over the bilateral greater trochanter regions She has tenderness to palpation over the bilateral posterior buttock to palpation as well bilaterally negative logrolling bilaterally Strength is intact bilateral lower extremities Results & Data Vital Signs (Past 12 Hours) Vital Signs Temp Pulse Resp BP BP Pulse Ox O2 Del Method 12/12/23 11:51 36.7 C 80 21 128/65 174/120 H 91 Room Air 12/12/23 08:07 36.6 C 94 H 14 129/74 90 Nasal Cannula 12/12/23 04:53 36.8 C 85 19 175/73 H 96 Nasal Cannula 12/12/23 03:07 36.8 C 73 18 184/99 H 95 Nasal Cannula 12/12/23 00:50 121/66 12/12/23 00:05 201/108 H O2 Flow Rate 12/12/23 11:51 12/12/23 08:07 2 12/12/23 04:53 2 12/12/23 03:07 2 12/12/23 00:50 12/12/23 00:05 Diagnostic Findings [place], [place] [phone] CT Scan Report Patient: SUE COSTA Admit Date: 11/30/23 MR#: [id number] Address1: [address] Acct ID:[id number] Address2: Date: [address] Zip: [place] [address] Age: 83 Location: 3N Sex: F Room/Bed: [facility] [place] Att Phy: Jules Judd MD Diagnosis: PERIRECTAL PHELGMON, HYPERTENSIVE URGENCY Irene Phy: Tani Ruiz Service Date: 12/08/23 Fam Phy: Justin Garg MD Interpreting Phy: Ra Novoa [facility] Phy: Vianca Cloud MD Ordering Phy: Jules Judd MD cc: ~ CT OF THE LUMBAR SPINE CLINICAL HISTORY: L2/L3 radiculopathy, stenosis, pain COMPARISON STUDY: Lumbar spine MRI August 09, 2018. Lumbar spine radiographs November 24, 2023. TECHNIQUE: Helical axial images of the lumbar spine were obtained. Sagittal and coronal reconstructions were viewed. Automated exposure control was utilized for the study. A dose lowering technique was utilized adhering to the principles of ALARA. FINDINGS: For purposes of numbering on this exam, the L5-S1 disc space is assigned to axial image 269 of 364. There is moderate lumbar spine levoscoliosis. There is an acute to subacute compression fracture of the superior plate of L3 with 20% loss of vertebral body height. No significant associated retropulsion. Fracture slightly extends into the bilateral pedicles. No additional lumbar spine fractures are present. Severe multilevel facet arthrosis, disc space narrowing and osteophytosis is present. The central canal and neural foramen are suboptimally assessed given CT technique. Suspected moderate to severe central canal stenosis at L2-L3. There is moderate multilevel neural foraminal stenosis. Small left pleural effusion is incidentally noted. Partially visualized hernia with intrathoracic stomach. Mild right lower lobe airspace opacities are present. There is a 2 mm right renal calculus. As described on prior studies, marked endometrial thickening is partially imaged on this study. IMPRESSION: 1. Acute to subacute mild compression fracture of the superior endplate of L3. No additional lumbar spine fractures. 2. Moderate multilevel degenerative disc disease and severe facet arthrosis within the lumbar spine. Suspected moderate to severe central canal stenosis at L2-L3. 3. Moderate lumbar spine levoscoliosis. 4. Endometrial thickening, abnormal in a postmenopausal patient. Nonemergent gynecologic consultation is recommended. ACT 112: Negative or not required by law. Electronically signed by: Ra Novoa M.D. 12/08/2023 4:07 PM Dictated: 12/08/23 1558 Transcribed: 12/08/23 1558 [place], [place] [phone] CT Scan Report Patient: SUE COSTA Admit Date: 12/11/23 MR#: [id number] Address1: [address] [place] [address] Acct ID:[id number] Address2: [facility] Date: [address] [facility] Zip: [place] [address] Age: 83 Location: ED Sex: F Room/Bed: Att Phy: Diagnosis: PAIN FROM INFECTION Irene Phy: [facility] Service Date: 12/11/23 Fam Phy: Interpreting Phy: Lewis Li Phy: Ordering Phy: Ed Smith M.D. cc: ~ ABDOMEN AND PELVIS CT WITH IV CONTRAST CT DOSE: 390.05 mGy.cm HISTORY: rectal pelvic pain, endometrial mass TECHNIQUE: Multiaxial CT images of the abdomen and pelvis were performed fo llowing the use of intravenous contrast. A dose lowering technique was utilized adhering to the principles of ALARA. COMPARISON STUDY: Pelvis CT 12/05/2023. Lumbar spine CT 12/08/2023. FINDINGS: Trace left pleural effusion. Moderate to large hiatus hernia containing the proximal stomach. Partially visualized right breast soft tissue thickening favors postoperative change. The liver, gallbladder, spleen, adrenal glands, and pancreas are unremarkable. No hydronephrosis. A few subcentimeter bilateral renal hypodense lesions are technically too small to characterize but favor cysts. Extensive calcified plaque within the abdominal aorta. No evidence for an aortic aneurysm. No retroperitoneal or pelvic lymphadenopathy. The bladder is unremarkable. Abnormal thickening and enhancement within the endometrium suggestive of an endometrial mass. This measures up to 6 cm. Tiny left perirectal fistula again noted. No evidence for a perirectal abscess. No bowel wall thickening or obstruction. [id number] fecal retention. No pneumoperitoneum. No pneumatosis. Punctate focus of gas within the bladder lumen is likely due to prior catheterization. The main portal vein is patent. Subacute mild superior endplate compression fracture at L3, unchanged. Levoscoliosis and degenerative changes within the lumbar spine. No acute fractures identified. IMPRESSION: 1. No significant change in the small left perirectal fistula. No evidence for a perirectal abscess at this time. 2. Endometrial abnormality/mass again noted. This is highly suspicious for an underlying malignancy. Gynecologic consultation recommended. 3. Subacute mild superior endplate compression fracture at L3, unchanged. 4. No bowel wall thickening or obstruction. 5. Trace left pleural effusion. 6. Moderate to large hiatus hernia. ACT 112: Negative or not required by law. Electronically signed by: Lewis Mcgarry M.D. 12/11/2023 12:11 PM Dictated: 12/11/23 1205 Transcribed: 12/11/23 1205 (1) Lumbar compression fracture Encounter type: subsequent encounter Lumbar vertebra fracture level: L3
--- NOTE | 2023-12-12 14:18 | Hospitalist Progress Note ---
Date of Service December 12, 2023 Assessment & Plan (1) Lumbar radiculopathy: Plan: L3 compression fracture present on admission. This is acute or subacute. Pain control measures for now. Orthopedic spine surgery consultation pending. I do not think this will need any intervention however. Continue OT and PT while hospitalized. She probably will need placement at the time of discharge. (2) Endometrial mass: Plan: Incidental finding of abnormal uterine lining on CT of the abdomen. CIRCLE CUTTING SAW OPERATOR consultation requested. She denies dysfunctional uterine bleeding. Highly unlikely that this is contributing to her back pain (3) Hypertensive emergency: Plan: Present on admission. Lisinopril discontinued. She is now on hydralazine. Continue propranolol. (4) Anxiety and depression: Plan: Stable. Continue current medical management (5) Perianal fistula: Plan: Patient was discharged on Augmentin on 12/09/23. Ccontinue Augmentin x 3 days from admission Plan To be determined. She probably will need rehab placement for a while at the time of discharge. Admission and Anticipated Discharge Date Admission Date: December 12, 2023 Subjective Alert and oriented. It appears her back pain is due to the L3 fracture. Orthopedic spine consultation is pending. She is now on room air. Repeat chest x-ray shows no signs of CHF. Lisinopril was discontinued. Hydralazine started for blood pressure control. CIRCLE CUTTING SAW OPERATOR consultation requested for evaluation of the findings regarding the uterus on CT scan which are incidental. She denies dysfunctional uterine bleeding. I spoke to her daughter by phone. OT and PT evaluations are requested. I suspect she will need short-term rehab placement before she can return to her previous living arrangements. Review of Systems 2 Review of Systems: Constitutional-no fever or chills ENT-no blurred vision, no double vision, no epistaxis, no sore throat Respiratory-no cough, no wheezing, no shortness of breath Cardiac-no palpitations, no chest pain, no syncope GI-no nausea, vomiting, diarrhea, melena, hematochezia -no urinary retention, no urinary incontinence, no dysuria, no hematuria Musculoskeletal-low back pain limiting ambulation. No muscle tenderness Skin-no bruising, no rashes, no pruritus Neuro-no isolated weakness, no paresthesia Psych-no depression, no anxiety Physical Exam 2 Physical Exam: General-alert and oriented x3, no fever, no chills HEENT-head atraumatic and normocephalic, pupils equal and reactive to light, extraocular muscles intact Neck-no lymphadenopathy or thyromegaly, trachea midline Chest-clear to auscultation. No rales, wheezing or rhonchi Cardiac-regular rate and rhythm, normal S1 and S2 Abdomen-normal bowel sounds, nontender, no hepatosplenomegaly Extremities-no cyanosis, clubbing, or edema Neuro-cranial nerves II through XII intact, motor and sensory function within normal limits, strength symmetrical, no focal deficits Psych-normal affect, normal mood Results & Data Results & Data Vital Signs (Past 12 Hours) Vital Signs Temp Pulse Resp BP BP Pulse Ox O2 Del Method 12/12/23 11:51 36.7 C 80 21 128/65 174/120 H 91 Room Air 12/12/23 08:07 36.6 C 94 H 14 129/74 90 Nasal Cannula 12/12/23 08:00 Room Air 12/12/23 04:53 36.8 C 85 19 175/73 H 96 Nasal Cannula 12/12/23 03:07 36.8 C 73 18 184/99 H 95 Nasal Cannula O2 Flow Rate 12/12/23 11:51 12/12/23 08:07 2 12/12/23 08:00 12/12/23 04:53 2 12/12/23 03:07 2 Laboratory Results 12/12/23 06:42 12/12/23 06:42 PG Care Time/CCT Total # of Minutes Spent Total Time Spent with Patient: Total time spent is greater than 50% in coordination of care (as documented) at patient's floor/unit and/or counseling patient: Coding Level of Care Code 26937 SUB INP/OBS CARE 3/50MIN Diagnoses Lumbar radiculopathy M54.16 Endometrial mass N94.89 Hypertensive emergency I16.1 Anxiety and depression F41.9; F32.A Perianal fistula K60.3
[2023-12-12] MEDS: hydrALAZINE 10 MG TAB PO SCH (15:10)
[2023-12-12] MEDS: traMADol HCL 50 MG TABLET PO PRN (19:53)
[2023-12-12] MEDS: MELATONIN 3 MG TAB PO PRN (21:47)
[2023-12-13 07:16] LABS: Basophils # (auto) 0.03 K/uL (0.00-0.20); Basophils % (auto) 0.3 %; Eosinophils % (auto) 1.2 %; Hematocrit (blood only) 32.1 % (37.0-47.0); Hemoglobin 10.4 g/dl (12.0-16.0); Immature Granulocytes # (auto) 0.05 K/uL (0.01-0.20); Immature Granulocytes % (auto) 0.6 %; Lymphocytes # (auto) 1.76 K/uL (1.20-3.40); Lymphocytes % (auto) 20.4 %; Mean Corpuscular Hgb Conc 32.4 g/dL (32.0-36.0); Mean Corpuscular Volume 86.3 fL (80.0-100.0); Mean Platelet Volume 9.4 fL (9.4-12.4); Monocytes # (auto) 0.91 K/uL (0.11-0.59); Monocytes % (auto) 10.5 %; Neutrophils # (auto) 5.78 K/uL (1.40-6.50); Platelet Count 355 K/uL (130-400); RDW Coefficient of Variation 14.3 % (11.5-14.5); RDW Standard Deviation 44.3 fL (36.4-46.3); Red Blood Count 3.72 M/uL (4.20-5.40); White Blood Count 8.63 K/ul (4.8-10.8)
[2023-12-13 07:38] LABS: BUN Creatinine Ratio 29.6 (10-20); Calcium 8.8 mg/dl (8.6-10.3); Creatinine Clr Calc Pharmacy 46.6 ml/min; Est GFR (African American) 90.7 ml/min; Est GFR (Non-African American) 78.2 ml/min
--- NOTE | 2023-12-13 07:56 | OB/GYN Consultation ---
Date of Consultation December 13, 2023 Assessment & Plan (1) Thickened endometrium: Julia is an 83-year-old with endometrial thickening versus a uterine mass of unclear etiology. Patient is not having any acute symptoms that would warrant acute intervention. Julia has a limited capacity decision making on her own and while discussion was held with [facility] about the thickened endometrium I discussed the details more extensively with her daughter Guillermina. At this point the endometrial thickening/mass is of unclear etiology. This is highly suspicious for endometrial cancer, however, other causes could have a similar appearance although are less likely. An MRI is ordered and would be helpful with determining the etiology of the mass. We will plan for outpatient evaluation and referral to [facility] as indicated. In talking with her daughter Guillermina I discussed the potential of this being uterine cancer and discussed what the treatment options would be if it is confirmed to be uterine cancer. At this point they are unsure if they would proceed with treatment however referral to [facility] if this is proven or strongly felt to be cancer would be the next step. Referral to [facility] onc[facility] would be as an outpatient based. Greater than 45 minutes was spent in review of history, discussion with patient and her daughter and coordination of care (2) Uterine mass: History of Present Illness Reason for Consultation: Uterine mass/endometrial thickening Attending Physician: Ben Cox MD History of Present Illness Julia is an 83-year-old presented for acute radiculopathy and sciatica related pain was noted to have incidental finding of a thickened endometrium versus endometrial mass noted on CT scan. Mass/endometrium was measured at 6 cm in greatest diameter. It is of unclear etiology at present. Patient is denying any bleeding and denying any pelvic pain. I spoke with her daughter who is on her HIPAA to also confirm that [facility] is not having any bleeding and has not had any bleeding. Denying any urinary symptoms such as pain with urination or vera blood in urine. Denying any vaginal discharge. Allergies Allergy/AdvReac Type Severity Reaction Status Date / Time povidone-iodine Allergy Mild RED RASH Verified 11/24/23 15:02 AND SKIN IRRITATION amoxicillin AdvReac Intermediate NAUSEA Verified 11/24/23 15:02 clavulanic acid AdvReac Intermediate NAUSEA Verified 11/24/23 15:02 doxycycline AdvReac Intermediate NAUSEA Verified 11/24/23 15:02 mometasone furoate AdvReac Intermediate NAUSEA Verified 11/24/23 15:02 nitrofurantoin AdvReac Intermediate nausea Verified 11/24/23 15:02 Sulfa (Sulfonamide AdvReac Mild NAUSEA/VOMI Verified 11/24/23 15:02 Antibiotics) TING Home Medications Medication Instructions Recorded Confirmed Type polyethylene glycol 3350 17 17 gm PO QAM 05/17/19 12/11/23 History gram/dose oral powder (Miralax) calcium carbonate 600 mg-vitamin 1 tab PO BIDM 06/04/19 12/11/23 History D3 5 mcg (200 unit) tablet docusate sodium 100 mg capsule 100 mg PO BID 06/04/19 12/11/23 History cholecalciferol (vitamin D3) 50 50 mcg PO QAM 03/03/21 12/11/23 History mcg (2,000 unit) capsule polyvinyl alcohol-povidone (PF) 1 drp OPB QID 08/14/21 12/11/23 History 1.4 %-0.6 % eye drops in a dropperette (Refresh Classic (PF)) sennosides 8.6 mg-docusate sodium 1 tab PO BID 10/15/22 12/11/23 History 50 mg tablet (Senna Plus) Flutter Valve #1 ea 10/26/22 11/24/23 Rx alendronate 70 mg tablet (Fosamax) 70 mg PO .weekly 10/26/22 12/11/23 History white petrolatum-mineral oil 57.3 1 applic OPB HS 11/01/22 12/11/23 History %-42.5 % eye ointment (Refresh P.M.) fluticasone propionate 50 1 spray intranasal DAILY #16 grams 03/14/23 12/11/23 Rx mcg/actuation nasal spray,suspension propranolol 80 mg capsule,24 80 mg PO QAM #90 caps 06/10/23 12/11/23 Rx hr,extended release citalopram 40 mg tablet (Celexa) 40 mg PO QAM #90 tabs 07/07/23 12/11/23 Rx tamoxifen 20 mg tablet 20 mg PO QAM #30 tabs 07/07/23 12/11/23 Rx mecobalamin (vitamin B12) 1,000 1,000 mcg sublingual DAILY #30 tabs 09/09/23 12/11/23 Rx mcg disintegrating tablet,sublingual mirtazapine 15 mg tablet (Remeron) 15 mg PO DAILY #90 tabs 10/06/23 12/11/23 Rx budesonide-formoterol HFA 160 2 puff inhalation BID #10.2 grams 10/29/23 12/11/23 Rx mcg-4.5 mcg/actuation aerosol inhaler buspirone 5 mg tablet 5 mg PO BID #180 tabs 11/01/23 12/11/23 Rx lorazepam 0.5 mg tablet (Ativan) 0.5 mg PO DAILY PRN anxiety #20 11/07/23 12/11/23 Rx tabs nystatin-triamcinolone 100,000 1 applic topical TID #30 grams 11/07/23 12/11/23 Rx unit/gram-0.1 % topical ointment diclofenac sodium 1 % topical gel 2 g topical QID #100 grams 11/24/23 12/11/23 Rx (Voltaren Arthritis Pain) cyclosporine 0.05 % eye drops in a 1 drp ophthalmic (eye) Q12H 11/30/23 12/11/23 History dropperette (Restasis) hydrocortisone 1 % topical cream 1 applic MA BID 10 days #28.4 grams 11/30/23 12/11/23 Rx with perineal applicator nystatin 100,000 unit/gram topical 1 applic topical DAILY PRN Rash 11/30/23 12/11/23 History cream Spacer for Inhaler #1 ea 12/09/23 Rx acetaminophen 500 mg capsule 1,000 mg (2 x 500 mg) PO TID pain 12/09/23 12/11/23 Rx 14 days #84 caps albuterol sulfate 90 mcg/actuation 2 puff inhalation QIDR PRN 12/09/23 12/11/23 Rx aerosol inhaler (Ventolin HFA) cough/wheeze/shortness of breath #6.7 grams amoxicillin 875 mg-potassium 1 tab PO BID #8 tabs 12/09/23 12/11/23 Rx clavulanate 125 mg tablet celecoxib 100 mg capsule (Celebrex) 100 mg PO DAILY 7 days #7 caps 12/09/23 12/11/23 Rx guaifenesin 600 mg tablet, 600 mg PO BID 7 days #14 tabs 12/09/23 12/11/23 Rx extended release 12 hr (Mucinex) lidocaine 4 % topical cream 1 applic EXT TID PRN rectal pain 12/09/23 12/11/23 Rx (Anecream) #15 grams lisinopril 5 mg tablet 5 mg PO BID #60 tabs 12/09/23 12/11/23 Rx tramadol 50 mg tablet 50 mg PO Q8H PRN pain #30 tabs 12/09/23 12/11/23 Rx Patient History Medical History Anxiety and depression Bronchiectasis Subdural hematoma H/O malignant neoplasm of breast History of basal cell cancer Acute subdural hematoma Hypertension Surgical History S/P knee surgery S/P dilation and curettage S/P breast lumpectomy Family History Father Hypertension Stroke Unknown Cancer Denies family history of Colon cancer Ovarian cancer Prostate cancer Myocardial infarction Breast cancer Social History Smoking Status: Never smoker Second Hand Exposure: Yes; Do You Dip or Chew Tobacco: No; Hx Alcohol Use: No Hx Substance Use: No Preferred Language: Hungarian Communication Ability: Effective Visual Impairment: No Limitations Hearing Ability: Normal 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 Beliefs That Will Affect Care: None marital status: Current Living Situation: Personal Care Facility Current Living Situation Comment: [facility] current occupational status: retired How many Children do You have: 2 Other Information That Helps Us Care for You: No Feels Safe at Home: Yes Safety Concerns: Feels Safe At This Time Childhood Exposure to Second-Hand Smoke: No Dental Care, Regularly: Yes Physical Activity Frequency: 1-2 Times per Week Seatbelt Use: always Sunscreen Use: Yes Assistive Devices: Walker Physical Exam Physical Exam: Exam unable to be performed due to patient's hip and bed position Results & Data Vital Signs (Past 12 Hours) Vital Signs Temp Pulse Resp BP Pulse Ox O2 Del Method O2 Flow Rate 12/13/23 03:10 36.7 C 74 16 124/61 97 Nasal Cannula 2 12/13/23 00:02 36.6 C 101 H 16 177/87 H 93 Nasal Cannula 2 12/12/23 19:50 Room Air PG Care Time/CCT Total # of Minutes Spent Total Time Spent with Patient: Total time spent is greater than 50% in coordination of care (as documented) at patient's floor/unit and/or counseling patient: Coding Level of Care Code 97021 IN/OBS CONSULT LVL 3,45M Diagnoses Thickened endometrium R93.89 Uterine mass N85.8
[2023-12-13] MEDS: GADOBUTROL 65ML VIAL IV ONE (12:59)
--- NOTE | 2023-12-13 16:11 | Hospitalist Progress Note ---
Date of Service December 13, 2023 Assessment & Plan (1) Lumbar radiculopathy: Plan: L3 compression fracture present on admission. This is acute or subacute. Pain control measures for now. Orthopedic spine surgery consultation appreciated. There is no need for kyphoplasty. Continue OT and PT while hospitalized. Both recommend return to [facility]. Oral prednisone therapy has been started. This will be gradually tapered off (2) Endometrial mass: Plan: Incidental finding of abnormal uterine lining on CT of the abdomen. [employer] consultation appreciated. Pelvis MRI scan report pending. She denies dysfunctional uterine bleeding. Highly unlikely that this is contributing to her back pain (3) Hypertensive emergency: Plan: Present on admission. Blood pressure is much better on hydralazine which replaces lisinopril. Continue propranolol. (4) Anxiety and depression: Plan: Stable. Continue current medical management (5) Perianal fistula: Plan: Patient was discharged on Augmentin on 12/09/23. Ccontinue Augmentin x 3 days from admission Plan Hopeful return to [facility] tomorrowDecember 13 on prednisone taper Admission and Anticipated Discharge Date Admission Date: December 12, 2023 Subjective Alert and oriented. Case discussed with Dr. Elias. He has reviewed the MRI scans of her back and there is no evidence of metastatic disease disease but she does have age-related degenerative disc disease and stenosis which she is already told me that she will not consider surgery. Prednisone tapering dose has been started since this may help with her symptoms. OT and PT both recommend that she return to [facility]. Pelvis MRI scan report is pending. She has also told me that she is not going to consider hysterectomy or any other procedure if she indeed has uterine cancer. The pharmacy does not stock Restasis eyedrops which can be restarted when she returns to [facility]. I spoke to her daughter Guillermina by phone today, December 12. Blood pressure is much better with hydralazine which replaces lisinopril. Hopefully she can be discharged tomorrow, December 13 Review of Systems 2 Review of Systems: Constitutional-no fever or chills ENT-no blurred vision, no double vision, no epistaxis, no sore throat Respiratory-no cough, no wheezing, no shortness of breath Cardiac-no palpitations, no chest pain, no syncope GI-no nausea, vomiting, diarrhea, melena, hematochezia -no urinary retention, no urinary incontinence, no dysuria, no hematuria Musculoskeletal-low back pain limiting ambulation. No muscle tenderness Skin-no bruising, no rashes, no pruritus Neuro-no isolated weakness, no paresthesia Psych-no depression, no anxiety Physical Exam 2 Physical Exam: General-alert and oriented x3, no fever, no chills HEENT-head atraumatic and normocephalic, pupils equal and reactive to light, extraocular muscles intact Neck-no lymphadenopathy or thyromegaly, trachea midline Chest-clear to auscultation. No rales, wheezing or rhonchi Cardiac-regular rate and rhythm, normal S1 and S2 Abdomen-normal bowel sounds, nontender, no hepatosplenomegaly Extremities-no cyanosis, clubbing, or edema Neuro-cranial nerves II through XII intact, motor and sensory function within normal limits, strength symmetrical, no focal deficits Psych-normal affect, normal mood Results & Data Results & Data Vital Signs (Past 12 Hours) Vital Signs Temp Pulse Pulse Resp BP BP Pulse Ox 12/13/23 15:22 37.0 C 79 48 H 102/53 L 96 12/13/23 13:57 111/62 12/13/23 08:00 12/13/23 07:46 37.0 C 84 19 138/92 92 12/13/23 07:00 77 O2 Del Method O2 Flow Rate 12/13/23 15:22 Nasal Cannula 2 12/13/23 13:57 12/13/23 08:00 Nasal Cannula 2 12/13/23 07:46 Room Air 12/13/23 07:00 Laboratory Results 12/13/23 06:53 12/13/23 06:53 PG Care Time/CCT Total # of Minutes Spent Total Time Spent with Patient: Total time spent is greater than 50% in coordination of care (as documented) at patient's floor/unit and/or counseling patient: Coding Level of Care Code 93179 SUB INP/OBS CARE 3/50MIN Diagnoses Lumbar radiculopathy M54.16 Endometrial mass N94.89 Hypertensive emergency I16.1 Anxiety and depression F41.9; F32.A Perianal fistula K60.3
--- NOTE | 2023-12-13 16:28 | Magnetic Resonance Report ---
MRI OF THE PELVIS COMBO CLINICAL HISTORY: Bilateral buttock pain. COMPARISON STUDY: The pelvic CT dated 12/11/2023. TECHNIQUE: MRI of the pelvis is performed utilizing various T1 and T2-weighted sequences in the axial , sagittal, and coronal planes. Contrast enhanced sequences were acquired following the IV administra tion of 5 cc of Gadavist. The examination is compromised by motion artifact. FINDINGS: There is no MRI evidence of acute fracture involving the hips or bony pelvis. There is an a cute to subacute superior endplate compression fracture of L3 with corresponding marrow edema. This i s best on the coronal sequences. There is no avascular necrosis of the femoral heads. Mild arthritic change is seen in the hips and sacroiliac joints. No hip joint effusion is identified. No destructive bony lesion is seen. The regional musculature is normal and symmetric. The origin of the hamstrings tendons are intact. Lumbosacral spondylosis is partially imaged. The bladder is normal as visualized. Nabothian cysts are seen in the cervix. The endometrium is markedly dilated and filled thick enhanci ng septations. This measures up to 4.7 cm in diameter. No adnexal lesion is seen. There is no pelvic sidewall or inguinal lymphadenopathy. The visualized bowel loops show no evidence of obstruction. The iliac vessels appear patent. IMPRESSION: 1. Acute to subacute superior end plate compression fracture of L3. 2. No acute bony abnormality is seen involving the hips or pelvis. 3. Findings remain highly suspicious for an endometrial mass, with neoplasm the diagnosis of exclusio n. Gynecology follow-up is recommend. 4. No pelvic lymphadenopathy or adnexal lesion is seen. Electronically signed by: Diogo Moreno M.D. 12/13/2023 4:26 PM
--- NOTE | 2023-12-13 16:51 | Magnetic Resonance Report ---
MR lumbar spine wo/w con CLINICAL HISTORY: eval L3 fx acuity, stenosis, ?mets TECHNIQUE: 3 plane localizer images, sagittal T2, sagittal T1, sagittal STIR, axial T1, axial T2 dallin g with postcontrast axial T1 and sagittal T1 fat-saturated sequences were obtained of the lumbar spin e, before and after intravenous administration of 12 mL of MultiHance. Comparison: Comparison is made to CT abdomen pelvis 12/11/2023 FINDINGS: There is a wedge fracture of the L3 vertebral body with approximately 25% loss of height and edema no juan manuel. The posterior elements are. L1-L2: Broad-based posterior disc bulge ligamentum flavum hypertrophy result in mild canal stenosis a nd moderate bilateral neuroforaminal stenosis. L2-L3: Broad-based posterior disc bulge results in severe canal stenosis, AP diameter is 6 mm, and se jacki bilateral neural foraminal stenosis. L3-L4: Broad-based posterior disc bulge is seen with mild canal stenosis and moderate bilateral neura l foraminal stenosis. L4-L5: Broad base posterior disc bulge is seen with facet arthropathy resulting in moderate bilateral foraminal stenosis. L5-S1: Bilateral facet arthropathy results in moderate bilateral neural foraminal stenosis. The spinal ligaments are intact, without evidence of disruption or abnormal signal intensity. The spi nal cord is normal in signal intensity and there is no evidence of cord contusion. There is no eviden ce of an extradural, intradural, extramedullary or intramedullary lesion. Visualized soft tissues are normal. IMPRESSION: 1. Subacute appearing wedge fracture of the L3 vertebral body without involvement of the posterior e lements. 2. Multilevel degenerative changes with up to severe canal stenosis, AP diameter 6 mm, and severe bi lateral neuroforaminal stenosis. ACT 112: Negative or not required by law. Electronically signed by: Derick Dubose M.D. 12/13/2023 4:50 PM
[2023-12-13] MEDS: predniSONE 10 MG TABLET PO SCH (17:56)
[2023-12-13] MEDS ORDERED: ARTIFICIAL TEARS OP SCH (21:00)
[2023-12-14] MEDS: hydrALAZINE HCL 20 MG/ML VIAL IV PRN (06:33)
--- NOTE | 2023-12-14 08:30 | Orthopedic Progress Note ---
Date of Service December 14, 2023 Assessment & Plan (1) Lumbar compression fracture: Plan: Dr. Elias has removed the reviewed imaging of her lumbar and pelvis MRIs as well as CT scans. She has very little back pain. Nonetheless we will order LSO bracing to be worn only with ambulation/activity. Does not need to wear when in a seated position or laying down. Ambulate ad dominic. No lifting greater than 5 pounds. she will follow-up in our office in about 2 weeks for further imaging and treatment plan. (2) Intractable back pain: Plan: She has multilevel lumbar stenosis of varying degrees but certainly has severe central canal stenosis which can be contributing to her current pain. She is not interested in pursuing any type of surgical intervention she reports. Will therefore consult pain management to see if she is a candidate for injections. No evidence of metastatic disease. Admission and Anticipated Discharge Date Admission Date: December 12, 2023 Cam Dumont underwent lumbar and pelvic MRIs yesterday. She reports today back and buttock pain. Right is worse than left. She is feeling a bit anxious and out of sorts she reports this morning. We have reviewed her options regarding her acute to subacute L3 fracture and lumbar stenosis. Review of Systems Review of Systems: All systems reviewed & are unremarkable except as noted in HPI & below Physical Exam Physical Exam: She is sitting up eating breakfast in no acute distress Tremor noted right upper extremity Strength unchanged bilateral lower extremities Results & Data Vital Signs (Past 12 Hours) Vital Signs Temp Pulse Resp BP Pulse Ox O2 Del Method O2 Flow Rate 12/14/23 07:59 Nasal Cannula 2 12/14/23 06:52 184/88 H 12/14/23 06:24 36.9 C 82 17 207/113 H 96 Nasal Cannula 2 12/13/23 22:12 36.9 C 90 20 143/76 H 94 Nasal Cannula 2 12/13/23 20:30 94 Nasal Cannula 2 Diagnostic Findings [place], [place] [phone] Magnetic Resonance Report Patient: [facility] COSTA Admit Date: 12/12/23 MR#: [id number] Address1: [address] [place] ID:[id number] Address2: [facility] Date: 1940 [facility] Zip: [place] [address] Age: 83 Location: 2E Sex: F Room/Bed: [facility] Att Phy: Ben Cox MD Diagnosis: INTRACTABLE RADICULAR PAIN Irene Phy: Tani Ruiz Service Date: 12/13/23 Fam Phy: Interpreting Phy: Derick Dubose MDAdmit Phy: Ben Cox MD Ordering Phy: Naomie Moulton cc: ~ MR lumbar spine wo/w con CLINICAL HISTORY: eval L3 fx acuity, stenosis, ?mets TECHNIQUE: 3 plane localizer images, sagittal T2, sagittal T1, sagittal STIR, axial T1, axial T2 along with postcontrast axial T1 and sagittal T1 fat- saturated sequences were obtained of the lumbar spine, before and after intravenous administration of 12 mL of MultiHance. Comparison: Comparison is made to CT abdomen pelvis 12/11/2023 FINDINGS: There is a wedge fracture of the L3 vertebral body with approximately 25% loss of height and edema noted. The posterior elements are. L1-L2: Broad-based posterior disc bulge ligamentum flavum hypertrophy result in mild canal stenosis and moderate bilateral neuroforaminal stenosis. L2-L3: Broad-based posterior disc bulge results in severe canal stenosis, AP diameter is 6 mm, and severe bilateral neural foraminal stenosis. L3-L4: Broad-based posterior disc bulge is seen with mild canal stenosis and moderate bilateral neural foraminal stenosis. L4-L5: Broad base posterior disc bulge is seen with facet arthropathy resulting in moderate bilateral foraminal stenosis. L5-S1: Bilateral facet arthropathy results in moderate bilateral neural foraminal stenosis. The spinal ligaments are intact, without evidence of disruption or abnormal signal intensity. The spinal cord is normal in signal intensity and there is no evidence of cord contusion. There is no evidence of an extradural, intradural, extramedullary or intramedullary lesion. Visualized soft tissues are normal. IMPRESSION: 1. Subacute appearing wedge fracture of the L3 vertebral body without involvement of the posterior elements. 2. Multilevel degenerative changes with up to severe canal stenosis, AP diameter 6 mm, and severe bilateral neuroforaminal stenosis. ACT 112: Negative or not required by law. Electronically signed by: Derick Dubose M.D. 12/13/2023 4:50 PM Dictated: 12/13/23 1606 Transcribed: 12/13/23 1608 [facility], [place] [phone] Magnetic Resonance Report Patient: SUE COSTA Admit Date: 12/12/23 MR#: [id number] Address1: [address] Acct ID:[id number] Address2: [facility] Date: 1940 [facility] Zip: [place] [address] Age: 83 Location: 2E Sex: F Room/Bed: [facility] Att Phy: Ben Cox MD Diagnosis: INTRACTABLE RADICULAR PAIN Irene Phy: Tammi [place]iz[place] Service Date: 12/13/23 Fam Phy: Interpreting Phy: Diogo Moreno MDAdmit Phy: Ben Cox MD Ordering Phy: Naomie Moulton cc: ~ MRI OF THE PELVIS COMBO CLINICAL HISTORY: Bilateral buttock pain. COMPARISON STUDY: The pelvic CT dated 12/11/2023. TECHNIQUE: MRI of the pelvis is performed utilizing various T1 and T2-weighted sequences in the axial, sagittal, and coronal planes. Contrast enhanced sequences were acquired following the IV administration of 5 cc of Gadavist. The examination is compromised by motion artifact. FINDINGS: There is no MRI evidence of acute fracture involving the hips or bony pelvis. There is an acute to subacute superior endplate compression fracture of L3 with corresponding marrow edema. This is best on the coronal sequences. There is no avascular necrosis of the femoral heads. Mild arthritic change is seen in the hips and sacroiliac joints. No hip joint effusion is identified. No destructive bony lesion is seen. The regional musculature is normal and symmetric. The origin of the hamstrings tendons are intact. Lumbosacral spondylosis is partially imaged. The bladder is normal as visualized. Nabothian cysts are seen in the cervix. The endometrium is markedly dilated and filled thick enhancing septations. This measures up to 4.7 cm in diameter. No adnexal lesion is seen. There is no pelvic sidewall or inguinal lymphadenopathy. The visualized bowel loops show no evidence of obstruction. The iliac vessels appear patent. IMPRESSION: 1. Acute to subacute superior end plate compression fracture of L3. 2. No acute bony abnormality is seen involving the hips or pelvis. 3. Findings remain highly suspicious for an endometrial mass, with neoplasm the diagnosis of exclusion. Gynecology follow-up is recommend. 4. No pelvic lymphadenopathy or adnexal lesion is seen. Electronically signed by: Diogo Moreno M.D. 12/13/2023 4:26 PM Dictated: 12/13/23 1354 Transcribed: 12/13/23 1413 (1) Lumbar compression fracture Encounter type: subsequent encounter Lumbar vertebra fracture level: L3
[2023-12-14 08:52] LABS: Basophils # (auto) 0.02 K/uL (0.00-0.20); Basophils % (auto) 0.1 %; Eosinophils # (auto) 0.01 K/uL (0.00-0.50); Eosinophils % (auto) 0.1 %; Hematocrit (blood only) 34.8 % (37.0-47.0); Hemoglobin 11.6 g/dl (12.0-16.0); Immature Granulocytes # (auto) 0.11 K/uL (0.01-0.20); Immature Granulocytes % (auto) 0.6 %; Lymphocytes # (auto) 1.48 K/uL (1.20-3.40); Lymphocytes % (auto) 8.4 %; Mean Corpuscular Hemoglobin 28.7 pg (25.0-34.0); Mean Corpuscular Hgb Conc 33.3 g/dL (32.0-36.0); Mean Corpuscular Volume 86.1 fL (80.0-100.0); Mean Platelet Volume 9.7 fL (9.4-12.4); Monocytes # (auto) 0.81 K/uL (0.11-0.59); Monocytes % (auto) 4.6 %; Neutrophils # (auto) 15.09 K/uL (1.40-6.50); Neutrophils % (auto) 86.2 %; Platelet Count 415 K/uL (130-400); RDW Coefficient of Variation 14.3 % (11.5-14.5); Red Blood Count 4.04 M/uL (4.20-5.40); White Blood Count 17.52 K/ul (4.8-10.8)
[2023-12-14 09:09] LABS: BUN Creatinine Ratio 24.3 (10-20); Calcium 9.3 mg/dl (8.6-10.3); Creatinine Clr Calc Pharmacy 47.3 ml/min; Est GFR (African American) 92.2 ml/min; Est GFR (Non-African American) 79.6 ml/min; Potassium 4.3 mmol/L (3.5-5.1)
--- NOTE | 2023-12-14 12:55 | Hospitalist Progress Note ---
Date of Service December 14, 2023 Assessment & Plan (1) Lumbar radiculopathy: Plan: L3 compression fracture present on admission. This is acute or subacute. Pain control measures for now. Orthopedic spine surgery consultation appreciated. There is no need for kyphoplasty. Pain management has been consulted for consideration for injection therapy. The patient is not a good candidate for long-term narcotic therapy. She stated to me today that she is not interested in injections either. She is tolerating the prednisone trial well so far. This will gradually be tapered off. Continue OT and PT while hospitalized. Both recommend return to [facility]. (2) Endometrial mass: Plan: Incidental finding of abnormal uterine lining on CT of the abdomen. CUSTOMER SUCCESS SPECIALIST consultation appreciated. Pelvis MRI scan report noted. She denies dysfunctional uterine bleeding. Highly unlikely that this is contributing to her back pain (3) Hypertensive emergency: Plan: Present on admission. Blood pressure is much better on hydralazine which replaces lisinopril. Continue propranolol. Propranolol dosage was uptitrated today, December 13, due to sinus tachycardia. Thyroid profile is normal (4) Anxiety and depression: Plan: Stable. Continue current medical management (5) Perianal fistula: Plan: Patient was discharged on Augmentin on 12/09/23. She completed her Augmentin course this admission. Plan Anticipate eventual return to [facility]. Possibly tomorrow, December 14, prednisone taper Admission and Anticipated Discharge Date Admission Date: December 12, 2023 Subjective Alert and oriented at the time of my examination. However, earlier this morning the nurse was concerned that she was exhibiting some confusion. She is currently on oxygen at 2 L but repeat chest x-ray is unremarkable. EKG reveals mild sinus tachycardia which is not new for her. Propranolol dosages uptitrated. Hydralazine has helped considerably with her blood pressure. Hydralazine replaced lisinopril. Thyroid profile is normal. Orthopedic spine consultants asked pain management to see the patient but she tells me she has not interested in getting any injection therapy. She is not a good candidate for long-term narcotic therapy. She seems to be tolerating the prednisone trial quite well. Her white blood cell count has increased with prednisone therapy as expected. No evidence of infection at this time. Both OT and PT states that she can return to [place] at the time of discharge which hopefully will be in the next day or 2. Review of Systems 2 Review of Systems: Constitutional-no fever or chills ENT-no blurred vision, no double vision, no epistaxis, no sore throat Respiratory-no cough, no wheezing, no shortness of breath Cardiac-no palpitations, no chest pain, no syncope GI-no nausea, vomiting, diarrhea, melena, hematochezia -no urinary retention, no urinary incontinence, no dysuria, no hematuria Musculoskeletal-low back pain limiting ambulation. No muscle tenderness Skin-no bruising, no rashes, no pruritus Neuro-no isolated weakness, no paresthesia Psych-no depression, no anxiety Physical Exam 2 Physical Exam: General-alert and oriented x3, no fever, no chills HEENT-head atraumatic and normocephalic, pupils equal and reactive to light, extraocular muscles intact Neck-no lymphadenopathy or thyromegaly, trachea midline Chest-clear to auscultation. No rales, wheezing or rhonchi Cardiac-regular rate and rhythm, normal S1 and S2 Abdomen-normal bowel sounds, nontender, no hepatosplenomegaly Extremities-no cyanosis, clubbing, or edema Neuro-cranial nerves II through XII intact, motor and sensory function within normal limits, strength symmetrical, no focal deficits Psych-normal affect, normal mood Results & Data Results & Data Vital Signs (Past 12 Hours) Vital Signs Temp Pulse Pulse Resp BP Pulse Ox O2 Del Method 12/14/23 11:41 36.9 C 94 H 20 165/80 H 95 Nasal Cannula 12/14/23 08:32 36.9 C 109 H 22 152/78 H 92 Room Air 12/14/23 07:59 Nasal Cannula 12/14/23 06:52 184/88 H 12/14/23 06:24 36.9 C 82 17 207/113 H 96 Nasal Cannula 12/14/23 05:52 74 O2 Flow Rate 12/14/23 11:41 2 12/14/23 08:32 12/14/23 07:59 2 12/14/23 06:52 12/14/23 06:24 2 12/14/23 05:52 Laboratory Results 12/14/23 08:26 12/14/23 08:26 PG Care Time/CCT Total # of Minutes Spent Total Time Spent with Patient: Total time spent is greater than 50% in coordination of care (as documented) at patient's floor/unit and/or counseling patient: Coding Level of Care Code 03103 SUB INP/OBS CARE 50MIN Diagnoses Lumbar radiculopathy M54.16 Endometrial mass N94.89 Hypertensive emergency I16.1 Anxiety and depression F41.9; F32.A Perianal fistula K60.3
--- NOTE | 2023-12-14 14:29 | XRay Report ---
SINGLE VIEW CHEST CLINICAL HISTORY: Hypoxia. FINDINGS: An AP, portable, upright chest radiograph is compared to study dated 12/12/2023 and correlat ed with chest CT dated 05/10/2016. There is a hiatal hernia. The heart is enlarged and noting atherosc lerotic calcification of the thoracic aorta. The pulmonary vasculature is noncongested. Chronic inter stitial thickening is similar to previous. Foci of parenchymal scarring are seen throughout both lung s. The lungs and pleural spaces are otherwise clear. No pneumothorax is seen. The skeletal structures are osteopenic. There are chronic/healed left-sided rib fractures. Surgical clips project over the r ight lower chest. IMPRESSION: 1. Cardiomegaly with no active disease in the chest. 2. Hiatal hernia. ACT 112: Negative or not required by law. Electronically signed by: Diogo Moreno M.D. 12/14/2023 2:28 PM
--- NOTE | 2023-12-14 15:56 | Electrocardiogram Report ---
Test Reason : Blood Pressure : / mmHG Vent. Rate : 102 BPM Atrial Rate : 102 BPM P-R Int : 178 ms QRS Dur : 096 ms QT Int : 360 ms P-R-T Axes : -19 043 015 degrees QTc Int : 469 ms Sinus tachycardia Abnormal ECG When compared with ECG of 30-NOV-2023 09:44, ST no longer depressed in Inferior leads Confirmed by Miguel A Jacobson ([id number]) on 12/14/2023 3:56:19 PM Referred By: REFERRED SELF Confirmed By:Matthew Jacobson
[2023-12-15 03:15] VITALS: RESP 16
[2023-12-15 07:24] VITALS: TEMP 98.1; O2SAT 93
[2023-12-15] MEDS: PROPRANOLOL HCL 60 MG LA CAP PO SCH (08:35)
--- NOTE | 2023-12-15 10:34 | Pain Management Consultation ---
Date of Consultation December 15, 2023 Assessment & Plan (1) Sacroiliac joint pain: (2) Lumbar compression fracture: Encounter type: subsequent encounter Lumbar vertebra fracture level: L3 Fracture healing: with routine healing Qualified Code(s): S32.030D - Wedge compression fracture of third lumbar vertebra, subsequent encounter for fracture with routine healing Plan 1. Her current pain generator appears to likely represent underlying SI joint etiology based on physical exam findings. Patient does appear to be responding to prednisone therapy started over the past few days and is finding relief from as needed use of tramadol with Tylenol. Would recommend continuing with the prednisone and tramadol/Tylenol as prescribed 2. We did briefly discuss her potential candidacy for SI joint injection in the outpatient setting. This can be arranged at the pain clinic with persisting complaints of pain 3. She was encouraged to participate with PT/OT 4. Will add Lidoderm patch to the right SI joint location 5. Pain service will sign off on patient at this time. Patient may undergo outpatient pain evaluation with persisting in place for consideration of interventional treatment at her request. History of Present Illness Reason for Consultation: Intractable low back and right lower extremity pain Requesting Physician: Naomie Moulton PA-C Attending Physician: Ben Cox MD History of Present Illness Mrs. Rodriguez is an 83-year-old white female with multiple comorbid medical conditions who presented with complaint of intractable low back pain right greater than left-sided extending into the gluteal and hip/thigh location. She reports this pain has been ongoing for a few weeks only. She denies any falls or injuries. Patient is reporting that her current pain is intermittent and was worse with lying in bed. Her pain is slightly improved with sitting up and standing/walking. Patient has been to the bathroom multiple times this morning with moderate discomfort. She rates her pain a 4/10 at its best and 8/10 at its worst. She is finding tramadol to be effective at diminishing her pain without notable side effects. She denies any radiating or radicular pattern pain below the level of the knee. She denies any similar left lower radiating pain. She does have known acute to subacute L3 compression fracture but denies any midline axial pain. She did not participate in PT yesterday. She denies any notable weaknesses in the lower extremity, foot drop or falling. She denies bowel or bladder incontinence or saddle anesthesia. Patient reported no further constitutional complaints. Plan of care discussed with Dr. Kya Thomas. Pain Assessment Full Body Front + Back: 2 1. Axial low back across lumbosacral junction 2. Radiating pain to the gluteal, hip and proximal thigh location Pain scale - at its best (0-10): 4 Pain scale - at its worst (0-10): 8 Allergies Allergy/AdvReac Type Severity Reaction Status Date / Time povidone-iodine Allergy Mild RED RASH Verified 11/24/23 15:02 AND SKIN IRRITATION amoxicillin AdvReac Intermediate NAUSEA Verified 11/24/23 15:02 clavulanic acid AdvReac Intermediate NAUSEA Verified 11/24/23 15:02 doxycycline AdvReac Intermediate NAUSEA Verified 11/24/23 15:02 mometasone furoate AdvReac Intermediate NAUSEA Verified 11/24/23 15:02 nitrofurantoin AdvReac Intermediate nausea Verified 11/24/23 15:02 Sulfa (Sulfonamide AdvReac Mild NAUSEA/VOMI Verified 11/24/23 15:02 Antibiotics) TING Home Medications Medication Instructions Recorded Confirmed Type polyethylene glycol 3350 17 17 gm PO QAM 05/17/19 12/11/23 History gram/dose oral powder (Miralax) calcium carbonate 600 mg-vitamin 1 tab PO BIDM 06/04/19 12/11/23 History D3 5 mcg (200 unit) tablet docusate sodium 100 mg capsule 100 mg PO BID 06/04/19 12/11/23 History cholecalciferol (vitamin D3) 50 50 mcg PO QAM 03/03/21 12/11/23 History mcg (2,000 unit) capsule polyvinyl alcohol-povidone (PF) 1 drp OPB QID 08/14/21 12/11/23 History 1.4 %-0.6 % eye drops in a dropperette (Refresh Classic (PF)) sennosides 8.6 mg-docusate sodium 1 tab PO BID 10/15/22 12/11/23 History 50 mg tablet (Senna Plus) Flutter Valve #1 ea 10/26/22 11/24/23 Rx alendronate 70 mg tablet (Fosamax) 70 mg PO .weekly 10/26/22 12/11/23 History white petrolatum-mineral oil 57.3 1 applic OPB HS 11/01/22 12/11/23 History %-42.5 % eye ointment (Refresh P.M.) fluticasone propionate 50 1 spray intranasal DAILY #16 grams 03/14/23 12/11/23 Rx mcg/actuation nasal spray,suspension propranolol 80 mg capsule,24 80 mg PO QAM #90 caps 06/10/23 12/11/23 Rx hr,extended release citalopram 40 mg tablet (Celexa) 40 mg PO QAM #90 tabs 07/07/23 12/11/23 Rx tamoxifen 20 mg tablet 20 mg PO QAM #30 tabs 07/07/23 12/11/23 Rx mecobalamin (vitamin B12) 1,000 1,000 mcg sublingual DAILY #30 tabs 09/09/23 12/11/23 Rx mcg disintegrating tablet,sublingual mirtazapine 15 mg tablet (Remeron) 15 mg PO DAILY #90 tabs 10/06/23 12/11/23 Rx budesonide-formoterol HFA 160 2 puff inhalation BID #10.2 grams 10/29/23 12/11/23 Rx mcg-4.5 mcg/actuation aerosol inhaler buspirone 5 mg tablet 5 mg PO BID #180 tabs 11/01/23 12/11/23 Rx lorazepam 0.5 mg tablet (Ativan) 0.5 mg PO DAILY PRN anxiety #20 11/07/23 12/11/23 Rx tabs nystatin-triamcinolone 100,000 1 applic topical TID #30 grams 11/07/23 12/11/23 Rx unit/gram-0.1 % topical ointment diclofenac sodium 1 % topical gel 2 g topical QID #100 grams 11/24/23 12/11/23 Rx (Voltaren Arthritis Pain) cyclosporine 0.05 % eye drops in a 1 drp ophthalmic (eye) Q12H 11/30/23 12/11/23 History dropperette (Restasis) hydrocortisone 1 % topical cream 1 applic [place] BID 10 days #28.4 grams 11/30/23 12/11/23 Rx with perineal applicator nystatin 100,000 unit/gram topical 1 applic topical DAILY PRN Rash 11/30/23 12/11/23 History cream Spacer for Inhaler #1 ea 12/09/23 Rx acetaminophen 500 mg capsule 1,000 mg (2 x 500 mg) PO TID pain 12/09/23 12/11/23 Rx 14 days #84 caps albuterol sulfate 90 mcg/actuation 2 puff inhalation QIDR PRN 12/09/23 12/11/23 Rx aerosol inhaler (Ventolin HFA) cough/wheeze/shortness of breath #6.7 grams amoxicillin 875 mg-potassium 1 tab PO BID #8 tabs 12/09/23 12/11/23 Rx clavulanate 125 mg tablet celecoxib 100 mg capsule (Celebrex) 100 mg PO DAILY 7 days #7 caps 12/09/23 12/11/23 Rx guaifenesin 600 mg tablet, 600 mg PO BID 7 days #14 tabs 12/09/23 12/11/23 Rx extended release 12 hr (Mucinex) lidocaine 4 % topical cream 1 applic EXT TID PRN rectal pain 12/09/23 12/11/23 Rx (Anecream) #15 grams lisinopril 5 mg tablet 5 mg PO BID #60 tabs 12/09/23 12/11/23 Rx tramadol 50 mg tablet 50 mg PO Q8H PRN pain #30 tabs 12/09/23 12/11/23 Rx Pain History Pain Intensity Pain scale - at its best (0-10): 4 Pain scale - at its worst (0-10): 8 Patient History Medical History (Updated 12/15/23 @ 11:36 by Scot Ho PA-C) Sacroiliac joint pain Anxiety and depression Bronchiectasis Subdural hematoma H/O malignant neoplasm of breast History of basal cell cancer Acute subdural hematoma Hypertension Surgical History S/P knee surgery S/P dilation and curettage S/P breast lumpectomy Family History Father Hypertension Stroke Unknown Cancer Denies family history of Colon cancer Ovarian cancer Prostate cancer Myocardial infarction Breast cancer Social History Smoking Status: Never smoker Second Hand Exposure: Yes; Do You Dip or Chew Tobacco: No; Hx Alcohol Use: No Hx Substance Use: No Preferred Language: Mosotho Communication Ability: Effective Visual Impairment: No Limitations Hearing Ability: Normal Actuary Manager Required: No Beliefs That Will Affect Care: None marital status: Current Living Situation: Personal Care Facility Current Living Situation Comment: [facility] current occupational status: retired How many Children do You have: 2 Feels Safe at Home: Yes Childhood Exposure to Second-Hand Smoke: No Dental Care, Regularly: Yes Physical Activity Frequency: 1-2 Times per Week Seatbelt Use: always Sunscreen Use: Yes Assistive Devices: Walker Physical Exam 2 Physical Exam: General: Patient sitting quietly in exam room in no acute distress. Speech and thought process appropriate. Mood and affect appropriate. Cognition intact. Patient has a notable resting tremor of the upper extremities left greater than right-sided. Head: Normocephalic and atraumatic. ENT: No evidence of nasal or oral mucosal lesions. Mucous membranes are moist. Eyes: Pupils equal round reactive to light. Neck: Supple without adenopathy and full range of motion. Abdomen: Soft and nondistended. No organomegaly. Bowel sounds active. Back/spine: Loss of lumbar lordosis. Nontender over the midline of the lumbar spine to palpation or percussion. No focal facet joint tenderness to provocative testing. Moderately tender over the right lower lumbar paravertebral musculature nontender on the left. Patient is tender to provocative testing over the SI joints bilaterally right greater than left- sided. Lower extremities: SLR negative bilaterally. Strength testing 4+/5 throughout without focal deficit. SLR negative bilaterally. Modified Keo maneuver was equivocal on the right negative on the left. Hip is nontender with internal/external rotation. Sensation intact without deficit. Neurologic: Cranial nerves grossly intact. Ambulatory function not witnessed. Results (Pain Clinic) Diagnostic Review MRI Findings: [facility], [place] [phone] Magnetic Resonance Report Patient: SUE RODRIGUEZ Admit Date: 12/12/23 MR#: [id number] Address1: [address] [place] [address] [address] Tijerina ID:[id number] Address2: [facility] Date: 1940 [facility] Zip: [place] [address] Age: 83 Location: 2E Sex: F Room/Bed: [facility] Att Phy: Ben Cox MD Diagnosis: INTRACTABLE RADICULAR PAIN Irene Phy: Tani Ruiz Service Date: 12/13/23 [facility] Phy: Interpreting Phy: Derick Dubose MDAdmit Phy: Ben Cox MD Ordering Phy: Naomie Moulton cc: ~ MR lumbar spine wo/w con CLINICAL HISTORY: eval L3 fx acuity, stenosis, ?mets TECHNIQUE: 3 plane localizer images, sagittal T2, sagittal T1, sagittal STIR, axial T1, axial T2 along with postcontrast axial T1 and sagittal T1 fat- saturated sequences were obtained of the lumbar spine, before and after intravenous administration of 12 mL of MultiHance. Comparison: Comparison is made to CT abdomen pelvis 12/11/2023 FINDINGS: There is a wedge fracture of the L3 vertebral body with approximately 25% loss of height and edema noted. The posterior elements are. L1-L2: Broad-based posterior disc bulge ligamentum flavum hypertrophy result in mild canal stenosis and moderate bilateral neuroforaminal stenosis. L2-L3: Broad-based posterior disc bulge results in severe canal stenosis, AP diameter is 6 mm, and severe bilateral neural foraminal stenosis. L3-L4: Broad-based posterior disc bulge is seen with mild canal stenosis and moderate bilateral neural foraminal stenosis. L4-L5: Broad base posterior disc bulge is seen with facet arthropathy resulting in moderate bilateral foraminal stenosis. L5-S1: Bilateral facet arthropathy results in moderate bilateral neural foraminal stenosis. The spinal ligaments are intact, without evidence of disruption or abnormal signal intensity. The spinal cord is normal in signal intensity and there is no evidence of cord contusion. There is no evidence of an extradural, intradural, extramedullary or intramedullary lesion. Visualized soft tissues are normal. IMPRESSION: 1. Subacute appearing wedge fracture of the L3 vertebral body without involvement of the posterior elements. 2. Multilevel degenerative changes with up to severe canal stenosis, AP diameter 6 mm, and severe bilateral neuroforaminal stenosis. ACT 112: Negative or not required by law. Electronically signed by: Derick Dubose M.D. 12/13/2023 4:50 PM Dictated: 12/13/23 1606 Transcribed: 12/13/23 1608 [facility], [place] [phone] Magnetic Resonance Report Patient: SUE RODRIGUEZ Admit Date: 12/12/23 MR#: [id number] Address1: [address] Acct ID:[id number] Address2: [facility] Date: 1940 [facility] Zip: [place] [address] Age: 83 Location: 2E Sex: F Room/Bed: [facility] Att Phy: Ben Cox MD Diagnosis: INTRACTABLE RADICULAR PAIN Irene Phy: Tani Ruiz Service Date: 12/13/23 Fam Phy: Interpreting Phy: Diogo Moreno MDAdmit Phy: Ben Cox MD Ordering Phy: Naomie Moulton cc: ~ MRI OF THE PELVIS COMBO CLINICAL HISTORY: Bilateral buttock pain. COMPARISON STUDY: The pelvic CT dated 12/11/2023. TECHNIQUE: MRI of the pelvis is performed utilizing various T1 and T2-weighted sequences in the axial, sagittal, and coronal planes. Contrast enhanced sequences were acquired following the IV administration of 5 cc of Gadavist. The examination is compromised by motion artifact. FINDINGS: There is no MRI evidence of acute fracture involving the hips or bony pelvis. There is an acute to subacute superior endplate compression fracture of L3 with corresponding marrow edema. This is best on the coronal sequences. There is no avascular necrosis of the femoral heads. Mild arthritic change is seen in the hips and sacroiliac joints. No hip joint effusion is identified. No destructive bony lesion is seen. The regional musculature is normal and symmetric. The origin of the hamstrings tendons are intact. Lumbosacral spondylosis is partially imaged. The bladder is normal as visualized. Nabothian cysts are seen in the cervix. The endometrium is markedly dilated and filled thick enhancing septations. This measures up to 4.7 cm in diameter. No adnexal lesion is seen. There is no pelvic sidewall or inguinal lymphadenopathy. The visualized bowel loops show no evidence of obstruction. The iliac vessels appear patent. IMPRESSION: 1. Acute to subacute superior end plate compression fracture of L3. 2. No acute bony abnormality is seen involving the hips or pelvis. 3. Findings remain highly suspicious for an endometrial mass, with neoplasm the diagnosis of exclusion. Gynecology follow-up is recommend. 4. No pelvic lymphadenopathy or adnexal lesion is seen. Electronically signed by: Diogo Moreno M.D. 12/13/2023 4:26 PM Dictated: 12/13/23 1354 Transcribed: 12/13/[address] Findings: [place], [place] [phone] CT Scan Report Patient: SUE RODRIGUEZ Admit Date: 11/30/23 MR#: [id number] Address1: [address] [facility] Acct ID:[id number] Address2: Date: 1940 [facility] Zip: [place] [address] Age: 83 Location: 3N Sex: F Room/Bed: 82 Att Phy: Jules Judd MD Diagnosis: PERIRECTAL PHELGMON, HYPERTENSIVE URGENCY Irene Phy: Tani Ruiz Service Date: 12/08/23 Fam Phy: Justin Garg MD Interpreting Phy: Ra Novoa [facility] Phy: Vianca Cloud MD Ordering Phy: Jules Judd MD cc: ~ CT OF THE LUMBAR SPINE CLINICAL HISTORY: L2/L3 radiculopathy, stenosis, pain COMPARISON STUDY: Lumbar spine MRI August 09, 2018. Lumbar spine radiographs November 24, 2023. TECHNIQUE: Helical axial images of the lumbar spine were obtained. Sagittal and coronal reconstructions were viewed. Automated exposure control was utilized for the study. A dose lowering technique was utilized adhering to the principles of ALARA. FINDINGS: For purposes of numbering on this exam, the L5-S1 disc space is assigned to axial image 269 of 364. There is moderate lumbar spine levoscoliosis. There is an acute to subacute compression fracture of the superior plate of L3 with 20% loss of vertebral body height. No significant associated retropulsion. Fracture slightly extends into the bilateral pedicles. No additional lumbar spine fractures are present. Severe multilevel facet arthrosis, disc space narrowing and osteophytosis is present. The central canal and neural foramen are suboptimally assessed given CT technique. Suspected moderate to severe central canal stenosis at L2-L3. There is moderate multilevel neural foraminal stenosis. Small left pleural effusion is incidentally noted. Partially visualized hernia with intrathoracic stomach. Mild right lower lobe airspace opacities are present. There is a 2 mm right renal calculus. As described on prior studies, marked endometrial thickening is partially imaged on this study. IMPRESSION: 1. Acute to subacute mild compression fracture of the superior endplate of L3. No additional lumbar spine fractures. 2. Moderate multilevel degenerative disc disease and severe facet arthrosis within the lumbar spine. Suspected moderate to severe central canal stenosis at L2-L3. 3. Moderate lumbar spine levoscoliosis. 4. Endometrial thickening, abnormal in a postmenopausal patient. Nonemergent gynecologic consultation is recommended. ACT 112: Negative or not required by law. Electronically signed by: Ra Novoa M.D. 12/08/2023 4:07 PM Dictated: 12/08/23 1558 Transcribed: 12/08/23 1558
--- NOTE | 2023-12-15 12:18 | Discharge Summary ---
Date of Service December 15, 2023 Admission HPI Per Admitting Provider Julia is an 83-year-old female with PMH of tension headache, and HTN emergency, subdural hematoma, osteoporosis, orthostatic hypotension, lumbar radiculopathy, HLD, anxiety depression, benign familial tremor, and perianal fistula. She presented for intractable radicular pain since her discharge from [facility] on 12/08. The pain is located near her sacrum/rectum, with radiation down both legs bilaterally to the thighs. She describes it as a sharp, intermittent pain, that she rates a 9/10 at its worst. Worse with movement. She denies saddle anesthesia. Last BM was yesterday on 12/09, but she does note moderate pain with BMs. Hx of hemorrhoids and constipation. No blood in the urine/stool. Patient has been taking Tylenol (two 5 mg tablets 3 times per day) which has been helping with her pain, but not fully alleviating it. She did not take any of her regular morning medications today; no recent change in medications. She does note that she wears glasses at baseline, and is concerned that she left them back at [facility] where she is from. Patient is feeling very anxious at time of admission. She reports that she does have a good support system with her 2 daughters who live in [facility]. No supplemental oxygen at home. No CPAP. Patient uses a walker at baseline; denies any recent falls, or injury/trauma to the legs or back. She does note she has had some ambulatory dysfunction due to the radicular pain. Patient denies smoking, tobacco use, and alcohol use. She is hypertensive at 165/84 at time of admission; vitals otherwise stable. ED course: Morphine sulfate 1 mg IV x 2 Acetaminophen 1000 mg IV NSS 500 mL IV ROS: Patient endorses pain just above the rectum shooting down her legs b/l, ambulatory dysfunction, productive cough, and tremor in both hands (chronic). Patient denies fever, chills, night-sweats, dizziness/lightheadedness, CURRIE, chest pain, SOB, pleuritic CP, hemoptysis, abdominal pain, N/V/D, saddle anesthesia, or numbness/tingling going down the legs. Principal Diagnosis Acute L3 compression fracture, lumbar stenosis with radiculopathy, possible uterine cancer Discharge Exam General-alert and oriented x3, no fever, no chills HEENT-head atraumatic and normocephalic, pupils equal and reactive to light, extraocular muscles intact Neck-no lymphadenopathy or thyromegaly, trachea midline Chest-clear to auscultation. No rales, wheezing or rhonchi Cardiac-regular rate and rhythm, normal S1 and S2 Abdomen-normal bowel sounds, nontender, no hepatosplenomegaly Extremities-no cyanosis, clubbing, or edema Neuro-cranial nerves II through XII intact, motor and sensory function within normal limits, strength symmetrical, no focal deficits Psych-normal affect, normal mood Discharge Data Allergies Allergy/AdvReac Type Severity Reaction Status Date / Time povidone-iodine Allergy Mild RED RASH Verified 11/24/23 15:02 AND SKIN IRRITATION amoxicillin AdvReac Intermediate NAUSEA Verified 11/24/23 15:02 clavulanic acid AdvReac Intermediate NAUSEA Verified 11/24/23 15:02 doxycycline AdvReac Intermediate NAUSEA Verified 11/24/23 15:02 mometasone furoate AdvReac Intermediate NAUSEA Verified 11/24/23 15:02 nitrofurantoin AdvReac Intermediate nausea Verified 11/24/23 15:02 Sulfa (Sulfonamide AdvReac Mild NAUSEA/VOMI Verified 11/24/23 15:02 Antibiotics) TING Consultations 12/11/23 13:20 ED Decision to Admit Stat 12/12/23 10:01 Consult Orthopedic Spine Surgery Routine 12/12/23 11:47 Consult Gynecology Routine 12/14/23 08:29 Consult Pain Management Routine Ordered Studies 12/11/23 08:52 CT abd pelvis IV con only Stat 12/13/23 14:26 MR lumbar spine wo/w con Routine MR pelvis wo/w con Routine Hospital Course (1) Lumbar radiculopathy: L3 compression fracture present on admission. This is acute or subacute. Pain control measures for now. Orthopedic spine surgery consultation appreciated. There is no need for kyphoplasty. Pain management consult appreciated. Lidoderm patch has been added. Continue prednisone and tapering dose fashion. The patient refuses injection therapy while hospitalized. Continue OT and PT while hospitalized. Both recommend return to [facility]. (2) Endometrial mass: Incidental finding of abnormal uterine lining on CT of the abdomen. [facility] consultation appreciated. Pelvis MRI scan report noted. She denies dysfunctional uterine bleeding. Highly unlikely that this is contributing to her back pain. She will follow-up with [facility] as an outpatient (3) Hypertensive emergency: Present on admission. Blood pressure is much better on hydralazine which replaces lisinopril. Continue propranolol. Propranolol dosage was uptitrated on December 13 and again today, December 14, for better blood pressure control. Thyroid profile is normal (4) Anxiety and depression: Stable. Continue current medical management (5) Perianal fistula: Patient was discharged on Augmentin on 12/09/23. She completed her Augmentin course this admission. Plan Discharge back to [facility] today, December 14. She has an appointment with her PCP tomorrow, December 15 Total Time Total Time Spent Total Time Spent (In Minutes): 45 minutes Discharge Plan Discharge Items Patient Disposition: Personal Jail Reason For Visit: INTRACTABLE RADICULAR PAIN Discharge Diagnosis: Acute L3 compression fracture, lumbar stenosis with radiculopathy. Suspected uterine cancer Activity: Resume your previous activity Non-emergency contact: Primary Care Provider Call non-emergency contact if: you have any medication questions and your symptoms worsen Follow-up/Referrals: Tani Ruiz [Primary Care Provider] - Diet: Regular Addtl Attending Provider Instructions: Take prednisone in a tapering dose fashion as directed until off. Use Lidoderm patches daily to the low back pain area. Propranolol dosage has been increased for better heart rate and blood pressure control. Lisinopril has been switched to hydralazine for better blood pressure control Pending Studies at Discharge: No Stand-Alone Forms: My [employer], Smoking Cessation Skilled Items Patient informed of condition?: Yes DNR: Yes Discharge Level of Care: Other Communicable Disease: No Discharge Prognosis: Stable Lines: None Urinary Catheter: No Medications and DC Order Prescriptions: New hydralazine 10 mg Tablet 10 mg PO QID Qty: 100 0RF prednisone 10 mg Tablet See Rx Instructions .ROUTE .COMPLEX Qty: 12 0RF Rx Instructions: 10 mg orally 3 times a day for 2 days, then 10 mg twice a day for 2 days, then 10 mg once a day for 2 days, then stop tramadol 50 mg Tablet 50 mg PO Q6H PRN (Reason: pain) Qty: 20 0RF calcitonin (salmon) 200 unit/actuation [employer],Non-Aerosol 1 spray NA DAILY Qty: 30 0RF propranolol 80 mg Capsule,Extended Release 24hr 160 mg PO QAM Qty: 30 0RF lidocaine 5 % Adhesive Patch,Medicated 1 patch transdermal QAM Qty: 20 0RF Continued polyethylene glycol 3350 [Miralax] 17 gram/dose powder 17 gm PO QAM sennosides-docusate sodium [Senna Plus] 8.6-50 mg tablet 1 tab PO BID Patient Comments: gave verbal to 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 mirtazapine [Remeron] 15 mg tablet 15 mg PO DAILY Qty: 90 1RF budesonide-formoterol 160-4.5 mcg/actuation HFA aerosol inhaler 2 puff inhalation BID Qty: 10.2 2RF Rx Instructions: Needs generic, not symbicort buspirone 5 mg tablet 5 mg PO BID Qty: 180 1RF nystatin-triamcinolone 100,000-0.1 unit/gram-% ointment 1 applic topical TID Qty: 30 2RF Rx Instructions: apply a generous amount to vulva lorazepam [Ativan] 0.5 mg tablet 0.5 mg PO DAILY PRN (Reason: anxiety) Qty: 20 0RF hydrocortisone 1 % cream with perineal applicator 1 applic VT BID 10 Days Qty: 28.4 0RF docusate sodium 100 mg capsule 100 mg PO BID calcium carbonate-vitamin D3 600 mg(1,500mg) -200 unit tablet 1 tab PO BIDM alendronate [Fosamax] 70 mg tablet 70 mg PO .weekly Rx Instructions: wednesdays (DME) Flutter Valve Device See Rx Instructions .MEDSUPPLY Qty: 1 0RF Rx Instructions: Use it every 6 hours when awake. mecobalamin (vitamin B12) 1,000 mcg tablet,disintegrating 1,000 mcg sublingual DAILY Qty: 30 5RF Rx Instructions: place tablet under tongue and allow to dissolve for at least30 secs before swallowing cholecalciferol (vitamin D3) 50 mcg (2,000 unit) capsule 50 mcg PO QAM diclofenac sodium [Voltaren Arthritis Pain] 1 % gel 2 g topical QID Qty: 100 2RF Hold Instructions: please hold until the 1 week of celebrex course is complet e. Rx Instructions: apply to single elbow, wrist or hand; for hand includes palm/fingers/back of hand Refresh Classic (PF) 1.4-0.6 % Dropperette 1 drp OPB QID Refresh P.M. 57.3-42.5 % Ointment 1 applic OPB HS nystatin 100,000 unit/gram Cream 1 applic TOPICAL DAILY PRN (Reason: Rash) cyclosporine [Restasis] 0.05 % Dropperette 1 drp OPHTHALMIC (EYE) Q12H albuterol sulfate [Ventolin HFA] 90 mcg/actuation Hfa Aerosol Inhaler 2 puff inhalation QIDR PRN (Reason: cough/wheeze/shortness of breath) Qty: 6.7 0RF Rx Instructions: use with spacer device amoxicillin-pot clavulanate 875-125 mg Tablet 1 tab PO BID Qty: 8 0RF lidocaine [Anecream] 4 % Cream 1 applic EXT TID PRN (Reason: rectal pain) Qty: 15 0RF celecoxib [Celebrex] 100 mg Capsule 100 mg PO DAILY 7 Days Qty: 7 0RF (DME) Spacer for Inhaler Misc See Rx Instructions .Route Qty: 1 0RF Rx Instructions: As directed tramadol 50 mg tablet 50 mg PO Q8H PRN (Reason: pain) Qty: 30 0RF acetaminophen 500 mg capsule 1,000 mg PO TID MDD 3g 14 Days Qty: 84 0RF guaifenesin [Mucinex] 600 mg tablet extended release 12hr 600 mg PO BID 7 Days Qty: 14 0RF Discontinued propranolol 80 mg capsule,extended release 24hr 80 mg PO QAM Qty: 90 3RF lisinopril 5 mg tablet 5 mg PO BID Qty: 60 2RF Discharge Orders: Discharge Order (Routine); Ordered 12/15/23 Ordered By: Ben Cox Admission Data Admit Date/Time: 12/12/23 10:02 Attending Provider: Ben Cox Admit Provider: Ben Cox Primary Care Provider: Tani Ruiz Other Providers: Gavin Mack; Ilan Elias; Aliza Pena; Rachael Gayle; Jodi Bella; Cate Currie; Lila Berry; Jd Gilman; Yina Reich; Marichuy Francois; Berta Braswell; Joselyn Cronin; Enmanuel Becerril; Scot Ho; Kya Thomas; Ranjeet Mcgregor; Jie Hightower; Brant Smith Coding Level of Care Code 72053 INP/OBS DISCH >30 MIN Diagnoses Lumbar radiculopathy M54.16 Endometrial mass N94.89 Hypertensive emergency I16.1 Anxiety and depression F41.9; F32.A Perianal fistula K60.3
[2023-12-15] MEDS: LIDOCAINE 5% 1 PATCH TD SCH (13:30)
[2023-12-15 14:05] VITALS: BP 129/69; PULSE 85
[2023-12-16] MEDS ORDERED: PROPRANOLOL HCL LA 80 MG CAPCR PO SCH (09:00)
== END 2023-12-15 14:58 | disposition home or self-care (01) | DRG 543 ==
LOC: ED 08:01 → 2E 08:01 → SUATTDRO 14:32 → 2E 18:02

== ENCOUNTER 2023-12-23 07:58 | Inpatient (IN) ==
--- NOTE | 2023-12-23 08:14 | Emergency Department Note ---
Impression & Plan Hypoxia, Anemia, Acute right hip pain, Pneumonia, Cough ED Provider Note NAME: SUE COSTA AGE: 83 SEX: F : 1940 ARRIVES VIA: Ambulance INFORMANT: [Patient][nursing] ED PROVIDER(S): [Diogo Thomas MD] CHIEF COMPLAINT: Back pain HISTORY OF PRESENT ILLNESS: The patient is an 83-year-old female who was evaluated in this ER 4 days ago after a fall. CT imaging of the head was unremarkable. She was discharged back to her care facility. Patient has a history of some lower back pain and pain in the right hip. Things have worsened for her with regards to discomfort. She was having pain before the fall but now has increased pain since the fall. The pain is in the low back on the right and into the right hip and leg. Tramadol and Tylenol are not helping. The patient is able to urinate without difficulty. She has not had fever. She apparently has developed a cough as per her daughter. The patient does have a history of compression fracture previously, she has a history of subdural bleeding. No falls since discharge from this ER 4 days ago. PMHx/PSHx/Social Hx: See Below PHYSICAL EXAM: GENERAL: Patient is in no acute distress. HEENT: No acute trauma, normocephalic atraumatic, mucous membranes moist, no nasal congestion. NECK: No stridor, no adenopathy, no meningismus, trachea is midline. LUNGS: Clear to auscultation bilaterally when listening anterior, no wheeze, no rhonchi, breath sounds equal. HEART: Without murmurs gallops or rubs, regular rate and rhythm. ABDOMEN: Soft, nontender, no peritonitis. EXTREMITIES: No cyanosis. There is some mild discomfort with movement of the right hip. There is no right lower extremity deformity. She is tender to palpate the right lateral hip. NEUROLOGIC: Awake and alert, no acute motor or sensory deficits, no focal weakness. SKIN: No jaundice, no diaphoresis. DIFFERENTIAL DIAGNOSIS: Fracture, sprain, strain, nerve impingement, contusion, arthritis, lumbar disc disease, pneumonia, UTI, among others. EMERGENCY DEPARTMENT PROCEDURES: MEDICAL DECISION MAKING: There is no leukocytosis. The patient is anemic however, her value today appears to be within her baseline range. There is a normal platelet count. No renal failure or significant electrolyte abnormality. No concerning liver enzyme elevation. Urinalysis does not show infection. COVID, influenza and RSV test were negative. Chest x-ray shows some chronic changes, nothing appears acute. CT imaging of the lumbar spine, abdomen pelvis and right hip were performed. No acute fractures were seen. No bowel obstruction noted. Pneumonia was thought present in the lower lung anderson bilaterally. As per the nursing staff, the patient did demonstrate some hypoxia here in the ED, she was placed on nasal cannula oxygen. Patient was ordered for her typical morning BP meds. She was given oral propranolol and oral hydralazine. She received IV ceftriaxone as antibiotic therapy. She received IV Toradol, IV morphine and IV Zofran. She was given IV saline, 500 cc. The patient presents with increasing right hip pain to the point where she cannot function. This is despite pain medication prescribed outpatient. She was found to be hypoxic here and may have a bilateral pneumonia. Aspiration was thought a possibility. Given these 2 findings, I do think the patient requires a hospital stay. Further workup and care is warranted. I spoke with the patient and case management. I did speak with the patient's daughter Guillermina over the phone. The on-call hospitalist was consulted. Prior/Outside records/notes reviewed: Today's EMS notes describing her presentation and transport to this hospital. Imaging/x-ray results per my interpretation: Chest x-ray shows some chronic lung change. I see no obvious pneumonia or CHF. Chronic Medical/Social conditions affecting care: Advanced age. Care/Management discussed with: Case management, the on-call hospitalist. Level of care consideration(s): After review of the information above and other included data: --I believe the patient requires escalation of care to admission DISPOSITION: Admission Past Med/Surg History Medical History Sacroiliac joint pain Anxiety and depression Bronchiectasis Subdural hematoma H/O malignant neoplasm of breast History of basal cell cancer Acute subdural hematoma Hypertension Surgical History S/P knee surgery S/P dilation and curettage S/P breast lumpectomy Family History Father Hypertension Stroke Unknown Cancer Denies family history of Colon cancer Ovarian cancer Prostate cancer Myocardial infarction Breast cancer Social History Smoking Status: Unknown if ever smoked Second Hand Exposure: Yes; Do You Dip or Chew Tobacco: No; Hx Alcohol Use: No Hx Substance Use: No Preferred Language: German Communication Ability: Effective Visual Impairment: No Limitations Hearing Ability: Normal Planer Offbearer Required: No Beliefs That Will Affect Care: None marital status: Current Living Situation: Personal Care Facility Current Living Situation Comment: [facility] current occupational status: retired How many Children do You have: 2 Feels Safe at Home: Yes Childhood Exposure to Second-Hand Smoke: No Dental Care, Regularly: Yes Physical Activity Frequency: 1-2 Times per Week Seatbelt Use: always Sunscreen Use: Yes Assistive Devices: Walker Allergies Allergies Allergy/AdvReac Type Severity Reaction Status Date / Time povidone-iodine Allergy Mild RED RASH Verified 12/19/23 15:55 AND SKIN IRRITATION amoxicillin AdvReac Intermediate NAUSEA Verified 12/19/23 15:55 clavulanic acid AdvReac Intermediate NAUSEA Verified 12/19/23 15:55 doxycycline AdvReac Intermediate NAUSEA Verified 12/19/23 15:55 mometasone furoate AdvReac Intermediate NAUSEA Verified 12/19/23 15:55 nitrofurantoin AdvReac Intermediate nausea Verified 12/19/23 15:55 Sulfa (Sulfonamide AdvReac Mild NAUSEA/VOMI Verified 12/19/23 15:55 Antibiotics) TING Home Meds Home Medications Medication Instructions Recorded Confirmed polyethylene glycol 3350 17 17 gm PO QAM 05/17/19 12/23/23 gram/dose oral powder (Miralax) calcium carbonate 600 mg-vitamin 1 tab PO BIDM 06/04/19 12/23/23 D3 5 mcg (200 unit) tablet docusate sodium 100 mg capsule 100 mg PO BIDM 06/04/19 12/23/23 cholecalciferol (vitamin D3) 50 50 mcg PO QAM 03/03/21 12/23/23 mcg (2,000 unit) capsule polyvinyl alcohol-povidone (PF) 1 drp OPB QID 08/14/21 12/23/23 1.4 %-0.6 % eye drops in a dropperette (Refresh Classic (PF)) sennosides 8.6 mg-docusate sodium 1 tab PO BID 10/15/22 12/23/23 50 mg tablet (Senna Plus) alendronate 70 mg tablet (Fosamax) 70 mg PO WK 10/26/22 12/23/23 white petrolatum-mineral oil 57.3 1 applic OPB HS 11/01/22 12/23/23 %-42.5 % eye ointment (Refresh P.M.) cyclosporine 0.05 % eye drops in a 1 drp ophthalmic (eye) Q12H 11/30/23 12/23/23 dropperette (Restasis) acetaminophen 500 mg tablet 500 mg PO .@1200,1900 Pain 12/19/23 12/23/23 (Tylenol Extra Strength) budesonide-formoterol HFA 160 2 puff inhalation BID17 12/19/23 12/23/23 mcg-4.5 mcg/actuation aerosol inhaler buspirone 5 mg tablet 5 mg PO BIDM 12/19/23 12/23/23 polyethylene glycol 3350 17 17 g PO .1-2XDAILY PRN Constipation 12/19/23 12/23/23 gram/dose oral powder (Miralax) tramadol 50 mg tablet 50 mg PO BID 12/19/23 12/23/23 acetaminophen 500 mg capsule 1,000 mg PO AMHS pain 12/23/23 12/23/23 lidocaine 5 %-phenylephrine 0.25 1 applic topical TID PRN rectal 12/23/23 12/23/23 %-glycern 14.4 %-petrolatm 15 % pain cream (Preparation H Rapid Relief-Lidocaine) Previous Rx's Medication Instructions Recorded Flutter Valve #1 ea 10/26/22 fluticasone propionate 50 1 spray intranasal DAILY #16 grams 03/14/23 mcg/actuation nasal spray,suspension citalopram 40 mg tablet (Celexa) 40 mg PO QAM #90 tabs 07/07/23 mecobalamin (vitamin B12) 1,000 1,000 mcg sublingual DAILY #30 tabs 09/09/23 mcg disintegrating tablet,sublingual mirtazapine 15 mg tablet (Remeron) 15 mg PO DAILY #90 tabs 10/06/23 lorazepam 0.5 mg tablet (Ativan) 0.5 mg PO DAILY PRN anxiety #20 11/07/23 tabs nystatin-triamcinolone 100,000 1 applic topical TID #30 grams 11/07/23 unit/gram-0.1 % topical ointment Spacer for Inhaler #1 ea 12/09/23 albuterol sulfate 90 mcg/actuation 2 puff inhalation QIDR PRN 12/09/23 aerosol inhaler (Ventolin HFA) cough/wheeze/shortness of breath #6.7 grams lidocaine 5 % topical patch 1 patch transdermal QAM #20 ea 12/15/23 hydralazine 10 mg tablet 5 mg (1/2 x 10 mg) PO QID #100 tabs 12/16/23 propranolol 80 mg capsule,24 80 mg PO QAM #30 caps 12/16/23 hr,extended release Results & Data (ED) Vital Signs Vital Signs - 24 hr 12/23/23 08:07 12/23/23 08:30 12/23/23 08:43 Temperature 36.8 C Temperature Source Oral Pulse Rate 87 78 Pulse Rate [Apical] 81 Pulse Rhythm [Apical] Regular Pulse Strength [Apical] Normal Respiratory Rate 18 18 Respiratory Effort / Characteristics Non-Labored Spontaneous Non-Labored Spontaneous Respiratory Depth Normal Normal Blood Pressure 151/73 H Blood Pressure [Right Arm] 181/89 H Blood Pressure Mean 99 Blood Pressure Mean [Right Arm] 119 Blood Pressure Position Semi-fowlers Blood Pressure Position [Right Arm] Semi-fowlers Pulse Oximetry 92 94 Oxygen Delivery Method Room Air Room Air Oxygen Flow Rate Sepsis Recent Fever Within 48 Hours No Sepsis New/Unexplained Change in Mental Status N/A Sepsis Action Taken by Nursing No Action Required 12/23/23 10:00 12/23/23 11:14 12/23/23 11:15 Temperature Temperature Source Pulse Rate Pulse Rate [Apical] 83 83 80 Pulse Rhythm [Apical] Regular Pulse Strength [Apical] Normal Respiratory Rate 18 18 Respiratory Effort / Characteristics Non-Labored Non-Labored Spontaneous Respiratory Depth Normal Normal Blood Pressure Blood Pressure [Right Arm] 207/92 H 202/91 H Blood Pressure Mean Blood Pressure Mean [Right Arm] 130 128 Blood Pressure Position Blood Pressure Position [Right Arm] Semi-fowlers Semi-fowlers Pulse Oximetry 92 87 L 98 Oxygen Delivery Method Nasal Cannula Room Air Nasal Cannula Oxygen Flow Rate 1 2 Sepsis Recent Fever Within 48 Hours Sepsis New/Unexplained Change in Mental Status Sepsis Action Taken by Nursing 12/23/23 12:30 12/23/23 14:09 Temperature Temperature Source Pulse Rate 82 Pulse Rate [Apical] 87 Pulse Rhythm [Apical] Pulse Strength [Apical] Respiratory Rate 20 Respiratory Effort / Characteristics Non-Labored Respiratory Depth Normal Blood Pressure Blood Pressure [Right Arm] 230/115 H Blood Pressure Mean Blood Pressure Mean [Right Arm] 153 Blood Pressure Position Blood Pressure Position [Right Arm] Pulse Oximetry 94 Oxygen Delivery Method Room Air Oxygen Flow Rate Sepsis Recent Fever Within 48 Hours Sepsis New/Unexplained Change in Mental Status Sepsis Action Taken by [facility] Medications Current Medication List: was personally reviewed by me Laboratory Data Attestation: I reviewed the patient's lab results. 12/23/23 08:28 12/23/23 08:28 Lab Results 12/23/23 12/23/23 12/23/23 Range/Units 08:28 12:37 Unknown WBC 8.64 (4.8-10.8) K/ul RBC 3.73 L (4.20-5.40) M/uL Hgb 10.6 L (12.0-16.0) g/dl Hct 32.1 L (37.0-47.0) % MCV 86.1 (80.0-100.0) fL MCH 28.4 (25.0-34.0) pg MCHC 33.0 (32.0-36.0) g/dL RDW Std Deviation 48.0 H (36.4-46.3) fL RDW Coeff of Adarsh 15.3 H (11.5-14.5) % Plt Count 344 (130-400) K/uL MPV 9.8 (9.4-12.4) fL Immature Gran % (Auto) 0.7 % Neut % (Auto) 64.1 % Lymph % (Auto) 22.7 % [place] % (Auto) 10.0 % Eos % (Auto) 2.0 % Baso % (Auto) 0.5 % Neut # (Auto) 5.55 (1.40-6.50) K/uL Lymph # (Auto) 1.96 (1.20-3.40) K/uL [place] # (Auto) 0.86 H (0.11-0.59) K/uL Eos # (Auto) 0.17 (0.00-0.50) K/uL Baso # (Auto) 0.04 (0.00-0.20) K/uL Immature Gran # (Auto) 0.06 (0.01-0.20) K/uL Sodium 138 (136-145) mmol/L Potassium 4.0 (3.5-5.1) mmol/L Chloride 102 (98-107) mmol/L Carbon Dioxide 30 (21-32) mmol/L Anion Gap 6 (3-11) BUN 22 (6-23) mg/dl Creatinine 0.70 (0.6-1.2) mg/dl Est Cr Clr Drug Dosing 47.3 ml/min Est GFR ( Amer) 92.2 ml/min Est GFR (Non-Af Amer) 79.6 ml/min BUN/Creatinine Ratio 31.4 H (10-20) Glucose 106 H (70-99(Fasting)) mg/dl Calcium 9.0 (8.6-10.3) mg/dl Total Bilirubin 0.4 (0.2-1.0) mg/dl AST 16 (13-39) U/L ALT 8 (7-52) U/L Alkaline Phosphatase 63 (34-104) U/L Total Protein 6.2 (6.0-8.3) gm/dl Albumin 3.4 (3.4-5.0) gm/dl Globulin 2.8 (2.5-4.0) gm/dl Albumin/Globulin Ratio 1.2 (0.9-2) Urine Color Yellow Urine Appearance Clear (Clear) Urine pH 7.5 (4.5-7.5) Ur Specific Jermyn 1.018 (1.000-1.030) Urine Protein Negative (Negative) Urine Glucose (UA) Negative (Negative) Urine Ketones Negative (Negative) Urine Blood Negative (Negative) Urine Nitrite Negative (Negative) Urine Bilirubin Negative (Negative) Urine Urobilinogen Negative (Negative) Ur Leukocyte Esterase Negative (Negative) SARS-CoV-2 (PCR) NEGATIVE (Negative) Influenza Type A (PCR) Negative (Neg) Influenza Type B (PCR) Negative (Neg) RSV (RT-PCR) Negative (Neg) Administered Medications Discontinued Medications Acetaminophen (Acetaminophen 325 Mg Tab) 650 mg PO NOW STA Stop: 12/23/23 13:25 Last Admin: 12/23/23 13:52 Dose: 650 mg Documented By: BENNETT Hydromorphone HCl (Hydromorphone Inj 0.5 Mg/0.5 Ml Syr) 0.5 mg IV NOW STA Stop: 12/23/23 13:25 Last Admin: 12/23/23 13:52 Dose: 0.5 mg Documented By: BENNETT Sodium Chloride (Nss) 500 mls @ 999 mls/hr IV .Q31M ONE Stop: 12/23/23 08:37 Last Infusion: 12/23/23 09:30 Dose: Infused Documented By: Admin: 12/23/23 08:27 Dose: 999 mls/hr Documented By: FRANKLIN Ceftriaxone Sodium (Rocephin) 2,000 mg in 50 mls @ 100 mls/hr IV NOW STA Stop: 12/23/23 11:56 Last Infusion: 12/23/23 13:20 Dose: Infused Documented By: Admin: 12/23/23 12:40 Dose: 100 mls/hr Documented By: FRANKLIN Ioversol (Optiray 320 100ml) 94 ml IV ONCE ONE Stop: 12/23/23 09:28 Last Admin: 12/23/23 09:28 Dose: 94 ml Documented By: ENOC Ketorolac Tromethamine (Ketorolac Tromethamine 15 Mg/Ml Vial) 10 mg IV NOW ONE Stop: 12/23/23 08:08 Last Admin: 12/23/23 08:25 Dose: 10 mg Documented By: FRANKLIN Morphine Sulfate (Morphine Sulfate 2 Mg/Ml Carp) 2 mg IV NOW STA Stop: 12/23/23 08:08 Last Admin: 12/23/23 08:25 Dose: 2 mg Documented By: FRANKLIN Ondansetron HCl (Ondansetron Inj 2 Mg/Ml 2 Ml Vial) 4 mg IV NOW STA Stop: 12/23/23 08:08 Last Admin: 12/23/23 08:25 Dose: 4 mg Documented By: FRANKLIN Propranolol HCl (Propranolol Hcl La 80 Mg Capcr) 80 mg PO NOW STA Stop: 12/23/23 11:16 Last Admin: 12/23/23 12:28 Dose: 80 mg Documented By: FRANKLIN Imaging Data Radiologist's Impression: Abdomen/Pelvis CT 12/23/23 08:07 CT SCAN OF THE ABDOMEN AND PELVIS WITH IV CONTRAST; CT SCAN OF THE LUMBAR SPINE WITH IV CONTRAST; CT SCAN OF THE RIGHT HIP WITH IV CONTRAST CLINICAL HISTORY: Lower abdominal pain. Low back pain. Right hip pain. COMPARISON STUDY: Abdominal CT dated 12/11/2023. CT scan of the lumbar spine dated 12/08/2023. Pelvic MRI dated 12/13/2023. Lumbar spine MRI dated 12/13/2023. TECHNIQUE: Following the IV administration of 94 cc of Optiray 320, CT scan of the abdomen and pelvis is performed from the lung bases to the proximal femora. Additionally, CT scan of the lumbar spine is performed from the lower thoracic spine to the sacrum and CT scan of the right hip is performed from the bony pelvis to the femoral shaft. Images from these examinations are reviewed in the axial, sagittal, and coronal planes. IV contrast was administered without complication. A dose lowering technique was utilized adhering to the principles of ALARA. CT DOSE: 428.51 mGy.cm FINDINGS: Lung bases: The heart is top normal in size and without pericardial effusion. The coronary arteries are densely calcified. Patchy airspace consolidation of both lung bases is new from previous. No pleural effusion is seen. There is a moderate to large hiatal hernia. Liver: The contrast-enhanced liver is normal in size, contour, and attenuation. There is no intrahepatic biliary ductal dilatation. The hepatic veins and portal veins are patent. Gallbladder: Unremarkable. Spleen: Normal in size and attenuation. Pancreas: Moderately atrophic and grossly unremarkable. Adrenal glands: Unremarkable. Kidneys: The contrast enhanced kidneys demonstrate marked cortical atrophy and are without hydronephrosis. The kidneys enhance symmetrically. Scattered subcentimeter cortical hypodensities likely represent cysts but are too small for definitive characterization. Abdominal vasculature: The abdominal aorta is normal in course and caliber noting advanced atherosclerotic calcification. Bowel: There is no bowel obstruction. The appendix is not visualized. Peritoneum: There is no intraperitoneal free air or abdominal ascites. There is a fat-containing umbilical hernia. Lymphadenopathy: None. Pelvic viscera: The bladder is normal as visualized. The uterus is enlarged. The endometrium is filled with heterogeneous septated low-attenuation material and measures up to 4.3 cm in thickness. This remains highly suspicious for endometrial neoplasm. Skeletal structures: The skeletal structures are osteopenic. See below for dedicated discussion of the lumbar spine and right hip. The bony pelvis and proximal femora appear intact. No lytic or blastic lesions are seen. LUMBAR SPINE: Again seen is a subacute superior end plate compression fracture of L3. There is minimal loss of height and mild paravertebral edema. No retropulsion of fragments is identified. There is no evidence of posterior element involvement. No additional acute fracture is seen involving the lumbar spine. Vertebral body height is otherwise maintained. There is minimal anterolisthesis at L4-L5. Alignment is otherwise preserved. There is hyperlordosis and mild to moderate levo scoliosis of the lumbar spine. This is centered at L2-L3. Large anterior and lateral marginal osteophytes are seen throughout. The transverse and spinous processes are intact. There is no spondylolysis. There is moderate to severe disc space narrowing at all lumbar levels with the exception of L2-L3. Multilevel end plate sclerosis is observed. Posterior disc osteophyte complexes are noted at all lumbar levels, contributing to multilevel acquired compromise of the central canal. This is moderate to severe at L2-L3 and L4-L5. Facet arthropathy is noted in the lower lumbar region. The paraspinous soft tissues are within normal limits. RIGHT HIP: No fracture is seen involving the right hip or the right hemipelvis. There is no evidence of avascular necrosis of the right femoral head. Mild/moderate arthritic change is noted in the right hip. There is no joint effusion. The musculature of the right thigh is normal in appearance. IMPRESSION: 1. Patchy airspace consolidation at both lung bases is new from previous. Correlate clinically for evidence of pneumonia/aspiration pneumonitis. 2. No acute infectious or inflammatory findings are identified in the abdomen or pelvis. 3. Moderate to large hiatal hernia. 4. There is unchanged appearance of a subacute superior plate compression fracture of L3. No retropulsion of fragments is seen. 5. No additional fracture is seen involving the lumbar spine. Lumbosacral spondylosis and scoliosis as discussed above. 6. No acute bony abnormality is seen involving the right hip. 7. Additional findings as above. ACT 112: Negative or not required by law. Electronically signed by: Diogo Moreno M.D. 12/23/2023 10:[address] 12/23/23 08:07 CT SCAN OF THE ABDOMEN AND PELVIS WITH IV CONTRAST; CT SCAN OF THE LUMBAR SPINE WITH IV CONTRAST; CT SCAN OF THE RIGHT HIP WITH IV CONTRAST CLINICAL HISTORY: Lower abdominal pain. Low back pain. Right hip pain. COMPARISON STUDY: Abdominal CT dated 12/11/2023. CT scan of the lumbar spine dated 12/08/2023. Pelvic MRI dated 12/13/2023. Lumbar spine MRI dated 12/13/2023. TECHNIQUE: Following the IV administration of 94 cc of Optiray 320, CT scan of the abdomen and pelvis is performed from the lung bases to the proximal femora. Additionally, CT scan of the lumbar spine is performed from the lower thoracic spine to the sacrum and CT scan of the right hip is performed from the bony pelvis to the femoral shaft. Images from these examinations are reviewed in the axial, sagittal, and coronal planes. IV contrast was administered without complication. A dose lowering technique was utilized adhering to the principles of ALARA. CT DOSE: 428.51 mGy.cm FINDINGS: Lung bases: The heart is top normal in size and without pericardial effusion. The coronary arteries are densely calcified. Patchy airspace consolidation of both lung bases is new from previous. No pleural effusion is seen. There is a moderate to large hiatal hernia. Liver: The contrast-enhanced liver is normal in size, contour, and attenuation. There is no intrahepatic biliary ductal dilatation. The hepatic veins and portal veins are patent. Gallbladder: Unremarkable. Spleen: Normal in size and attenuation. Pancreas: Moderately atrophic and grossly unremarkable. Adrenal glands: Unremarkable. Kidneys: The contrast enhanced kidneys demonstrate marked cortical atrophy and are without hydronephrosis. The kidneys enhance symmetrically. Scattered subcentimeter cortical hypodensities likely represent cysts but are too small for definitive characterization. Abdominal vasculature: The abdominal aorta is normal in course and caliber noting advanced atherosclerotic calcification. Bowel: There is no bowel obstruction. The appendix is not visualized. Peritoneum: There is no intraperitoneal free air or abdominal ascites. There is a fat-containing umbilical hernia. Lymphadenopathy: None. Pelvic viscera: The bladder is normal as visualized. The uterus is enlarged. The endometrium is filled with heterogeneous septated low-attenuation material and measures up to 4.3 cm in thickness. This remains highly suspicious for endometrial neoplasm. Skeletal structures: The skeletal structures are osteopenic. See below for dedicated discussion of the lumbar spine and right hip. The bony pelvis and proximal femora appear intact. No lytic or blastic lesions are seen. LUMBAR SPINE: Again seen is a subacute superior end plate compression fracture of L3. There is minimal loss of height and mild paravertebral edema. No retropulsion of fragments is identified. There is no evidence of posterior element involvement. No additional acute fracture is seen involving the lumbar spine. Vertebral body height is otherwise maintained. There is minimal anterolisthesis at L4-L5. Alignment is otherwise preserved. There is hyperlordosis and mild to moderate levo scoliosis of the lumbar spine. This is centered at L2-L3. Large anterior and lateral marginal osteophytes are seen throughout. The transverse and spinous processes are intact. There is no spondylolysis. There is moderate to severe disc space narrowing at all lumbar levels with the exception of L2-L3. Multilevel end plate sclerosis is observed. Posterior disc osteophyte complexes are noted at all lumbar levels, contributing to multilevel acquired compromise of the central canal. This is moderate to severe at L2-L3 and L4-L5. Facet arthropathy is noted in the lower lumbar region. The paraspinous soft tissues are within normal limits. RIGHT HIP: No fracture is seen involving the right hip or the right hemipelvis. There is no evidence of avascular necrosis of the right femoral head. Mild/moderate arthritic change is noted in the right hip. There is no joint effusion. The musculature of the right thigh is normal in appearance. IMPRESSION: 1. Patchy airspace consolidation at both lung bases is new from previous. Correlate clinically for evidence of pneumonia/aspiration pneumonitis. 2. No acute infectious or inflammatory findings are identified in the abdomen or pelvis. 3. Moderate to large hiatal hernia. 4. There is unchanged appearance of a subacute superior plate compression fracture of L3. No retropulsion of fragments is seen. 5. No additional fracture is seen involving the lumbar spine. Lumbosacral spondylosis and scoliosis as discussed above. 6. No acute bony abnormality is seen involving the right hip. 7. Additional findings as above. ACT 112: Negative or not required by law. Electronically signed by: Diogo Moreno M.D. 12/23/2023 10:[address] 12/23/23 08:07 CT SCAN OF THE ABDOMEN AND PELVIS WITH IV CONTRAST; CT SCAN OF THE LUMBAR SPINE WITH IV CONTRAST; CT SCAN OF THE RIGHT HIP WITH IV CONTRAST CLINICAL HISTORY: Lower abdominal pain. Low back pain. Right hip pain. COMPARISON STUDY: Abdominal CT dated 12/11/2023. CT scan of the lumbar spine dated 12/08/2023. Pelvic MRI dated 12/13/2023. Lumbar spine MRI dated 12/13/2023. TECHNIQUE: Following the IV administration of 94 cc of Optiray 320, CT scan of the abdomen and pelvis is performed from the lung bases to the proximal femora. Additionally, CT scan of the lumbar spine is performed from the lower thoracic spine to the sacrum and CT scan of the right hip is performed from the bony pelvis to the femoral shaft. Images from these examinations are reviewed in the axial, sagittal, and coronal planes. IV contrast was administered without complication. A dose lowering technique was utilized adhering to the principles of ALARA. CT DOSE: 428.51 mGy.cm FINDINGS: Lung bases: The heart is top normal in size and without pericardial effusion. The coronary arteries are densely calcified. Patchy airspace consolidation of both lung bases is new from previous. No pleural effusion is seen. There is a moderate to large hiatal hernia. Liver: The contrast-enhanced liver is normal in size, contour, and attenuation. There is no intrahepatic biliary ductal dilatation. The hepatic veins and portal veins are patent. Gallbladder: Unremarkable. Spleen: Normal in size and attenuation. Pancreas: Moderately atrophic and grossly unremarkable. Adrenal glands: Unremarkable. Kidneys: The contrast enhanced kidneys demonstrate marked cortical atrophy and are without hydronephrosis. The kidneys enhance symmetrically. Scattered subcentimeter cortical hypodensities likely represent cysts but are too small for definitive characterization. Abdominal vasculature: The abdominal aorta is normal in course and caliber noting advanced atherosclerotic calcification. Bowel: There is no bowel obstruction. The appendix is not visualized. Peritoneum: There is no intraperitoneal free air or abdominal ascites. There is a fat-containing umbilical hernia. Lymphadenopathy: None. Pelvic viscera: The bladder is normal as visualized. The uterus is enlarged. The endometrium is filled with heterogeneous septated low-attenuation material and measures up to 4.3 cm in thickness. This remains highly suspicious for endometrial neoplasm. Skeletal structures: The skeletal structures are osteopenic. See below for dedicated discussion of the lumbar spine and right hip. The bony pelvis and proximal femora appear intact. No lytic or blastic lesions are seen. LUMBAR SPINE: Again seen is a subacute superior end plate compression fracture of L3. There is minimal loss of height and mild paravertebral edema. No retropulsion of fragments is identified. There is no evidence of posterior element involvement. No additional acute fracture is seen involving the lumbar spine. Vertebral body height is otherwise maintained. There is minimal anterolisthesis at L4-L5. Alignment is otherwise preserved. There is hyperlordosis and mild to moderate levo scoliosis of the lumbar spine. This is centered at L2-L3. Large anterior and lateral marginal osteophytes are seen throughout. The transverse and spinous processes are intact. There is no spondylolysis. There is moderate to severe disc space narrowing at all lumbar levels with the exception of L2-L3. Multilevel end plate sclerosis is observed. Posterior disc osteophyte complexes are noted at all lumbar levels, contributing to multilevel acquired compromise of the central canal. This is moderate to severe at L2-L3 and L4-L5. Facet arthropathy is noted in the lower lumbar region. The paraspinous soft tissues are within normal limits. RIGHT HIP: No fracture is seen involving the right hip or the right hemipelvis. There is no evidence of avascular necrosis of the right femoral head. Mild/moderate arthritic change is noted in the right hip. There is no joint effusion. The musculature of the right thigh is normal in appearance. IMPRESSION: 1. Patchy airspace consolidation at both lung bases is new from previous. Correlate clinically for evidence of pneumonia/aspiration pneumonitis. 2. No acute infectious or inflammatory findings are identified in the abdomen or pelvis. 3. Moderate to large hiatal hernia. 4. There is unchanged appearance of a subacute superior plate compression fracture of L3. No retropulsion of fragments is seen. 5. No additional fracture is seen involving the lumbar spine. Lumbosacral spondylosis and scoliosis as discussed above. 6. No acute bony abnormality is seen involving the right hip. 7. Additional findings as above. ACT 112: Negative or not required by law. Electronically signed by: Diogo Moreno M.D. 12/23/2023 10:02 AM Chest X-Ray 12/23/23 10:07 SINGLE VIEW CHEST CLINICAL HISTORY: Generalized weakness. FINDINGS: An AP, portable, upright chest radiograph is compared to study dated 12/19/2023 and correlated with chest CT dated 05/10/2016. There is a hiatal hernia. The heart is enlarged noting atherosclerotic calcification of the thoracic aorta. The pulmonary vasculature is noncongested. Chronic interstitial thickening is similar to previous. Foci of parenchymal scarring are seen throughout both lungs. No airspace consolidation or large pleural effusion is identified. No pneumothorax is seen. The skeletal structures are osteopenic. There are chronic/healed left-sided rib fractures. Surgical clips project over the right lower chest. IMPRESSION: 1. Cardiomegaly with no acute cardiopulmonary abnormality. 2. Hiatal hernia. ACT 112: Negative or not required by law. Electronically signed by: Diogo Moreno M.D. 12/23/2023 10:31 AM Discharge Plan Visit Data Chief Complaint: Back Injury/Pain Stated Complaint: BACK PAIN ED Provider: Diogo Thomas Discharge Problem: Hypoxia, Anemia, Acute right hip pain, Pneumonia, Cough Patient Disposition: Admitted As Inpatient Condition: Fair Forms Stand Alone Forms: [facility] Prescriptions Prescriptions: No Action polyethylene glycol 3350 [Miralax] 17 gram/dose powder 17 gm PO QAM sennosides-docusate sodium [Senna Plus] 8.6-50 mg tablet 1 tab PO BID Patient Comments: gave verbal to [facility] varsha Cao at [facility], bid, hold if having loose stools Rx Instructions: hold for loose stools fluticasone propionate 50 mcg/actuation spray,suspension 1 spray intranasal DAILY Qty: 16 3RF Rx Instructions: administer into each nostril daily citalopram [Celexa] 40 mg tablet 40 mg PO QAM Qty: 90 3RF mirtazapine [Remeron] 15 mg tablet 15 mg PO DAILY Qty: 90 1RF nystatin-triamcinolone 100,000-0.1 unit/gram-% ointment 1 applic topical TID Qty: 30 2RF Rx Instructions: apply a generous amount to vulva lorazepam [Ativan] 0.5 mg tablet 0.5 mg PO DAILY PRN (Reason: anxiety) Qty: 20 0RF docusate sodium 100 mg capsule 100 mg PO BIDM calcium carbonate-vitamin D3 600 mg(1,500mg) -200 unit tablet 1 tab PO BIDM alendronate [Fosamax] 70 mg tablet 70 mg PO WK Rx Instructions: wednesdays (DME) Flutter Valve Device See Rx Instructions .MEDSUPPLY Qty: 1 0RF Rx Instructions: Use it every 6 hours when awake. mecobalamin (vitamin B12) 1,000 mcg tablet,disintegrating 1,000 mcg sublingual DAILY Qty: 30 5RF Rx Instructions: place tablet under tongue and allow to dissolve for at least30 secs before swallowing cholecalciferol (vitamin D3) 50 mcg (2,000 unit) capsule 50 mcg PO QAM propranolol 80 mg capsule,extended release 24hr 80 mg PO QAM Qty: 30 6RF hydralazine 10 mg tablet 5 mg PO QID Qty: 100 1RF Refresh Classic (PF) 1.4-0.6 % Dropperette 1 drp OPB QID Refresh P.M. 57.3-42.5 % Ointment 1 applic OPB HS lidocaine 5 % Adhesive Patch,Medicated 1 patch transdermal QAM Qty: 20 0RF cyclosporine [Restasis] 0.05 % Dropperette 1 drp OPHTHALMIC (EYE) Q12H albuterol sulfate [Ventolin HFA] 90 mcg/actuation Hfa Aerosol Inhaler 2 puff inhalation QIDR PRN (Reason: cough/wheeze/shortness of breath) Qty: 6.7 0RF Rx Instructions: use with spacer device (DME) Spacer for Inhaler Misc See Rx Instructions .Route Qty: 1 0RF Rx Instructions: As directed tramadol 50 mg Tablet 50 mg PO BID Rx Instructions: 0800 & 1900 acetaminophen [Tylenol Extra Strength] 500 mg Tablet 500 mg PO .@1200,1900 polyethylene glycol 3350 [Miralax] 17 gram/dose Powder 17 g PO .1-2XDAILY PRN (Reason: Constipation) buspirone 5 mg tablet 5 mg PO BIDM Rx Instructions: 0800 & 1600 budesonide-formoterol 160-4.5 mcg/actuation HFA aerosol inhaler 2 puff inhalation BID17 Rx Instructions: Needs generic, not symbicort Preparation H Rapid Rlf-Lidocn 5-0.25-14.4-15 % Cream 1 applic TOPICAL TID PRN (Reason: rectal pain) acetaminophen 500 mg capsule 1,000 mg PO [facility]HS MDD 3g Referrals Referrals: PCP,NO [Physician] - Discharge Problem: Anemia Qualifiers: Anemia type: unspecified type Qualified Code(s): D64.9 - Anemia, unspecified Pneumonia Qualifiers: Pneumonia type: due to unspecified organism Laterality: bilateral Lung location: unspecified part of lung Qualified Code(s): J18.9 - Pneumonia, unspecified organism Cough Qualifiers: Cough type: acute Qualified Code(s): R05.1 - Acute cough
[2023-12-23] MEDS: MoRPHine SULFATE 2 MG/ML CARP IV STA (08:25)
[2023-12-23] MEDS: ONDANSETRON INJ 2 MG/ML 2 ML VIAL IV STA (08:25)
[2023-12-23] MEDS: KETOROLAC TROMETHAMINE 15 MG/ML VIAL IV ONE (08:25)
[2023-12-23] MEDS: SODIUM CHLORIDE 0.9% 500 ML IV ONE (08:27)
[2023-12-23 08:50] LABS: Basophils # (auto) 0.04 K/uL (0.00-0.20); Basophils % (auto) 0.5 %; Eosinophils # (auto) 0.17 K/uL (0.00-0.50); Hematocrit (blood only) 32.1 % (37.0-47.0); Hemoglobin 10.6 g/dl (12.0-16.0); Immature Granulocytes # (auto) 0.06 K/uL (0.01-0.20); Immature Granulocytes % (auto) 0.7 %; Lymphocytes # (auto) 1.96 K/uL (1.20-3.40); Lymphocytes % (auto) 22.7 %; Mean Corpuscular Hemoglobin 28.4 pg (25.0-34.0); Mean Corpuscular Volume 86.1 fL (80.0-100.0); Mean Platelet Volume 9.8 fL (9.4-12.4); Monocytes # (auto) 0.86 K/uL (0.11-0.59); Neutrophils # (auto) 5.55 K/uL (1.40-6.50); Neutrophils % (auto) 64.1 %; Platelet Count 344 K/uL (130-400); RDW Coefficient of Variation 15.3 % (11.5-14.5); Red Blood Count 3.73 M/uL (4.20-5.40); White Blood Count 8.64 K/ul (4.8-10.8)
[2023-12-23 08:51] LABS: Appearance Urine Clear (Clear); Bilirubin Urine Negative (Negative); Blood Urine Negative (Negative); Color Urine Yellow; Glucose Urine UA Negative (Negative); Ketones Urine Negative (Negative); Leukocyte Esterase Urine Negative (Negative); Nitrite Urine Negative (Negative); Protein Urine Negative (Negative); Specific Gravity Urine 1.018 (1.000-1.030); Urobilinogen Urine Negative (Negative); pH Urine 7.5 (4.5-7.5)
[2023-12-23 09:18] LABS: Albumin Globulin Ratio 1.2 (0.9-2); Albumin Level 3.4 gm/dl (3.4-5.0); BUN Creatinine Ratio 31.4 (10-20); Bilirubin,Total 0.4 mg/dl (0.2-1.0); Creatinine Clr Calc Pharmacy 47.3 ml/min; Est GFR (African American) 92.2 ml/min; Est GFR (Non-African American) 79.6 ml/min; Globulin 2.8 gm/dl (2.5-4.0); Total Protein 6.2 gm/dl (6.0-8.3)
[2023-12-23] MEDS: OPTIRAY 320 100ml IV ONE (09:28)
--- NOTE | 2023-12-23 10:04 | CT Scan Report ---
CT SCAN OF THE ABDOMEN AND PELVIS WITH IV CONTRAST; CT SCAN OF THE LUMBAR SPINE WITH IV CONTRAST; CT SCAN OF THE RIGHT HIP WITH IV CONTRAST CLINICAL HISTORY: Lower abdominal pain. Low back pain. Right hip pain. COMPARISON STUDY: Abdominal CT dated 12/11/2023. CT scan of the lumbar spine dated 12/08/2023. Pelvic MRI dated 12/13/2023. Lumbar spine MRI dated 12/13/2023. TECHNIQUE: Following the IV administration of 94 cc of Optiray 320, CT scan of the abdomen and pelvi s is performed from the lung bases to the proximal femora. Additionally, CT scan of the lumbar spine is performed from the lower thoracic spine to the sacrum and CT scan of the right hip is performed fr om the bony pelvis to the femoral shaft. Images from these examinations are reviewed in the axial, sa gittal, and coronal planes. IV contrast was administered without complication. A dose lowering techni que was utilized adhering to the principles of ALARA. CT DOSE: 428.51 mGy.cm FINDINGS: Lung bases: The heart is top normal in size and without pericardial effusion. The coronary arteries a re densely calcified. Patchy airspace consolidation of both lung bases is new from previous. No pleur al effusion is seen. There is a moderate to large hiatal hernia. Liver: The contrast-enhanced liver is normal in size, contour, and attenuation. There is no intrahepa tic biliary ductal dilatation. The hepatic veins and portal veins are patent. Gallbladder: Unremarkable. Spleen: Normal in size and attenuation. Pancreas: Moderately atrophic and grossly unremarkable. Adrenal glands: Unremarkable. Kidneys: The contrast enhanced kidneys demonstrate marked cortical atrophy and are without hydronephr osis. The kidneys enhance symmetrically. Scattered subcentimeter cortical hypodensities likely repres ent cysts but are too small for definitive characterization. Abdominal vasculature: The abdominal aorta is normal in course and caliber noting advanced atheroscle rotic calcification. Bowel: There is no bowel obstruction. The appendix is not visualized. Peritoneum: There is no intraperitoneal free air or abdominal ascites. There is a fat-containing umbi lical hernia. Lymphadenopathy: None. Pelvic viscera: The bladder is normal as visualized. The uterus is enlarged. The endometrium is fille d with heterogeneous septated low-attenuation material and measures up to 4.3 cm in thickness. This r emains highly suspicious for endometrial neoplasm. Skeletal structures: The skeletal structures are osteopenic. See below for dedicated discussion of th e lumbar spine and right hip. The bony pelvis and proximal femora appear intact. No lytic or blastic lesions are seen. LUMBAR SPINE: Again seen is a subacute superior end plate compression fracture of L3. There is minima l loss of height and mild paravertebral edema. No retropulsion of fragments is identified. There is n o evidence of posterior element involvement. No additional acute fracture is seen involving the lumba r spine. Vertebral body height is otherwise maintained. There is minimal anterolisthesis at L4-L5. Al ignment is otherwise preserved. There is hyperlordosis and mild to moderate levo scoliosis of the lum bar spine. This is centered at L2-L3. Large anterior and lateral marginal osteophytes are seen throug hout. The transverse and spinous processes are intact. There is no spondylolysis. There is moderate t o severe disc space narrowing at all lumbar levels with the exception of L2-L3. Multilevel end plate sclerosis is observed. Posterior disc osteophyte complexes are noted at all lumbar levels, contributi ng to multilevel acquired compromise of the central canal. This is moderate to severe at L2-L3 and L4 -L5. Facet arthropathy is noted in the lower lumbar region. The paraspinous soft tissues are within n ormal limits. RIGHT HIP: No fracture is seen involving the right hip or the right hemipelvis. There is no evidence of avascular necrosis of the right femoral head. Mild/moderate arthritic change is noted in the right hip. There is no joint effusion. The musculature of the right thigh is normal in appearance. IMPRESSION: 1. Patchy airspace consolidation at both lung bases is new from previous. Correlate clinically for ev idence of pneumonia/aspiration pneumonitis. 2. No acute infectious or inflammatory findings are identified in the abdomen or pelvis. 3. Moderate to large hiatal hernia. 4. There is unchanged appearance of a subacute superior plate compression fracture of L3. No retropul randell of fragments is seen. 5. No additional fracture is seen involving the lumbar spine. Lumbosacral spondylosis and scoliosis a s discussed above. 6. No acute bony abnormality is seen involving the right hip. 7. Additional findings as above. ACT 112: Negative or not required by law. Electronically signed by: Diogo Moreno M.D. 12/23/2023 10:02 AM
--- NOTE | 2023-12-23 10:33 | XRay Report ---
SINGLE VIEW CHEST CLINICAL HISTORY: Generalized weakness. FINDINGS: An AP, portable, upright chest radiograph is compared to study dated 12/19/2023 and correlat ed with chest CT dated 05/10/2016. There is a hiatal hernia. The heart is enlarged noting atherosclero tic calcification of the thoracic aorta. The pulmonary vasculature is noncongested. Chronic interstit ial thickening is similar to previous. Foci of parenchymal scarring are seen throughout both lungs. N o airspace consolidation or large pleural effusion is identified. No pneumothorax is seen. The skelet al structures are osteopenic. There are chronic/healed left-sided rib fractures. Surgical clips proje ct over the right lower chest. IMPRESSION: 1. Cardiomegaly with no acute cardiopulmonary abnormality. 2. Hiatal hernia. ACT 112: Negative or not required by law. Electronically signed by: Diogo Moreno M.D. 12/23/2023 10:31 AM
--- NOTE | 2023-12-23 11:37 | History & Physical Report ---
Date of Service December 23, 2023 Assessment & Plan (1) Lumbar compression fracture: Plan: Intractable lower back pain and bilateral sciatic pain (worse on the right side) that has been ongoing for several weeks Unchanged, subacute superior plate compression fracture of L3 seen on lumbar spine CT No saddle anesthesia, or change in bowel habits Lumbar spine was obtained during recent admission on 12/12, and did report severe bilateral neuroforaminal stenosis Seen by orthopedics at this time, and patient reported that she is not interested in pursuing any type of surgical intervention Hold home tramadol Pain management as follows: Acetaminophen 650 mg p.o. q6h scheduled Dilaudid 0.250.50mg IV q4h as needed for pain 46 Lidocaine patch application/removal daily to lower back Pain management consulted for potential steroid/epidural injection A.m. CBC, BMP (2) Fall: Plan: Fall on 12/18 Patient endorses head strike; no LOC Hx of subdural hematoma Head CT on 12/18 revealed no acute findings Hip CT on 12/22 revealed no acute bony abnormality in the right hip or lumbar spine She endorses ambulatory dysfunction since this time, but this is likely secondary to #1 Fall precautions (3) Pneumonia: Plan: Worsening VOGT x 1 week, productive cough, and an episode of hypoxia at 87% on RA in the ED No leukocytosis; afebrile Flu, COVID, RSV negative Procalcitonin ordered, pending While CXR revealed no acute findings, without lumbar spine CT did note a patchy airspace consolidation at both lung anderson which could indicate PNA or pneumonitis Continue Rocephin 2000 mg IV q24h Follow blood cx (4) Hypertensive emergency: Plan: HTN emergency present at time of admission Labetalol 5 mg IV q15m x 3 max doses as needed for severe, persistent HTN (SBP greater than 180 or DBP greater than 110); PCU status Continue propranolol (which may also help with her resting tremor) Continue lisinopril twice daily Continue hydralazine p.o. QID (5) Anxiety and depression: Plan: Patient has recently expressed a desire to because of her chronic pain She does not have any thoughts of self-harm at this time, and reports that she would not want to if her lower back pain could be fixed She does not want to see psychiatry while inpatient Continue citalopram Continue BuSpar Lorazepam 0.5 mg daily as needed for anxiety (6) Endometrial mass: Plan: Patient endorses recent vaginal spotting Following with [facility] outpatient Per visit on 12/12, high suspicion for endometrial cancer Hgb 10.6 on arrival No acute intervention at this time (7) Anemia: (8) Pneumonitis: (9) Hypoxia: Plan Disposition: Admit to PCU telemetry DNR/DNI Regular diet VTE PPx: SCDs, hold chemical DVT PX for now given vaginal spotting, and recurrent falls History of Present Illness Chief Complaint: Back injury / pain Primary Care Provider: Tani Hamiltoncherryvale Bud Dumont is an 83-year-old female with PMH of HTN emergency, anxiety, asthma, breast cancer, osteoporosis, HLD, perirectal abscess, perirectal fistula, lumbar compression fracture, subdural hematoma, and endometrial mass. She presented via EMS from [facility] for intractable lower back pain on 12/22. Patient has had ongoing back pain due to her lumbar compression fracture; multiple recent [place] visits and hospital admissions for similar. She endorses excruciating lower back pain upon waking every day the past week; rated 10/10 at worst. It radiates down both legs bilaterally, but is worse on the right leg. Patient is been taking Tylenol and tramadol at [facility], but this has not been helping. Pain comes and goes intermittently. Remote hx: patient fell on 12/18; struck head; no LOC; patient into the [place] ED and had no acute findings on head CT. History of recurrent falls. She did not take her regular morning medications today. Additionally, she notes worsening VOGT x 1 week. No SOB at rest. Productive cough. She endorses no change in bowel habits; last BM was yesterday. No saddle anesthesia. She has been having a resting tremor in her right hand at baseline, and occasionally in her legs. It should be noted that the patient said that she wants to "" due to her ongoing back pain; no thoughts of self-harm, and she notes that she would not want to if the pain was controlled; she does not want to speak to a psychiatrist while she is inpatient. She does not use supplemental oxygen at baseline. Patient is hypertensive at 202/91 at time of admission. ED course: Rocephin 2000 mg IV Morphine 2 mg IV Toradol 10 mg IV Zofran 4 mg IV Propranolol 80 mg p.o. Hydralazine 10 mg p.o. ROS: Patient endorses pleuritic CP, VOGT x 1 week, productive cough, severe lower back pain, blood in the urine (spotting), and b/l thigh pain. Patient denies fever, chills, dizziness/lightheadedness, CURRIE, Chest pain, SOB at rest, hemoptysis, abdominal pain, N/V/D, change in bowel habits, blood in stool, saddle anesthesia, burning with urination, pain with urination, or numb ness/tingling going down the legs. Allergies Allergy/AdvReac Type Severity Reaction Status Date / Time povidone-iodine Allergy Mild RED RASH Verified 12/19/23 15:55 AND SKIN IRRITATION amoxicillin AdvReac Intermediate NAUSEA Verified 12/19/23 15:55 clavulanic acid AdvReac Intermediate NAUSEA Verified 12/19/23 15:55 doxycycline AdvReac Intermediate NAUSEA Verified 12/19/23 15:55 mometasone furoate AdvReac Intermediate NAUSEA Verified 12/19/23 15:55 nitrofurantoin AdvReac Intermediate nausea Verified 12/19/23 15:55 Sulfa (Sulfonamide AdvReac Mild NAUSEA/VOMI Verified 12/19/23 15:55 Antibiotics) TING Home Medications Medication Instructions Recorded Confirmed Type polyethylene glycol 3350 17 17 gm PO QAM 05/17/19 12/23/23 History gram/dose oral powder (Miralax) calcium carbonate 600 mg-vitamin 1 tab PO BIDM 06/04/19 12/23/23 History D3 5 mcg (200 unit) tablet docusate sodium 100 mg capsule 100 mg PO BIDM 06/04/19 12/23/23 History cholecalciferol (vitamin D3) 50 50 mcg PO QAM 03/03/21 12/23/23 History mcg (2,000 unit) capsule polyvinyl alcohol-povidone (PF) 1 drp OPB QID 08/14/21 12/23/23 History 1.4 %-0.6 % eye drops in a dropperette (Refresh Classic (PF)) sennosides 8.6 mg-docusate sodium 1 tab PO BID 10/15/22 12/23/23 History 50 mg tablet (Senna Plus) Flutter Valve #1 ea 10/26/22 12/16/23 Rx alendronate 70 mg tablet (Fosamax) 70 mg PO WK 10/26/22 12/23/23 History white petrolatum-mineral oil 57.3 1 applic OPB HS 11/01/22 12/23/23 History %-42.5 % eye ointment (Refresh P.M.) fluticasone propionate 50 1 spray intranasal DAILY #16 grams 03/14/23 12/23/23 Rx mcg/actuation nasal spray,suspension citalopram 40 mg tablet (Celexa) 40 mg PO QAM #90 tabs 07/07/23 12/23/23 Rx mecobalamin (vitamin B12) 1,000 1,000 mcg sublingual DAILY #30 tabs 09/09/23 12/23/23 Rx mcg disintegrating tablet,sublingual mirtazapine 15 mg tablet (Remeron) 15 mg PO DAILY #90 tabs 10/06/23 12/23/23 Rx lorazepam 0.5 mg tablet (Ativan) 0.5 mg PO DAILY PRN anxiety #20 11/07/23 12/23/23 Rx tabs nystatin-triamcinolone 100,000 1 applic topical TID #30 grams 11/07/23 12/23/23 Rx unit/gram-0.1 % topical ointment cyclosporine 0.05 % eye drops in a 1 drp ophthalmic (eye) Q12H 11/30/23 12/23/23 History dropperette (Restasis) Spacer for Inhaler #1 ea 12/09/23 12/16/23 Rx albuterol sulfate 90 mcg/actuation 2 puff inhalation QIDR PRN 12/09/23 12/23/23 Rx aerosol inhaler (Ventolin HFA) cough/wheeze/shortness of breath #6.7 grams lidocaine 5 % topical patch 1 patch transdermal QAM #20 ea 12/15/23 12/23/23 Rx hydralazine 10 mg tablet 5 mg (1/2 x 10 mg) PO QID #100 tabs 12/16/23 12/23/23 Rx propranolol 80 mg capsule,24 80 mg PO QAM #30 caps 12/16/23 12/23/23 Rx hr,extended release acetaminophen 500 mg tablet 500 mg PO .@1200,1900 Pain 12/19/23 12/23/23 History (Tylenol Extra Strength) budesonide-formoterol HFA 160 2 puff inhalation BID17 12/19/23 12/23/23 History mcg-4.5 mcg/actuation aerosol inhaler buspirone 5 mg tablet 5 mg PO BIDM 12/19/23 12/23/23 History polyethylene glycol 3350 17 17 g PO .1-2XDAILY PRN Constipation 12/19/23 12/23/23 History gram/dose oral powder (Miralax) tramadol 50 mg tablet 50 mg PO BID 12/19/23 12/23/23 History acetaminophen 500 mg capsule 1,000 mg PO AMHS pain 12/23/23 12/23/23 History lidocaine 5 %-phenylephrine 0.25 1 applic topical TID PRN rectal 12/23/23 12/23/23 History %-glycern 14.4 %-petrolatm 15 % pain cream (Preparation H Rapid Relief-Lidocaine) Past Med/Surg History Medical History Sacroiliac joint pain Anxiety and depression Bronchiectasis Subdural hematoma H/O malignant neoplasm of breast History of basal cell cancer Acute subdural hematoma Hypertension Surgical History S/P knee surgery S/P dilation and curettage S/P breast lumpectomy Family History Father Hypertension Stroke Unknown Cancer Denies family history of Colon cancer Ovarian cancer Prostate cancer Myocardial infarction Breast cancer Social History Smoking Status: Unknown if ever smoked Second Hand Exposure: Yes; Do You Dip or Chew Tobacco: No; Hx Alcohol Use: No Hx Substance Use: No Preferred Language: Ukrainian Communication Ability: Effective Visual Impairment: No Limitations Hearing Ability: Normal 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: No Beliefs That Will Affect Care: None marital status: Current Living Situation: Personal Care Facility Current Living Situation Comment: [facility] current occupational status: retired How many Children do You have: 2 Feels Safe at Home: Yes Childhood Exposure to Second-Hand Smoke: No Dental Care, Regularly: Yes Physical Activity Frequency: 1-2 Times per Week Seatbelt Use: always Sunscreen Use: Yes Assistive Devices: Walker Review of Systems Review of Systems: See HPI above Physical Exam Physical Exam: General: no acute distress; anxious; non-toxic appearing; frail appearing; cooperative; SpO2 98% on 2L NC HEENT: normocephalic, atraumatic; no scleral icterus; PERRLA; dry mucus membrane; vision and hearing intact Neck: supple; no lymphadenopathy; trachea midline Skin: warm, dry without signs of tenting; no cyanosis; no rashes, bruising, lesions, or erythema noted CV: chest wall NTP; RRR; S1/S2 normal; no murmurs/rubs/gallops; pulses intact and symmetric at radial, DP, and PT Lungs: no acute respiratory distress; symmetrical chest wall expansion; clear breath sounds across all lung anderson w/o adventitious sounds; no wheezing ABD: Soft, NTP; BS present; no rebound/guarding; no distention MSK: no tics or fasciculations; no edema noted in the LEs b/l, nonerythematous; movement of thighs and DP Back: Scoliosis; sacrum is NTP; (+) right leg lift Neuro: A&Ox3; resting right hand tremor; normal mood and affect; fluent speech; no focal deficits; sensation intact in the LEs b/l Results & Data Results & Data Vital Signs (Past 12 Hours) Vital Signs Temp Pulse Pulse Resp BP BP Pulse Ox 12/23/23 11:15 80 18 202/91 H 98 12/23/23 11:14 83 87 L 12/23/23 10:00 83 18 207/92 H 92 12/23/23 08:43 81 18 181/89 H 94 12/23/23 08:30 78 12/23/23 08:07 36.8 C 87 18 151/73 H 92 O2 Del Method O2 Flow Rate 12/23/23 11:15 Nasal Cannula 2 12/23/23 11:14 Room Air 12/23/23 10:00 Nasal Cannula 1 12/23/23 08:43 Room Air 12/23/23 08:30 12/23/23 08:07 Room Air Laboratory Results Abnormal lab results 12/23/23 Range/Units 08:28 RBC 3.73 L (4.20-5.40) M/uL Hgb 10.6 L (12.0-16.0) g/dl Hct 32.1 L (37.0-47.0) % RDW Std Deviation 48.0 H (36.4-46.3) fL RDW Coeff of Adarsh 15.3 H (11.5-14.5) % Dale # (Auto) 0.86 H (0.11-0.59) K/uL BUN/Creatinine Ratio 31.4 H (10-20) Glucose 106 H (70-99(Fasting)) mg/dl Diagnostic Findings Abdomen/Pelvis CT 12/23/23 08:07 CT SCAN OF THE ABDOMEN AND PELVIS WITH IV CONTRAST; CT SCAN OF THE LUMBAR SPINE WITH IV CONTRAST; CT SCAN OF THE RIGHT HIP WITH IV CONTRAST CLINICAL HISTORY: Lower abdominal pain. Low back pain. Right hip pain. COMPARISON STUDY: Abdominal CT dated 12/11/2023. CT scan of the lumbar spine dated 12/08/2023. Pelvic MRI dated 12/13/2023. Lumbar spine MRI dated 12/13/2023. TECHNIQUE: Following the IV administration of 94 cc of Optiray 320, CT scan of the abdomen and pelvis is performed from the lung bases to the proximal femora. Additionally, CT scan of the lumbar spine is performed from the lower thoracic spine to the sacrum and CT scan of the right hip is performed from the bony pelvis to the femoral shaft. Images from these examinations are reviewed in the axial, sagittal, and coronal planes. IV contrast was administered without c omplication. A dose lowering technique was utilized adhering to the principles of ALARA. CT DOSE: 428.51 mGy.cm FINDINGS: Lung bases: The heart is top normal in size and without pericardial effusion. The coronary arteries are densely calcified. Patchy airspace consolidation of both lung bases is new from previous. No pleural effusion is seen. There is a moderate to large hiatal hernia. Liver: The contrast-enhanced liver is normal in size, contour, and attenuation. There is no intrahepatic biliary ductal dilatation. The hepatic veins and portal veins are patent. Gallbladder: Unremarkable. Spleen: Normal in size and attenuation. Pancreas: Moderately atrophic and grossly unremarkable. Adrenal glands: Unremarkable. Kidneys: The contrast enhanced kidneys demonstrate marked cortical atrophy and are without hydronephrosis. The kidneys enhance symmetrically. Scattered subcentimeter cortical hypodensities likely represent cysts but are too small for definitive characterization. Abdominal vasculature: The abdominal aorta is normal in course and caliber noting advanced atherosclerotic calcification. Bowel: There is no bowel obstruction. The appendix is not visualized. Peritoneum: There is no intraperitoneal free air or abdominal ascites. There is a fat-containing umbilical hernia. Lymphadenopathy: None. Pelvic viscera: The bladder is normal as visualized. The uterus is enlarged. The endometrium is filled with heterogeneous septated low-attenuation material and measures up to 4.3 cm in thickness. This remains highly suspicious for endometrial neoplasm. Skeletal structures: The skeletal structures are osteopenic. See below for dedicated discussion of the lumbar spine and right hip. The bony pelvis and proximal femora appear intact. No lytic or blastic lesions are seen. LUMBAR SPINE: Again seen is a subacute superior end plate compression fracture of L3. There is minimal loss of height and mild paravertebral edema. No retropulsion of fragments is identified. There is no evidence of posterior element involvement. No additional acute fracture is seen involving the lumbar spine. Vertebral body height is otherwise maintained. There is minimal ant erolisthesis at L4-L5. Alignment is otherwise preserved. There is hyperlordosis and mild to moderate levo scoliosis of the lumbar spine. This is centered at L2- L3. Large anterior and lateral marginal osteophytes are seen throughout. The transverse and spinous processes are intact. There is no spondylolysis. There is moderate to severe disc space narrowing at all lumbar levels with the exception of L2-L3. Multilevel end plate sclerosis is observed. Posterior disc osteophyte complexes are noted at all lumbar levels, contributing to multilevel acquired compromise of the central canal. This is moderate to severe at L2-L3 and L4-L5. Facet arthropathy is noted in the lower lumbar region. The paraspinous soft tissues are within normal limits. RIGHT HIP: No fracture is seen involving the right hip or the right hemipelvis. There is no evidence of avascular necrosis of the right femoral head. Mild/moderate arthritic change is noted in the right hip. There is no joint effusion. The musculature of the right thigh is normal in appearance. IMPRESSION: 1. Patchy airspace consolidation at both lung bases is new from previous. Correlate clinically for evidence of pneumonia/aspiration pneumonitis. 2. No acute infectious or inflammatory findings are identified in the abdomen or pelvis. 3. Moderate to large hiatal hernia. 4. There is unchanged appearance of a subacute superior plate compression fracture of L3. No retropulsion of fragments is seen. 5. No additional fracture is seen involving the lumbar spine. Lumbosacral spondylosis and scoliosis as discussed above. 6. No acute bony abnormality is seen involving the right hip. 7. Additional findings as above. ACT 112: Negative or not required by law. Electronically signed by: Diogo Moreno M.D. 12/23/2023 10:[address] 12/23/23 08:07 CT SCAN OF THE ABDOMEN AND PELVIS WITH IV CONTRAST; CT SCAN OF THE LUMBAR SPINE WITH IV CONTRAST; CT SCAN OF THE RIGHT HIP WITH IV CONTRAST CLINICAL HISTORY: Lower abdominal pain. Low back pain. Right hip pain. COMPARISON STUDY: Abdominal CT dated 12/11/2023. CT scan of the lumbar spine dated 12/08/2023. Pelvic MRI dated 12/13/2023. Lumbar spine MRI dated 12/13/2023. TECHNIQUE: Following the IV administration of 94 cc of Optiray 320, CT scan of the abdomen and pelvis is performed from the lung bases to the proximal femora. Additionally, CT scan of the lumbar spine is performed from the lower thoracic spine to the sacrum and CT scan of the right hip is performed from the bony pelvis to the femoral shaft. Images from these examinations are reviewed in the axial, sagittal, and coronal planes. IV contrast was administered without complication. A dose lowering technique was utilized adhering to the principles of ALARA. CT DOSE: 428.51 mGy.cm FINDINGS: Lung bases: The heart is top normal in size and without pericardial effusion. The coronary arteries are densely calcified. Patchy airspace consolidation of both lung bases is new from previous. No pleural effusion is seen. There is a moderate to large hiatal hernia. Liver: The contrast-enhanced liver is normal in size, contour, and attenuation. There is no intrahepatic biliary ductal dilatation. The hepatic veins and portal veins are patent. Gallbladder: Unremarkable. Spleen: Normal in size and attenuation. Pancreas: Moderately atrophic and grossly unremarkable. Adrenal glands: Unremarkable. Kidneys: The contrast enhanced kidneys demonstrate marked cortical atrophy and are without hydronephrosis. The kidneys enhance symmetrically. Scattered subce ntimeter cortical hypodensities likely represent cysts but are too small for definitive characterization. Abdominal vasculature: The abdominal aorta is normal in course and caliber noting advanced atherosclerotic calcification. Bowel: There is no bowel obstruction. The appendix is not visualized. Peritoneum: There is no intraperitoneal free air or abdominal ascites. There is a fat-containing umbilical hernia. Lymphadenopathy: None. Pelvic viscera: The bladder is normal as visualized. The uterus is enlarged. The endometrium is filled with heterogeneous septated low-attenuation material and measures up to 4.3 cm in thickness. This remains highly suspicious for endometrial neoplasm. Skeletal structures: The skeletal structures are osteopenic. See below for dedicated discussion of the lumbar spine and right hip. The bony pelvis and proximal femora appear intact. No lytic or blastic lesions are seen. LUMBAR SPINE: Again seen is a subacute superior end plate compression fracture of L3. There is minimal loss of height and mild paravertebral edema. No retropulsion of fragments is identified. There is no evidence of posterior element involvement. No additional acute fracture is seen involving the lumbar spine. Vertebral body height is otherwise maintained. There is minimal anterolisthesis at L4-L5. Alignment is otherwise preserved. There is hyperlordosis and mild to moderate levo scoliosis of the lumbar spine. This is centered at L2-L3. Large anterior and lateral marginal osteophytes are seen throughout. The transverse and spinous processes are intact. There is no spo ndylolysis. There is moderate to severe disc space narrowing at all lumbar levels with the exception of L2-L3. Multilevel end plate sclerosis is observed. Posterior disc osteophyte complexes are noted at all lumbar levels, contributing to multilevel acquired compromise of the central canal. This is moderate to severe at L2-L3 and L4-L5. Facet arthropathy is noted in the lower lumbar region. The paraspinous soft tissues are within normal limits. RIGHT HIP: No fracture is seen involving the right hip or the right hemipelvis. There is no evidence of avascular necrosis of the right femoral head. Mild/moderate arthritic change is noted in the right hip. There is no joint effusion. The musculature of the right thigh is normal in appearance. IMPRESSION: 1. Patchy airspace consolidation at both lung bases is new from previous. Correlate clinically for evidence of pneumonia/aspiration pneumonitis. 2. No acute infectious or inflammatory findings are identified in the abdomen or pelvis. 3. Moderate to large hiatal hernia. 4. There is unchanged appearance of a subacute superior plate compression fracture of L3. No retropulsion of fragments is seen. 5. No additional fracture is seen involving the lumbar spine. Lumbosacral spondylosis and scoliosis as discussed above. 6. No acute bony abnormality is seen involving the right hip. 7. Additional findings as above. ACT 112: Negative or not required by law. Electronically signed by: Diogo Moreno M.D. 12/23/2023 10:[address] 12/23/23 08:07 CT SCAN OF THE ABDOMEN AND PELVIS WITH IV CONTRAST; CT SCAN OF THE LUMBAR SPINE WITH IV CONTRAST; CT SCAN OF THE RIGHT HIP WITH IV CONTRAST CLINICAL HISTORY: Lower abdominal pain. Low back pain. Right hip pain. COMPARISON STUDY: Abdominal CT dated 12/11/2023. CT scan of the lumbar spine dated 12/08/2023. Pelvic MRI dated 12/13/2023. Lumbar spine MRI dated 12/13/2023. TECHNIQUE: Following the IV administration of 94 cc of Optiray 320, CT scan of the abdomen and pelvis is performed from the lung bases to the proximal femora. Additionally, CT scan of the lumbar spine is performed from the lower thoracic spine to the sacrum and CT scan of the right hip is performed from the bony pelvis to the femoral shaft. Images from these examinations are reviewed in the axial, sagittal, and coronal planes. IV contrast was administered without complication. A dose lowering technique was utilized adhering to the principles of ALARA. CT DOSE: 428.51 mGy.cm FINDINGS: Lung bases: The heart is top normal in size and without pericardial effusion. The coronary arteries are densely calcified. Patchy airspace consolidation of both lung bases is new from previous. No pleural effusion is seen. There is a moderate to large hiatal hernia. Liver: The contrast-enhanced liver is normal in size, contour, and attenuation. There is no intrahepatic biliary ductal dilatation. The hepatic veins and portal veins are patent. Gallbladder: Unremarkable. Spleen: Normal in size and attenuation. Pancreas: Moderately atrophic and grossly unremarkable. Adrenal glands: Unremarkable. Kidneys: The contrast enhanced kidneys demonstrate marked cortical atrophy and are without hydronephrosis. The kidneys enhance symmetrically. Scattered subcentimeter cortical hypodensities likely represent cysts but are too small for definitive characterization. Abdominal vasculature: The abdominal aorta is normal in course and caliber noting advanced atherosclerotic calcification. Bowel: There is no bowel obstruction. The appendix is not visualized. Peritoneum: There is no intraperitoneal free air or abdominal ascites. There is a fat-containing umbilical hernia. Lymphadenopathy: None. Pelvic viscera: The bladder is normal as visualized. The uterus is enlarged. The endometrium is filled with heterogeneous septated low-attenuation material and measures up to 4.3 cm in thickness. This remains highly suspicious for endometrial neoplasm. Skeletal structures: The skeletal structures are osteopenic. See below for dedicated discussion of the lumbar spine and right hip. The bony pelvis and proximal femora appear intact. No lytic or blastic lesions are seen. LUMBAR SPINE: Again seen is a subacute superior end plate compression fracture of L3. There is minimal loss of height and mild paravertebral edema. No retropulsion of fragments is identified. There is no evidence of posterior element involvement. No additional acute fracture is seen involving the lumbar spine. Vertebral body height is otherwise maintained. There is minimal anterolisthesis at L4-L5. Alignment is otherwise preserved. There is hyperlordosis and mild to moderate levo scoliosis of the lumbar spine. This is centered at L2-L3. Large anterior and lateral marginal osteophytes are seen throughout. The transverse and spinous processes are intact. There is no spondylolysis. There is moderate to severe disc space narrowing at all lumbar levels with the exception of L2-L3. Multilevel end plate sclerosis is observed. Posterior disc osteophyte complexes are noted at all lumbar levels, contributing to multilevel acquired compromise of the central canal. This is moderate to severe at L2-L3 and L4-L5. Facet arthropathy is noted in the lower lumbar region. The paraspinous soft tissues are within normal limits. RIGHT HIP: No fracture is seen involving the right hip or the right hemipelvis. There is no evidence of avascular necrosis of the right femoral head. Mild/moderate arthritic change is noted in the right hip. There is no joint effusion. The musculature of the right thigh is normal in appearance. IMPRESSION: 1. Patchy airspace consolidation at both lung bases is new from previous. Correlate clinically for evidence of pneumonia/aspiration pneumonitis. 2. No acute infectious or inflammatory findings are identified in the abdomen or pelvis. 3. Moderate to large hiatal hernia. 4. There is unchanged appearance of a subacute superior plate compression fracture of L3. No retropulsion of fragments is seen. 5. No additional fracture is seen involving the lumbar spine. Lumbosacral spondylosis and scoliosis as discussed above. 6. No acute bony abnormality is seen involving the right hip. 7. Additional findings as above. ACT 112: Negative or not required by law. Electronically signed by: Diogo Moreno M.D. 12/23/2023 10:02 AM Chest X-Ray 12/23/23 10:07 SINGLE VIEW CHEST CLINICAL HISTORY: Generalized weakness. FINDINGS: An AP, portable, upright chest radiograph is compared to study dated 12/19/2023 and correlated with chest CT dated 05/10/2016. There is a hiatal hernia. The heart is enlarged noting atherosclerotic calcification of the thoracic aorta. The pulmonary vasculature is noncongested. Chronic interstitial thickening is similar to previous. Foci of parenchymal scarring are seen throughout both lungs. No airspace consolidation or large pleural effusion is i dentified. No pneumothorax is seen. The skeletal structures are osteopenic. There are chronic/healed left-sided rib fractures. Surgical clips project over the right lower chest. IMPRESSION: 1. Cardiomegaly with no acute cardiopulmonary abnormality. 2. Hiatal hernia. ACT 112: Negative or not required by law. Electronically signed by: Diogo Moreno M.D. 12/23/2023 10:31 AM Code Status & VTE Plan Code Status DNR/DNI VTE Prophylaxis Plan VTE Prophylaxis will be ordered: Yes Supervising Physician Co-Signing Physician Notes Patient seen and examined, chart reviewed, case discussed with Lewis Hardy PA-C and I agree with the assessment and plan as above except as otherwise noted Labs and images reviewed Julia is a 83-year-old female with a history of hypertension, cognitive impairment, asthma, lumbar radiculopathy, posttraumatic subdural hematoma, adjustment disorder who presents with worsened back and flank pain, low back pain radiating pain into her bilateral legs, and some shortness of breath worsened with inspiration.Known compression fracture and endometrial mass. 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 10/10 pain i n R leg radiation and 5/10 in LEFT leg but with no weakness. Prior Multilevel lumbar stenosis on MRI. L1-L2 mild-mod, L2-L3 severe with 6mm AP diameter w/ posterior disc bulge, mi-mod at L3-L4 and formainal stenosis at L1-S1. Pain correlates with L2-L3 dermatome. 12/14 was ordered a 5 day prednisone rapid taper. Denies numbness, saddle anesthesia, and bowel/bladder incontinence. +3 weeks of shortness of breath and exertional dyspnea as well, evidence of developing PNA on CT --> agree w/ rocephin tx. No change in appearance of compression fracture on L3. Due to sx at prior admit orthospine was consulted and MRI of the lumbar spine was obtained, results as noted.Pt was told she could use a LSO brace with activity, notes that her pain is not on activity but rather awakening her in the AM and would not wear the LSO at rest anyways. Suspect pain 2/2 Multilevel lumbar stenosis; she was seen by Dr. Elias however she was not interested in pursuing any type of surgical intervention. Pain management recommended outpatient lido patch as inpatient and outpatient followup. She has not yet followed up with pain management as outpatient. SHe did have reasonable pain control during last admission, however her pain has continued to increase with mid low back pain and bilateral radiculopathy @L2/L3 dermatome. Multimodal pain control including tylenol, toradol, breakthrough morphine ordered. Pain Management consulted for ?epidural injection. Additionally Patient did follow-up with Dr. Crum on 12/13/2023 for suspected endometrial malignancy. Acute intervention is not recommended at this time. Followup MRI remonstrated her endometrial findings highly concerning for malignancy. Patient is pending follow-up as outpatient with [facility]IDENT[facility] C[facility] onc. Continues to have spotting. No other acute change at this time. No inidication for transfusion, no large volume bleed. Hgb 10.6, with baseline ~10-11. Agree w/ assessment and management above PG Care Time/CCT Total # of Minutes Spent Total Time Spent with Patient: Total time spent is greater than 50% in coordination of care (as documented) at patient's floor/unit and/or counseling patient: Coding [place] [address] INT INP/OBS CARE 3/75MIN Patient Type Established Medical Decision Making High Complexity Diagnoses Compression fracture of L3 vertebra with routine healing, subsequent encounter S32.030D Encounter type: subsequent encounter Fracture healing: with routine healing Lumbar vertebra fracture level: L3 Fall W19.XXXA Encounter type: initial encounter Pneumonia J18.9 Laterality: bilateral Lung location: unspecified part of lung Pneumonia type: due to unspecified organism Hypertensive emergency I16.1 Anxiety and depression F41.9; F32.A Endometrial mass N94.89 Anemia D64.9 Anemia type: unspecified type Pneumonitis J98.4 Hypoxia R09.02 (1) Lumbar compression fracture Encounter type: subsequent encounter Fracture healing: with routine healing Lumbar vertebra fracture level: L3 Qualified Code(s): S32.030D - Wedge compression fracture of third lumbar vertebra, subsequent encounter for fracture with routine healing (2) Fall Encounter type: initial encounter Qualified Code(s): W19.XXXA - Unspecified fall, initial encounter (3) Pneumonia Laterality: bilateral Lung location: unspecified part of lung Pneumonia type: due to unspecified organism Qualified Code(s): J18.9 - Pneumonia, unspeci fied organism (7) Anemia Anemia type: unspecified type Qualified Code(s): D64.9 - Anemia, unspecified
[2023-12-23] MEDS: PROPRANOLOL HCL LA 80 MG CAPCR PO STA (12:28)
[2023-12-23] MEDS: cefTRIAXone SODIUM 2,000 MG/50 ML BAG IV STA (12:40)
[2023-12-23 13:51] LABS: Influenza A virus by PCR Negative (Neg); Influenza B virus by PCR Negative (Neg); RSV by PCR Negative (Neg); SARS CoV2 RNA(COVID-19) Ceph NEGATIVE (Negative)
[2023-12-23] MEDS: HYDROmorphone INJ 0.5 MG/0.5 ML SYR IV STA (13:52)
[2023-12-23] MEDS: ACETAMINOPHEN 325 MG TAB PO STA (13:52)
[2023-12-23] MEDS: hydrALAZINE 10 MG TAB PO STA (14:24)
[2023-12-23] MEDS: LABETALOL HCL IV 5 MG/ML 20ML IV STA (15:08)
[2023-12-23] MEDS ORDERED: NON-FORMULARY MEDICATION (Polyvinyl Alcohol-Povidon(Pf) [Refresh Classic (Pf)] 1.4-0.6 % D OPB SCH (17:22)
[2023-12-23] MEDS ORDERED: ALBUTEROL HFA 8 GM INHALER INH PRN (17:22)
[2023-12-23] MEDS: HYDROmorphone INJ 0.5 MG/0.5 ML SYR IV PRN (17:44)
[2023-12-23] MEDS ORDERED: ARTIFICIAL TEARS OP PRN (17:44)
[2023-12-23] MEDS: LIDOCAINE 5% 1 PATCH TD SCH (18:35)
[2023-12-23] MEDS: HYDROmorphone INJ 1 MG/ML SYRINGE IV PRN (19:26)
[2023-12-23] MEDS: hydrALAZINE 10 MG TAB PO SCH (19:42)
[2023-12-23] MEDS: ACETAMINOPHEN 325 MG TAB PO SCH (19:43)
[2023-12-23] MEDS: DOCUSATE SODIUM 100 MG CAP PO SCH (19:43)
[2023-12-23] MEDS: DOCUSATE SODIUM/SENNA 50/8.6MG TAB PO SCH (19:44)
[2023-12-23] MEDS: CITALOPRAM 40 MG TAB PO SCH (19:44)
[2023-12-23] MEDS: busPIRone 5 MG TAB PO SCH (19:44)
[2023-12-23] MEDS: FLUTICASONE/VILANTEROL 200/25MCG 14 PUFFS/INHALER INH SCH (19:45)
[2023-12-24] MEDS: LORazepam 0.5 MG TAB PO PRN ×2 (01:21→10:59)
[2023-12-24] MEDS: LABETALOL HCL IV 5 MG/ML 20ML IV PRN (02:27)
[2023-12-24 06:57] LABS: Basophils # (auto) 0.05 K/uL (0.00-0.20); Basophils % (auto) 0.5 %; Eosinophils # (auto) 0.17 K/uL (0.00-0.50); Eosinophils % (auto) 1.7 %; Hematocrit (blood only) 30.8 % (37.0-47.0); Hemoglobin 10.2 g/dl (12.0-16.0); Immature Granulocytes # (auto) 0.06 K/uL (0.01-0.20); Immature Granulocytes % (auto) 0.6 %; Lymphocytes # (auto) 1.84 K/uL (1.20-3.40); Mean Corpuscular Hemoglobin 28.6 pg (25.0-34.0); Mean Corpuscular Hgb Conc 33.1 g/dL (32.0-36.0); Mean Corpuscular Volume 86.3 fL (80.0-100.0); Mean Platelet Volume 9.8 fL (9.4-12.4); Monocytes # (auto) 0.92 K/uL (0.11-0.59); Neutrophils # (auto) 7.19 K/uL (1.40-6.50); Neutrophils % (auto) 70.2 %; Platelet Count 331 K/uL (130-400); RDW Coefficient of Variation 15.3 % (11.5-14.5); RDW Standard Deviation 47.9 fL (36.4-46.3); Red Blood Count 3.57 M/uL (4.20-5.40); White Blood Count 10.23 K/ul (4.8-10.8)
[2023-12-24 07:45] LABS: BUN Creatinine Ratio 25.7 (10-20); Calcium 8.7 mg/dl (8.6-10.3); Creatinine Clr Calc Pharmacy 45.9 ml/min; Est GFR (African American) 92.2 ml/min; Est GFR (Non-African American) 79.6 ml/min; Potassium 3.9 mmol/L (3.5-5.1)
[2023-12-24] MEDS: POLYETHYLENE (MIRALAX) 17 GM PACK PO SCH (08:23)
[2023-12-24] MEDS: MIRTAZAPINE TAB 15 MG TAB PO SCH (08:25)
[2023-12-24] MEDS: FLUTICASONE PROPIONATE NA SPR 16 GM BTL SCH (08:25)
[2023-12-24] MEDS: PROPRANOLOL HCL LA 80 MG CAPCR PO SCH (08:25)
[2023-12-24] MEDS: CALCITONIN SALMON NA 200 IU/AC 3.7 ML BTL SCH (10:24)
[2023-12-24] MEDS: levoFLOXacin/D5W 750 MG/150 ML BAG IV SCH (10:24)
[2023-12-24] MEDS: oxyCODONE HCL IR 5 MG TAB (IMMEDIATE RELEASE) PO PRN (11:00)
[2023-12-24] MEDS ORDERED: cefTRIAXone SODIUM 2,000 MG in DEXTROSE 5 % MINI-B 50 ML IV SCH (12:30)
--- NOTE | 2023-12-24 16:37 | Hospitalist Progress Note ---
Date of Service December 24, 2023 Assessment & Plan (1) Lumbar compression fracture: Plan: - Intractable lower back pain and bilateral sciatic pain (worse on the right side) that has been ongoing for several weeks - Unchanged, subacute superior plate compression fracture of L3 seen on lumbar spine CT. No saddle anesthesia or change in bowel habits. - Lumbar spine was obtained during recent admission on 12/12, and did report severe bilateral neuroforaminal stenosis -- Seen by orthopedics at this time, and patient reported that she is not interested in pursuing any type of surgical intervention -- Could consider possible kyphoplasty - Pain management as follows: Acetaminophen 650 mg p.o. q6h scheduled -- Dilaudid 0.5-1 mg IV q4h PRN -- Oxycodone 5mg PO Q6H PRN -- Miacalcin NS daily -- Ativan 0.5 mg PO BID PRN -- Lidocaine patch application/removal daily to lower back - Pain management consulted for potential steroid/epidural injection (2) Pneumonia: Plan: - Worsening VOGT x 1 week, productive cough, episode of hypoxia at 87% on room air in ED on presentation - No leukocytosis, afebrile, negative for flu, COVID, RSV - While chest x-ray revealed no acute findings and procalcitonin is normal, there are some patchy airspace consolidations in both lung anderson which is also viewed on lumbar spine CT -- Suspicion for atypical pneumonia -- Positive nasal MRSA swab -- Levaquin every 48 hours, due to decreased creatinine clearance -- Preliminary blood cultures are negative after 24 hours. Continue to monitor (3) Fall: Plan: Patient experienced a fall on 12/18 and endorsed head strike, no LOC. Head CT at that time revealed no acute findings. History of subdural hematoma Hip CT revealed no acute bony abnormality of the right hip or lumbar spine Patient endorses ambulatory dysfunction since the fall, but this is likely secondary to pain in the setting of a lumbar compression fracture (4) Hypertensive emergency: Plan: HTN emergency present at time of admission Labetalol 5 mg IV q15m x 3 max doses as needed for severe, persistent HTN (SBP greater than 180 or DBP greater than 110); PCU status Continue propranolol (which may also help with her resting tremor) Continue lisinopril twice daily Continue hydralazine p.o. 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 She reports significant lower back pain. We had a discussion about possible kyphoplasty, and patient reports she will take some time to consider this option. Additionally, she continues to endorse productive cough but denies shortness of breath at rest. She has been hypertensive since admission, but given her diastolic blood pressure is normal, these elevated isolated systolic readings are most likely secondary to pain and anxiety. Physical Exam Physical Exam: General: No acute distress, nondiaphoretic, frail-appearing, anxious. Skin: The skin was warm, dry, without rashes, erythema, edema, or bruising. Cardiac: Regular rate and rhythm without murmurs gallops or rubs. Pulm: Clear to auscultation bilaterally without wheezes, rales or rhonchi. No retractions or accessory muscle use. SpO2 91% on room air. Abdominal: Positive bowel sounds x 4. Soft, nontender, without masses or organomegaly. No guarding or rebound tenderness. Neuro: A&O x3. No focal neurological deficits. Resting right hand tremor. Results & Data Results & Data Vital Signs (Past 12 Hours) Vital Signs Temp Pulse Pulse Resp BP BP Pulse Ox 12/24/23 14:57 36.9 C 82 18 178/74 H 91 12/24/23 11:15 36.4 C L 85 19 114/64 92 12/24/23 09:00 86 12/24/23 07:50 169/90 H 185/87 H 12/24/23 07:09 36.8 C 87 17 207/91 H 91 12/24/23 04:37 36.4 C L 89 19 230/99 H 90 O2 Del Method 12/24/23 14:57 Room Air 12/24/23 11:15 Room Air 12/24/23 09:00 12/24/23 07:50 12/24/23 07:09 Room Air 12/24/23 04:37 Room Air Laboratory Results Reviewed CBC Reviewed chemistries Nasal MRSA screen positive PG Care Time/CCT Total # of Minutes Spent Total Time Spent with Patient: Total time spent is greater than 50% in coordination of care (as documented) at patient's floor/unit and/or counseling patient: Coding Level of Care Code 00422 SUB INP/OBS CARE 350MIN Diagnoses Compression fracture of L3 vertebra with routine healing, subsequent encounter S32.030D Encounter type: subsequent encounter Fracture healing: with routine healing Lumbar vertebra fracture level: L3 Pneumonia J18.9 Laterality: bilateral Lung location: unspecified part of lung Pneumonia type: due to unspecified organism Fall W19.XXXA Encounter type: initial encounter Hypertensive emergency I16.1 Anxiety and depression F41.9; F32.A Endometrial mass N94.89 Anemia D64.9 Anemia type: unspecified type (1) Lumbar compression fracture Encounter type: subsequent encounter Fracture healing: with routine healing Lumbar vertebra fracture level: L3 Qualified Code(s): S32.030D - Wedge compression fracture of third lumbar vertebra, subsequent encounter for fracture with routine healing (2) Pneumonia Laterality: bilateral Lung location: unspecified part of lung Pneumonia type: due to unspecified organism Qualified Code(s): J18.9 - Pneumonia, unspecified organism (3) Fall Encounter type: initial encounter Qualified Code(s): W19.XXXA - Unspecified fall, initial encounter (7) Anemia Anemia type: unspecified type Qualified Code(s): D64.9 - Anemia, unspecified
[2023-12-25 06:25] LABS: Basophils # (auto) 0.03 K/uL (0.00-0.20); Basophils % (auto) 0.2 %; Eosinophils # (auto) 0.08 K/uL (0.00-0.50); Eosinophils % (auto) 0.7 %; Hematocrit (blood only) 31.3 % (37.0-47.0); Hemoglobin 9.9 g/dl (12.0-16.0); Immature Granulocytes % (auto) 0.8 %; Lymphocytes # (auto) 1.72 K/uL (1.20-3.40); Lymphocytes % (auto) 14.3 %; Mean Corpuscular Hemoglobin 28.4 pg (25.0-34.0); Mean Corpuscular Hgb Conc 31.6 g/dL (32.0-36.0); Mean Corpuscular Volume 89.9 fL (80.0-100.0); Mean Platelet Volume 9.6 fL (9.4-12.4); Monocytes # (auto) 1.18 K/uL (0.11-0.59); Monocytes % (auto) 9.8 %; Neutrophils # (auto) 8.92 K/uL (1.40-6.50); Neutrophils % (auto) 74.2 %; Platelet Count 292 K/uL (130-400); RDW Coefficient of Variation 15.3 % (11.5-14.5); RDW Standard Deviation 49.9 fL (36.4-46.3); Red Blood Count 3.48 M/uL (4.20-5.40); White Blood Count 12.03 K/ul (4.8-10.8)
[2023-12-25 07:46] LABS: BUN Creatinine Ratio 25.8 (10-20); Calcium 8.5 mg/dl (8.6-10.3); Creatinine Clr Calc Pharmacy 48.7 ml/min; Est GFR (Non-African American) 81.1 ml/min; Potassium 4.4 mmol/L (3.5-5.1)
--- NOTE | 2023-12-25 09:35 | XRay Report ---
SINGLE VIEW CHEST CLINICAL HISTORY: Aspiration. FINDINGS: An AP, portable, upright chest radiograph is compared to study dated 12/23/2023 and correlat ed with chest CT dated 05/10/2016. There is a hiatal hernia. The heart is enlarged noting atherosclero tic calcification of the thoracic aorta. The pulmonary vasculature is noncongested. Chronic interstit ial thickening is similar to previous. Foci of parenchymal scarring are seen throughout both lungs. N o airspace consolidation or large pleural effusion is identified. No pneumothorax is seen. The skelet al structures are osteopenic. There are chronic/healed left-sided rib fractures. Surgical clips proje ct over the right lower chest. IMPRESSION: 1. Cardiomegaly with no acute cardiopulmonary abnormality. 2. Hiatal hernia. ACT 112: Negative or not required by law. Electronically signed by: Diogo Moreno M.D. 12/25/2023 9:32 AM
[2023-12-25] MEDS: KETOROLAC TROMETHAMINE 15 MG/ML VIAL IV ONE (09:49)
[2023-12-25] MEDS: busPIRone 5 MG TAB PO ONE (13:06)
[2023-12-25] MEDS: FAMOTIDINE 20 MG TAB PO ONE (13:06)
--- NOTE | 2023-12-25 14:55 | Hospitalist Progress Note ---
Date of Service December 25, 2023 Assessment & Plan (1) Lumbar compression fracture: Plan: - Intractable lower back pain and bilateral sciatic pain (worse on the right side) that has been ongoing for several weeks - Unchanged, subacute superior plate compression fracture of L3 seen on lumbar spine CT. No saddle anesthesia or change in bowel habits. - Lumbar spine was obtained during recent admission on 12/12, and did report severe bilateral neuroforaminal stenosis -- Seen by orthopedics at this time, and patient reported that she is not interested in pursuing any type of surgical intervention -- Patient is agreeable to kyphoplasty at this time, ortho consulted - Pain management as follows: -- Acetaminophen 650 mg p.o. q6h scheduled -- Dilaudid 0.5-1 mg IV q4h PRN -- Oxycodone 5mg PO Q6H PRN -- Miacalcin NS daily -- Ativan 0.5 mg PO BID PRN -- Lidocaine patch application/removal daily to lower back - Pain management consulted for potential steroid/epidural injection (2) Pneumonia: Plan: - Worsening VOGT x 1 week, productive cough, episode of hypoxia at 87% on room air in ED on presentation - No leukocytosis, afebrile, negative for flu, COVID, RSV - While chest x-ray revealed no acute findings and procalcitonin is normal, there are some patchy airspace consolidations in both lung anderson which is also viewed on lumbar spine CT -- Suspicion for atypical pneumonia -- Positive nasal MRSA swab -- Levaquin every 48 hours, due to decreased creatinine clearance -- Preliminary blood cultures are negative after 48 hours. Continue to monitor. - CXR ordered for concern of aspiration, no acute cardiopulmonary abnormality. Follow aspiration precautions. - Incentive spirometer Q4HWA (3) Fall: Plan: Patient experienced a fall on 12/18 and endorsed head strike, no LOC. Head CT at that time revealed no acute findings. History of subdural hematoma Hip CT revealed no acute bony abnormality of the right hip or lumbar spine Patient endorses ambulatory dysfunction since the fall, but this is likely secondary to pain in the setting of a lumbar compression fracture (4) Hypertensive emergency: Plan: HTN emergency present at time of admission Labetalol 5 mg IV q15m x 3 max doses as needed for severe, persistent HTN (SBP greater than 180 or DBP greater than 110); PCU status Continue propranolol (which may also help with her resting tremor) Continue lisinopril twice daily Continue hydralazine p.o. 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 She continues to complain of severe back pain. We had another discussion about kyphoplasty, and she is agreeable to this. She reports feeling very anxious, and attributes this to the upcoming procedure. We discussed what a kyphoplasty entails, which seemed to relieve some of her anxiety. She reports poor sleep last night due to the lower back pain. There was concern yesterday evening of possible aspiration with dinner, however the the patient denies this today. Chest x-ray was ordered today which did not reveal any acute findings. She was eating lunch without problems during my evaluation. Denies shortness of breath, chest pain, abdominal pain. Physical Exam Physical Exam: General: No acute distress, nondiaphoretic, frail-appearing, anxious. Skin: The skin was warm, dry, without rashes, erythema, edema, or bruising. Cardiac: Regular rate and rhythm without murmurs gallops or rubs. Pulm: Clear to auscultation bilaterally without wheezes, rales or rhonchi. No retractions or accessory muscle use. SpO2 96% on 1L. Abdominal: Positive bowel sounds x 4. Soft, nontender, without masses or organomegaly. No guarding or rebound tenderness. Neuro: A&O x3. No focal neurological deficits. Resting right hand tremor. Results & Data Results & Data Vital Signs (Past 12 Hours) Vital Signs Temp Pulse Resp BP BP Pulse Ox O2 Del Method 12/25/23 11:43 36.7 C 93 H 20 108/55 L 96 Nasal Cannula 12/25/23 11:00 Nasal Cannula 12/25/23 08:33 36.9 C 85 18 172/76 H 93 Nasal Cannula 12/25/23 04:00 36.9 C 79 16 169/69 H 98 Nasal Cannula O2 Flow Rate 12/25/23 11:43 1.0 12/25/23 11:00 1 12/25/23 08:33 1.0 12/25/23 04:00 3 Laboratory Results Reviewed CBC Reviewed chemistries Reviewed blood cultures PG Care Time/CCT Total # of Minutes Spent Total Time Spent with Patient: Total time spent is greater than 50% in coordination of care (as documented) at patient's floor/unit and/or counseling patient: Coding Level of Care Code 20337 SUB INP/OBS CARE 3/50MIN Diagnoses Compression fracture of L3 vertebra with routine healing, subsequent encounter S32.030D Encounter type: subsequent encounter Fracture healing: with routine healing Lumbar vertebra fracture level: L3 Pneumonia J18.9 Laterality: bilateral Lung location: unspecified part of lung Pneumonia type: due to unspecified organism Fall W19.XXXA Encounter type: initial encounter Hypertensive emergency I16.1 Anxiety and depression F41.9; F32.A Endometrial mass N94.89 Anemia D64.9 Anemia type: unspecified type (1) Lumbar compression fracture Encounter type: subsequent encounter Fracture healing: with routine healing Lumbar vertebra fracture level: L3 Qualified Code(s): S32.030D - Wedge co mpression fracture of third lumbar vertebra, subsequent encounter for fracture with routine healing (2) Pneumonia Laterality: bilateral Lung location: unspecified part of lung Pneumonia type: due to unspecified organism Qualified Code(s): J18.9 - Pneumonia, unspecified organism (3) Fall Encounter type: initial encounter Qualified Code(s): W19.XXXA - Unspecified fall, initial encounter (7) Anemia Anemia type: unspecified type Qualified Code(s): D64.9 - Anemia, unspecified
[2023-12-25] MEDS: oxyCODONE HCL IR 5 MG TAB (IMMEDIATE RELEASE) PO PRN (16:08)
[2023-12-25] MEDS: busPIRone 5 MG TAB PO SCH (16:14)
[2023-12-26 08:02] LABS: Basophils # (auto) 0.02 K/uL (0.00-0.20); Basophils % (auto) 0.2 %; Eosinophils # (auto) 0.13 K/uL (0.00-0.50); Eosinophils % (auto) 1.2 %; Hematocrit (blood only) 30.7 % (37.0-47.0); Hemoglobin 10.2 g/dl (12.0-16.0); Immature Granulocytes # (auto) 0.09 K/uL (0.01-0.20); Immature Granulocytes % (auto) 0.8 %; Lymphocytes # (auto) 1.67 K/uL (1.20-3.40); Lymphocytes % (auto) 15.1 %; Mean Corpuscular Hemoglobin 28.6 pg (25.0-34.0); Mean Corpuscular Hgb Conc 33.2 g/dL (32.0-36.0); Mean Platelet Volume 9.8 fL (9.4-12.4); Monocytes % (auto) 8.1 %; Neutrophils # (auto) 8.27 K/uL (1.40-6.50); Neutrophils % (auto) 74.6 %; Platelet Count 313 K/uL (130-400); RDW Coefficient of Variation 15.4 % (11.5-14.5); RDW Standard Deviation 48.1 fL (36.4-46.3); Red Blood Count 3.57 M/uL (4.20-5.40); White Blood Count 11.08 K/ul (4.8-10.8)
[2023-12-26 08:14] LABS: BUN Creatinine Ratio 21.5 (10-20); Calcium 8.7 mg/dl (8.6-10.3); Creatinine Clr Calc Pharmacy 49.4 ml/min; Est GFR (African American) 94.5 ml/min; Est GFR (Non-African American) 81.5 ml/min; Potassium 3.7 mmol/L (3.5-5.1)
--- NOTE | 2023-12-26 11:59 | Hospitalist Progress Note ---
Date of Service December 26, 2023 Assessment & Plan (1) Lumbar compression fracture: Plan: - Intractable lower back pain and bilateral sciatic pain (worse on the right side) that has been ongoing for several weeks - Unchanged, subacute superior plate compression fracture of L3 seen on lumbar spine CT. No saddle anesthesia or change in bowel habits. - Lumbar spine was obtained during recent admission on 12/12, and did report severe bilateral neuroforaminal stenosis -- Seen by orthopedics at this time, and patient reported that she is not interested in pursuing any type of surgical intervention -- Patient is agreeable to kyphoplasty at this time. Kyphoplasty scheduled for 12/27/[address] Elias. - Pain management as follows: -- Acetaminophen 650 mg p.o. q6h scheduled -- Dilaudid 0.5-1 mg IV q4h PRN -- Oxycodone 5mg PO Q6H PRN -- Miacalcin NS daily -- Ativan 0.5 mg PO BID PRN -- Lidocaine patch application/removal daily to lower back - Pain management consulted for potential steroid/epidural injection (2) Pneumonia: Plan: - Worsening VOGT x 1 week, productive cough, episode of hypoxia at 87% on room air in ED on presentation - No leukocytosis, afebrile, negative for flu, COVID, RSV - While chest x-ray revealed no acute findings and procalcitonin is normal, there are some patchy airspace consolidations in both lung anderson which is also viewed on lumbar spine CT -- Suspicion for atypical pneumonia -- Positive nasal MRSA swab -- Levaquin every 48 hours, due to decreased creatinine clearance -- Preliminary blood cultures are negative after 48 hours. Continue to monitor. - CXR ordered for concern of aspiration, no acute cardiopulmonary abnormality. Follow aspiration precautions. - Incentive spirometer Q4HWA (3) Fall: Plan: Patient experienced a fall on 12/18 and endorsed head strike, no LOC. Head CT at that time revealed no acute findings. History of subdural hematoma Hip CT revealed no acute bony abnormality of the right hip or lumbar spine Patient endorses ambulatory dysfunction since the fall, but this is likely secondary to pain in the setting of a lumbar compression fracture Plan to go to rehab upon discharge (4) Hypertensive emergency: Plan: HTN emergency present at time of admission Labetalol 5 mg IV q15m x 3 max doses as needed for severe, persistent HTN (SBP greater than 180 or DBP greater than 110); PCU status Continue propranolol (which may also help with her resting tremor) Continue lisinopril twice daily Continue hydralazine p.o. QID (5) Anxiety and depression: Plan: Patient expressed a desire to because of her chronic pain on admission She denied any thoughts of self-harm at this time, and reported that she would not want to if her lower back pain could be fixed She does not want to see psychiatry while inpatient Continue citalopram Continue BuSpar Lorazepam 0.5 mg daily as needed for anxiety (6) Endometrial mass: Plan: Patient endorses recent vaginal spotting Following with [facility] outpatient Per visit on 12/12, high suspicion for endometrial cancer Hgb 10.6 on arrival No acute intervention at this time (7) Anemia: Plan: Chronic and stable Plan CODE STATUS: DNR/DNI VTE PPx: SCDs, hold chemical DVT PX for now given vaginal spotting, and recurrent falls Admission and Anticipated Discharge Date Admission Date: December 23, 2023 Subjective Patient seen and evaluated bedside this morning. She was ambulating fairly well with a rolling walker to and from the bathroom. She continues to endorse lower back pain. She is scheduled for kyphoplasty with Dr. Elias tomorrow, 12/27/2023. She appears very anxious about this, but agreeable to the procedure. We had a discussion about going to skilled rehab upon discharge from the hospital, and she is agreeable to this. She continues to report some dry coughing. Denies shortness of breath, chest pain, abdominal pain. Physical Exam Physical Exam: General: No acute distress, nondiaphoretic, frail-appearing, anxious. Skin: The skin was warm, dry, without rashes, erythema, edema, or bruising. Cardiac: Regular rate and rhythm without murmurs gallops or rubs. Pulm: Clear to auscultation bilaterally without wheezes, rales or rhonchi. No retractions or accessory muscle use. SpO2 96% on 1L. Abdominal: Positive bowel sounds x 4. Soft, nontender, without masses or organomegaly. No guarding or rebound tenderness. Neuro: A&O x3. No focal neurological deficits. Resting right hand tremor. Results & Data Results & Data Vital Signs (Past 12 Hours) Vital Signs Temp Pulse Pulse Resp BP BP Pulse Ox 12/26/23 11:04 36.4 C L 89 18 112/63 94 12/26/23 09:44 90 12/26/23 07:07 36.9 C 85 18 95 12/26/23 05:22 76 189/80 H 12/26/23 05:07 96 H 196/84 H 12/26/23 04:00 36.6 C 96 H 18 196/84 H 93 O2 Del Method 12/26/23 11:04 Room Air 12/26/23 09:44 12/26/23 07:07 Room Air 12/26/23 05:22 12/26/23 05:07 12/26/23 04:00 Room Air Laboratory Results Reviewed CBC Reviewed BMP Reviewed blood cultures PG Care Time/CCT Total # of Minutes Spent Total Time Spent with Patient: Total time spent is greater than 50% in coordination of care (as documented) at patient's floor/unit and/or counseling patient: Coding Level of Care Code 47292 SUB INP/OBS CARE 3/50MIN Diagnoses Compression fracture of L3 vertebra with routine healing, subsequent encounter S32.030D Encounter type: subsequent encounter Fracture healing: with routine healing Lumbar vertebra fracture level: L3 Pneumonia J18.9 Laterality: bilateral Lung location: unspecified part of lung Pneumonia type: due to unspecified organism Fall W19.XXXA Encounter type: initial encounter Hypertensive emergency I16.1 Anxiety and depression F41.9; F32.A Endometrial mass N94.89 Anemia D64.9 Anemia type: unspecified type (1) Lumbar compression fracture Encounter type: subsequent encounter Fracture healing: with routine healing Lumbar vertebra fracture level: L3 Qualified Code(s): S32.030D - Wedge compression fracture of third lumbar vertebra, subsequent encounter for fracture with routine healing (2) Pneumonia Laterality: bilateral Lung location: unspecified part of lung Pneumonia type: due to unspecified organism Qualified Code(s): J18.9 - Pneumonia, unspecified organism (3) Fall Encounter type: initial encounter Qualified Code(s): W19.XXXA - Unspecified fall, initial encounter (7) Anemia Anemia type: unspecified type Qualified Code(s): D64.9 - Anemia, unspecified
--- NOTE | 2023-12-26 12:46 | Orthopedic Consultation ---
Date of Consultation December 26, 2023 Assessment & Plan (1) Lumbar compression fracture: Assessment L3 compression fracture with multilevel lumbar spinal stenosis. Plan at this time at length yesterday with the patient and a phone call with her daughter. She does have multilevel lumbar spinal stenosis as well as an acute compression fracture of L3. In light of her health history and current state we will have agreed not to perform any aggressive lumbar surgery which would include a lumbar decompression involving L3-L4 L4-5. We decided to approach the fracture of L3 alone. This required a kyphoplasty of L3. Hopefully this will provide enough pain relief to return the patient to her baseline and function. Risk benefits pros cons alternatives in detail. She will be made n.p.o. after midnight. History of Present Illness Reason for Consultation: Back and leg pain Attending Physician: Rey Del Toro MD History of Present Illness This is a an 83-year-old female who presents the hospital multimedical issues including chronic persistent back and leg pain. The symptoms have been present for several weeks and have not improved despite medical management and rest. She does describe pain in the back rating the buttocks and thighs. Does not go below the knees. Is worse with activity. Allergies Allergy/AdvReac Type Severity Reaction Status Date / Time povidone-iodine Allergy Mild RED RASH Verified 12/19/23 15:55 AND SKIN IRRITATION amoxicillin AdvReac Intermediate NAUSEA Verified 12/19/23 15:55 clavulanic acid AdvReac Intermediate NAUSEA Verified 12/19/23 15:55 doxycycline AdvReac Intermediate NAUSEA Verified 12/19/23 15:55 mometasone furoate AdvReac Intermediate NAUSEA Verified 12/19/23 15:55 nitrofurantoin AdvReac Intermediate nausea Verified 12/19/23 15:55 Sulfa (Sulfonamide AdvReac Mild NAUSEA/VOMI Verified 12/19/23 15:55 Antibiotics) TING Home Medications Medication Instructions Recorded Confirmed Type polyethylene glycol 3350 17 17 gm PO QAM 05/17/19 12/23/23 History gram/dose oral powder (Miralax) calcium carbonate 600 mg-vitamin 1 tab PO BIDM 06/04/19 12/23/23 History D3 5 mcg (200 unit) tablet docusate sodium 100 mg capsule 100 mg PO BIDM 06/04/19 12/23/23 History cholecalciferol (vitamin D3) 50 50 mcg PO QAM 03/03/21 12/23/23 History mcg (2,000 unit) capsule polyvinyl alcohol-povidone (PF) 1 drp OPB QID 08/14/21 12/23/23 History 1.4 %-0.6 % eye drops in a dropperette (Refresh Classic (PF)) sennosides 8.6 mg-docusate sodium 1 tab PO BID 10/15/22 12/23/23 History 50 mg tablet (Senna Plus) Flutter Valve #1 ea 10/26/22 12/16/23 Rx alendronate 70 mg tablet (Fosamax) 70 mg PO WK 10/26/22 12/23/23 History white petrolatum-mineral oil 57.3 1 applic OPB HS 11/01/22 12/23/23 History %-42.5 % eye ointment (Refresh P.M.) fluticasone propionate 50 1 spray intranasal DAILY #16 grams 03/14/23 12/23/23 Rx mcg/actuation nasal spray,suspension citalopram 40 mg tablet (Celexa) 40 mg PO QAM #90 tabs 07/07/23 12/23/23 Rx mecobalamin (vitamin B12) 1,000 1,000 mcg sublingual DAILY #30 tabs 09/09/23 12/23/23 Rx mcg disintegrating tablet,sublingual mirtazapine 15 mg tablet (Remeron) 15 mg PO DAILY #90 tabs 10/06/23 12/23/23 Rx lorazepam 0.5 mg tablet (Ativan) 0.5 mg PO DAILY PRN anxiety #20 11/07/23 12/23/23 Rx tabs nystatin-triamcinolone 100,000 1 applic topical TID #30 grams 11/07/23 12/23/23 Rx unit/gram-0.1 % topical ointment cyclosporine 0.05 % eye drops in a 1 drp ophthalmic (eye) Q12H 11/30/23 12/23/23 History dropperette (Restasis) Spacer for Inhaler #1 ea 12/09/23 12/16/23 Rx albuterol sulfate 90 mcg/actuation 2 puff inhalation QIDR PRN 12/09/23 12/23/23 Rx aerosol inhaler (Ventolin HFA) cough/wheeze/shortness of breath #6.7 grams lidocaine 5 % topical patch 1 patch transdermal QAM #20 ea 12/15/23 12/23/23 Rx hydralazine 10 mg tablet 5 mg (1/2 x 10 mg) PO QID #100 tabs 12/16/23 12/23/23 Rx propranolol 80 mg capsule,24 80 mg PO QAM #30 caps 12/16/23 12/23/23 Rx hr,extended release acetaminophen 500 mg tablet 500 mg PO .@1200,1900 Pain 12/19/23 12/23/23 History (Tylenol Extra Strength) budesonide-formoterol HFA 160 2 puff inhalation BID17 12/19/23 12/23/23 History mcg-4.5 mcg/actuation aerosol inhaler buspirone 5 mg tablet 5 mg PO BIDM 12/19/23 12/23/23 History polyethylene glycol 3350 17 17 g PO .1-2XDAILY PRN Constipation 12/19/23 12/23/23 History gram/dose oral powder (Miralax) tramadol 50 mg tablet 50 mg PO BID 12/19/23 12/23/23 History acetaminophen 500 mg capsule 1,000 mg PO AMHS pain 12/23/23 12/23/23 History lidocaine 5 %-phenylephrine 0.25 1 applic topical TID PRN rectal 12/23/23 12/23/23 History %-glycern 14.4 %-petrolatm 15 % pain cream (Preparation H Rapid Relief-Lidocaine) Patient History Medical History Sacroiliac joint pain Anxiety and depression Bronchiectasis Subdural hematoma H/O malignant neoplasm of breast History of basal cell cancer Acute subdural hematoma Hypertension Surgical History S/P knee surgery S/P dilation and curettage S/P breast lumpectomy Family History Father Hypertension Stroke Unknown Cancer Denies family history of Colon cancer Ovarian cancer Prostate cancer Myocardial infarction Breast cancer Social History Smoking Status: Never smoker Second Hand Exposure: Yes; Do You Dip or Chew Tobacco: No; Hx Alcohol Use: No Hx Substance Use: No Preferred Language: [place] Communication Ability: Effective Visual Impairment: No Limitations Hearing Ability: Normal Switch Operator Required: No Beliefs That Will Affect Care: None marital status: Current Living Situation: Personal Care Facility Current Living Situation Comment: [facility] current occupational status: retired How many Children do You have: 2 Other Information That Helps Us Care for You: No Feels Safe at Home: Yes Childhood Exposure to Second-Hand Smoke: No Dental Care, Regularly: Yes Physical Activity Frequency: 1-2 Times per Week Seatbelt Use: always Sunscreen Use: Yes Assistive Devices: Glasses and Walker Physical Exam Physical Exam: On exam she is in the chair at the bedside. She has reasonable range of motion and strength lower extremities. Sensory appears to be intact. Results & Data Vital Signs (Past 12 Hours) Vital Signs Temp Pulse Pulse Resp BP BP Pulse Ox 12/26/23 11:04 36.4 C L 89 18 112/63 94 12/26/23 09:44 90 12/26/23 07:07 36.9 C 85 18 95 12/26/23 05:22 76 189/80 H 12/26/23 05:07 96 H 196/84 H 12/26/23 04:00 36.6 C 96 H 18 196/84 H 93 O2 Del Method 12/26/23 11:04 Room Air 12/26/23 09:44 12/26/23 07:07 Room Air 12/26/23 05:22 12/26/23 05:07 12/26/23 04:00 Room Air (1) Lumbar compression fracture Encounter type: subsequent encounter Fracture healing: with routine healing Lumbar vertebra fracture level: L3 Qualified Code(s): S32.030D - Wedge compression fracture of third lumbar vertebra, subsequent encounter for fracture with routine healing
[2023-12-26] MEDS: ALUMINUM/MAGNESIUM SUSP 30 ML UDC PO PRN (17:48)
[2023-12-26] MEDS: ONDANSETRON INJ 2 MG/ML 2 ML VIAL IV PRN (20:02)
[2023-12-27 06:38] LABS: Hematocrit (blood only) 29.2 % (37.0-47.0); Hemoglobin 9.6 g/dl (12.0-16.0); Mean Corpuscular Hemoglobin 28.7 pg (25.0-34.0); Mean Corpuscular Hgb Conc 32.9 g/dL (32.0-36.0); Mean Corpuscular Volume 87.4 fL (80.0-100.0); Mean Platelet Volume 9.6 fL (9.4-12.4); Platelet Count 277 K/uL (130-400); RDW Coefficient of Variation 15.6 % (11.5-14.5); RDW Standard Deviation 49.1 fL (36.4-46.3); Red Blood Count 3.34 M/uL (4.20-5.40); White Blood Count 8.36 K/ul (4.8-10.8)
[2023-12-27 07:28] LABS: BUN Creatinine Ratio 19.7 (10-20); Calcium 8.4 mg/dl (8.6-10.3); Creatinine Clr Calc Pharmacy 45.2 ml/min; Est GFR (African American) 90.7 ml/min; Est GFR (Non-African American) 78.2 ml/min; Potassium 3.8 mmol/L (3.5-5.1)
[2023-12-27] MEDS ORDERED: ONDANSETRON INJ 2 MG/ML 2 ML VIAL ONE (08:19)
[2023-12-27] MEDS ORDERED: fentaNYL citrate PF 100 MCG/2 ML VIAL ONE ×2 (08:19→10:48)
[2023-12-27] MEDS ORDERED: PROPOFOL IV EMULSION 10 MG/ML 20 ML VIAL IV ONE (08:19)
[2023-12-27] MEDS ORDERED: LIDOCAINE 2% 2 ML VIAL/AMP(20MG/ML) INFIL ONE (08:19)
[2023-12-27] MEDS ORDERED: ROCURONIUM BROMIDE 10 MG/ML 5 ML VIAL IV ONE (08:19)
--- NOTE | 2023-12-27 09:35 | History & Physical Bridge Note ---
Date of Service December 27, 2023 History & Physical Bridge Note I have examined the patient, reviewed the History & Physical and in the interval since the performance of the History & Physical I have noted the following changes of clinical significance: no changes noted L3 kyphoplasty
--- NOTE | 2023-12-27 09:57 | Anesthesiology Consultation ---
Date of Service December 27, 2023 Assessment & Plan Consults Requested medical & cardiac Pulmonary History Surgery Operation Date: 12/27/23 10:05 Proposed Procedures p L3 Kyphoplasty - Ilan Elias DO Height/Weight Height: 5 ft 2 in Weight: 48.5 kg Allergies Allergy/AdvReac Type Severity Reaction Status Date / Time povidone-iodine Allergy Mild RED RASH Verified 12/19/23 15:55 AND SKIN IRRITATION amoxicillin AdvReac Intermediate NAUSEA Verified 12/19/23 15:55 clavulanic acid AdvReac Intermediate NAUSEA Verified 12/19/23 15:55 doxycycline AdvReac Intermediate NAUSEA Verified 12/19/23 15:55 mometasone furoate AdvReac Intermediate NAUSEA Verified 12/19/23 15:55 nitrofurantoin AdvReac Intermediate nausea Verified 12/19/23 15:55 Sulfa (Sulfonamide AdvReac Mild NAUSEA/VOMI Verified 12/19/23 15:55 Antibiotics) TING Medications Home Medications Medication Instructions Recorded Confirmed Last Taken polyethylene glycol 3350 17 17 gm PO QAM 05/17/19 12/23/23 12/19/23 gram/dose oral powder (Miralax) calcium carbonate 600 mg-vitamin 1 tab PO BIDM 06/04/19 12/23/23 12/19/23 08:00 D3 5 mcg (200 unit) tablet docusate sodium 100 mg capsule 100 mg PO BIDM 06/04/19 12/23/23 12/19/23 08:00 cholecalciferol (vitamin D3) 50 50 mcg PO QAM 03/03/21 12/23/23 12/19/23 mcg (2,000 unit) capsule polyvinyl alcohol-povidone (PF) 1 drp OPB QID 08/14/21 12/23/23 12/19/23 12:00 1.4 %-0.6 % eye drops in a dropperette (Refresh Classic (PF)) sennosides 8.6 mg-docusate sodium 1 tab PO BID 10/15/22 12/23/23 12/19/23 08:00 50 mg tablet (Senna Plus) Flutter Valve #1 ea 10/26/22 12/16/23 Unknown alendronate 70 mg tablet (Fosamax) 70 mg PO WK 10/26/22 12/23/23 12/14/23 white petrolatum-mineral oil 57.3 1 applic OPB HS 11/01/22 12/23/23 12/18/23 %-42.5 % eye ointment (Refresh P.M.) fluticasone propionate 50 1 spray intranasal DAILY #16 grams 03/14/23 12/23/23 12/19/23 06:00 mcg/actuation nasal spray,suspension citalopram 40 mg tablet (Celexa) 40 mg PO QAM #90 tabs 07/07/23 12/23/23 12/19/23 mecobalamin (vitamin B12) 1,000 1,000 mcg sublingual DAILY #30 tabs 09/09/23 12/23/23 12/19/23 mcg disintegrating tablet,sublingual mirtazapine 15 mg tablet (Remeron) 15 mg PO DAILY #90 tabs 10/06/23 12/23/23 12/19/23 lorazepam 0.5 mg tablet (Ativan) 0.5 mg PO DAILY PRN anxiety #20 11/07/23 12/23/23 Unknown tabs nystatin-triamcinolone 100,000 1 applic topical TID #30 grams 11/07/23 12/23/23 12/19/23 12:00 unit/gram-0.1 % topical ointment cyclosporine 0.05 % eye drops in a 1 drp ophthalmic (eye) Q12H 11/30/23 12/23/23 12/19/23 06:00 dropperette (Restasis) Spacer for Inhaler #1 ea 12/09/23 12/16/23 Unknown albuterol sulfate 90 mcg/actuation 2 puff inhalation QIDR PRN 12/09/23 12/23/23 Unknown aerosol inhaler (Ventolin HFA) cough/wheeze/shortness of breath #6.7 grams lidocaine 5 % topical patch 1 patch transdermal QAM #20 ea 12/15/23 12/23/23 12/19/23 hydralazine 10 mg tablet 5 mg (1/2 x 10 mg) PO QID #100 tabs 12/16/23 12/23/23 12/19/23 12:00 propranolol 80 mg capsule,24 80 mg PO QAM #30 caps 12/16/23 12/23/23 12/19/23 hr,extended release acetaminophen 500 mg tablet 500 mg PO .@1200,1900 Pain 12/19/23 12/23/23 Unknown (Tylenol Extra Strength) budesonide-formoterol HFA 160 2 puff inhalation BID17 12/19/23 12/23/23 12/19/23 08:00 mcg-4.5 mcg/actuation aerosol inhaler buspirone 5 mg tablet 5 mg PO BIDM 12/19/23 12/23/23 12/19/23 08:00 polyethylene glycol 3350 17 17 g PO .1-2XDAILY PRN Constipation 12/19/23 12/23/23 Unknown gram/dose oral powder (Miralax) tramadol 50 mg tablet 50 mg PO BID 12/19/23 12/23/23 12/19/23 08:00 acetaminophen 500 mg capsule 1,000 mg PO AMHS pain 12/23/23 12/23/23 Unknown lidocaine 5 %-phenylephrine 0.25 1 applic topical TID PRN rectal 12/23/23 12/23/23 Unknown %-glycern 14.4 %-petrolatm 15 % pain cream (Preparation H Rapid Relief-Lidocaine) Active Medications Generic Name Dose Route Start Last Admin Trade Name Freq PRN Reason Stop Dose Admin Acetaminophen 650 mg 12/23/23 20:00 12/27/23 00:57 Acetaminophen 325 Mg Tab PO 01/22/24 19:59 650 mg Q6H JENNIFER Administration Al Hydrox/Mg Hydrox/Simethicone 30 ml 12/25/23 11:39 12/26/23 17:48 Aluminum/Magnesium Susp 30 Ml Udc PO 01/24/24 11:38 30 ml Q6H PRN Administration upset stomach Buspirone HCl 10 mg 12/25/23 16:00 12/26/23 15:31 Buspirone 5 Mg Tab PO 01/24/24 15:59 10 mg BID@0800,1600 JENNIFER Administration Calcitonin [place] 1 sprays 12/24/23 09:00 12/26/23 08:36 Calcitonin [place] Na 200 Iu/Ac 3.7 Ml Btl NA 01/23/24 08:59 1 sprays DAILY JENNIFER Administration Citalopram Hydrobromide 40 mg 12/23/23 17:45 12/26/23 08:33 Citalopram 40 Mg Tab PO 01/22/24 17:44 40 mg QAM JENNIFER Administration Docusate Sodium 100 mg 12/23/23 17:45 12/27/23 08:15 Docusate Sodium 100 Mg Cap PO 01/22/24 17:44 Not Given BIDM JENNIFER Fluticasone Propionate 1 sprays 12/24/23 09:00 12/26/23 08:37 Fluticasone Propionate Na Spr 16 Gm Btl NA 01/23/24 08:59 1 sprays DAILY JENNIFER Administration Fluticasone/Vilanterol 1 puffs 12/23/23 18:00 12/26/23 08:37 Fluticasone/Vilanterol 200/25mcg 14 Puffs/Inhaler INH 01/22/24 17:59 1 puffs DAILY JENNIFER Administration Hydralazine HCl 5 mg 12/23/23 21:00 12/26/23 20:02 Hydralazine 10 Mg Tab PO 01/22/24 20:59 5 mg QID JENNIFER Administration Hydromorphone HCl 0.5 mg 12/23/23 17:22 12/25/23 12:17 Hydromorphone Inj 0.5 Mg/0.5 Ml Syr IV 01/06/24 17:21 0.5 mg Q4H PRN Administration Moderate Pain (4,5,6) on NRS Hydromorphone HCl 1 mg 12/23/23 17:22 12/27/23 05:05 Hydromorphone Inj 1 Mg/Ml Syringe IV 01/06/24 17:21 1 mg Q4H PRN Administration Severe Pain (7,8,9,10) on NRS Levofloxacin/Dextrose 750 mg in 150 mls @ 100 mls/hr 12/24/23 09:00 12/26/23 10:36 Levaquin/D5w IV 12/31/23 08:59 Infused Q48H JENNIFER Infusion Protocol Labetalol HCl 5 mg 12/23/23 17:22 12/26/23 05:07 Labetalol Hcl Iv 5 Mg/Ml 20ml IV 5 mg Q15M PRN Administration HTN emergency Lidocaine 1 patch 12/23/23 17:45 12/26/23 08:37 Lidocaine 5% 1 Patch TD 01/22/24 17:44 1 patch DAILY JENNIFER Administration Lorazepam 0.5 mg 12/24/23 08:09 12/24/23 20:14 Lorazepam 0.5 Mg Tab PO 01/23/24 08:08 0.5 mg BID PRN Administration Anxiety Mirtazapine 15 mg 12/24/23 09:00 12/26/23 08:33 Mirtazapine Tab 15 Mg Tab PO 01/23/24 08:59 15 mg DAILY JENNIFER Administration Miscellaneous 1 each 12/23/23 21:00 12/26/23 20:21 Remove Lidoderm Patch N/A 01/22/24 20:59 Not Given DAILY@2100 JENNIFER Ondansetron HCl 4 mg 12/23/23 17:22 12/27/23 03:31 Ondansetron Inj 2 Mg/Ml 2 Ml Vial IV 01/22/24 17:21 4 mg Q6H PRN Administration Nausea Oxycodone HCl 10 mg 12/25/23 08:58 12/27/23 02:36 Oxycodone Hcl Ir 5 Mg Tab (Immediate Release) PO 01/07/24 08:13 10 mg Q6H PRN Administration Pain Polyethylene Glycol 17 gm 12/24/23 09:00 12/27/23 08:16 Polyethylene (Miralax) 17 Gm Pack PO 01/23/24 08:59 Not Given QAM JENNIFER Propranolol HCl 80 mg 12/24/23 09:00 12/26/23 08:34 Propranolol Hcl La 80 Mg Capcr PO 01/23/24 08:59 80 mg QAM JENNIFER Administration Senna/Docusate Sodium 1 tab 12/23/23 21:00 12/27/23 08:16 Docusate Sodium/Senna 50/8.6mg Tab PO 01/22/24 20:59 Not Given BID JENNIFER NPO Date Last Intake of Fluids: 12/26/23 Time Last Intake of Fluids: 23:59 Date Last Intake of Solids: 12/26/23 Time Last Intake of Solids: 23:59 Past Medical History Medical History Sacroiliac joint pain Anxiety and depression Bronchiectasis Subdural hematoma H/O malignant neoplasm of breast History of basal cell cancer Acute subdural hematoma Hypertension Past Family History Family History Father Hypertension Stroke Unknown Cancer Denies family history of Colon cancer Ovarian cancer Prostate cancer Myocardial infarction Breast cancer Past Surgical History Surgical History S/P knee surgery S/P dilation and curettage S/P breast lumpectomy Social History Smoking Status: Never smoker Do You Dip or Chew Tobacco: No Hx Alcohol Use: No Alcohol type: other alcohol intake frequency: other Hx Substance Use: No Physical Exam Vital Signs Last Vital Signs Temp 37.2 C 12/27/23 08:54 Pulse 88 12/27/23 08:54 Resp 20 12/27/23 08:54 BP 168/91 H 12/27/23 08:54 Pulse Ox 95 12/27/23 08:54 O2 Del Method Room Air 12/27/23 08:54 O2 Flow Rate 1.0 12/25/23 11:43 Testing Laboratory Results 12/27/23 05:32 12/27/23 05:32 Urine Color Yellow 12/23/23 Unknown Urine Appearance Clear (Clear) 12/23/23 Unknown Urine pH 7.5 (4.5-7.5) 12/23/23 Unknown Ur Specific [place] 1.018 (1.000-1.030) 12/23/23 Unknown Urine Protein Negative (Negative) 12/23/23 Unknown Urine Glucose (UA) Negative (Negative) 12/23/23 Unknown Urine Ketones Negative (Negative) 12/23/23 Unknown Urine Nitrite Negative (Negative) 12/23/23 Unknown Ur Leukocyte Esterase Negative (Negative) 12/23/23 Unknown 12/23/23 11:48 Aerobic Blood Culture - Preliminary Blood No growth in Aerobic bottle after 48 hours. Anaerobic Blood Culture - Preliminary No growth in Anaerobic bottle after 48 hours. 12/23/23 11:47 Aerobic Blood Culture - Preliminary Blood No growth in Aerobic bottle after 48 hours. Anaerobic Blood Culture - Preliminary No growth in Anaerobic bottle after 48 hours. Electrocardiogram Date: 12/01/23 Findings: + NSR @ and + poor R wave progression Echocardiogram Date: 12/01/23 EF: > 70% LV Function: normal Other Findings: + LVH (moderate LVH) Valvular Disease: + no significant valvular disease Pulmonary Function Test Date: 10/15/22 Findings: + other (Significant air trapping and severe obstructive dysfunction. Insignificant bronchodilator response ); no responds to Bronchodilators
[2023-12-27] MEDS ORDERED: ePHEDrine sulfate 50 MG/ML AMP IV PRN (10:00)
[2023-12-27] MEDS ORDERED: ATROPINE SULFATE 0.1 MG/ML 10ML SYR IV PRN (10:00)
[2023-12-27] MEDS ORDERED: ONDANSETRON INJ 2 MG/ML 2 ML VIAL IV PRN (10:00)
[2023-12-27] MEDS ORDERED: DEXAMETHASONE SOD INJ 4 MG/ML VIAL ONE (10:30)
[2023-12-27] MEDS: ceFAZolin 1000MG 1,000 MG/7.5 ML SYR IV ONE (10:42)
[2023-12-27] MEDS ORDERED: ceFAZolin 330 MG/ML 1 GM VIAL ONE (10:48)
[2023-12-27] MEDS: BUPIVACAINE/EPINEPHRINE 0.5% MPF 1:200,000 30 ML VIAL ONE (10:50)
[2023-12-27] MEDS: ceFAZolin 2000MG 2,000 MG/15 ML SYR IV ONE (10:51)
[2023-12-27] MEDS ORDERED: SUGAMMADEX SODIUM 200 MG/2 ML VIAL IV ONE (10:55)
--- NOTE | 2023-12-27 11:01 | Operative Report ---
Post Operative Report Pre & Post Diagnosis Pre-Op diagnosis Osteoporotic compression fracture L3 Postop diagnosis Same Operation Date: 12/27/23 10:05 <No data on this case meets the specified criteria> I identified the patient and participated in the time-out.: Yes Procedure Operation Date: 12/27/23 10:05 #1 kyphoplasty of L3 vertebral body. #2 biopsy of L3 vertebral body Surgeon Ilna Elias, DO Program Director [employer] None Estimated Blood Loss 5 Findings Consistent with Post-Op Diagnosis Specimens Biopsy of L3 vertebral body Indications This is an 83-year-old female who presents chronic persistent back pain. Pain has been unresponsive to medications and PT and we are here for surgical stabilization the fracture to hopefully improve her functionality. Description of Procedure Patient met with identified informed consent obtained. Patient was then taken to the operative suite underwent patient placed in a prone position on the Osvaldo table with chest padded bolsters. All bony prominences well-padded eyes inspected to ensure no external pressure placed upon the. This point the thoracolumbar spine was prepped and draped normal sterile fashion. With the assistance of fluoroscopy in AP and lateral planes identified the L3 vertebral body. 2 small incisions were placed just lateral to the L3 pedicles into Kyphon working cannulas were placed by way of a transpedicular approach into the L3 vertebral body. 2 core biopsies were obtained. I then inserted to 15 mm Kyphon balloons into the vertebral body sequentially inflated with fluoroscopic visualization. They were subsequently removed and approximately 4 cc of Kyphon cement injected with fluoroscopic visualization demonstrating excellent interdigitation and fill. After this was complete the working apparatus was removed all incisions closed with subcutaneous Monocryl and sterile dressings placed. Patient was then awakened and taken to PACU in stable condition. I attest to the content of the Intraoperative Record and any orders documented therein. Any exceptions are noted below.
[2023-12-27] MEDS: hydrALAZINE HCL 20 MG/ML VIAL IV ONE (11:23)
[2023-12-27] MEDS: hydrALAZINE HCL 20 MG/ML VIAL ONE (11:27)
[2023-12-27] MEDS: HYDROmorphone INJ 2 MG/ML SYR/VIAL IV PRN ×2 (11:28→12:23)
--- NOTE | 2023-12-27 12:25 | Fluoroscopy Report ---
FL kyphoplasty any level CLINICAL HISTORY: L3 KYPHOPLASTY COMPARISON STUDY: CT of the abdomen and pelvis December 23, 2023. Fluoroscopy time: 2 minutes and 9 seconds. Ka, r: 5.3841 mGy. FINDINGS: Fluoroscopy was provided during L3 kyphoplasty. Hyperdense material consistent with methylm ethacrylate within the vertebral body is noted. IMPRESSION: Fluoroscopy provided during L3 kyphoplasty. ACT 112: Negative or not required by law. Electronically signed by: Ra Novoa M.D. 12/27/2023 12:23 PM
[2023-12-27] MEDS: ACETAMINOPHEN 10MG/ML Custom 650 MG in EMPTY BAG 0 ML IV STA (12:47)
--- NOTE | 2023-12-27 12:59 | Anesthesiology Progress Note ---
Date of Service December 27, 2023 Anesthesia Post Procedure Vital Signs Vital Signs: Temp Pulse Pulse Pulse Resp BP BP 12/27/23 12:50 37.2 C 104 H 13 147/64 H 12/27/23 12:40 99 H 22 160/75 H 12/27/23 12:30 102 H 14 167/73 H 12/27/23 12:20 102 H 21 187/84 H 12/27/23 12:10 98 H 18 171/69 H 12/27/23 12:00 97 H 18 182/77 H 12/27/23 11:50 96 H 17 189/78 H 12/27/23 11:40 92 H 15 182/70 H 12/27/23 11:30 91 H 21 175/96 H 12/27/23 11:20 85 16 213/84 H 12/27/23 11:11 36.8 C 96 H 19 251/114 H 12/27/23 08:54 37.2 C 88 20 168/91 H 12/27/23 07:36 36.9 C 89 18 156/77 H 12/27/23 07:00 86 12/27/23 03:24 173/67 H 12/27/23 02:34 36.9 C 86 20 12/26/23 23:30 87 12/26/23 22:41 36.8 C 92 H 20 147/65 H 12/26/23 19:24 36.7 C 88 16 162/77 H 12/26/23 17:00 12/26/23 15:22 37.1 C 90 18 198/91 H Pulse Ox Pulse Ox O2 Del Method O2 Del Method O2 Flow Rate 12/27/23 12:50 96 Nasal Cannula 3 12/27/23 12:40 97 Nasal Cannula 3 12/27/23 12:30 93 Nasal Cannula 4 12/27/23 12:20 99 Oxymask 6 12/27/23 12:10 98 Oxymask 6 12/27/23 12:00 98 Oxymask 6 12/27/23 11:50 100 Oxymask 6 12/27/23 11:40 100 Oxymask 6 12/27/23 11:30 99 Oxymask 6 12/27/23 11:20 98 Oxymask 6 12/27/23 11:11 100 Oxymask 6 12/27/23 08:54 95 Room Air 12/27/23 07:36 92 Room Air 12/27/23 07:00 12/27/23 03:24 12/27/23 02:34 95 Room Air 12/26/23 23:30 12/26/23 22:41 91 Room Air 12/26/23 19:24 94 Room Air 12/26/23 17:00 95 Room Air 12/26/23 15:22 93 Room Air Pain Intensity Right Back: Pain Intensity: 10 Right Leg: Pain Intensity: 10 Bilateral Thigh: Pain Intensity: 10 Back: Pain Intensity: 2 Right Hip: Pain Intensity: 0 Lower Medial Back: Pain Intensity: 10 Transfer of Care Handoff Completed per policy Notes Mental Status: alert / awake / arousable and participated in evaluation Nausea / Vomiting: adequately controlled Pain: adequately controlled Airway Patency, RR, SpO2: stable & adequate BP & HR: stable & adequate Hydration State: stable & adequate Anesthetic Complications: no major complications apparent and Pt Satisfied with anesthetic care
--- NOTE | 2023-12-27 16:34 | Hospitalist Progress Note ---
Date of Service December 27, 2023 Assessment & Plan (1) Lumbar compression fracture: Plan: - Intractable lower back pain and bilateral sciatic pain (worse on the right side) that has been ongoing for several weeks - Unchanged, subacute superior plate compression fracture of L3 seen on lumbar spine CT. No saddle anesthesia or change in bowel habits. - Lumbar spine was obtained during recent admission on 12/12, and did report severe bilateral neuroforaminal stenosis - Patient had L3 kyphoplasty on 12/27/[address] Elias to improve functionality. - Pain management as follows: -- Acetaminophen 650 mg p.o. q6h scheduled -- Dilaudid 0.5-1 mg IV q4h PRN -- Oxycodone 5mg PO Q6H PRN -- Miacalcin NS daily -- Ativan 0.5 mg PO BID PRN -- Lidocaine patch application/removal daily to lower back (2) Pneumonia: Plan: - Worsening VOGT x 1 week, productive cough, episode of hypoxia at 87% on room air in ED on presentation - No leukocytosis, afebrile, negative for flu, COVID, RSV - While chest x-ray revealed no acute findings and procalcitonin is normal, there are some patchy airspace consolidations in both lung anderson which is also viewed on lumbar spine CT -- Suspicion for atypical pneumonia -- Positive nasal MRSA swab. Possible MRSA pneumonia -- Levaquin every 48 hours, due to decreased creatinine clearance. Last dose on 12/31/23. -- Preliminary blood cultures are negative x48 hours. Continue to monitor. - CXR ordered for concern of aspiration, no acute cardiopulmonary abnormality. Follow aspiration precautions. - Incentive spirometer Q4HWA (3) Fall: Plan: Patient experienced a fall on 12/18 and endorsed head strike, no LOC. Head CT at that time revealed no acute findings. History of subdural hematoma Hip CT revealed no acute bony abnormality of the right hip or lumbar spine Patient endorses ambulatory dysfunction since the fall, but this is likely secondary to pain in the setting of a lumbar compression fracture Plan to go to rehab upon discharge (4) Hypertensive emergency: Plan: HTN emergency present at time of admission Labetalol 5 mg IV q15m x 3 max doses as needed for severe, persistent HTN (SBP greater than 180 or DBP greater than 110); PCU status Continue propranolol (which may also help with her resting tremor) Continue lisinopril twice daily Continue hydralazine p.o. QID (5) Anxiety and depression: Plan: Patient expressed a desire to because of her chronic pain on admission She denied any thoughts of self-harm at this time, and reported that she would not want to if her lower back pain could be fixed She does not want to see psychiatry while inpatient Continue citalopram Continue BuSpar Lorazepam 0.5 mg daily as needed for anxiety (6) Endometrial mass: Plan: Patient endorses recent vaginal spotting Following with FINANCING ANALYST outpatient Per visit on 12/12, high suspicion for endometrial cancer Hgb 10.6 on arrival No acute intervention at this time (7) Anemia: Plan: Chronic and stable Plan CODE STATUS: DNR/DNI VTE PPx: SCDs, hold chemical DVT PX for now given vaginal spotting, and recurrent falls Admission and Anticipated Discharge Date Admission Date: December 23, 2023 Subjective Patient seen and evaluated at bedside with friend this afternoon. She had L3 kyphoplasty today with Dr. Elias for improvement in functionality. She was initially somnolent upon return to the floor, and required increased O2 flow rate. It was then decreased as time passed and anesthesia wore off. She report s back pain, decreased appetite, and continued dry cough this afternoon. Physical Exam Physical Exam: General: No acute distress, nondiaphoretic, frail-appearing, anxious. Skin: The skin was warm, dry, without rashes, erythema, edema, or bruising. Dressing in place on lumbar spine. Cardiac: Regular rate and rhythm without murmurs gallops or rubs. Pulm: Clear to auscultation bilaterally without wheezes, rales or rhonchi. No retractions or accessory muscle use. SpO2 96% on 1L. Abdominal: Positive bowel sounds x 4. Soft, nontender, without masses or organomegaly. No guarding or rebound tenderness. Neuro: A&O x3. No focal neurological deficits. Resting right hand tremor. Results & Data Results & Data Vital Signs (Past 12 Hours) Vital Signs Temp Pulse Pulse Pulse Resp BP BP 12/27/23 16:16 37.0 C 18 186/89 H 12/27/23 13:34 37.1 C 112 H 14 135/63 12/27/23 13:15 103 H 23 143/75 H 12/27/23 13:00 107 H 20 153/74 H 12/27/23 12:50 37.2 C 104 H 13 147/64 H 12/27/23 12:40 99 H 22 160/75 H 12/27/23 12:30 102 H 14 167/73 H 12/27/23 12:20 102 H 21 187/84 H 12/27/23 12:10 98 H 18 171/69 H 12/27/23 12:00 97 H 18 182/77 H 12/27/23 11:50 96 H 17 189/78 H 12/27/23 11:40 92 H 15 182/70 H 12/27/23 11:30 91 H 21 175/96 H 12/27/23 11:20 85 16 213/84 H 12/27/23 11:11 36.8 C 96 H 19 251/114 H 12/27/23 08:54 37.2 C 88 20 168/91 H 12/27/23 07:36 36.9 C 89 18 156/77 H 12/27/23 07:00 86 Pulse Ox O2 Del Method O2 Flow Rate 12/27/23 16:16 99 Nasal Cannula 4 12/27/23 13:34 90 Nasal Cannula 6 12/27/23 13:15 97 Nasal Cannula 3 12/27/23 13:00 98 Nasal Cannula 3 12/27/23 12:50 96 Nasal Cannula 3 12/27/23 12:40 97 Nasal Cannula 3 12/27/23 12:30 93 Nasal Cannula 4 12/27/23 12:20 99 Oxymask 6 12/27/23 12:10 98 Oxymask 6 12/27/23 12:00 98 Oxymask 6 12/27/23 11:50 100 Oxymask 6 12/27/23 11:40 100 Oxymask 6 12/27/23 11:30 99 Oxymask 6 12/27/23 11:20 98 Oxymask 6 12/27/23 11:11 100 Oxymask 6 12/27/23 08:54 95 Room Air 12/27/23 07:36 92 Room Air 12/27/23 07:00 Laboratory Results Reviewed CBC Reviewed BMP Reviewed blood cultures PG Care Time/CCT Total # of Minutes Spent Total Time Spent with Patient: Total time spent is greater than 50% in coordination of care (as documented) at patient's floor/unit and/or counseling patient: Coding Level of Care Code 14104 SUB INP/OBS CARE 35MIN Diagnoses Compression fracture of L3 vertebra with routine healing, subsequent encounter S32.030D Encounter type: subsequent encounter Fracture healing: with routine healing Lumbar vertebra fracture level: L3 Pneumonia J18.9 Laterality: bilateral Lung location: unspecified part of lung Pneumonia type: due to unspecified organism Fall W19.XXXA Encounter type: initial encounter Hypertensive emergency I16.1 Anxiety and depression F41.9; F32.A Endometrial mass N94.89 Anemia D64.9 Anemia type: unspecified type (1) Lumbar compression fracture Encounter type: subsequent encounter Fracture healing: with routine healing Lumbar vertebra fracture level: L3 Qualified Code(s): S32.030D - Wedge compression fracture of third lumbar vertebra, subsequent encounter for fracture with routine healing (2) Pneumonia Laterality: bilateral Lung location: unspecified part of lung Pneumonia type: due to unspecified organism Qualified Code(s): J18.9 - Pneumonia, unspecified organism (3) Fall Encounter type: initial encounter Qualified Code(s): W19.XXXA - Unspecified fall, initial encounter (7) Anemia Anemia type: unspecified type Qualified Code(s): D64.9 - Anemia, unspecified
[2023-12-28 06:24] LABS: Hematocrit (blood only) 31.1 % (37.0-47.0); Mean Corpuscular Hemoglobin 28.2 pg (25.0-34.0); Mean Corpuscular Hgb Conc 32.2 g/dL (32.0-36.0); Mean Corpuscular Volume 87.9 fL (80.0-100.0); Mean Platelet Volume 9.4 fL (9.4-12.4); Platelet Count 278 K/uL (130-400); RDW Coefficient of Variation 15.8 % (11.5-14.5); RDW Standard Deviation 50.1 fL (36.4-46.3); Red Blood Count 3.54 M/uL (4.20-5.40); White Blood Count 12.96 K/ul (4.8-10.8)
[2023-12-28 06:27] LABS: BUN Creatinine Ratio 22.4 (10-20); Calcium 8.7 mg/dl (8.6-10.3); Creatinine Clr Calc Pharmacy 56.2 ml/min; Est GFR (African American) 98.1 ml/min; Est GFR (Non-African American) 84.6 ml/min
--- NOTE | 2023-12-28 09:32 | Orthopedic Progress Note ---
Date of Service December 28, 2023 Assessment & Plan (1) Lumbar compression fracture: Plan: Assessment status post L3 kyphoplasty. Plan at this time I would like her to begin bed to chair transfers and initiate physical therapy as tolerated. We may need to consult pain management for epidural injections pending her progress over the next few days. Admission and Anticipated Discharge Date Admission Date: December 23, 2023 Subjective Patient states she has not been out of bed since surgery. She is complaining of bilateral buttock pain denies any leg pain. Physical Exam Physical Exam: On exam she is sitting up in bed. She is regional strength testing lower extremities. Sensory is intact. Results & Data Vital Signs (Past 12 Hours) Vital Signs Temp Pulse Pulse Resp BP BP Pulse Ox 12/28/23 07:45 36.9 C 106 H 19 209/65 H 96 12/28/23 03:36 94 H 173/92 H 12/28/23 03:15 90 228/99 H 12/28/23 02:51 98 H 201/95 H 12/28/23 02:39 36.5 C 93 H 18 201/95 H 96 12/27/23 23:54 96 H 12/27/23 23:24 175/52 H 12/27/23 22:14 36.8 C 99 H 18 98 O2 Del Method O2 Flow Rate 12/28/23 07:45 Nasal Cannula 2 12/28/23 03:36 12/28/23 03:15 12/28/23 02:51 12/28/23 02:39 Nasal Cannula 2 12/27/23 23:54 12/27/23 23:24 12/27/23 22:14 Nasal Cannula 2 (1) Lumbar compression fracture Encounter type: subsequent encounter Fracture healing: with routine healing Lumbar vertebra fracture level: L3 Qualified Code(s): S32.030D - Wedge compression fracture of third lumbar vertebra, subsequent encounter for fracture with routine healing
[2023-12-28] MEDS: ARTIFICIAL TEARS OPB SCH (17:12)
--- NOTE | 2023-12-28 17:17 | Hospitalist Progress Note ---
Date of Service December 28, 2023 Assessment & Plan (1) Lumbar compression fracture: Plan: - Intractable lower back pain and bilateral sciatic pain (worse on the right side) that has been ongoing for several weeks - Unchanged, subacute superior plate compression fracture of L3 seen on lumbar spine CT. No saddle anesthesia or change in bowel habits. - Lumbar spine was obtained during recent admission on 12/12, and did report severe bilateral neuroforaminal stenosis - Pain management as follows: -- Acetaminophen 650 mg p.o. q6h scheduled -- Dilaudid 0.5-1 mg IV q4h PRN -- Oxycodone 5mg PO Q6H PRN -- Miacalcin NS daily -- Ativan 0.5 mg PO BID PRN -- Lidocaine patch application/removal daily to lower back - Patient had L3 kyphoplasty on 12/27/[address] Elias to improve functionality. -- Per Ortho, initiate physical therapy as tolerated. -Consider pain management consult for epidural injections pending her progress over the next few days. (2) Pneumonia: Plan: - Worsening VOGT x 1 week, productive cough, episode of hypoxia at 87% on room air in ED on presentation - No leukocytosis, afebrile, negative for flu, COVID, RSV - While chest x-ray revealed no acute findings and procalcitonin is normal, there are some patchy airspace consolidations in both lung anderson which is also viewed on lumbar spine CT -- Suspicion for atypical pneumonia -- Positive nasal MRSA swab. Possible MRSA pneumonia -- Levaquin every 48 hours, due to decreased creatinine clearance. Last dose on 12/31/23. -- Preliminary blood cultures are negative x48 hours. Continue to monitor. - CXR ordered for concern of aspiration, no acute cardiopulmonary abnormality. Follow aspiration precautions. - Incentive spirometer Q4HWA (3) Fall: Plan: Patient experienced a fall on 12/18 and endorsed head strike, no LOC. Head CT at that time revealed no acute findings. History of subdural hematoma Hip CT revealed no acute bony abnormality of the right hip or lumbar spine Patient endorses ambulatory dysfunction since the fall, but this is likely secondary to pain in the setting of a lumbar compression fracture Plan to go to rehab upon discharge (4) Hypertensive emergency: Plan: HTN emergency present at time of admission Labetalol 5 mg IV q15m x 3 max doses as needed for severe, persistent HTN (SBP greater than 180 or DBP greater than 110); PCU status Continue propranolol (which may also help with her resting tremor) Continue lisinopril twice daily Continue hydralazine p.o. QID (5) Anxiety and depression: Plan: Patient expressed a desire to because of her chronic pain on admission She denied any thoughts of self-harm at this time, and reported that she would not want to if her lower back pain could be fixed She does not want to see psychiatry while inpatient Continue citalopram Continue BuSpar Lorazepam 0.5 mg daily as needed for anxiety (6) Endometrial mass: Plan: Patient endorses recent vaginal spotting Following with MEDICAL ENGINEER outpatient Per visit on 12/12, high suspicion for endometrial cancer Hgb 10.[address] Stack agreed for endometrial biopsy on 12/30/2023 while inpatient. -- UD pain medication ordered for prior to procedure. (7) Anemia: Plan: Chronic and stable Plan CODE STATUS: DNR/DNI VTE PPx: SCDs, hold chemical DVT PX for now given vaginal spotting, and recurrent falls Admission and Anticipated Discharge Date Admission Date: December 23, 2023 Subjective Patient seen and evaluated at bedside. She continues to endorse back pain, but reports it is alleviated with medication. Last night, patient was unable to void urine and required straight catheterization. However today, she has been urinating without problems. She continues to remain very anxious at baseline. She reports she ate her full lunch. She continues to have a dry cough. Denies shortness of breath, sputum production, or chest pain. Physical Exam Physical Exam: General: No acute distress, nondiaphoretic, frail-appearing, anxious. Skin: The skin was warm, dry, without rashes, erythema, edema, or bruising. Dressing in place on lumbar spine. Cardiac: Regular rate and rhythm without murmurs gallops or rubs. Pulm: Clear to auscultation bilaterally without wheezes, rales or rhonchi. No retractions or accessory muscle use. SpO2 95% on RA. Abdominal: Positive bowel sounds x 4. Soft, nontender, without masses or organomegaly. No guarding or rebound tenderness. Neuro: A&O x3. No focal neurological deficits. Resting right hand tremor. Results & Data Results & Data Vital Signs (Past 12 Hours) Vital Signs Temp Pulse Resp BP Pulse Ox O2 Del Method O2 Del Method 12/28/23 16:14 Room Air 12/28/23 11:59 36.4 C L 84 20 179/86 H 97 Nasal Cannula 12/28/23 07:45 36.9 C 106 H 19 209/65 H 96 Nasal Cannula O2 Flow Rate 12/28/23 16:14 12/28/23 11:59 2 12/28/23 07:45 2 Laboratory Results Reviewed CBC Reviewed chemistries PG Care Time/CCT Total # of Minutes Spent Total Time Spent with Patient: Total time spent is greater than 50% in coordination of care (as documented) at patient's floor/unit and/or counseling patient: Coding Level of Care Code 57765 SUB INP/OBS CARE 3/50MIN Diagnoses Compression fracture of L3 vertebra with routine healing, subsequent encounter S32.030D Encounter type: subsequent encounter Fracture healing: with routine healing Lumbar vertebra fracture level: L3 Pneumonia J18.9 Laterality: bilateral Lung location: unspecified part of lung Pneumonia type: due to unspecified organism Fall W19.XXXA Encounter type: initial encounter Hypertensive emergency I16.1 Anxiety and depression F41.9; F32.A Endometrial mass N94.89 Anemia D64.9 Anemia type: unspecified type (1) Lumbar compression fracture Encounter type: subsequent encounter Fracture healing: with routine healing Lumbar vertebra fracture level: L3 Qualified Code(s): S32.030D - Wedge compression fracture of third lumbar vertebra, subsequent encounter for fracture with routine healing (2) Pneumonia Laterality: bilateral Lung location: unspecified part of lung Pneumonia type: due to unspecified organism Qualified Code(s): J18.9 - Pneumonia, unspecified organism (3) Fall Encounter type: initial encounter Qualified Code(s): W19.XXXA - Unspecified fall, initial encounter (7) Anemia Anemia type: unspecified type Qualified Code(s): D64.9 - Anemia, unspecified
[2023-12-28] MEDS: cycloSPORINE (RESTASIS) OP SCH (20:22)
[2023-12-28] MEDS: [UNRECOGNIZED DRUG - OTHER] OP SCH (20:23)
[2023-12-28] MEDS ORDERED: ARTIFICIAL TEARS OP OINT 3.5 GM TUBE OP SCH (21:00)
[2023-12-29] MEDS: LABETALOL HCL IV 5 MG/ML 20ML IV STA (05:42)
[2023-12-29 06:27] LABS: Hematocrit (blood only) 31.7 % (37.0-47.0); Hemoglobin 10.6 g/dl (12.0-16.0); Mean Corpuscular Hemoglobin 29.4 pg (25.0-34.0); Mean Corpuscular Hgb Conc 33.4 g/dL (32.0-36.0); Mean Corpuscular Volume 88.1 fL (80.0-100.0); Mean Platelet Volume 9.4 fL (9.4-12.4); Platelet Count 268 K/uL (130-400); RDW Standard Deviation 52.1 fL (36.4-46.3); White Blood Count 10.44 K/ul (4.8-10.8)
[2023-12-29 06:51] LABS: Calcium 8.9 mg/dl (8.6-10.3); Creatinine Clr Calc Pharmacy 52.6 ml/min; Est GFR (African American) 95.5 ml/min; Est GFR (Non-African American) 82.4 ml/min; Magnesium 1.9 mg/dl (1.7-2.4); Potassium 4.1 mmol/L (3.5-5.1)
--- NOTE | 2023-12-29 08:24 | Hospitalist Progress Note ---
Date of Service December 29, 2023 Assessment & Plan (1) Lumbar compression fracture: Plan: Intractable lower back pain and bilateral sciatic pain (worse on the right side) that has been ongoing for several weeks Unchanged, subacute superior plate compression fracture of L3 seen on lumbar spine CT. No saddle anesthesia or change in bowel habits. CT lumbar spine on 12/22 noting unchanged subacute superior plate compression fracture of L3. Notable review of imaging by orthopedic spine/prior inpatient consult in November w/ severe central stenosis contributing to her pain but at that time did not want any type of surgical intervention Dr Elias consulted s/p #1 kyphoplasty of L3 vertebral body. #2 biopsy of L3 vertebral body with Dr Elias on 12/26 Pain control: tylenol, oxycodone 5-10mg as needed, dilaudid for breakthrough (discontinued 1mg dose and can use 0.5mg as needed for breakthrough as appears moving around better despite ongoing reports of pain and moreso anxiety driving). Continue ativan 0.5mg PO BID prn, lidocaine patch. Added heat if wanting/needed. Continue calcitonin NS daily PT/OT consults, recs for rehab. Consider pain management consult for epidural injections pending her progress over the next few day? vs outpt f/u at rehab Having endometrial biopsy tomorrow with Dr Stack, messaged to see if needing to be NPO but don't suspect she would but will verify (2) Pneumonia: Plan: Worsening VOGT x 1 week, productive cough, episode of hypoxia at 87% on room air in ED on presentation Per daughter, reports she had productive cough at home and improved at dc first admission in November however then redeveloped after her most recent discharge CXR w/o acute process Flu/RSV/COVID negative, MRSA swab positive Of note, review CT lumbar spine imaging during inpatient stay with patchy airspace consolidations in both lung anderson. Procalcitonin was normal however concerns for atypical pneumonia Had been provided Levaquin IV on 12/23, 12/25, 12/27, dosed q48h for renal function and was to continue through 12/30 to complete course Patient did report cough this morning, 12/28. Did have episode HTN overnight, improved BPs today. Repeat CXR w/o congestion. ?aspiration given her underlying hiatal hernia --> pepcid 10mg daily added and will monitor Aspiration precautions ordered --> will hold further Levaquin for now given confusion/delirium and monitor. ?UA contributed to confusion. UA ordered per dgt request however discussed likely to be negative if GNB as typically covered w/ FLQs Incentive spirometer encouraged Continue home Symbicort (breo while inpatient), albuterol HFA Blood cultures remain NGTD Supplemental O2 to maintain sats of note, has not been on chemoproph due to vaginal bleeding/spotting, does have hx breast cancer s/p chemo/radiation in the past and susp endometrial lesion for bx in AM. Monitor for any concerns for PE (3) Fall: Plan: Patient experienced a fall on 12/18 and endorsed head strike, no LOC. Head CT at that time revealed no acute findings. History of subdural hematoma Hip CT revealed no acute bony abnormality of the right hip or lumbar spine Patient endorses ambulatory dysfunction since the fall, but this is likely secondary to pain in the setting of a lumbar compression fracture Plan to go to rehab upon discharge (4) Hypertensive emergency: Plan: HTN emergency present at time of admission Labetalol 5 mg IV q15m x 3 max doses as needed for severe, persistent HTN (SBP greater than 180 or DBP greater than 110); PCU status Continue propranolol (which may also help with her resting tremor) -- had been recently reduced back to her 80mg from 160mg last admission Continue hydralazine 5mg QID -- had been started last admission, up to 10mg QID per daughter and titrating back off w/ PCP to prevent rebound HTN --> prior WELL controlled on propranolol and lisinopril 5mg BID per daughter discussion afternoon 12/28 --> discussed lisinopril not ordered on admission and did have episode HTN overnight (currently improved and 150/72) and resuming 2.5mg BID and will monitor/consider increasing to 5mg BID for morning. Of note, given her + cough, confirmed w/ daughter that lisinopril is NOT new medication (5) Anxiety and depression: Plan: Patient expressed a desire to because of her chronic pain on admission-- denied any HI/SI ideation for myself but is worried about not being able to walk again Continue citalopram, buspar Lorazepam available 0.5mg PO BID prn (6) Endometrial mass: Plan: Patient endorses recent vaginal spotting Following with [facility] outpatient Per visit on 12/12, high suspicion for endometrial cancer Hgb 10.[address] Stack agreed for endometrial biopsy on 12/30/2023 while inpatient. -- UD pain medication ordered for prior to procedure. (7) Anemia: Plan: Chronic and stable compared to priors Plan CODE STATUS: DNR/DNI VTE PPx: SCDs, hold chemical DVT PX for now given vaginal spotting and recurrent falls as well as biopsy for tomorrow. Legs without edema/calf tenderness on exam updated daughter via phone 12/28, plans to visit with her mother on Tuesday Admission and Anticipated Discharge Date Admission Date: December 23, 2023 Subjective Evaluated this afternoon, having a little increased confusion per nursing/anxiety, wanted her walker "from the basement" and insisted it was there. Confirmed w/ nursing they called [facility] and it is there. She states it is not at the right [facility]. She notes she has had some increased confusion over the past 3 weeks. She states she remembers Dr Cloud, year 2023, month December, but does appear w/ some delirium. SHe notes she is to get a biopsy by a Dr Stack but unsure if she can do that tomorrow as she doesn't feel great. She got a dose of ativan for anxiety within the past hour. Prior to that was given 10mg oxycodone around 11:30am, dose of IV diluadid this morning around 713am. She reports she moved her bowels yesterday, reports decent appetite, limited by pain but reports pain controlled at present time. SHe notes she definitely does not want to get backed up because of her underlying hemorrhoids at baseline and pain when constipated. Was just up in the chair and back to bed, wanting to get back up. Provided reassurance, will discuss about dc her telemetry vs downgrade to [place] today. She inquires who gave me the right to care about her or be her provider. She denies shortness of breath but does state she has a little bit of a cough today. CXR from this morning without acute process, notes hiatal hernia. Not on any PPI or pepcid at baseline and will add pepcid and monitor. Supplemental O2 to maintain sats. Physical Exam Physical Exam: General: 83 yo female sitting in bed, moving around pretty good/able to sit up at side of bed by herself alert to person/year/month, initially couldn't tell me in the hospital however knew Dr Cloud from prior admission and Dr Stack for biopsy tomorrow, cooperative with exam but paranoid at times/delirious HEENT; head atraumatic, normocephalic, mmm, trachea midline Resp; even/unlabored, diminished int he bases but no crackles/wheezing, on 2L NC CV: paced on monitor, no significant m/r/g, no pitting edema/calf tenderness GI:+BS, slight distension but no overt tenderness/guarding : no fletcher MSK/Neuro: dressing c/d/i, no overt tenderness, no drainage/erythema b/l LE strength testing equal, pain w/ standing reported Psych: alert and oriented to year/month, intermittent to place, delirium at times noted, significant anxiety about upcoming biopsy Results & Data Results & Data Vital Signs (Past 12 Hours) Vital Signs Temp Pulse Pulse Resp BP BP Pulse Ox 12/29/23 07:59 37.1 C 81 20 183/81 H 96 12/29/23 07:46 85 12/29/23 06:21 78 187/77 H 12/29/23 06:13 187/77 H 12/29/23 05:27 78 204/91 H 12/29/23 05:20 192/81 H 12/29/23 04:23 197/80 H 12/29/23 03:23 183/72 H 12/29/23 03:06 37.1 C 77 18 97 12/29/23 00:35 78 12/28/23 22:27 37.0 C 78 172/81 H 97 O2 Del Method O2 Flow Rate 12/29/23 07:59 Nasal Cannula 2 12/29/23 07:46 12/29/23 06:21 12/29/23 06:13 12/29/23 05:27 12/29/23 05:20 12/29/23 04:23 12/29/23 03:23 12/29/23 03:06 Nasal Cannula 1 12/29/23 00:35 12/28/23 22:27 Nasal Cannula 1 Laboratory Results 12/29/23 Range/Units 05:52 WBC 10.44 (4.8-10.8) K/ul RBC 3.60 L (4.20-5.40) M/uL Hgb 10.6 L (12.0-16.0) g/dl Hct 31.7 L (37.0-47.0) % MCV 88.1 (80.0-100.0) fL MCH 29.4 (25.0-34.0) pg MCHC 33.4 (32.0-36.0) g/dL RDW Std Deviation 52.1 H (36.4-46.3) fL RDW Coeff of Adarsh 16.0 H (11.5-14.5) % Plt Count 268 (130-400) K/uL MPV 9.4 (9.4-12.4) fL Sodium 137 (136-145) mmol/L Potassium 4.1 (3.5-5.1) mmol/L Chloride 101 (98-107) mmol/L Carbon Dioxide 31 (21-32) mmol/L Anion Gap 5 (3-11) BUN 12 (6-23) mg/dl Creatinine 0.63 (0.6-1.2) mg/dl Est Cr Clr Drug Dosing 52.6 ml/min Est GFR ( Amer) 95.5 ml/min Est GFR (Non-Af Amer) 82.4 ml/min BUN/Creatinine Ratio 19.0 (10-20) Glucose 92 (70-99(Fasting)) mg/dl Calcium 8.9 (8.6-10.3) mg/dl Magnesium 1.9 (1.7-2.4) mg/dl Diagnostic Findings Chest X-Ray 12/29/23 08:22 XR chest 1V portable HISTORY: 83 years-old Female f/u, hypoxia acute shortness of breath COMPARISON: 12/25/2023 TECHNIQUE: AP view of the chest FINDINGS: Cardiac silhouette is enlarged. Hiatal hernia. Chronic interstitial coarsening. No pneumothorax, effusion or pulmonary edema. Degenerative changes of the shoulders and spine. Chronic appearing deformity of the right distal clavicle. Surgical clips project over the right chest. IMPRESSION: 1. No acute process of the chest. 2. Hiatal hernia. ACT 112: Negative or not required by law. The above report was generated using voice recognition software. It may contain grammatical, syntax or spelling errors. Electronically signed by: Enmanuel Deleon M.D. 12/29/2023 10:41 AM PG Care Time/CCT Total # of Minutes Spent Total Time Spent with Patient: Total time spent is greater than 50% in coordination of care (as documented) at patient's floor/unit and/or counseling patient: Coding Level of Care Code 01859 SUB INP/OBS CARE 3/50MIN Diagnoses Compression fracture of L3 vertebra with routine healing, subsequent encounter S32.030D Encounter type: subsequent encounter Fracture healing: with routine healing Lumbar vertebra fracture level: L3 Pneumonia J18.9 Laterality: bilateral Lung location: unspecified part of lung Pneumonia type: due to unspecified organism Fall W19.XXXA Encounter type: initial encounter Hypertensive emergency I16.1 Anxiety and depression F41.9; F32.A Endometrial mass N94.89 Anemia D64.9 Anemia type: unspecified type (1) Lumbar compression fracture Encounter type: subsequent encounter Fracture healing: with routine healing Lumbar vertebra fracture level: L3 Qualified Code(s): S32.030D - Wedge compression fracture of third lumbar vertebra, subsequent encounter for fracture with routine healing (2) Pneumonia Laterality: bilateral Lung location: unspecified part of lung Pneumonia type: due to unspecified organism Qualified Code(s): J18.9 - Pneumonia, unspecified organism (3) Fall Encounter type: initial encounter Qualified Code(s): W19.XXXA - Unspecified fall, initial encounter (7) Anemia Anemia type: unspecified type Qualified Code(s): D64.9 - Anemia, unspecified
--- NOTE | 2023-12-29 08:34 | Orthopedic Progress Note ---
Date of Service December 29, 2023 Assessment & Plan (1) Lumbar compression fracture: Plan: Assessment lumbar spinal stenosis with compression fracture. Plan at this time her back is stable she may begin transfers and ambulation as tolerated. While her back symptoms are improved she struggles with significant leg pain. She is not a surgical candidate for a multilevel surgery to the lumbar spine. Is reasonable to involve pain management. Admission and Anticipated Discharge Date Admission Date: December 23, 2023 Subjective Patient continues to complain of bilateral thigh pain. She states being in bed is quite painful. She has no back pain. Physical Exam Physical Exam: On exam she is in the bed. She is neurologically intact lower extremities. Results & Data Vital Signs (Past 12 Hours) Vital Signs Temp Pulse Pulse Resp BP BP Pulse Ox 12/29/23 07:59 37.1 C 81 20 183/81 H 96 12/29/23 07:46 85 12/29/23 06:21 78 187/77 H 12/29/23 06:13 187/77 H 12/29/23 05:27 78 204/91 H 12/29/23 05:20 192/81 H 12/29/23 04:23 197/80 H 12/29/23 03:23 183/72 H 12/29/23 03:06 37.1 C 77 18 97 12/29/23 00:35 78 12/28/23 22:27 37.0 C 78 172/81 H 97 O2 Del Method O2 Flow Rate 12/29/23 07:59 Nasal Cannula 2 12/29/23 07:46 12/29/23 06:21 12/29/23 06:13 12/29/23 05:27 12/29/23 05:20 12/29/23 04:23 12/29/23 03:23 12/29/23 03:06 Nasal Cannula 1 12/29/23 00:35 12/28/23 22:27 Nasal Cannula 1 (1) Lumbar compression fracture Encounter type: subsequent encounter Fracture healing: with routine healing Lumbar vertebra fracture level: L3 Qualified Code(s): S32.030D - Wedge compression fracture of third lumbar vertebra, subsequent encounter for fracture with routine healing
--- NOTE | 2023-12-29 10:42 | XRay Report ---
XR chest 1V portable HISTORY: 83 years-old Female f/u, hypoxia acute shortness of breath COMPARISON: 12/25/2023 TECHNIQUE: AP view of the chest FINDINGS: Cardiac silhouette is enlarged. Hiatal hernia. Chronic interstitial coarsening. No pneumothorax, effu randell or pulmonary edema. Degenerative changes of the shoulders and spine. Chronic appearing deformity of the right distal clavicle. Surgical clips project over the right chest. IMPRESSION: 1. No acute process of the chest. 2. Hiatal hernia. ACT 112: Negative or not required by law. The above report was generated using voice recognition software. It may contain grammatical, syntax o r spelling errors. Electronically signed by: Enmanuel Deleon M.D. 12/29/2023 10:41 AM
[2023-12-29] MEDS: FAMOTIDINE 10 MG TABLET PO ONE (18:01)
[2023-12-29 19:14] LABS: Adenovirus PCR Not Detected (NotDetected); Bordetella parapertussis PCR Not Detected (NotDetected); Bordetella pertussis PCR Not Detected (NotDetected); Chlamydia pneumoniae PCR Not Detected (NotDetected); Coronavirus 229E PCR Not Detected (NotDetected); Coronavirus CoV-2 (COVID19)PCR Not Detected (NotDetected); Coronavirus HKU1 PCR Not Detected (NotDetected); Coronavirus NL63 PCR Not Detected (NotDetected); Coronavirus OC43PCR Not Detected (NotDetected); Human Metapneumovirus PCR Not Detected (NotDetected); Influenza A PCR Not Detected (NotDetected); Influenza B PCR Not Detected (NotDetected); Mycoplasma pneumoniae PCR Not Detected (NotDetected); Parainfluenza Virus 1 PCR Not Detected (NotDetected); Parainfluenza Virus 2 PCR Not Detected (NotDetected); Parainfluenza Virus 3 PCR Not Detected (NotDetected); Parainfluenza Virus 4 PCR Not Detected (NotDetected); Respiratory Syncytial VirusPCR Not Detected (NotDetected); Rhinovirus/Enterovirus PCR Not Detected (NotDetected)
[2023-12-29] MEDS: lisinopril 2.5 MG TAB PO SCH (20:32)
[2023-12-30] MEDS: HYDROmorphone INJ 0.5 MG/0.5 ML SYR IV PRN (02:54)
[2023-12-30 05:39] LABS: Basophils # (auto) 0.03 K/uL (0.00-0.20); Basophils % (auto) 0.3 %; Eosinophils # (auto) 0.18 K/uL (0.00-0.50); Eosinophils % (auto) 1.7 %; Hematocrit (blood only) 30.2 % (37.0-47.0); Hemoglobin 9.4 g/dl (12.0-16.0); Immature Granulocytes # (auto) 0.07 K/uL (0.01-0.20); Immature Granulocytes % (auto) 0.7 %; Lymphocytes # (auto) 1.73 K/uL (1.20-3.40); Lymphocytes % (auto) 16.6 %; Mean Corpuscular Hemoglobin 28.1 pg (25.0-34.0); Mean Corpuscular Hgb Conc 31.1 g/dL (32.0-36.0); Mean Corpuscular Volume 90.4 fL (80.0-100.0); Mean Platelet Volume 9.6 fL (9.4-12.4); Monocytes # (auto) 1.25 K/uL (0.11-0.59); Neutrophils # (auto) 7.18 K/uL (1.40-6.50); Neutrophils % (auto) 68.7 %; Platelet Count 238 K/uL (130-400); RDW Coefficient of Variation 15.9 % (11.5-14.5); RDW Standard Deviation 51.7 fL (36.4-46.3); Red Blood Count 3.34 M/uL (4.20-5.40); White Blood Count 10.44 K/ul (4.8-10.8)
[2023-12-30 06:12] LABS: Bilirubin Direct 0.1 mg/dl (0-0.2); Bilirubin,Total 0.3 mg/dl (0.2-1.0); Calcium 8.5 mg/dl (8.6-10.3); Creatinine Clr Calc Pharmacy 51.8 ml/min; Est GFR (Non-African American) 81.9 ml/min; Magnesium 1.9 mg/dl (1.7-2.4); Potassium 4.1 mmol/L (3.5-5.1); Total Protein 5.5 gm/dl (6.0-8.3)
--- NOTE | 2023-12-30 07:52 | Hospitalist Progress Note ---
Date of Service December 30, 2023 Assessment & Plan (1) Lumbar compression fracture: Plan: Intractable lower back pain and bilateral sciatic pain (worse on the right side) that has been ongoing for several weeks Unchanged, subacute superior plate compression fracture of L3 seen on lumbar spine CT. No saddle anesthesia or change in bowel habits. CT lumbar spine on 12/22 noting unchanged subacute superior plate compression fracture of L3. Notable review of imaging by orthopedic spine/prior inpatient consult in November w/ severe central stenosis contributing to her pain but at that time did not want any type of surgical intervention Dr Elias consulted s/p #1 kyphoplasty of L3 vertebral body. #2 biopsy of L3 vertebral body with Dr Elias on 12/26 Pain control- Tylenol, oxycodone 10mg PO prn, Dilaudid 0.5mg for breakthrough, no further 1mg dose and was discontinued. Continue lidocaine patch, heating pad. Ativan 0.5mg PO BID prn Moving her bowels PT/OT recs rehab, CM following and likely on Tuesday if bed. Updated daughter by phone 12/29, will be visiting tomorrow. Discussed pain does appear to be better controlled, did consult pain management to see about SI injection. They are deferring due to a possible pneumonia however discussed and CT chest as below/pulm consult do not believe infectious. Cough decreased since adding pepcid and suspect some degree of aspiration w/ large hiatal hernia however denied issues w/ PO intake/choking. Improved since starting pepcid and will continue. Messaged Jie Hightower regarding possible injection if agreed by pulm and can see about Dr Thomas squgavin in on tuesday. Continued inpatient stay (2) Pneumonia: Plan: Worsening VOGT x 1 week, productive cough, episode of hypoxia at 87% on room air in ED on presentation Per daughter, reports she had productive cough at home and improved [place] [facility] admission in November however then redeveloped after her most recent discharge CXR w/o acute process Flu/RSV/COVID negative, MRSA swab positive Of note, review CT lumbar spine imaging during inpatient stay with patchy airspace consolidations in both lung anderson. Procalcitonin was normal however concerns for atypical pneumonia Had been provided Levaquin IV on 12/23, 12/25, 12/27, dosed q48h for renal function and was to continue through 12/30 to complete course Patient did report cough this morning, 12/28. Biofire negative Pepcid 10mg added, improvement in cough and continue pepcid at dc and can consider increasing to BID if needed Aspiration precautions ordered CT chest obtained given ongoing cough/hypoxia Impression: * 1. Cardiomegaly and small pleural effusions. * 2. There are tree-in-bud opacities scattered throughout both lungs, a well as diffuse bronchial thickening. There is bronchiectasis and mucous plugging in the right middle lobe, and these findings favor a chronic infectious/inflammatory processes such as atypical bacteria (CAPO). Clinical correlation will be required and follow up with pulmonology is recommended. * 3. There is no lobar consolidation. * 4. Large hiatal hernia. * 5. Postsurgical change with a possible seroma is suggested in the right breast. This is not well assessed by CT. Correlate with any prior breast imaging. * 6. Additional findings as above Prior pulm note mentioning bud in tree opacities/bronchiectasis in the past Pulm consulted, added hypertonic saline/Pulmicort nebs BID, flutter valve Also ordered lasix 20mg PO x 1 to see if improvement but does not appear to be significantly volume overloaded at present LEVAQUIN DISCONTINUED AT THIS TIME given concerns for confusion and not having a true pneumonia -- defer restarting any further abx to pulm. Appreciate recs/assistance Blood cultures remain NGTD Supplemental O2 to maintain sats (3) Fall: Plan: Patient experienced a fall on 12/18 and endorsed head strike, no LOC. Head CT at that time revealed no acute findings. History of subdural hematoma Hip CT revealed no acute bony abnormality of the right hip or lumbar spine Patient endorses ambulatory dysfunction since the fall, but this is likely secondary to pain in the setting of a lumbar compression fracture Plan to go to rehab upon discharge (4) Hypertensive emergency: Plan: HTN emergency present at time of admission Labetalol 5 mg IV q15m x 3 max doses as needed for severe, persistent HTN (SBP greater than 180 or DBP greater than 110); PCU status Continue propranolol (which may also help with her resting tremor) -- had been recently reduced back to her 80mg from 160mg last admission, tremor stable Hydralazine 5mg QID continued, however had been on 10mg QID as new med prior admission and given labile BP had been titrating w/ PCP, 5mg QID at present --> reducing Hydralazine to 2.5mg QID as discussed w/ daughter given added back home lisinopril but 2.5mg BID instead of 5mg BID and Bps improved to 112/57 this afternoon and will monitor (5) Anxiety and depression: Plan: Patient expressed a desire to because of her chronic pain on admission-- denied any HI/SI ideation for myself but is worried about not being able to walk again Continue citalopram, buspar Lorazepam available 0.5mg PO BID prn (6) Endometrial mass: Plan: Patient endorses recent vaginal spotting Following with PEDIATR[facility] DIETICIAN outpatient Per visit on 12/12, high suspicion for endometrial cancer Hgb 10.[address] Stack agreed for endometrial biopsy on 12/30/2023 while inpatient --> COMPLETED AM 12/29, f/u pathology (7) Anemia: Plan: Chronic and stable compared to priors, no active bleeding reported Plan CODE STATUS: DNR/DNI VTE PPx: SCDs, heparin SQ added now that biopsy completed and will monitor. Updated daughter on phone afternoon/evening 12/29, plans to visit with her mother tomorrow and will attempt to update in the room when she arrives. Does have concerns mom not sleeping well, added melatonin 3mg HS, monitor. ativan available prn as well Admission and Anticipated Discharge Date Admission Date: December 23, 2023 Subjective Evaluated this morning, remains on 2L. Pepcid added yesterday, reports less cough today. Discussed biopsy, she had this morning, said it went quickly like we discussed day prior. Got dose oxycodone and Dilaudid prior to procedure. Discussed improvement in pain on exam and would like to stick with more oral pain control to prevent worsened confusion. Does have ongoing anxiety, ativan available. She notes her anxiety stems from ongoing pain and she thought she would have much less pain. She does note that she has less pain than she did on admission and discussed will take some time. Notable she would like to try the heating pad today. Will consult pain management for additional recs for tomorrow. Discussed ongoing hypoxia and hx and will obtain CT chest for further eval. Placed further abx on hold at this time. Support provided. Planning for rehab [place] [facility]. Updated daughter last night at length, will attempt to call this afternoon with update. Physical Exam Physical Exam: General: 83 yo female sitting in recliner, eating lunch, done with biopsy and reported was quick, disappointed not making significant improvement w/ her pain just yet but does not appear to be in any distress Head atraumatic, normocephalic, mmm, trachea midline Resp: diminished in the bases with associated crackles but no w/r, on 2L, no cough CV: paced on monitor, no significant m/r/g, trace pedal edema, no calf tenderness GI: +BS, soft/NT : no fletcher MSK/Neuro: tenderness along RIGHT SI joing, mild tenderness along L3 midline, dressing c/d/i, no erythema/drainage, strength testing equal b/l LE Psych: AOx3, paranoid at times but cooperative with exam and appears more oriented than days prior Results & Data Results & Data Vital Signs (Past 12 Hours) Vital Signs Temp Pulse Pulse Resp BP BP Pulse Ox 12/30/23 07:39 75 12/30/23 03:17 155/68 H 12/30/23 02:47 36.5 C 90 17 174/89 H 98 12/29/23 23:00 79 12/29/23 20:11 36.9 C 84 17 147/57 H 97 12/29/23 20:00 O2 Del Method O2 Flow Rate 12/30/23 07:39 12/30/23 03:17 12/30/23 02:47 Nasal Cannula 2 12/29/23 23:00 12/29/23 20:11 Nasal Cannula 2 12/29/23 20:00 Nasal Cannula 2 Laboratory Results 12/30/23 12/29/23 Range/Units 04:38 18:15 WBC 10.44 (4.8-10.8) K/ul RBC 3.34 L (4.20-5.40) M/uL Hgb 9.4 L (12.0-16.0) g/dl Hct 30.2 L (37.0-47.0) % MCV 90.4 (80.0-100.0) fL MCH 28.1 (25.0-34.0) pg MCHC 31.1 L (32.0-36.0) g/dL RDW Std Deviation 51.7 H (36.4-46.3) fL RDW Coeff of Adarsh 15.9 H (11.5-14.5) % Plt Count 238 (130-400) K/uL MPV 9.6 (9.4-12.4) fL Immature Gran % (Auto) 0.7 % Neut % (Auto) 68.7 % Lymph % (Auto) 16.6 % Newton % (Auto) 12.0 % Eos % (Auto) 1.7 % Baso % (Auto) 0.3 % Neut # (Auto) 7.18 H (1.40-6.50) K/uL Lymph # (Auto) 1.73 (1.20-3.40) K/uL Newton # (Auto) 1.25 H (0.11-0.59) K/uL Eos # (Auto) 0.18 (0.00-0.50) K/uL Baso # (Auto) 0.03 (0.00-0.20) K/uL Immature Gran # (Auto) 0.07 (0.01-0.20) K/uL Sodium 137 (136-145) mmol/L Potassium 4.1 (3.5-5.1) mmol/L Chloride 104 (98-107) mmol/L Carbon Dioxide 29 (21-32) mmol/L Anion Gap 4 (3-11) BUN 16 (6-23) mg/dl Creatinine 0.64 (0.6-1.2) mg/dl Est Cr Clr Drug Dosing 51.8 ml/min Est GFR ( Amer) 95.0 ml/min Est GFR (Non-Af Amer) 81.9 ml/min BUN/Creatinine Ratio 25.0 H (10-20) Glucose 89 (70-99(Fasting)) mg/dl Calcium 8.5 L (8.6-10.3) mg/dl Magnesium 1.9 (1.7-2.4) mg/dl Total Bilirubin 0.3 (0.2-1.0) mg/dl Direct Bilirubin 0.1 (0-0.2) mg/dl AST 18 (13-39) U/L ALT 10 (7-52) U/L Alkaline Phosphatase 48 (34-104) U/L Total Protein 5.5 L (6.0-8.3) gm/dl Albumin 3.0 L (3.4-5.0) gm/dl Adenovirus (PCR) Not Detected (NotDetected) B. pertussis DNA (PCR) Not Detected (NotDetected) B.parapertussis DNA PCR Not Detected (NotDetected) C. pneumoniae DNA (PCR) Not Detected (NotDetected) Coronavirus OC43 (PCR) Not Detected (NotDetected) Coronavirus HKU1 (PCR) Not Detected (NotDetected) Coronavirus 229E (PCR) Not Detected (NotDetected) SARS-CoV-2 (PCR) Not Detected (NotDetected) Coronavirus NL63 (PCR) Not Detected (NotDetected) Human Metapneumovir PCR Not Detected (NotDetected) Influenza Type A (PCR) Not Detected (NotDetected) Influenza Type B (PCR) Not Detected (NotDetected) M. pneumoniae (PCR) Not Detected (NotDetected) Parainfluenza 1 (PCR) Not Detected (NotDetected) Parainfluenza 2 (PCR) Not Detected (NotDetected) Parainfluenza 3 (PCR) Not Detected (NotDetected) Parainfluenza 4 (PCR) Not Detected (NotDetected) RSV (PCR) Not Detected (NotDetected) Entero/Rhino (PCR) Not Detected (NotDetected) Diagnostic Findings Chest CT 12/30/23 11:58 CT SCAN OF THE CHEST WITHOUT IV CONTRAST CLINICAL HISTORY: Breast cancer. Endometrial mass. Hypoxia. COMPARISON STUDY: Chest x-ray dated 12/29/2023. Chest CT dated 05/10/2016. TECHNIQUE: CT scan of the thorax was performed from the thoracic inlet to the upper abdomen. Images are reviewed in the axial, sagittal, and coronal planes. IV contrast was not administered for this examination as per the referring clinician. A dose lowering technique was utilized adhering to the principles of ALARA. CT DOSE: 217.7 mGy.cm FINDINGS: Thyroid: Imaged portions of the thyroid gland are normal in size and attenuation. Thoracic aorta: The thoracic aorta is normal in caliber and demonstrates standar d 3-vessel arch anatomy. Heart: The heart is enlarged and without pericardial effusion. The coronary arteries are densely calcified. Lungs and pleural spaces: There is no lobar consolidation. Small pleural effusions are observed. Secretions are noted in the trachea. Scarring/atelectasis is seen at both lung bases. There is diffuse pericardial thickening. There are scattered foci of tree-in-bud nodularity, greatest in the lower lobes. This suggests a chronic infectious/inflammatory process. There is mild bronchiectasis and mucous plugging in the right middle lobe. Mediastinum: There is no mediastinal lymphadenopathy. Quiana: Not well assessed without IV contrast. Axillae: There is no axillary lymphadenopathy. Upper abdomen: There is a large hiatal hernia, with the majority of the stomach located pneumothorax. Partially visualized upper abdominal viscera is within normal limits. Skeletal structures: The skeletal structures are osteopenic. Degenerative changes and kyphoscoliosis is noted in the thoracic spine. Arthritic change is seen in the shoulders. There are chronic/healed bilateral rib fractures. No lytic or blastic bony lesions are seen. Soft tissues: Postsurgical change is suggested in the right breast. An indeterminant 1.9 cm opacity in the right breast shows central fluid/low attenuation there is a postsurgical change. IMPRESSION: 1. Cardiomegaly and small pleural effusions. 2. There are tree-in-bud opacities scattered throughout both lungs, a well as diffuse bronchial thickening. There is bronchiectasis and mucous plugging in the right middle lobe, and these findings favor a chronic infectious/inflammatory processes such as atypical bacteria (CAPO). Clinical correlation will be required and follow up with pulmonology is recommended. 3. There is no lobar consolidation. 4. Large hiatal hernia. 5. Postsurgical change with a possible seroma is suggested in the right breast. This is not well assessed by CT. Correlate with any prior breast imaging. 6. Additional findings as above. ACT 112: Negative or not required by law. Electronically signed by: Diogo Moreno M.D. 12/30/2023 1:43 PM PG Care Time/CCT Total # of Minutes Spent Total Time Spent with Patient: Total time spent is greater than 50% in coordination of care (as documented) at patient's floor/unit and/or counseling patient: Coding Level of Care Code 17810 SUB INP/OBS CARE 3/50MIN Diagnoses Compression fracture of L3 vertebra with routine healing, subsequent encounter S32.030D Encounter type: subsequent encounter Fracture healing: with routine healing Lumbar vertebra fracture level: L3 Pneumonia J18.9 Laterality: bilateral Lung location: unspecified part of lung Pneumonia type: due to unspecified organism Fall W19.XXXA Encounter type: initial encounter Hypertensive emergency I16.1 Anxiety and depression F41.9; F32.A Endometrial mass N94.89 Anemia D64.9 Anemia type: unspecified type (1) Lumbar compression fracture Encounter type: subsequent encounter Fracture healing: with routine healing Lumbar vertebra fracture level: L3 Qualified Code(s): S32.030D - Wedge compression fracture of third lumbar vertebra, subsequent encounter for fracture with routine healing (2) Pneumonia Laterality: bilateral Lung location: unspecified part of lung Pneumonia type: due to unspecified organism Qualified Code(s): J18.9 - Pneumonia, unspecified organism (3) Fall Encounter type: initial encounter Qualified Code(s): W19.XXXA - Unspecified fall, initial encounter (7) Anemia Anemia type: unspecified type Qualified Code(s): D64.9 - Anemia, unspecified
[2023-12-30] MEDS: FAMOTIDINE 10 MG TABLET PO SCH (08:05)
[2023-12-30] MEDS ORDERED: levoFLOXacin 750 MG TAB PO SCH (09:00)
[2023-12-30] MEDS: oxyCODONE HCL IR 5 MG TAB (IMMEDIATE RELEASE) PO SCH (10:43)
--- NOTE | 2023-12-30 11:47 | Procedure Note ---
Procedure Note Date of Service December 30, 2023 Note Patient presents to L&D for endometrial biopsy because of cystic endometrial mass noted incidentally on imaging secondary to intractable back and hip pain. After informed consent was obtained, a speculum was placed and the cervix identified. After prepping the cervix with Betadine X3, the anterior lip of the cervix was grasped with a single tooth tenaculum. cervix sounded to 10cm. Using a Pipelle, 3 passes were made and scant tissue was obtained. There was minimal bleeding at the end of the procedure.Patient tolerated the procedure well. Coding [facility] Procedure Codes (Charges) Indication for Procedure Indication for procedure: endometrial thickening- cystic endometrial mass
--- NOTE | 2023-12-30 13:44 | CT Scan Report ---
CT SCAN OF THE CHEST WITHOUT IV CONTRAST CLINICAL HISTORY: Breast cancer. Endometrial mass. Hypoxia. COMPARISON STUDY: Chest x-ray dated 12/29/2023. Chest CT dated 05/10/2016. TECHNIQUE: CT scan of the thorax was performed from the thoracic inlet to the upper abdomen. Images are reviewed in the axial, sagittal, and coronal planes. IV contrast was not administered for this ex amination as per the referring clinician. A dose lowering technique was utilized adhering to the emily meri of FILEMON. CT DOSE: 217.7 mGy.cm FINDINGS: Thyroid: Imaged portions of the thyroid gland are normal in size and attenuation. Thoracic aorta: The thoracic aorta is normal in caliber and demonstrates standard 3-vessel arch anato my. Heart: The heart is enlarged and without pericardial effusion. The coronary arteries are densely calc ified. Lungs and pleural spaces: There is no lobar consolidation. Small pleural effusions are observed. Secr etions are noted in the trachea. Scarring/atelectasis is seen at both lung bases. There is diffuse pe ricardial thickening. There are scattered foci of tree-in-bud nodularity, greatest in the lower lobes . This suggests a chronic infectious/inflammatory process. There is mild bronchiectasis and mucous pl ugging in the right middle lobe. Mediastinum: There is no mediastinal lymphadenopathy. Quiana: Not well assessed without IV contrast. Axillae: There is no axillary lymphadenopathy. Upper abdomen: There is a large hiatal hernia, with the majority of the stomach located pneumothorax. Partially visualized upper abdominal viscera is within normal limits. Skeletal structures: The skeletal structures are osteopenic. Degenerative changes and kyphoscoliosis is noted in the thoracic spine. Arthritic change is seen in the shoulders. There are chronic/healed b ilateral rib fractures. No lytic or blastic bony lesions are seen. Soft tissues: Postsurgical change is suggested in the right breast. An indeterminant 1.9 cm opacity i n the right breast shows central fluid/low attenuation there is a postsurgical change. IMPRESSION: 1. Cardiomegaly and small pleural effusions. 2. There are tree-in-bud opacities scattered throughout both lungs, a well as diffuse bronchial thick ening. There is bronchiectasis and mucous plugging in the right middle lobe, and these findings favor a chronic infectious/inflammatory processes such as atypical bacteria (CAPO). Clinical correlation wi ll be required and follow up with pulmonology is recommended. 3. There is no lobar consolidation. 4. Large hiatal hernia. 5. Postsurgical change with a possible seroma is suggested in the right breast. This is not well asse ssed by CT. Correlate with any prior breast imaging. 6. Additional findings as above. ACT 112: Negative or not required by law. Electronically signed by: Diogo Moreno M.D. 12/30/2023 1:43 PM
--- NOTE | 2023-12-30 13:48 | Pain Management Consultation ---
Date of Consultation December 30, 2023 Assessment & Plan (1) Sacroiliac joint pain: (2) Lumbar compression fracture: Encounter type: subsequent encounter Fracture healing: with routine healing Lumbar vertebra fracture level: L3 Qualified Code(s): S32.030D - Wedge compression fracture of third lumbar vertebra, subsequent encounter for fracture with routine healing (3) Lumbar spinal stenosis: Plan 1. Recommend an outpatient right SI joint injection. I have explained that with the current infection of pneumonia this cannot be done on an inpatient basis. She needs to be clear of infection prior to consideration of injection and she is understanding. She is welcome to come into the [facility] office to arrange the injection. Instructed her to contact the office once she is discharged from the hospital to make arrangements. 2. Continue current medication regimen of Oxycodone and Lidocaine patches. Limit use to IV Dilaudid in preparation for discharge. 3. After the worst pain of SI joint is improved from injection she may require a lumbar epidural injection as she does have severe stenosis at L2-3 but with recent kyphoplasty I would be hesitant to put steroid into the recent surgical area. Thank you for the consultation. Will sign off on the patient. Please reach out for any questions or concerns. History of Present Illness Reason for Consultation: back pain Attending Physician: Vianca Cloud MD History of Present Illness Mrs. Rodriguez is an 83 year old female with severe stenosis at L2-3 and recently sustained a compression fracture after a fall that required an L3 kyphoplasty. She was seen as a hospital consult on 12/15/23 and an outpatient SI joint injection was recommended but she did not come into the office in concern about transportation. She continues to experience pain along the right low back and an ache along the anterior thighs. Pain is aggravated with prolonged standing and walking. She rates her pain an 8/10 currently. She states that the current medication regimen is moderately effective towards diminishing her pain. Patient has been able to walk around the hospital room with physical therapy with a walker without any additional assistance. Current medication includes Oxycodone 10mg x 6 hours, Lidocaine patch, and PRN IV Dilaudid. No bowel/bladder incontinence, saddle anesthesia, foot drop. + recent fall sustaining L3 compression fracture. Case discussed with Dr. Kya Thmoas Allergies Allergy/AdvReac Type Severity Reaction Status Date / Time povidone-iodine Allergy Mild RED RASH Verified 12/19/23 15:55 AND SKIN IRRITATION amoxicillin AdvReac Intermediate NAUSEA Verified 12/19/23 15:55 clavulanic acid AdvReac Intermediate NAUSEA Verified 12/19/23 15:55 doxycycline AdvReac Intermediate NAUSEA Verified 12/19/23 15:55 mometasone furoate AdvReac Intermediate NAUSEA Verified 12/19/23 15:55 nitrofurantoin AdvReac Intermediate nausea Verified 12/19/23 15:55 Sulfa (Sulfonamide AdvReac Mild NAUSEA/VOMI Verified 12/19/23 15:55 Antibiotics) TING Home Medications Medication Instructions Recorded Confirmed Type polyethylene glycol 3350 17 17 gm PO QAM 05/17/19 12/23/23 History gram/dose oral powder (Miralax) calcium carbonate 600 mg-vitamin 1 tab PO BIDM 06/04/19 12/23/23 History D3 5 mcg (200 unit) tablet docusate sodium 100 mg capsule 100 mg PO BIDM 06/04/19 12/23/23 History cholecalciferol (vitamin D3) 50 50 mcg PO QAM 03/03/21 12/23/23 History mcg (2,000 unit) capsule polyvinyl alcohol-povidone (PF) 1 drp OPB QID 08/14/21 12/23/23 History 1.4 %-0.6 % eye drops in a dropperette (Refresh Classic (PF)) sennosides 8.6 mg-docusate sodium 1 tab PO BID 10/15/22 12/23/23 History 50 mg tablet (Senna Plus) Flutter Valve #1 ea 10/26/22 12/16/23 Rx alendronate 70 mg tablet (Fosamax) 70 mg PO WK 10/26/22 12/23/23 History white petrolatum-mineral oil 57.3 1 applic OPB HS 11/01/22 12/23/23 History %-42.5 % eye ointment (Refresh P.M.) fluticasone propionate 50 1 spray intranasal DAILY #16 grams 03/14/23 12/23/23 Rx mcg/actuation nasal spray,suspension citalopram 40 mg tablet (Celexa) 40 mg PO QAM #90 tabs 07/07/23 12/23/23 Rx mecobalamin (vitamin B12) 1,000 1,000 mcg sublingual DAILY #30 tabs 09/09/23 12/23/23 Rx mcg disintegrating tablet,sublingual mirtazapine 15 mg tablet (Remeron) 15 mg PO DAILY #90 tabs 10/06/23 12/23/23 Rx lorazepam 0.5 mg tablet (Ativan) 0.5 mg PO DAILY PRN anxiety #20 11/07/23 12/23/23 Rx tabs nystatin-triamcinolone 100,000 1 applic topical TID #30 grams 11/07/23 12/23/23 Rx unit/gram-0.1 % topical ointment cyclosporine 0.05 % eye drops in a 1 drp ophthalmic (eye) Q12H 11/30/23 12/23/23 History dropperette (Restasis) Spacer for Inhaler #1 ea 12/09/23 12/16/23 Rx albuterol sulfate 90 mcg/actuation 2 puff inhalation QIDR PRN 12/09/23 12/23/23 Rx aerosol inhaler (Ventolin HFA) cough/wheeze/shortness of breath #6.7 grams lidocaine 5 % topical patch 1 patch transdermal QAM #20 ea 12/15/23 12/23/23 Rx hydralazine 10 mg tablet 5 mg (1/2 x 10 mg) PO QID #100 tabs 12/16/23 12/23/23 Rx propranolol 80 mg capsule,24 80 mg PO QAM #30 caps 12/16/23 12/23/23 Rx hr,extended release acetaminophen 500 mg tablet 500 mg PO .@1200,1900 Pain 12/19/23 12/23/23 History (Tylenol Extra Strength) budesonide-formoterol HFA 160 2 puff inhalation BID17 12/19/23 12/23/23 History mcg-4.5 mcg/actuation aerosol inhaler buspirone 5 mg tablet 5 mg PO BIDM 12/19/23 12/23/23 History polyethylene glycol 3350 17 17 g PO .1-2XDAILY PRN Constipation 12/19/23 12/23/23 History gram/dose oral powder (Miralax) tramadol 50 mg tablet 50 mg PO BID 12/19/23 12/23/23 History acetaminophen 500 mg capsule 1,000 mg PO [facility] pain 12/23/23 12/23/23 History lidocaine 5 %-phenylephrine 0.25 1 applic topical TID PRN rectal 12/23/23 12/23/23 History %-glycern 14.4 %-petrolatm 15 % pain cream (Preparation H Rapid Relief-Lidocaine) Patient History Medical History Perirectal fistula Sacroiliac joint pain Anxiety and depression Bronchiectasis Subdural hematoma H/O malignant neoplasm of breast History of basal cell cancer Acute subdural hematoma Hypertension Surgical History S/P knee surgery S/P dilation and curettage S/P breast lumpectomy Family History Father Hypertension Stroke Unknown Cancer Denies family history of Colon cancer Ovarian cancer Prostate cancer Myocardial infarction Breast cancer Social History Smoking Status: Never smoker Second Hand Exposure: Yes; Do You Dip or Chew Tobacco: No; Hx Alcohol Use: No Hx Substance Use: No Preferred Language: [place] Communication Ability: Effective Visual Impairment: No Limitations Hearing Ability: Normal 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 In no acute distress. HEAD/FACE: Normocephalic and atraumatic. EYES: No drainage or conjunctival injection. ENT: Nose without bleeding or discharge. Oral mucosa moist. NECK: Full ROM without apparent pain. No swelling or masses noted. RESPIRATORY: Patient with unlabored breathing. No signs of respiratory distress. CHEST/AXILLA: Chest movement symmetrical. No deformities noted. BACK: Increased thoracic kyphosis. There is moderate tenderness along the right SI joint. Mild tenderness along the L3 midline. No myofascial spasm or trigger points noted. SKIN: [place], warm and dry. No rash noted. MS/EXTREMITY: No swelling, no deformities. Moving extremities appropriately. NEURO: Alert and appears oriented. Speech is fluent. Cranial Nerves are grossly intact. PSYCH: Alert, pleasant, affect is calm Results (Pain Clinic) Diagnostic Review MRI Findings: MR lumbar spine wo/w con CLINICAL HISTORY: eval L3 fx acuity, stenosis, ?mets TECHNIQUE: 3 plane localizer images, sagittal T2, sagittal T1, sagittal STIR, axial T1, axial T2 along with postcontrast axial T1 and sagittal T1 fat- saturated sequences were obtained of the lumbar spine, before and after intravenous administration of 12 mL of MultiHance. Comparison: Comparison is made to CT abdomen pelvis 12/11/2023 FINDINGS: There is a wedge fracture of the L3 vertebral body with approximately 25% loss of height and edema noted. The posterior elements are. L1-L2: Broad-based posterior disc bulge ligamentum flavum hypertrophy result in mild canal stenosis and moderate bilateral neuroforaminal stenosis. L2-L3: Broad-based posterior disc bulge results in severe canal stenosis, AP diameter is 6 mm, and severe bilateral neural foraminal stenosis. L3-L4: Broad-based posterior disc bulge is seen with mild canal stenosis and moderate bilateral neural foraminal stenosis. L4-L5: Broad base posterior disc bulge is seen with facet arthropathy resulting in moderate bilateral foraminal stenosis. L5-S1: Bilateral facet arthropathy results in moderate bilateral neural foraminal stenosis. The spinal ligaments are intact, without evidence of disruption or abnormal signal intensity. The spinal cord is normal in signal intensity and there is no evidence of cord contusion. There is no evidence of an extradural, intradural, extramedullary or intramedullary lesion. Visualized soft tissues are normal. IMPRESSION: 1. Subacute appearing wedge fracture of the L3 vertebral body without involvement of the posterior elements. 2. Multilevel degenerative changes with up to severe canal stenosis, AP diameter 6 mm, and severe bilateral neuroforaminal stenosis. ACT 112: Negative or not required by law. Electronically signed by: Derick Dubose M.D. 12/13/2023 4:50 PM
[2023-12-30] MEDS: FUROSEMIDE 20 MG TAB PO ONE (17:44)
[2023-12-30] MEDS: SODIUM CHLOR 7% 4 ML NEB NEB SCH (19:06)
[2023-12-30] MEDS: BUDESONIDE 0.5 MG/2 ML VIAL (PULMICORT) NEB SCH (19:06)
[2023-12-30] MEDS: MELATONIN 3 MG TAB PO SCH (20:33)
[2023-12-30] MEDS: hydrALAZINE 10 MG TAB PO SCH (20:33)
[2023-12-30] MEDS: HEPARIN SOD 5,000 UNIT/0.5 ML VIAL SQ SCH (20:34)
[2023-12-31 01:40] LABS: Appearance Urine Clear (Clear); Bacteria Urine Automated Negative (Negative); Bilirubin Urine Negative (Negative); Blood Urine 3+ (Negative); Color Urine Yellow; Epithelial Cell Urine Auto >30 /lpf (0-5); Glucose Urine UA Negative (Negative); Ketones Urine Negative (Negative); Leukocyte Esterase Urine 2+ (Negative); Nitrite Urine Negative (Negative); Protein Urine Negative (Negative); RBC Urine Automated >30 /hpf (0-4); Specific Gravity Urine 1.013 (1.000-1.030); Urobilinogen Urine Negative (Negative)
[2023-12-31 06:32] LABS: Basophils # (auto) 0.02 K/uL (0.00-0.20); Basophils % (auto) 0.3 %; Eosinophils # (auto) 0.15 K/uL (0.00-0.50); Eosinophils % (auto) 1.9 %; Hematocrit (blood only) 30.3 % (37.0-47.0); Hemoglobin 9.6 g/dl (12.0-16.0); Immature Granulocytes # (auto) 0.04 K/uL (0.01-0.20); Immature Granulocytes % (auto) 0.5 %; Lymphocytes # (auto) 1.52 K/uL (1.20-3.40); Lymphocytes % (auto) 19.6 %; Mean Corpuscular Hemoglobin 28.2 pg (25.0-34.0); Mean Corpuscular Hgb Conc 31.7 g/dL (32.0-36.0); Mean Corpuscular Volume 89.1 fL (80.0-100.0); Mean Platelet Volume 9.6 fL (9.4-12.4); Monocytes # (auto) 0.94 K/uL (0.11-0.59); Monocytes % (auto) 12.1 %; Neutrophils # (auto) 5.07 K/uL (1.40-6.50); Neutrophils % (auto) 65.6 %; Platelet Count 231 K/uL (130-400); RDW Coefficient of Variation 15.7 % (11.5-14.5); RDW Standard Deviation 51.3 fL (36.4-46.3); White Blood Count 7.74 K/ul (4.8-10.8)
[2023-12-31 06:56] LABS: Albumin Globulin Ratio 1.3 (0.9-2); BUN Creatinine Ratio 27.5 (10-20); Bilirubin,Total 0.3 mg/dl (0.2-1.0); Calcium 8.7 mg/dl (8.6-10.3); Est GFR (African American) 92.6 ml/min; Est GFR (Non-African American) 79.9 ml/min; Globulin 2.4 gm/dl (2.5-4.0); Magnesium 1.7 mg/dl (1.7-2.4); Potassium 3.7 mmol/L (3.5-5.1); Total Protein 5.4 gm/dl (6.0-8.3)
--- NOTE | 2023-12-31 08:28 | Hospitalist Progress Note ---
Date of Service December 31, 2023 Assessment & Plan (1) Lumbar compression fracture: Plan: Intractable lower back pain and bilateral sciatic pain (worse on the right side) that has been ongoing for several weeks Unchanged, subacute superior plate compression fracture of L3 seen on lumbar spine CT. No saddle anesthesia or change in bowel habits. CT lumbar spine on 12/22 noting unchanged subacute superior plate compression fracture of L3. Notable review of imaging by orthopedic spine/prior inpatient consult in November w/ severe central stenosis contributing to her pain but at that time did not want any type of surgical intervention Dr Elias consulted * s/p #1 kyphoplasty of L3 vertebral body. #2 biopsy of L3 vertebral body with Dr Elias on 12/26 Pain control, bowel regimen as needed (moving her bowels) * Tylenol, Oxycodone 10mg as needed. DC'd 1mg dilaudid, can continue 0.5mg IV for breakthrough if needed but appears MUCH improved. Ativan 0.5mg PO BID prn, lidocaine patch, heating pad as able * Of note, ONLY UTILIZED ONE DOSE OXYCODONE 12/30 thus far, despite reports of pain and support provided and discussed as appears she is more reporting pain as she felt she would be back to usual self/pain free and disappointed she isn't there yet. Discussed pain does appear to be better controlled, and is ambulating with walker in the room without additional assistance, does have ongoing R low back/hip pain c/w SI joint pain --> Pain management consulted for RIGHT SI joint injection * Initially deferred due to a possible pneumonia however discussed and CT chest as below/pulm consult do not believe infectious or is is not progressive and antibiotics DISCONTINUED as also suspect was contributing to confusion * Messaged Jie from pain management about consideration for injection w/ Dr Thomas on tuesday as discussed day prior WBC remaining WNL since discontinuing her abx, 7.7k, afebrile and will monitor OFF antibiotics PT/OT recs rehab, CM following and likely on Tuesday if bed. Heparin SQ added 4/5 for DVT prophylaxis ,has had some spotting but hgb 9.6 from 9.4 and will monitor (2) Pneumonia: Plan: Worsening VOGT x 1 week, productive cough, episode of hypoxia at 87% on room air in ED on presentation Per daughter, reports she had productive cough at home and improved at [facility] first admission in November however then redeveloped after her most recent discharge CXR w/o acute process Flu/RSV/COVID negative, MRSA swab positive Of note, review CT lumbar spine imaging during inpatient stay with patchy airspace consolidations in both lung anderson. Procalcitonin was normal however concerns for atypical pneumonia Had been provided Levaquin IV on 12/23, 12/25, 12/27, dosed q48h for renal function and was to continue through 12/30 to complete course initially, see below, DISCONTINUED Report cough this morning, 12/28 -- biofire negative, afebrile CXR negative for acute process, ?related to underlying hiatal hernia/reflux Aspiration precautions Pepcid added, IMPROVEMENT in cough reported (none during encounter)--> increase to 10mg BID and monitor CT chest obtained given ongoing cough/hypoxia, no significant change compared to prior in 2015, if CAPO not progressive, hypertonic saline/inhaled budesonide and abx discontinued by pulmonary and recommending pain control, pulmonary toilet with incentive spirometry and flutter valve and home Breo/hospital equivalent Of note, did given dose 20mg PO lasix on 12/29, monitor for repeat dose as needed. ECHO in November w/ moderate aortic valve sclerosis without significant aortic valvular stenosis --> Also resumed her home lisinopril but 2.5mg BID for BP and decreased prior hydralazine w/ improvement in BPs WBC WNL off abx, afebrile and monitor Titrate O2 as able, 1L this afternoon SpO2 96% (3) Fall: Plan: Patient experienced a fall on 12/18 and endorsed head strike, no LOC. Head CT at that time revealed no acute findings. History of subdural hematoma Hip CT revealed no acute bony abnormality of the right hip or lumbar spine Patient endorses ambulatory dysfunction since the fall, but this is likely secondary to pain in the setting of a lumbar compression fracture Plan to go to rehab upon discharge Urine cx pending (>30 epi, had been on abx, suspect contaminant but will monitor). (4) Hypertensive emergency: Plan: HTN emergency present at time of admission Labetalol 5 mg IV q15m x 3 max doses as needed for severe, persistent HTN (SBP greater than 180 or DBP greater than 110); PCU status Continue propranolol 80mg (which may also help with her resting tremor) -- had been recently reduced back to her 80mg from 160mg last admission, tremor stable Hydralazine 5mg QID on admission however had been titrated down as outpatient from 10mg during prior admission BPS SIGNIFICANTLY IMPROVED, 127/75 this afternoon and remaining MUCH better over past 24 hours w/ reduction in hydralazine to 2.5mg QID and resumption of prior lisinopril 2.5mg BID Monitor for ability to reduce/discontinue hydralazine if needed once lisinopril back in her system (5) Anxiety and depression: Plan: Patient expressed a desire to because of her chronic pain on admission-- denied any HI/SI ideation for myself but is worried about not being able to walk again Continue citalopram, buspar Lorazepam available 0.5mg PO BID prn Melatonin added 3mg HS to assist with sleep, EFFECTIVE and was able to sleep and will continue (6) Endometrial mass: Plan: Patient endorses recent vaginal spotting, had been following outpatient. Visit on 12/12 suspicion for endometrial ca Hgb 10.6 on admit, has been stable on repeat (repeat phelbotomy, no significant bleeding). Heparin sq added for DVT proph and remained stable on repeat s/p endometrial biopsy w/ Dr Stack on 12/29, pathology pending -- f/u (7) Anemia: Plan: Chronic and stable compared to priors, no active bleeding reported. suspect again quite stable w/ repeated lab draws Plan DVT proph: SCDs, heparin SQ added 12/29 following biopsy PT/OT recs for rehab --> [facility] likely would be too much for patient and will have ongoing discussions however suspect dc to [facility] [place] [facility] this upcoming week on Tuesday/Tuesday pending insurance auth. CM to follow Updated daughter at bedside 12/30 -- feels her mother is doing much better than she had imagined based on prior report F/u pain management about possible injection on Tuesday if able to accommodate Admission and Anticipated Discharge Date Admission Date: December 23, 2023 Subjective Evaluated this afternoon, sitting up in recliner chair, daughter at bedside. Appears much improved from days prior. WBC wnl. Reports ongoing pain but does endorse her pain tolerance is zero and she "is a big baby". Discussed anxiety contributing to pain and she has utilized less medications. Moved her bowels several times day prior, softeners on hold. Does have some distension but no overt tenderness and will resume to prevent constipation. Much decreased cough today, continues on pepcid. Daughter reports no cough while she has been in with her. Did get small dose of lasix yesterday and does not appear to be volume overloaded and will monitor. Did discuss her BP, hydralazine decreased to 2.5mg QID since addition of her lisinopril and will monitor over next 24-48 hours to see if able to further reduce/discontinued. Discussed pulm consult/no further antibiotics. Titrated to 1L this morning, reports breathing improved. Pain to her R SI joint, discussed hopeful able to arrange for injection on Tuesday w/ pain management and will plan for dc to SNF following. Questions/concerns addressed at this time. Physical Exam Physical Exam: General: 83 yo female sitting in recliner, daughter at bedside, appears much improved despite not feeling as well as quickly as she hoped Head atraumatic, normocephalic, mmm, trachea midline Resp: diminished in the bases no overt wheezing/rales, on 1L, no cough CV: paced on monitor, no significant m/r/g, trace pedal edema, no calf tenderness GI: +BS, soft/NT : no fletcher MSK/Neuro: tenderness along RIGHT SI joint, mild tenderness along L3 midline, dressing c/d/i, no erythema/drainage, strength testing equal b/l LE Psych: AOx3, appears improved compared to prior exams Results & Data Results & Data Vital Signs (Past 12 Hours) Vital Signs Temp Pulse Pulse Pulse Resp BP Pulse Ox 12/31/23 07:21 77 14 98 12/31/23 07:02 36.7 C 77 19 170/75 H 98 12/31/23 03:52 36.8 C 69 16 123/62 100 12/30/23 23:09 36.9 C 70 16 125/69 96 12/30/23 23:00 75 O2 Del Method O2 Flow Rate 12/31/23 07:21 Nasal Cannula 3 12/31/23 07:02 Nasal Cannula 2 12/31/23 03:52 Nasal Cannula 12/30/23 23:09 CPAP 3 12/30/23 23:00 Laboratory Results 12/31/23 12/31/23 Range/Units 05:23 01:31 WBC 7.74 (4.8-10.8) K/ul RBC 3.40 L (4.20-5.40) M/uL Hgb 9.6 L (12.0-16.0) g/dl Hct 30.3 L (37.0-47.0) % MCV 89.1 (80.0-100.0) fL MCH 28.2 (25.0-34.0) pg MCHC 31.7 L (32.0-36.0) g/dL RDW Std Deviation 51.3 H (36.4-46.3) fL RDW Coeff of Adarsh 15.7 H (11.5-14.5) % Plt Count 231 (130-400) K/uL MPV 9.6 (9.4-12.4) fL Immature Gran % (Auto) 0.5 % Neut % (Auto) 65.6 % Lymph % (Auto) 19.6 % [place] % (Auto) 12.1 % Eos % (Auto) 1.9 % Baso % (Auto) 0.3 % Neut # (Auto) 5.07 (1.40-6.50) K/uL Lymph # (Auto) 1.52 (1.20-3.40) K/uL [place] # (Auto) 0.94 H (0.11-0.59) K/uL Eos # (Auto) 0.15 (0.00-0.50) K/uL Baso # (Auto) 0.02 (0.00-0.20) K/uL Immature Gran # (Auto) 0.04 (0.01-0.20) K/uL Sodium 139 (136-145) mmol/L Potassium 3.7 (3.5-5.1) mmol/L Chloride 103 (98-107) mmol/L Carbon Dioxide 32 (21-32) mmol/L Anion Gap 4 (3-11) BUN 19 (6-23) mg/dl Creatinine 0.69 (0.6-1.2) mg/dl Est Cr Clr Drug Dosing 48.0 ml/min Est GFR ( Amer) 92.6 ml/min Est GFR (Non-Af Amer) 79.9 ml/min BUN/Creatinine Ratio 27.5 H (10-20) Glucose 91 (70-99(Fasting)) mg/dl Calcium 8.7 (8.6-10.3) mg/dl Magnesium 1.7 (1.7-2.4) mg/dl Total Bilirubin 0.3 (0.2-1.0) mg/dl AST 14 (13-39) U/L ALT 9 (7-52) U/L Alkaline Phosphatase 46 (34-104) U/L Total Protein 5.4 L (6.0-8.3) gm/dl Albumin 3.0 L (3.4-5.0) gm/dl Globulin 2.4 L (2.5-4.0) gm/dl Albumin/Globulin Ratio 1.3 (0.9-2) Urine Color Yellow Urine Appearance Clear (Clear) Urine pH 5.0 (4.5-7.5) Ur Specific [place] 1.013 (1.000-1.030) Urine Protein Negative (Negative) Urine Glucose (UA) Negative (Negative) Urine Ketones Negative (Negative) Urine Blood 3+ H (Negative) Urine Nitrite Negative (Negative) Urine Bilirubin Negative (Negative) Urine Urobilinogen Negative (Negative) Ur Leukocyte Esterase 2+ H (Negative) Urine WBC (Auto) 10-30 H (0-5) /hpf Urine RBC (Auto) >30 H (0-4) /hpf U Hyaline Cast (Auto) 1-5 (0-5) /lpf U Epithel Cells (Auto) >30 H (0-5) /lpf Urine Bacteria (Auto) Negative (Negative) Diagnostic Findings Chest CT 12/30/23 11:58 CT SCAN OF THE CHEST WITHOUT IV CONTRAST CLINICAL HISTORY: Breast cancer. Endometrial mass. Hypoxia. COMPARISON STUDY: Chest x-ray dated 12/29/2023. Chest CT dated 05/10/2016. TECHNIQUE: CT scan of the thorax was performed from the thoracic inlet to the upper abdomen. Images are reviewed in the axial, sagittal, and coronal planes. IV contrast was not administered for this examination as per the referring clinician. A dose lowering technique was utilized adhering to the principles of ALARA. CT DOSE: 217.7 mGy.cm FINDINGS: Thyroid: Imaged portions of the thyroid gland are normal in size and attenuation. Thoracic aorta: The thoracic aorta is normal in caliber and demonstrates standard 3-vessel arch anatomy. Heart: The heart is enlarged and without pericardial effusion. The coronary arteries are densely calcified. Lungs and pleural spaces: There is no lobar consolidation. Small pleural effusions are observed. Secretions are noted in the trachea. Scarring/atelectasis is seen at both lung bases. There is diffuse pericardial thickening. There are scattered foci of tree-in-bud nodularity, greatest in the lower lobes. This suggests a chronic infectious/inflammatory process. There is mild bronchiectasis and mucous plugging in the right middle lobe. Mediastinum: There is no mediastinal lymphadenopathy. [place]: Not well assessed without IV contrast. Axillae: There is no axillary lymphadenopathy. Upper abdomen: There is a large hiatal hernia, with the majority of the stomach located pneumothorax. Partially visualized upper abdominal viscera is within normal limits. Skeletal structures: The skeletal structures are osteopenic. Degenerative changes and kyphoscoliosis is noted in the thoracic spine. Arthritic change is seen in the shoulders. There are chronic/healed bilateral rib fractures. No lytic or blastic bony lesions are seen. Soft tissues: Postsurgical change is suggested in the right breast. An indeterminant 1.9 cm opacity in the right breast shows central fluid/low attenuation there is a postsurgical change. IMPRESSION: 1. Cardiomegaly and small pleural effusions. 2. There are tree-in-bud opacities scattered throughout both lungs, a well as diffuse bronchial thickening. There is bronchiectasis and mucous plugging in the right middle lobe, and these findings favor a chronic infectious/inflammatory processes such as atypical bacteria (CAPO). Clinical correlation will be required and follow up with pulmonology is recommended. 3. There is no lobar consolidation. 4. Large hiatal hernia. 5. Postsurgical change with a possible seroma is suggested in the right breast. This is not well assessed by CT. Correlate with any prior breast imaging. 6. Additional findings as above. ACT 112: Negative or not required by law. Electronically signed by: Diogo Moreno M.D. 12/30/2023 1:43 PM PG Care Time/CCT Total # of Minutes Spent Total Time Spent with Patient: Total time spent is greater than 50% in coordination of care (as documented) at patient's floor/unit and/or counseling patient: Coding Level of Care Code 41492 SUB INP/OBS CARE 3/50MIN Diagnoses Compression fracture of L3 vertebra with routine healing, subsequent encounter S32.030D Encounter type: subsequent encounter Fracture healing: with routine healing Lumbar vertebra fracture level: L3 Pneumonia J18.9 Laterality: bilateral Lung location: unspecified part of lung Pneumonia type: due to unspecified organism Fall W19.XXXA Encounter type: initial encounter Hypertensive emergency I16.1 Anxiety and depression F41.9; F32.A Endometrial mass N94.89 Anemia D64.9 Anemia type: unspecified type (1) Lumbar compression fracture Encounter type: subsequent encounter Fracture healing: with routine healing Lumbar vertebra fracture level: L3 Qualified Code(s): S32.030D - Wedge compression fracture of third lumbar vertebra, subsequent encounter for fracture with routine healing (2) Pneumonia Laterality: bilateral Lung location: unspecified part of lung Pneumonia type: due to unspecified organism Qualified Code(s): J18.9 - Pneumonia, unspecified organism (3) Fall Encounter type: initial encounter Qualified Code(s): W19.XXXA - Unspecified fall, initial encounter (7) Anemia Anemia type: unspecified type Qualified Code(s): D64.9 - Anemia, unspecified
--- NOTE | 2023-12-31 08:59 | Pulmonary Consultation ---
Date of Consultation December 31, 2023 Assessment & Plan (1) Hypoxia: (2) Bronchiectasis: (3) Abnormal chest CT: Plan Impression: 83-year-old female with known bronchiectasis and tree-in-bud opacities admitted with intractable back pain. Her CT scan does not appear significantly changed and I do not think she is acutely infected. Her CT has not demonstrated significant progression over the last 8 years. She does have known significant obstructive lung disease but does not appear to be suffering an exacerbation currently. Her issues appear to be mainly focused on her back pain. Recommendations: 1. Hypoxemia: Multifactorial but suspect largely due to splinting due to back pain. Incentive spirometry, flutter valve, and out of bed to chair with adequate analgesia recommended. Recommend weaning oxygen to maintain oxygen saturations at or above 90%. Unclear if the patient may require supplemental oxygen at discharge. 2. Abnormal CT scan: CT was independently reviewed and does not appear significantly changed compared to prior CT scan from a few years ago. She is established with pulmonary in the outpatient setting and she can continue to follow with them in the outpatient setting. If the CT scan were consistent with a nontuberculous mycobacterial infection, it does not appear progressive. Outpatient workup and follow-up is appropriate 3. Obstructive lung disease: Baseline PFTs demonstrated severe airflow obstruction. She does not appear bronchospastic or wheezing currently. No indication for steroids. Continue bronchodilators as needed. She is taking Breo. No need for nebulized budesonide. 4. Bronchiectasis: Patient's not having any difficulty clearing secretions. Do not think she needs hypertonic saline at this point in time. No indication for antibiotics 5. Management of the patient's other medical issues per the primary admitting service. The patient appears to be at or approaching her pulmonary baseline. No acute pulmonary issues currently. Recommend that she follow-up with Dr. Mejia at discharge. Pulmonary will sign off. Feel free to contact us with additional questions or concerns History of Present Illness Attending Physician: Vianca Cloud MD History of Present Illness Asked by hospitalist to assist in evaluation management this patient with bronchiectasis and an abnormal CT scan. History is obtained from discussion with the patient as well as review the electronic medical record. Patient is an 83-year-old female who is established with Dr. Mejia in the outpatient setting and was last seen back in September. She has a history of severe obstructive lung disease as well as bronchiectasis. She has a known large hiatal hernia and some tree-in-bud opacities and a potential history of asthmatic bronchitis. She was admitted to the hospital 12/23/2023 from a personal care facility with intractable back pain. She also had some shortness of breath and a cough. She was treated with Rocephin and morphine in the emergency room and admitted to the hospitalist service. Rocephin was continued. She was seen by orthopedic surgery and underwent kyphoplasty on 12/26. She is been seen by the pain management service. Antibiotics were transitioned to Levaquin from Rocephin and subsequently discontinued. Dedicated CT of the chest was obtained which did not show significant progression compared to prior CT scan from 2016 and pulmonary was consulted after antibiotics were discontinued. Patient been afebrile. Procalcitonin was normal. White blood cell count unremarkable. The patient is not on oxygen normally. She is using little bit of oxygen now but this can likely be weaned. She denies any cough. She states she is not having issues with shortness of breath. She is having continued pain issues. Allergies Allergy/AdvReac Type Severity Reaction Status Date / Time povidone-iodine Allergy Mild RED RASH Verified 12/19/23 15:55 AND SKIN IRRITATION amoxicillin AdvReac Intermediate NAUSEA Verified 12/19/23 15:55 clavulanic acid AdvReac Intermediate NAUSEA Verified 12/19/23 15:55 doxycycline AdvReac Intermediate NAUSEA Verified 12/19/23 15:55 mometasone furoate AdvReac Intermediate NAUSEA Verified 12/19/23 15:55 nitrofurantoin AdvReac Intermediate nausea Verified 12/19/23 15:55 Sulfa (Sulfonamide AdvReac Mild NAUSEA/VOMI Verified 12/19/23 15:55 Antibiotics) TING Home Medications Medication Instructions Recorded Confirmed Type polyethylene glycol 3350 17 17 gm PO QAM 05/17/19 12/23/23 History gram/dose oral powder (Miralax) calcium carbonate 600 mg-vitamin 1 tab PO BIDM 06/04/19 12/23/23 History D3 5 mcg (200 unit) tablet docusate sodium 100 mg capsule 100 mg PO BIDM 06/04/19 12/23/23 History cholecalciferol (vitamin D3) 50 50 mcg PO QAM 03/03/21 12/23/23 History mcg (2,000 unit) capsule polyvinyl alcohol-povidone (PF) 1 drp OPB QID 08/14/21 12/23/23 History 1.4 %-0.6 % eye drops in a dropperette (Refresh Classic (PF)) sennosides 8.6 mg-docusate sodium 1 tab PO BID 10/15/22 12/23/23 History 50 mg tablet (Senna Plus) Flutter Valve #1 ea 10/26/22 12/16/23 Rx alendronate 70 mg tablet (Fosamax) 70 mg PO WK 10/26/22 12/23/23 History white petrolatum-mineral oil 57.3 1 applic OPB HS 11/01/22 12/23/23 History %-42.5 % eye ointment (Refresh P.M.) fluticasone propionate 50 1 spray intranasal DAILY #16 grams 03/14/23 12/23/23 Rx mcg/actuation nasal spray,suspension citalopram 40 mg tablet (Celexa) 40 mg PO QAM #90 tabs 07/07/23 12/23/23 Rx mecobalamin (vitamin B12) 1,000 1,000 mcg sublingual DAILY #30 tabs 09/09/23 12/23/23 Rx mcg disintegrating tablet,sublingual mirtazapine 15 mg tablet (Remeron) 15 mg PO DAILY #90 tabs 10/06/23 12/23/23 Rx lorazepam 0.5 mg tablet (Ativan) 0.5 mg PO DAILY PRN anxiety #20 11/07/23 12/23/23 Rx tabs nystatin-triamcinolone 100,000 1 applic topical TID #30 grams 11/07/23 12/23/23 Rx unit/gram-0.1 % topical ointment cyclosporine 0.05 % eye drops in a 1 drp ophthalmic (eye) Q12H 11/30/23 12/23/23 History dropperette (Restasis) Spacer for Inhaler #1 ea 12/09/23 12/16/23 Rx albuterol sulfate 90 mcg/actuation 2 puff inhalation QIDR PRN 12/09/23 12/23/23 Rx aerosol inhaler (Ventolin HFA) cough/wheeze/shortness of breath #6.7 grams lidocaine 5 % topical patch 1 patch transdermal QAM #20 ea 12/15/23 12/23/23 Rx hydralazine 10 mg tablet 5 mg (1/2 x 10 mg) PO QID #100 tabs 12/16/23 12/23/23 Rx propranolol 80 mg capsule,24 80 mg PO QAM #30 caps 12/16/23 12/23/23 Rx hr,extended release acetaminophen 500 mg tablet 500 mg PO .@1200,1900 Pain 12/19/23 12/23/23 History (Tylenol Extra Strength) budesonide-formoterol HFA 160 2 puff inhalation BID17 12/19/23 12/23/23 History mcg-4.5 mcg/actuation aerosol inhaler buspirone 5 mg tablet 5 mg PO BIDM 12/19/23 12/23/23 History polyethylene glycol 3350 17 17 g PO .1-2XDAILY PRN Constipation 12/19/23 12/23/23 History gram/dose oral powder (Miralax) tramadol 50 mg tablet 50 mg PO BID 12/19/23 12/23/23 History acetaminophen 500 mg capsule 1,000 mg PO AMHS pain 12/23/23 12/23/23 History lidocaine 5 %-phenylephrine 0.25 1 applic topical TID PRN rectal 12/23/23 12/23/23 History %-glycern 14.4 %-petrolatm 15 % pain cream (Preparation H Rapid Relief-Lidocaine) Patient History Medical History (Updated 12/31/23 @ 08:55 by Ilan Carter MD) Bronchiectasis Perirectal fistula Sacroiliac joint pain Anxiety and depression Bronchiectasis Subdural hematoma H/O malignant neoplasm of breast History of basal cell cancer Acute subdural hematoma Hypertension Surgical History S/P knee surgery S/P dilation and curettage S/P breast lumpectomy Family History Father Hypertension Stroke Unknown Cancer Denies family history of Colon cancer Ovarian cancer Prostate cancer Myocardial infarction Breast cancer Social History Smoking Status: Never smoker Second Hand Exposure: Yes; Do You Dip or Chew Tobacco: No; Hx Alcohol Use: No Hx Substance Use: No Preferred Language: Bruneian Communication Ability: Effective Visual Impairment: No Limitations Hearing Ability: Normal Household Manager Required: No Beliefs That Will Affect Care: None marital status: Current Living Situation: Personal Care Facility Current Living Situation Comment: [facility] current occupational status: retired How many Children do You have: 2 Feels Safe at Home: Yes Childhood Exposure to Second-Hand Smoke: No Dental Care, Regularly: Yes Physical Activity Frequency: 1-2 Times per Week Seatbelt Use: always Sunscreen Use: Yes Assistive Devices: Glasses and Walker Review of Systems 2 Review of Systems: Please refer to hospitalist note. No additions or deletions Physical Exam 2 Constitutional: + thin and + frail appearing Elderly appearing female sitting in chair in no distress Neck: trachea midline, no thyromegaly Respiratory: no respiratory distress, no labored breathing, no cough and not tachypneic Auscultation: + rhonchi; no crackles and no wheezes Cardiovascular: RRR, no murmur, no edema Gastrointestinal (Abdomen): normal bowel sounds, soft, nontender, no hepatosplenomegaly Musculoskeletal: Extremities: extremities normal to inspection Skin: no rashes, warm and dry Neurologic: Nonfocal exam Lymphatic: no cervical lymphadenopathy Results & Data Results & Data Vital Signs (Past 12 Hours) Vital Signs Temp Pulse Pulse Pulse Resp BP Pulse Ox 12/31/23 07:21 77 14 98 12/31/23 07:02 36.7 C 77 19 170/75 H 98 12/31/23 03:52 36.8 C 69 16 123/62 100 12/30/23 23:09 36.9 C 70 16 125/69 96 12/30/23 23:00 75 O2 Del Method O2 Flow Rate 12/31/23 07:21 Nasal Cannula 3 12/31/23 07:02 Nasal Cannula 2 12/31/23 03:52 Nasal Cannula 12/30/23 23:09 CPAP 3 12/30/23 23:00 Laboratory Results 12/31/23 05:23 12/31/23 05:[address] of the chest from 12/30/2023 was independently reviewed and compared to prior CT scan from 2015. There is some bronchiectatic changes with some bronchial wall thickening and tree-in-bud opacities. This does not appear significantly progressed compared to the prior CT scan from 2016. PG Care Time/CCT Total # of Minutes Spent Total Time Spent with Patient: Total time spent is greater than 50% in coordination of care (as documented) at patient's floor/unit and/or counseling patient: Coding Level of Care Code 16329 INT INP/OBS CARE 3/75MIN Diagnoses Hypoxia R09.02 Bronchiectasis J47.[address] R93.89
[2023-12-31] MEDS: SENNA 8.6 MG TAB PO SCH (16:43)
[2023-12-31] MEDS: FAMOTIDINE 10 MG TABLET PO SCH (20:18)
[2024-01-01 06:33] LABS: Hematocrit (blood only) 28.8 % (37.0-47.0); Hemoglobin 9.4 g/dl (12.0-16.0); Mean Corpuscular Hemoglobin 28.3 pg (25.0-34.0); Mean Corpuscular Hgb Conc 32.6 g/dL (32.0-36.0); Mean Corpuscular Volume 86.7 fL (80.0-100.0); Mean Platelet Volume 9.7 fL (9.4-12.4); Platelet Count 224 K/uL (130-400); RDW Coefficient of Variation 15.8 % (11.5-14.5); Red Blood Count 3.32 M/uL (4.20-5.40); White Blood Count 5.72 K/ul (4.8-10.8)
[2024-01-01 07:10] LABS: Calcium 8.7 mg/dl (8.6-10.3); Magnesium 1.7 mg/dl (1.7-2.4); Potassium 3.8 mmol/L (3.5-5.1)
[2024-01-01 07:16] LABS: BUN Creatinine Ratio 32.7 (10-20); Creatinine Clr Calc Pharmacy 60.2 ml/min; Est GFR (African American) 99.8 ml/min; Est GFR (Non-African American) 86.1 ml/min
--- NOTE | 2024-01-01 08:18 | Hospitalist Progress Note ---
Date of Service January 01, 2024 Assessment & Plan (1) Lumbar compression fracture: Plan: Intractable lower back pain and bilateral sciatic pain (worse on the right side) that has been ongoing for several weeks Unchanged, subacute superior plate compression fracture of L3 seen on lumbar spine CT. No saddle anesthesia or change in bowel habits. CT lumbar spine on 12/22 noting unchanged subacute superior plate compression fracture of L3. Notable review of imaging by orthopedic spine/prior inpatient consult in November w/ severe central stenosis contributing to her pain but at that time did not want any type of surgical intervention Dr Elias consulted * s/p #1 kyphoplasty of L3 vertebral body. #2 biopsy of L3 vertebral body with Dr Elias on 12/26 Pain control- Tylenol, Oxycodone 10mg as needed. DC'd 1mg dilaudid, continued 0.5mg IV for breakthrough if needed but appears MUCH improved. Ativan 0.5mg PO BID prn, lidocaine patch, heating pad as able (asked RN to call for such) Had been ambulating in the room w walker and PT w/o needing significant assistance other than walker and encouraged patient this does indicate doing better despite pain, was alert/oriented and appeared GREAT afternoon 12/30 and only required 10mg ONCE in the afternoon (did get around 245am, but only once throughout the day). She does have ongoing R low back pain c/w SI joint pain on exam --> Pain management consulted for RIGHT SI joint injection. Initially deferred due to a possible pneumonia however discussed and CT chest as below/pulm consult do not believe infectious or is is not progressive and antibiotics DISCONTINUED as also suspect was contributing to confusion. Messaged Jie from pain management about consideration for injection w/ Dr Thomas on Tuesday as discussed day prior WBC remaining WNL since discontinuing her abx, 7.7k, afebrile and will monitor OFF antibiotics 12/31 Patient doing well on 12/30, resting in the afternoon. DID have some confusion earlier this morning, appears patient received dose of oxycodone 10mg this morning around 5am, followed by lorazepam 0.5mg PO and hydromorphone 0.5mg IV around 722 and likely combination of medications. Has remained AFEBRILE off abx and titrated to 1 L O2, Spo2 99% this afternoon, no SOB reported but dipped to 70s after medicated, again likely from meds, pulmonary toilet/pain control, titrate as able Patient had ONLY received the 10mg oxycodone afternoon day prior, suspect when awoken from resting playing catch up and lengthy discussion at bedside with daughter present regarding pain control/available agents. --> decision to further decrease breakthrough Dilaudid to 0.25mg IV and reserve for only if absolutely needed as pain does appear better and ambulating in the room better w/ walker and reports she has a LOW pain tolerance Following up w/ pain management in AM to see about SI injection as above, hopeful to provide additional benefit. If not able to accommodate injection, ?consideration for low dose fentanyl patch for longer lasting control BPs appear much better overall controlled, likely labile w/ anxiety and pain and remains on reduction in hydralazine to 2.5mg QID w/ parameters and hopeful able to dc tomorrow if remaining stable PT/OT recs rehab, CM following and likely on Tuesday if bed. Heparin SQ added 4/5 for DVT prophylaxis ,has had some spotting but hgb 9.6 from 9.4 and will monitor (patient has declined x 2 doses) (2) Pneumonia: Plan: Worsening VOGT x 1 week, productive cough, episode of hypoxia at 87% on room air in ED on presentation Per daughter, reports she had productive cough at home and improved at dc first admission in November however then redeveloped after her most recent discharge CXR w/o acute process Flu/RSV/COVID negative, MRSA swab positive Had been given Levaquin IV last week for concerns for MRSA PNA? per CT lumbar spine imaging noting patchy airspace consolidations, held further for concerns contributing to her confusion (improved since stopping) Suspect her hypoxia more from splinting/pain medications, reflux/aspiration No evidence for pneumonia on multiple CXRs Does have large hiatal hernia on imaging, pepcid added (as prior recommended) and increased to BID and cough pretty much RESOLVED CT obtained given ongoing hypoxia for eval and hx bronchiectasis/breast ca/radiation Abx had prior been discontinued Pulmonology consulted for recs/assistance/comment CT chest w no significant change compared to prior in 2016, if CAPO not progressive, hypertonic saline/inhaled budesonide and abx discontinued by pulmonary and recommending pain control, pulmonary toilet with incentive spirometry and flutter valve and home Breo/hospital equivalent Of note, did given dose 20mg PO lasix on 12/29, monitor for repeat dose as needed. ECHO in November w/ moderate aortic valve sclerosis without significant aortic valvular stenosis --> Also resumed her home lisinopril but 2.5mg BID for BP and decreased prior hydralazine w/ improvement in BPs No WBC elevation or fever since discontinuing her abx and DO NOT suspect she had PNA. Procalcitonin was also not elevated, no sputum production reported Titrate O2 as able, 1L this afternoon SpO2 96% (3) Fall: Plan: Patient experienced a fall on 12/18 and endorsed head strike, no LOC. Head CT at that time revealed no acute findings. History of subdural hematoma Hip CT revealed no acute bony abnormality of the right hip or lumbar spine Patient endorses ambulatory dysfunction since the fall, but this is likely secondary to pain in the setting of a lumbar compression fracture Plan to go to rehab upon discharge Urine cx mixed ludwig, no UTI (notable had been on Levaquin, should have been covered based on IV/dosing) (4) Hypertensive emergency: Plan: HTN emergency present at time of admission Labetalol 5 mg IV q15m x 3 max doses as needed for severe, persistent HTN (SBP greater than 180 or DBP greater than 110); PCU status Continued home propranolol 80mg, reduced back to home dose w/ her PCP, also for tremor Hydralazine down to 5mg QID on admit, titrated to 2.5mg QID w/ resumption in lisinopril 2.5mg BID w/ GREAT improvement in her blood pressures (also suspect pain had been contributing) Continue reduced dose hydralazine w/ hold parameters for now, lisinopril 2.5mg BID Consider discontinuing further hydralazine as discussed w/ daughter if BPs remaining stable (5) Anxiety and depression: Plan: Patient expressed a desire to because of her chronic pain on admission-- denied any HI/SI ideation for myself but is worried about not being able to walk again Continue citalopram, buspar, Lorazepam available 0.5mg PO BID prn Melatonin added 3mg HS to assist with sleep, EFFECTIVE and was able to sleep and will continue (6) Endometrial mass: Plan: Patient endorsed occ vaginal spotting, had been following outpatient. Visit on 12/12 suspicion for endometrial ca Hgb 10.6 on admit, has been stable on repeat (repeat phlebotomy, no significant bleeding). Heparin sq added for DVT proph and remained stable on repeat s/p endometrial biopsy w/ Dr Stack on 12/29, pathology pending -- f/u pathology (7) Anemia: Plan: Chronic and stable compared to priors, no active bleeding reported. suspect again quite stable w/ repeated lab draws Plan DVT proph: SCDs, heparin SQ added 12/29 following biopsy (has refused multiple doses) Hopeful pain management in AM for injection for SI joint and if pain reasonable controlled on PO w/ such can hopefully get to [facility] vs [facility] Tuesday vs Tuesday. CM to f/u questions/concerns regarding rehab at [place] w/ daughter (updated in room 12/31) Admission and Anticipated Discharge Date Admission Date: December 23, 2023 Subjective Evaluated this morning, daughter in room. Did have some confusion this morning but discussed I suspect combination of Dilaudid followed by oxycodone 10mg and Ativan as dipped into 70s w/ O2, 98% on 2L at present. Discussed pulm suspect hypoxia due to splinting w/ her back pain, no abx. Daughter with questions for case management/rehab/arrangement for follow up with Dr Elias. Denies shortness of breath, no further cough and continues on pepcid. Discussed she may have had increased pain due to having to play catch-up. Discussed will wait for pain management in AM but if not planning to do injection can consider using low dose fentanyl patch and monitor response. Questions/concern addressed. Physical Exam Physical Exam: General: 83 yo female sitting in recliner, daughter at bedside, NAD, did have some increased confusion reported this morning (likely from medications) Head atraumatic, normocephalic, mmm, trachea midline Resp: diminished in the bases no overt wheezing/rales, on 1L, no cough CV: paced on monitor, no significant m/r/g, trace pedal edema, no calf tenderness GI: +BS, soft/NT : no fletcher MSK/Neuro: tenderness along RIGHT SI joint, mild tenderness along L3 midline, dressing c/d/i, no erythema/drainage, strength testing equal b/l LE Psych: AOx3, appears improved compared to prior exams Results & Data Results & Data Vital Signs (Past 12 Hours) Vital Signs Temp Pulse Pulse Resp BP Pulse Ox O2 Del Method 01/01/24 07:30 78 01/01/24 07:30 Nasal Cannula 01/01/24 03:00 36.3 C L 70 16 148/82 H 98 Nasal Cannula 12/31/23 23:18 36.5 C 74 17 150/71 H 98 Nasal Cannula 12/31/23 23:00 74 O2 Flow Rate 01/01/24 07:30 01/01/24 07:30 2 01/01/24 03:00 1 12/31/23 23:18 1 12/31/23 23:00 Laboratory Results 01/01/24 Range/Units 06:01 WBC 5.72 (4.8-10.8) K/ul RBC 3.32 L (4.20-5.40) M/uL Hgb 9.4 L (12.0-16.0) g/dl Hct 28.8 L (37.0-47.0) % MCV 86.7 (80.0-100.0) fL MCH 28.3 (25.0-34.0) pg MCHC 32.6 (32.0-36.0) g/dL RDW Std Deviation 50.0 H (36.4-46.3) fL RDW Coeff of Adarsh 15.8 H (11.5-14.5) % Plt Count 224 (130-400) K/uL MPV 9.7 (9.4-12.4) fL Sodium 139 (136-145) mmol/L Potassium 3.8 (3.5-5.1) mmol/L Chloride 104 (98-107) mmol/L Carbon Dioxide 30 (21-32) mmol/L Anion Gap 5 (3-11) BUN 18 (6-23) mg/dl Creatinine 0.55 L (0.6-1.2) mg/dl Est Cr Clr Drug Dosing 60.2 ml/min Est GFR ( Amer) 99.8 ml/min Est GFR (Non-Af Amer) 86.1 ml/min BUN/Creatinine Ratio 32.7 H (10-20) Glucose 102 H (70-99(Fasting)) mg/dl Calcium 8.7 (8.6-10.3) mg/dl Magnesium 1.7 (1.7-2.4) mg/dl PG Care Time/CCT Total # of Minutes Spent Total Time Spent with Patient: Total time spent is greater than 50% in coordination of care (as documented) at patient's floor/unit and/or counseling patient: Coding Level of Care Code 94051 SUB INP/OBS CARE 3/50MIN Diagnoses Compression fracture of L3 vertebra with routine healing, subsequent encounter S32.030D Encounter type: subsequent encounter Fracture healing: with routine healing Lumbar vertebra fracture level: L3 Pneumonia J18.9 Laterality: bilateral Lung location: unspecified part of lung Pneumonia type: due to unspecified organism Fall W19.XXXA Encounter type: initial encounter Hypertensive emergency I16.1 Anxiety and depression F41.9; F32.A Endometrial mass N94.89 Anemia D64.9 Anemia type: unspecified type (1) Lumbar compression fracture Encounter type: subsequent encounter Fracture healing: with routine healing Lumbar vertebra fracture level: L3 Qualified Code(s): S32.030D - Wedge compression fracture of third lumbar vertebra, subsequent encounter for fracture with routine healing (2) Pneumonia Laterality: bilateral Lung location: unspecified part of lung Pneumonia type: due to unspecified organism Qualified Code(s): J18.9 - Pneumonia, unspecified organism (3) Fall Encounter type: initial encounter Qualified Code(s): W19.XXXA - Unspecified fall, initial encounter (7) Anemia Anemia type: unspecified type Qualified Code(s): D64.9 - Anemia, unspecified
[2024-01-01] MEDS: MAGNESIUM SULFATE / D5W 1 GM/100 ML BAG IV ONE (10:33)
[2024-01-02] MEDS: HYDROmorphone INJ 0.5 MG/0.5 ML SYR IV PRN (07:35)
--- NOTE | 2024-01-02 07:53 | Hospitalist Progress Note ---
Date of Service January 02, 2024 Assessment & Plan (1) Lumbar compression fracture: Plan: Intractable lower back pain and bilateral sciatic pain (worse on the right side) that has been ongoing for several weeks Unchanged, subacute superior plate compression fracture of L3 seen on lumbar spine CT. No saddle anesthesia or change in bowel habits. CT lumbar spine on 12/22 noting unchanged subacute superior plate compression fracture of L3. Notable review of imaging by orthopedic spine/prior inpatient consult in November w/ severe central stenosis contributing to her pain but at that time did not want any type of surgical intervention Dr Elias consulted * s/p #1 kyphoplasty of L3 vertebral body. #2 biopsy of L3 vertebral body with Dr Elias on 12/26 Pain control - Tylenol, Oxycodone 10mg as needed. DC'd 1mg dilaudid, continued 0.5mg IV for breakthrough if needed but appeared MUCH improved on prior exams - Remained w/ Ativan 0.5mg PO BID prn, lidocaine patch, heating pad as able (asked RN to call for such) Had been ambulating in the room w walker and PT w/o needing significant assistance other than walker and encouraged patient this does indicate doing better despite pain, was alert/oriented and appeared GREAT afternoon 12/30 and o nly required 10mg ONCE in the afternoon (did get around 245am, but only once throughout the day). Pt w/ ongoing R low back pain c/w SI joint pain on exam Pain management consulted for RIGHT SI joint injection. Initially deferred due to a possible pneumonia however discussed and CT chest as below/pulm consult do not believe infectious or is is not progressive and antibiotics DISCONTINUED as also suspect was contributing to confusion. Messaged Jie from pain management about consideration for injection w/ Dr Thomas on Tuesday as discussed day prior WBC remaining WNL since discontinuing her abx, 7.7k, afebrile remained afebrile OFF abx 12/31 -- doing well but medicated w/ oxycodone 10mg this morning around 5am, followed by lorazepam 0.5mg PO and hydromorphone 0.5mg IV around 722 and likely combination of medications contributing to confusion. Diladudi was DECREASED to 0.25mg IV as needed for breakthrough and encouraged sparing use. Heparin SQ continued but placed on hold for SI joint injection in AM 48 Seen by pain management this morning, NPO for R SI injection in OR this afternoon. 1 time dose 0.25mg IV ativan available in meantime prior if needed for anxiety. CM notified to plan for [facility] for tomorrow if stable. Encouraged PO oxy/ativan for pain and anxiety and avoidance of IV dilaudid as needed. Had decreased to 0.25mg IV day prior to limit polypharmacy. Is moving bowels (x2 this morning), remains afebrile. Continue pulmonary toilet and pain control for O2 use (likely drops w/ multiple meds). No cough reported or SOB/fever. Continue pepcid BID for reflux/hiatal hernia BPs stable/improved OFF hydralazine and will continue lisinopril 2.5mg BID as outlined below. BP 165/72 in setting of pain this morning but has been MUCH better controlled. CM notified for potential dc to [facility] for tomorrow pending status post injection. (2) Fall: Plan: Patient experienced a fall on 12/18 and endorsed head strike, no LOC. Head CT at that time revealed no acute findings. History of subdural hematoma Hip CT revealed no acute bony abnormality of the right hip or lumbar spine Patient endorses ambulatory dysfunction since the fall, but this is likely secondary to pain in the setting of a lumbar compression fracture Plan to go to rehab upon discharge , planning injection for today Urine cx mod SKIN ludwig, did get Levaquin IV multiple doses for possible PNA as below, RULED OUT (3) Hypertensive emergency: Plan: HTN emergency present at time of admission- Labetalol 5 mg IV q15m x 3 max doses as needed for severe, persistent HTN (SBP greater than 180 or DBP greater than 110); PCU status Suspect labile BPs 2nd to pain/anxiety in hospital setting Propranolol 80mg daily, hydralazine continued on admission however prior discussion with daughter last week and patient to be on LISINOPRIL, was not continued on admission but added back 2.5mg PO BID and decreased hydralazine to 2.5mg QID and have been able to DISCONTINUE further hydralazine and BPs have been MUCH improved since that time Monitor BPs/further reduction to once daily lisinopril if needed (4) Anxiety and depression: Plan: Patient expressed a desire to because of her chronic pain on admission-- denied any HI/SI ideation for myself but is worried about not being able to walk again Continue citalopram, buspar, Lorazepam available 0.5mg PO BID prn Melatonin added for sleep, effective at times. Sleep sherri recommended Frequent orientation, EXPLAIN things to patient BEFORE AND DURING doing things (ie during exam) and reminder of reasons for doing things and expectations has been more effective as she has a lot of anxiety about wanting to know exactly was is going on. One time ativan prior to injection made IV 0.25mg while NPO and continue usual 0.5mg PO BID prn (5) Endometrial mass: Plan: Patient endorsed occ vaginal spotting, had been following outpatient. Visit on 12/12 suspicion for endometrial ca Hgb 10.6 on admit, has been stable on repeat (repeat phlebotomy, no significant bleeding). Heparin sq added for DVT proph and remained stable on repeat s/p endometrial biopsy w/ Dr Stack on 12/29, pathology pending -- f/u pathology --> STRIPPED FRAGMENTS OF BENIGN ATROPHIC ENDOMETRIUM, no reported evidence for malignancy (6) Anemia: Plan: Chronic and stable compared to priors, no active bleeding reported. suspect again quite stable w/ repeated lab draws and heparin added for DVT proph (add back following injection as able) (7) Pneumonia: Plan: Worsening VOGT x 1 week, productive cough, episode of hypoxia at 87% on room air in ED on presentation Per daughter, reports she had productive cough at home and improved at ar first admission in November however then redeveloped after her most recent discharge CXR w/o acute process Flu/RSV/COVID negative, MRSA swab positive Had been given Levaquin IV last week for concerns for MRSA PNA? per CT lumbar spine imaging noting patchy airspace consolidations, held further for concerns contributing to her confusion (improved since stopping) Suspect her hypoxia more from splinting/pain medications, reflux/aspiration No evidence for pneumonia on multiple CXRs Pt w/ have large hiatal hernia on imaging, pepcid added (as prior recommended) and increased to BID and cough pretty much RESOLVED and suspect hypoxia due to pain medications/splinting with pain Abx dc'd, has been afebrile and without leukocytosis at that time CT obtained given ongoing hypoxia for eval and hx bronchiectasis/breast ca/radiation and pulmonology consulted CT chest w no significant change compared to prior in 2016, if CAPO not progressive, hypertonic saline/inhaled budesonide and abx discontinued by pulmonary and recommending pain control, pulmonary toilet with incentive spirometry and flutter valve and home Breo/hospital equivalent Of note, did given dose 20mg PO lasix on 12/29, monitor for repeat dose as needed. ECHO in November w/ moderate aortic valve sclerosis without significant aortic valvular stenosis --> Also resumed her home lisinopril but 2.5mg BID for BP and decreased prior hydralazine w/ improvement in BPs No WBC elevation or fever since discontinuing her abx and DO NOT suspect she had PNA. Procalcitonin was also not elevated, no sputum production reported O2 as needed but to continue pulmonary toilet, IS encouraged Plan DVT proph: SCDs, heparin SQ added 12/29 following biopsy (has refused multiple doses) but placed on hold for SI injection today Pain control, limited use IV dilaudid and decreased to 0.25mg IV prn and encouraged PO oxycodone and ativan as needed in place of IV and notified CM about potential dc to [facility] tomorrow pending injection/ongoing pain control. CM to contact daughter who I have been updating at bedside through weekend and on plan for injection today as able by case management w/ expectations for dc to [facility] in next 24 hours. Admission and Anticipated Discharge Date Admission Date: December 23, 2023 Subjective Patient evaluated this morning, sitting up in recliner chair. Pain management in room, obtaining consent for SI injection. Pain controlled through afternoon but medicated this morning. Made NPO as Dr Thomas needing to perform injection in the OR. Patient on 2L, pulmonary toilet in place. Denies CP/SOB but encouraged to continue to use incentive spirometry. Did work w/ PT and did well this morning, continued encouragement provided. Moved bowels x 2, no abdominal pain. Discussed NOT quick acting relief and will take some time but hopeful additional relief. If pain stable/controlled tomorrow without need for IV (encouraged avoiding use and using PO oxy/ativan as needed w/ nursing staff, prior IV decreased to 0.25mg as needed and did get this morning w/ other meds and polypharmacy contributing) can plan for dc to [facility]. CM notified of such and to update daughter, as she had questions regarding dc planning over the weekend. She does have ongoing anxiety and as is NPO for procedure will order 1 x dose IV ativan 0.25mg prior to procedure. Questions/concerns addressed w/ patient at this time. Physical Exam Physical Exam: General: 83 yo female sitting in recliner, daughter at bedside, NAD, did have some increased confusion reported this morning (likely from medications) Head atraumatic, normocephalic, mmm, trachea midline Resp: diminished in the bases no overt wheezing/rales, on 1L, no cough CV: paced on monitor, no significant m/r/g, trace pedal edema, no calf tenderness GI: +BS, soft/NT : no fletcher MSK/Neuro: tenderness along RIGHT SI joint, mild tenderness along L3 midline, dressing c/d/i, no erythema/drainage, strength testing equal b/l LE Psych: AOx3, appears improved compared to prior exams Results & Data Results & Data Vital Signs (Past 12 Hours) Vital Signs Temp Pulse Pulse Pulse Resp BP Pulse Ox 01/02/24 03:45 36.8 C 77 17 108/64 96 01/01/24 23:17 36.5 C 70 17 116/65 97 01/01/24 23:00 71 01/01/24 20:00 O2 Del Method O2 Flow Rate 01/02/24 03:45 Nasal Cannula 2 01/01/24 23:17 Nasal Cannula 2 01/01/24 23:00 01/01/24 20:00 Nasal Cannula 1 PG Care Time/CCT Total # of Minutes Spent Total Time Spent with Patient: Total time spent is greater than 50% in coordination of care (as documented) at patient's floor/unit and/or counseling patient: Coding Level of Care Code 26293 SUB INP/OBS CARE 3/50MIN Diagnoses Compression fracture of L3 vertebra with routine healing, subsequent encounter S32.030D Encounter type: subsequent encounter Fracture healing: with routine healing Lumbar vertebra fracture level: L3 Fall W19.XXXA Encounter type: initial encounter Hypertensive emergency I16.1 Anxiety and depression F41.9; F32.A Endometrial mass N94.89 Anemia D64.9 Anemia type: unspecified type Pneumonia J18.9 Laterality: bilateral Lung location: unspecified part of lung Pneumonia type: due to unspecified organism (1) Lumbar compression fracture Encounter type: subsequent encounter Fracture healing: with routine healing Lumbar vertebra fracture level: L3 Qualified Code(s): S32.030D - Wedge compression fracture of third lumbar vertebra, subsequent encounter for fracture with routine healing (2) Fall Encounter type: initial encounter Qualified Code(s): W19.XXXA - Unspecified fall, initial encounter (6) Anemia Anemia type: unspecified type Qualified Code(s): D64.9 - Anemia, unspecified (7) Pneumonia Laterality: bilateral Lung location: unspecified part of lung Pneumonia type: due to unspecified organism Qualified Code(s): J18.9 - Pneumonia, unspecified organism
--- NOTE | 2024-01-02 09:05 | Pain Management Progress Note ---
Date of Service January 02, 2024 Assessment & Plan (1) Sacroiliac joint pain: (2) Lumbar compression fracture: Encounter type: subsequent encounter Fracture healing: with routine healing Lumbar vertebra fracture level: L3 Qualified Code(s): S32.030D - Wedge compression fracture of third lumbar vertebra, subsequent encounter for fracture with routine healing (3) Lumbar spinal stenosis: Plan 1. Recommend sacroiliac joint injection on the right side today. Patient was made n.p.o. Discussion of the risk, benefits, expectations was discussed with the patient. She verbally agreed to proceed. Consent form was brought to the bedside and patient states she now wishes to discuss this further with her daughter and hold at this time. Will return to the bedside later today to determine if she wishes to proceed. 2. Continue other medication as current. Patient requesting additional MiraLAX due to ongoing constipation. 3. If patient declines injection well as an inpatient this may be performed as an outpatient in the future. Admission and Anticipated Discharge Date Admission Date: December 23, 2023 Subjective 83 year old female with ongoing right sided inflammatory sacroiliitis. In addition she has a known history of severe stenosis at L2-3 and L3 compression fracture status post L3 kyphoplasty. She reports ongoing right sided lumbosacral junction pain with stabbing over her right buttock. Pain is aggravated with prolonged standing and walking. She rates her pain an 8/10 currently. She states that the current medication regimen is moderately effective towards diminishing her pain. Patient has been participating in physical therapy. She reports moderate constipation and slight cognitive deficits with current medication includes Oxycodone 10mg x 6 hours. No bowel/bladder incontinence, saddle anesthesia, foot drop. + recent fall sustaining L3 compression fracture. Pain Assessment Pain Assessment Full Body Front + Back: 2 1. [facility] Combined Pain Scale: 8-Debilitating - Impairs activity. Can't maintain a conversation. Physical Exam 2 Physical Exam: General: 83 yo female sitting in recliner, with mild confusion but in NAD and AAOx3 calm and cooperative Head atraumatic, normocephalic, mmm, trachea midline Resp: WNL CV: RRR GI: soft/NT slight distention Lumbar: loss of lumbar lordosis with mild tenderness at the right lumbosacral junction. Reduced range of motion in all planes. Moderate tenderness over the right SI joint nontender over the left. Positive Keo, thigh thrust, Gaenslen's on the right, negative on the left. Strength testing equal 4+ out of 5 bilateral lower extremity 1+ DTRs bilateral L4 and S1 no appreciable ankle clonus negative straight leg raise bilaterally. Results (Pain Clinic) Diagnostic Review MRI: enhanced, non enhanced and reports reviewed MRI Findings: MR lumbar spine wo/w con CLINICAL HISTORY: eval L3 fx acuity, stenosis, ?mets TECHNIQUE: 3 plane localizer images, sagittal T2, sagittal T1, sagittal STIR, axial T1, axial T2 along with postcontrast axial T1 and sagittal T1 fat- saturated sequences were obtained of the lumbar spine, before and after intravenous administration of 12 mL of MultiHance. Comparison: Comparison is made to CT abdomen pelvis 12/11/2023 FINDINGS: There is a wedge fracture of the L3 vertebral body with approximately 25% loss of height and edema noted. The posterior elements are. L1-L2: Broad-based posterior disc bulge ligamentum flavum hypertrophy result in mild canal stenosis and moderate bilateral neuroforaminal stenosis. L2-L3: Broad-based posterior disc bulge results in severe canal stenosis, AP diameter is 6 mm, and severe bilateral neural foraminal stenosis. L3-L4: Broad-based posterior disc bulge is seen with mild canal stenosis and moderate bilateral neural foraminal stenosis. L4-L5: Broad base posterior disc bulge is seen with facet arthropathy resulting in moderate bilateral foraminal stenosis. L5-S1: Bilateral facet arthropathy results in moderate bilateral neural foraminal stenosis. The spinal ligaments are intact, without evidence of disruption or abnormal signal intensity. The spinal cord is normal in signal intensity and there is no evidence of cord contusion. There is no evidence of an extradural, intradural, extramedullary or intramedullary lesion. Visualized soft tissues are normal. IMPRESSION: 1. Subacute appearing wedge fracture of the L3 vertebral body without involvement of the posterior elements. 2. Multilevel degenerative changes with up to severe canal stenosis, AP diameter 6 mm, and severe bilateral neuroforaminal stenosis. ACT 112: Negative or not required by law. Electronically signed by: Derick Dubose M.D. 12/13/2023 4:50 PM
[2024-01-02] MEDS: LORazepam 0.25 MG in SYRINGE 0.125 ML IV ONE (11:39)
[2024-01-02] MEDS ORDERED: ROPIVACAINE 0.5% 5 MG/ML 30 ML VIAL ONE (13:34)
[2024-01-02] MEDS ORDERED: TRIAMCINOLONE ACET 40 MG/ML VIAL ONE (13:34)
--- NOTE | 2024-01-02 14:05 | Operative Report ---
Post Operative Report Pre & Post Diagnosis Operation Date: 01/02/2024 Pre-Op Diagnosis: Right sacroiliitis Post-Op Diagnosis: Right sacroiliitis I identified the patient and participated in the time-out.: Yes Procedure Operation Date: 01/02/24 10:05 Actual Procedures Right Sacroiiliac joint injection Kya Thomas DO Surgeon Kya Thomas, Tractor Drill Operator None Estimated Blood Loss 0 Findings Consistent with Post-Op Diagnosis Specimens none Anesthesia Type Local Complications none Disposition Accompanied Patient To Recovery: No Description of Procedure SACROILIAC JOINT INJECTION Diagnosis: Inflammatory Sacroiliitis and Lumbago Side: Right Surgeon: Dr. Kya Thomas Anesthesia: local Material forwarded to lab: none Complications: none ASA 3 Medications used in total: 1% Lidocaine 3ml 0.5% Ropivacaine 1ml Kenalog 1ml (40mg/ml) Prior to starting, the patients diagnosis, allergies, medication list, and the procedure were reviewed with the patient in detail. Potential risks including infection, bleeding, nerve injury, reaction to any one of the medications used for the procedure, persistent pain at the injection site and persistent symptoms discussed with the patient. Diagnostic and therapeutic nature of the procedure also discussed with the patient. Alternatives to the specific procedure was also discussed with the patient. Patient's questions were answered. Patient gives informed consent to proceed. The patient was brought to the fluoroscopy room and placed in prone position on the table. Immediately prior to starting the procedure, a time out was conducted with the staff and the patient where the patient was identified, proposed procedure was verified, consent was reviewed and the proper site for the planned procedure was identified. Fluoroscopy was utilized in performing the procedure to assist in placement of the needle, to evaluate the final position on the needle prior to injection and to avoid intravascular injection. Monitors used included intermittent blood pressure with an automated device, continuous pulse oximetry and level of consciousness. Patient was not given any intravenous sedation and constant verbal contact was maintained throughout the procedure. The sacral area was cleansed with chloraprep and sterile drapes were applied. After the application, three minutes time elapsed prior to the start of the procedure to reduce risk of fire. The posterior superior iliac spine was identified by palpation and under fluoroscopy. Fluoroscope was rotated in the axial plane to obtain an ideal view if the inferior portion of the posterior aspect of the sacroiliac joint. Fluoroscope was then angled in a slight caudal direction. Skin and subcutaneous tissues were infiltrated with local anesthetic and a 22 gauge 3.5 inch Quincke point spinal needle with approximately 15 degree curve was advanced through the skin and subcutaneous tissues towards the sacroiliac joint under direct fluoroscopic guidance into the affected joint. Needle position was verified to be in the joint in a lateral view. No contrast was utilized secondary to rash allergy. Next, a solution containing 40 mg of Kenalog and 1ml of 0.5% Ropivacaine-MPF was injected. Needle was then flushed and withdrawn. Adequate hemostasis was noted. A sterile band aid was applied at the injection site. Report was given to the floor RN and patient was transported back to the floor. I attest to the content of the Intraoperative Record and any orders documented therein. Any exceptions are noted below.
[2024-01-03 07:00] LABS: Hematocrit (blood only) 28.8 % (37.0-47.0); Hemoglobin 9.3 g/dl (12.0-16.0); Mean Corpuscular Hemoglobin 28.3 pg (25.0-34.0); Mean Corpuscular Hgb Conc 32.3 g/dL (32.0-36.0); Mean Corpuscular Volume 87.5 fL (80.0-100.0); Mean Platelet Volume 10.4 fL (9.4-12.4); Platelet Count 199 K/uL (130-400); RDW Coefficient of Variation 15.3 % (11.5-14.5); RDW Standard Deviation 48.7 fL (36.4-46.3); Red Blood Count 3.29 M/uL (4.20-5.40); White Blood Count 14.39 K/ul (4.8-10.8)
[2024-01-03 07:33] LABS: BUN Creatinine Ratio 23.4 (10-20); Calcium 8.7 mg/dl (8.6-10.3); Creatinine Clr Calc Pharmacy 51.8 ml/min; Est GFR (Non-African American) 81.9 ml/min; Magnesium 1.7 mg/dl (1.7-2.4); Potassium 4.2 mmol/L (3.5-5.1)
--- NOTE | 2024-01-03 08:53 | Pain Management Progress Note ---
Date of Service January 03, 2024 Assessment & Plan (1) Sacroiliac joint pain: (2) Lumbar compression fracture: Encounter type: subsequent encounter Fracture healing: with routine healing Lumbar vertebra fracture level: L3 Qualified Code(s): S32.030D - Wedge compression fracture of third lumbar vertebra, subsequent encounter for fracture with routine healing (3) Lumbar spinal stenosis: Plan 1. Currently pleased with initial relief patient is experiencing status post a right SI joint injection. Expectations were discussed at length and she verbalized understanding. 2. She was encouraged to utilize Oxy IR for breakthrough pain only with expectations of diminished utilization with gradual symptomatic improvement status post the SI joint injection and she verbalized understanding 3. Pain service will sign off on patient at this time. Admission and Anticipated Discharge Date Admission Date: December 23, 2023 Subjective Mrs. Rodriguez was sitting up eating breakfast upon entering the room eating caging that her pain is improved since the time of her right SI joint injection performed yesterday by Dr. Thomas. Patient is unable to quantify the degree of improvement although is estimating her pain is minimal at this time at a 1-4/10. She believes she has used less pain medication over the past 12 hours since the time of the SI joint injection. She has minimal complaints of pain in the right lumbosacral region at this time. She has no radiating pain in the lower extremities. She describes it as a mild aching soreness only. She has no sharp or stabbing pains. She has been moving around the bed this morning without exacerbation of pain. Patient has no further constitutional complaints. Plan of care discussed with Dr. Thomas. Pain Assessment Pain Assessment Full Body Front + Back: 2 1. Right lumbosacral region Pain scale - at its best (0-10): 1 Pain scale - at its worst (0-10): 4 Physical Exam 2 Physical Exam: General: Patient sitting up eating breakfast in exam room in no acute distress. Speech and thought process appropriate. Mood and affect appropriate. Cognition intact. Back/spine: Patient was able to lean for physical exam. There is no evidence of edema, erythema or skin breakdown at site of the right SI joint injection. She has no residual tenderness to provocative testing over the right SI joint. She is minimally tender throughout the gluteal musculature bilaterally. Lower extremities: Strength testing was 4+/5 throughout bilaterally in the lower extremities. Hip is nontender with internal/external rotation. MARIBEL maneuver was negative bilaterally. Neurologic: Cranial nerves grossly intact. Ambulatory function not witnessed.
--- NOTE | 2024-01-03 14:56 | Hospitalist Progress Note ---
Date of Service January 03, 2024 Assessment & Plan (1) Lumbar compression fracture: Plan: Intractable lower back pain and bilateral sciatic pain (worse on the right side) that has been ongoing for several weeks Unchanged, subacute superior plate compression fracture of L3 seen on lumbar spine CT. No saddle anesthesia or change in bowel habits. CT lumbar spine on 12/22 noting unchanged subacute superior plate compression fracture of L3. Notable review of imaging by orthopedic spine/prior inpatient consult in November w/ severe central stenosis contributing to her pain but at that time did not want any type of surgical intervention Dr Elias consulted * s/p #1 kyphoplasty of L3 vertebral body. #2 biopsy of L3 vertebral body with Dr Elias on 12/26 Pain control - Tylenol, Oxycodone 10mg as needed. DC'd 1mg dilaudid, continued 0.5mg IV for breakthrough if needed but appeared MUCH improved on prior exams - Remained w/ Ativan 0.5mg PO BID prn, lidocaine patch, heating pad as able (asked RN to call for such) Had been ambulating in the room w walker and PT w/o needing significant assistance other than walker and encouraged patient this does indicate doing better despite pain, was alert/oriented and appeared GREAT afternoon 12/30 and o nly required 10mg ONCE in the afternoon (did get around 245am, but only once throughout the day). Pt w/ ongoing R low back pain c/w SI joint pain on exam Pain management consulted for RIGHT SI joint injection. Initially deferred due to a possible pneumonia however discussed and CT chest as below/pulm consult do not believe infectious or is is not progressive and antibiotics DISCONTINUED as also suspect was contributing to confusion. Messaged Jie from pain management about consideration for injection w/ Dr Thomas on Tuesday as discussed day prior WBC remaining WNL since discontinuing her abx, 7.7k, afebrile remained afebrile OFF abx 12/31 -- doing well but medicated w/ oxycodone 10mg this morning around 5am, followed by lorazepam 0.5mg PO and hydromorphone 0.5mg IV around 722 and likely combination of medications contributing to confusion. Diladudi was DECREASED to 0.25mg IV as needed for breakthrough and encouraged sparing use. Heparin SQ continued but placed on hold for SI joint injection in AM 4/8 Seen by pain management this morning, NPO for R SI injection in OR this afternoon. 1 time dose 0.25mg IV ativan available in meantime prior if needed for anxiety. CM notified to plan for [facility] for tomorrow if stable. Encouraged PO oxy/ativan for pain and anxiety and avoidance of IV dilaudid as needed. Had decreased to 0.25mg IV day prior to limit polypharmacy. Is moving bowels (x2 this morning), remains afebrile. Continue pulmonary toilet and pain control for O2 use (likely drops w/ multiple meds). No cough reported or SOB/fever. Continue pepcid BID for reflux/hiatal hernia BPs stable/improved OFF hydralazine and will continue lisinopril 2.5mg BID as outlined below. BP 165/72 in setting of pain this morning but has been MUCH better controlled. CM notified for potential dc to [facility] for tomorrow pending status post injection. 01/02 insurance company denied SNF, casey saw operator will inform daughter, who was informed that she is medically stable for discharge (2) Fall: Plan: Patient experienced a fall on 12/18 and endorsed head strike, no LOC. Head CT at that time revealed no acute findings. History of subdural hematoma Hip CT revealed no acute bony abnormality of the right hip or lumbar spine Patient endorses ambulatory dysfunction since the fall, but this is likely secondary to pain in the setting of a lumbar compression fracture Plan to go to rehab upon discharge , planning injection for today Urine cx mod SKIN ludwig, did get Levaquin IV multiple doses for possible PNA as below, RULED OUT PT recommends SNF, insurance denied (3) Hypertensive emergency: Plan: HTN emergency present at time of admission- Labetalol 5 mg IV q15m x 3 max doses as needed for severe, persistent HTN (SBP greater than 180 or DBP greater than 110); PCU status Suspect labile BPs 2nd to pain/anxiety in hospital setting Propranolol 80mg daily, hydralazine continued on admission however prior discussion with daughter last week and patient to be on LISINOPRIL, was not continued on admission but added back 2.5mg PO BID and decreased hydralazine to 2.5mg QID and have been able to DISCONTINUE further hydralazine and BPs have been MUCH improved since that time Monitor BPs/further reduction to once daily lisinopril if needed blood pressure is stable (4) Anxiety and depression: Plan: Patient expressed a desire to because of her chronic pain on admission-- denied any HI/SI ideation for myself but is worried about not being able to walk again Continue citalopram, buspar, Lorazepam available 0.5mg PO BID prn Melatonin added for sleep, effective at times. Sleep sherri recommended Frequent orientation, EXPLAIN things to patient BEFORE AND DURING doing things (ie during exam) and reminder of reasons for doing things and expectations has been more effective as she has a lot of anxiety about wanting to know exactly was is going on. One time ativan prior to injection made IV 0.25mg while NPO and continue usual 0.5mg PO BID prn (5) Endometrial mass: Plan: Patient endorsed occ vaginal spotting, had been following outpatient. Visit on 12/12 suspicion for endometrial ca Hgb 10.6 on admit, has been stable on repeat (repeat phlebotomy, no significant bleeding). Heparin sq added for DVT proph and remained stable on repeat s/p endometrial biopsy w/ Dr Stack on 12/29, pathology pending -- f/u pathology --> STRIPPED FRAGMENTS OF BENIGN ATROPHIC ENDOMETRIUM, no reported evidence for malignancy (6) Anemia: Plan: Chronic and stable compared to priors, no active bleeding reported. suspect again quite stable w/ repeated lab draws and heparin added for DVT proph (add back following injection as able) (7) Pneumonia: Plan: Worsening VOGT x 1 week, productive cough, episode of hypoxia at 87% on room air in ED on presentation Per daughter, reports she had productive cough at home and improved at md first admission in November however then redeveloped after her most recent discharge CXR w/o acute process Flu/RSV/COVID negative, MRSA swab positive Had been given Levaquin IV last week for concerns for MRSA PNA? per CT lumbar spine imaging noting patchy airspace consolidations, held further for concerns contributing to her confusion (improved since stopping) Suspect her hypoxia more from splinting/pain medications, reflux/aspiration No evidence for pneumonia on multiple CXRs Pt w/ have large hiatal hernia on imaging, pepcid added (as prior recommended) and increased to BID and cough pretty much RESOLVED and suspect hypoxia due to pain medications/splinting with pain Abx dc'd, has been afebrile and without leukocytosis at that time CT obtained given ongoing hypoxia for eval and hx bronchiectasis/breast ca/radiation and pulmonology consulted CT chest w no significant change compared to prior in 2016, if CAPO not progressive, hypertonic saline/inhaled budesonide and abx discontinued by pulmonary and recommending pain control, pulmonary toilet with incentive spirometry and flutter valve and home Breo/hospital equivalent Of note, did given dose 20mg PO lasix on 12/29, monitor for repeat dose as needed. ECHO in November w/ moderate aortic valve sclerosis without significant aortic valvular stenosis --> Also resumed her home lisinopril but 2.5mg BID for BP and decreased prior hydralazine w/ improvement in BPs No WBC elevation or fever since discontinuing her abx and DO NOT suspect she had PNA. Procalcitonin was also not elevated, no sputum production reported O2 as needed but to continue pulmonary toilet, IS encouraged still has acute respiratory failure, titrate oxygen as tolerated Plan DVT proph: SCDs, heparin SQ added 12/29 following biopsy (has refused multiple doses) but placed on hold for SI injection today Pain control, limited use IV dilaudid and decreased to 0.25mg IV prn and encouraged PO oxycodone and ativan as needed in place of IV and notified CM about potential dc to [facility] tomorrow pending injection/ongoing pain control. CM to contact daughter who I have been updating at bedside through weekend and on plan for injection today as able by case management w/ expectations for dc to [facility] in next 24 hours. Admission and Anticipated Discharge Date Admission Date: December 23, 2023 Subjective Mrs. Rodriguez was sitting up eating breakfast upon entering the room eating caging that her pain is improved since the time of her right SI joint injection performed yesterday by Dr. Thomas. Patient is unable to quantify the degree of improvement although is estimating her pain is minimal at this time at a 1-4/10. She believes she has used less pain medication over the past 12 hours since the time of the SI joint injection. She has minimal complaints of pain in the right lumbosacral region at this time. She has no radiating pain in the lower extremities. She describes it as a mild aching soreness only. She has no sharp or stabbing pains. She has been moving around the bed this morning without exacerbation of pain. Patient has no further constitutional complaints. Plan of care discussed with Dr. Thomas. Review of Systems Review of Systems: reports less back pain , but still reports generalized weakness , still requires pain meds Physical Exam Physical Exam: head atraumatic neck supple chest CTA b/l heart S1S2 regular abdomen soft, nt, nd , bs present extremities no edema neuro alert, awake Results & Data Results & Data Vital Signs (Past 12 Hours) Vital Signs Temp Pulse Pulse Pulse Resp BP BP 01/03/24 11:23 36.5 C 78 16 112/58 L 01/03/24 10:25 73 01/03/24 08:00 01/03/24 07:33 36.4 C L 75 16 125/61 01/03/24 03:12 36.6 C 81 18 111/60 Pulse Ox O2 Del Method O2 Flow Rate 01/03/24 11:23 98 Nasal Cannula 1 01/03/24 10:25 01/03/24 08:00 Nasal Cannula 1 01/03/24 07:33 96 Nasal Cannula 1 01/03/24 03:12 95 Nasal Cannula 1 PG Care Time/CCT Total # of Minutes Spent Total Time Spent with Patient: Total time spent is greater than 50% in coordination of care (as documented) at patient's floor/unit and/or counseling patient: Coding Level of Care Code 16403 SUB INP/OBS CARE 235MIN Diagnoses Compression fracture of L3 vertebra with routine healing, subsequent encounter S32.030D Encounter type: subsequent encounter Fracture healing: with routine healing Lumbar vertebra fracture level: L3 Fall W19.XXXA Encounter type: initial encounter Hypertensive emergency I16.1 Anxiety and depression F41.9; F32.A Endometrial mass N94.89 Anemia D64.9 Anemia type: unspecified type Pneumonia J18.9 Laterality: bilateral Lung location: unspecified part of lung Pneumonia type: due to unspecified organism (1) Lumbar compression fracture Encounter type: subsequent encounter Fracture healing: with routine healing Lumbar vertebra fracture level: L3 Qualified Code(s): S32.030D - Wedge compression fracture of third lumbar vertebra, subsequent encounter for fracture with routine healing (2) Fall Encounter type: initial encounter Qualified Code(s): W19.XXXA - Unspecified fall, initial encounter (6) Anemia Anemia type: unspecified type Qualified Code(s): D64.9 - Anemia, unspecified (7) Pneumonia Laterality: bilateral Lung location: unspecified part of lung Pneumonia type: due to unspecified organism Qualified Code(s): J18.9 - Pneumonia, unspecified organism
[2024-01-04 08:25] LABS: Hematocrit (blood only) 29.6 % (37.0-47.0); Hemoglobin 9.7 g/dl (12.0-16.0); Mean Corpuscular Hemoglobin 28.5 pg (25.0-34.0); Mean Corpuscular Hgb Conc 32.8 g/dL (32.0-36.0); Mean Corpuscular Volume 87.1 fL (80.0-100.0); Platelet Count 238 K/uL (130-400); RDW Coefficient of Variation 15.7 % (11.5-14.5); RDW Standard Deviation 49.9 fL (36.4-46.3); White Blood Count 11.15 K/ul (4.8-10.8)
[2024-01-04 08:47] LABS: BUN Creatinine Ratio 26.8 (10-20); Calcium 9.1 mg/dl (8.6-10.3); Creatinine Clr Calc Pharmacy 59.1 ml/min; Est GFR (African American) 99.2 ml/min; Est GFR (Non-African American) 85.6 ml/min; Potassium 4.4 mmol/L (3.5-5.1)
[2024-01-04 09:07] LABS: Cdiff Antigen Positive; Cdiff Toxin B Gene (2yr or >) Positive Cdiff Gene (Neg)
[2024-01-04 09:13] LABS: Cdiff Toxin A+B Positive Cdiff Toxin (Negative)
[2024-01-04] MEDS ORDERED: VANCOMYCIN HCL 125 MG/2.5ML SOLN PO SCH (10:00)
[2024-01-04] MEDS ORDERED: CHERRY SYRUP 5 ML UDP PO SCH (10:00)
[2024-01-04] MEDS: CHERRY SYRUP 5 ML UDP PO SCH (11:38)
[2024-01-04] MEDS: VANCOMYCIN HCL 250 MG/5 ML SOLN PO SCH (11:39)
--- NOTE | 2024-01-04 15:53 | Hospitalist Progress Note ---
Date of Service January 04, 2024 Assessment & Plan (1) Lumbar compression fracture: Plan: Intractable lower back pain and bilateral sciatic pain (worse on the right side) that has been ongoing for several weeks Unchanged, subacute superior plate compression fracture of L3 seen on lumbar spine CT. No saddle anesthesia or change in bowel habits. CT lumbar spine on 12/22 noting unchanged subacute superior plate compression fracture of L3. Notable review of imaging by orthopedic spine/prior inpatient consult in November w/ severe central stenosis contributing to her pain but at that time did not want any type of surgical intervention Dr Elias consulted * s/p #1 kyphoplasty of L3 vertebral body. #2 biopsy of L3 vertebral body with Dr Elias on 12/26 Pain control - Tylenol, Oxycodone 10mg as needed. DC'd 1mg dilaudid, continued 0.5mg IV for breakthrough if needed but appeared MUCH improved on prior exams - Remained w/ Ativan 0.5mg PO BID prn, lidocaine patch, heating pad as able (asked RN to call for such) Had been ambulating in the room w walker and PT w/o needing significant assistance other than walker and encouraged patient this does indicate doing better despite pain, was alert/oriented and appeared GREAT afternoon 12/30 and only required 10mg ONCE in the afternoon (did get around 245am, but only once throughout the day). Pt w/ ongoing R low back pain c/w SI joint pain on exam Pain management consulted for RIGHT SI joint injection. Initially deferred due to a possible pneumonia however discussed and CT chest as below/pulm consult do not believe infectious or is is not progressive and antibiotics DISCONTINUED as also suspect was contributing to confusion. Messaged Jie from pain management about consideration for injection w/ Dr Thomas on Tuesday as discussed day prior WBC remaining WNL since discontinuing her abx, 7.7k, afebrile remained afebrile OFF abx 12/31 -- doing well but medicated w/ oxycodone 10mg this morning around 5am, followed by lorazepam 0.5mg PO and hydromorphone 0.5mg IV around 722 and likely combination of medications contributing to confusion. Diladudi was DECREASED to 0.25mg IV as needed for breakthrough and encouraged sparing use. Heparin SQ continued but placed on hold for SI joint injection in AM 4/8 Seen by pain management this morning, NPO for R SI injection in OR this afternoon. 1 time dose 0.25mg IV ativan available in meantime prior if needed for anxiety. CM notified to plan for [facility] for tomorrow if stable. Encouraged PO oxy/ativan for pain and anxiety and avoidance of IV dilaudid as needed. Had decreased to 0.25mg IV day prior to limit polypharmacy. Is moving bowels (x2 this morning), remains afebrile. Continue pulmonary toilet and pain control for O2 use (likely drops w/ multiple meds). No cough reported or SOB/fever. Continue pepcid BID for reflux/hiatal hernia BPs stable/improved OFF hydralazine and will continue lisinopril 2.5mg BID as outlined below. BP 165/72 in setting of pain this morning but has been MUCH better controlled. CM notified for potential dc to [facility] for tomorrow pending status post injection. 01/02 insurance company denied SNF, case technician will inform daughter, who was informed that she is medically stable for discharge 01/03 patient reports diarrhea, stool is positive for C-diff , started on Vancomycin, no need for oxygen at night, overnight oximetry does not indicate hypoxia (2) Fall: Plan: Patient experienced a fall on 12/18 and endorsed head strike, no LOC. Head CT at that time revealed no acute findings. History of subdural hematoma Hip CT revealed no acute bony abnormality of the right hip or lumbar spine Patient endorses ambulatory dysfunction since the fall, but this is likely secondary to pain in the setting of a lumbar compression fracture Plan to go to rehab upon discharge , planning injection for today Urine cx mod SKIN ludwig, did get Levaquin IV multiple doses for possible PNA as below, RULED OUT PT recommends SNF, insurance denied (3) Hypertensive emergency: Plan: HTN emergency present at time of admission- Labetalol 5 mg IV q15m x 3 max doses as needed for severe, persistent HTN (SBP greater than 180 or DBP greater than 110); PCU status Suspect labile BPs 2nd to pain/anxiety in hospital setting Propranolol 80mg daily, hydralazine continued on admission however prior discussion with daughter last week and patient to be on LISINOPRIL, was not continued on admission but added back 2.5mg PO BID and decreased hydralazine to 2.5mg QID and have been able to DISCONTINUE further hydralazine and BPs have been MUCH improved since that time Monitor BPs/further reduction to once daily lisinopril if needed blood pressure is stable (4) Anxiety and depression: Plan: Patient expressed a desire to because of her chronic pain on admission-- denied any HI/SI ideation for myself but is worried about not being able to walk again Continue citalopram, buspar, Lorazepam available 0.5mg PO BID prn Melatonin added for sleep, effective at times. Sleep sherri recommended Frequent orientation, EXPLAIN things to patient BEFORE AND DURING doing things (ie during exam) and reminder of reasons for doing things and expectations has been more effective as she has a lot of anxiety about wanting to know exactly was is going on. One time ativan prior to injection made IV 0.25mg while NPO and continue usual 0.5mg PO BID prn (5) Endometrial mass: Plan: Patient endorsed occ vaginal spotting, had been following outpatient. Visit on 12/12 suspicion for endometrial ca Hgb 10.6 on admit, has been stable on repeat (repeat phlebotomy, no significant bleeding). Heparin sq added for DVT proph and remained stable on repeat s/p endometrial biopsy w/ Dr Stack on 12/29, pathology pending -- f/u pathology --> STRIPPED FRAGMENTS OF BENIGN ATROPHIC ENDOMETRIUM, no reported evidence for malignancy (6) Anemia: Plan: Chronic and stable compared to priors, no active bleeding reported. suspect again quite stable w/ repeated lab draws and heparin added for DVT proph (add back following injection as able) (7) Pneumonia: Plan: Worsening VOGT x 1 week, productive cough, episode of hypoxia at 87% on room air in ED on presentation Per daughter, reports she had productive cough at home and improved at ri first admission in November however then redeveloped after her most recent discharge CXR w/o acute process Flu/RSV/COVID negative, MRSA swab positive Had been given Levaquin IV last week for concerns for MRSA PNA? per CT lumbar spine imaging noting patchy airspace consolidations, held further for concerns contributing to her confusion (improved since stopping) Suspect her hypoxia more from splinting/pain medications, reflux/aspiration No evidence for pneumonia on multiple CXRs Pt w/ have large hiatal hernia on imaging, pepcid added (as prior recommended) and increased to BID and cough pretty much RESOLVED and suspect hypoxia due to pain medications/splinting with pain Abx dc'd, has been afebrile and without leukocytosis at that time CT obtained given ongoing hypoxia for eval and hx bronchiectasis/breast ca/radiation and pulmonology consulted CT chest w no significant change compared to prior in 2016, if CAPO not progressive, hypertonic saline/inhaled budesonide and abx discontinued by pulmonary and recommending pain control, pulmonary toilet with incentive spirometry and flutter valve and home Breo/hospital equivalent Of note, did given dose 20mg PO lasix on 12/29, monitor for repeat dose as needed. ECHO in November w/ moderate aortic valve sclerosis without significant aortic jorge vular stenosis --> Also resumed her home lisinopril but 2.5mg BID for BP and decreased prior hydralazine w/ improvement in BPs No WBC elevation or fever since discontinuing her abx and DO NOT suspect she had PNA. Procalcitonin was also not elevated, no sputum production reported O2 as needed but to continue pulmonary toilet, IS encouraged still has acute respiratory failure, titrate oxygen as tolerated eval for home oxygen (8) Clostridium difficile infection: Plan: c-diff positive started on Vancomycin observe 12 hrs, discharge in am if symptoms are better Plan DVT proph: SCDs, heparin SQ added 12/29 following biopsy (has refused multiple doses) but placed on hold for SI injection today Pain control, limited use IV dilaudid and decreased to 0.25mg IV prn and encouraged PO oxycodone and ativan as needed in place of IV and notified CM about potential dc to [facility] tomorrow pending injection/ongoing pain control. CM to contact daughter who I have been updating at bedside through weekend and on plan for injection today as able by case management w/ expectations for dc to [facility] in next 24 hours. Admission and Anticipated Discharge Date Admission Date: December 23, 2023 Subjective back pain improved, able to ambulate , reports diarrhea Review of Systems Review of Systems: reports less back pain , but still reports generalized weakness , still requires pain meds , diarrhea , denies CP or SOB, no fever, no abdominal pain Physical Exam Physical Exam: head atraumatic neck supple chest CTA b/l heart S1S2 regular abdomen soft, nt, nd , bs present extremities no edema neuro alert, awake Results & Data Results & Data Vital Signs (Past 12 Hours) Vital Signs Temp Pulse Pulse Pulse Pulse Pulse Resp 01/04/24 14:51 36.9 C 85 20 01/04/24 11:09 36.4 C L 81 18 01/04/24 10:47 94 H 86 01/04/24 08:01 92 H 01/04/24 07:34 73 01/04/24 07:32 36.8 C 90 18 01/04/24 05:13 69 Resp Resp BP Pulse Ox Pulse Ox Pulse Ox O2 Del Method 01/04/24 14:51 179/81 H 93 Room Air 01/04/24 11:09 133/72 95 Room Air 01/04/24 10:47 17 17 89 L 95 01/04/24 08:01 166/75 H 01/04/24 07:34 01/04/24 07:32 202/79 H 96 Nasal Cannula 01/04/24 05:13 98 O2 Del Method O2 Flow Rate 01/04/24 14:51 01/04/24 11:09 01/04/24 10:47 01/04/24 08:01 01/04/24 07:34 01/04/24 07:32 01/04/24 05:13 Nasal Cannula 1 PG Care Time/CCT Total # of Minutes Spent Total Time Spent with Patient: Total time spent is greater than 50% in coordination of care (as documented) at patient's floor/unit and/or counseling patient: Coding Level of Care Code 79365 SUB INP/OBS CARE 2/35MIN Diagnoses Compression fracture of L3 vertebra with routine healing, subsequent encounter S32.030D Encounter type: subsequent encounter Fracture healing: with routine healing Lumbar vertebra fracture level: L3 Fall W19.XXXA Encounter type: initial encounter Hypertensive emergency I16.1 Anxiety and depression F41.9; F32.A Endometrial mass N94.89 Anemia D64.9 Anemia type: unspecified type Pneumonia J18.9 Laterality: bilateral Lung location: unspecified part of lung Pneumonia type: due to unspecified organism Clostridium difficile infection A49.8 (1) Lumbar compression fracture Encounter type: subsequent encounter Fracture healing: with routine healing Lumbar vertebra fracture level: L3 Qualified Code(s): S32.030D - Wedge compression fracture of third lumbar vertebra, subsequent encounter for fracture with routine healing (2) Fall Encounter type: initial encounter Qualified Code(s): W19.XXXA - Unspecified fall, initial encounter (6) Anemia Anemia type: unspecified type Qualified Code(s): D64.9 - Anemia, unspecified (7) Pneumonia Laterality: bilateral Lung location: unspecified part of lung Pneumonia type: due to unspecified organism Qualified Code(s): J18.9 - Pneumonia, unspecified organism
[2024-01-04] MEDS: DOXYCYCLINE HYCLATE 100 MG CAP PO SCH (19:11)
[2024-01-05] MEDS: ACETAMINOPHEN 325 MG TAB PO PRN (03:09)
[2024-01-05 07:41] VITALS: RESP 18
[2024-01-05 08:10] LABS: Hematocrit (blood only) 31.4 % (37.0-47.0); Hemoglobin 10.4 g/dl (12.0-16.0); Mean Corpuscular Hemoglobin 28.7 pg (25.0-34.0); Mean Corpuscular Hgb Conc 33.1 g/dL (32.0-36.0); Mean Corpuscular Volume 86.7 fL (80.0-100.0); Mean Platelet Volume 10.8 fL (9.4-12.4); Platelet Count 268 K/uL (130-400); RDW Coefficient of Variation 15.5 % (11.5-14.5); Red Blood Count 3.62 M/uL (4.20-5.40); White Blood Count 10.35 K/ul (4.8-10.8)
[2024-01-05 08:29] LABS: BUN Creatinine Ratio 16.9 (10-20); Calcium 9.5 mg/dl (8.6-10.3); Est GFR (African American) 94.5 ml/min; Est GFR (Non-African American) 81.5 ml/min; Potassium 4.3 mmol/L (3.5-5.1)
[2024-01-05] MEDS: lisinopril 5 MG TAB PO SCH (11:04)
[2024-01-05 11:10] VITALS: BP 135/74; PULSE 90; TEMP 97.7; O2SAT 96
--- NOTE | 2024-01-05 14:33 | Discharge Summary ---
Date of Service January 05, 2024 Admission HPI Per Admitting Provider Julia is an 83-year-old female with PMH of HTN emergency, anxiety, asthma, breast cancer, osteoporosis, HLD, perirectal abscess, perirectal fistula, lumbar compression fracture, subdural hematoma, and endometrial mass. She presented via EMS from [facility] for intractable lower back pain on 12/22. Patient has had ongoing back pain due to her lumbar compression fracture; multiple recent [place] visits and hospital admissions for similar. She endorses excruciating lower back pain upon waking every day the past week; rated 10/10 at worst. It radiates down both legs bilaterally, but is worse on the right leg. Patient is been taking Tylenol and tramadol at [facility], but this has not been helping. Pain comes and goes intermittently. Remote hx: patient fell on 12/18; struck head; no LOC; patient into the [place] ED and had no acute findings on head CT. History of recurrent falls. She did not take her regular morning medications today. Additionally, she notes worsening VOGT x 1 week. No SOB at rest. Productive cough. She endorses no change in bowel habits; last BM was yesterday. No saddle anesthesia. She has been having a resting tremor in her right hand at baseline, and occasionally in her legs. It should be noted that the patient said that she wants to "" due to her ongoing back pain; no thoughts of self-harm, and she notes that she would not want to if the pain was controlled; she does not want to speak to a psychiatrist while she is inpatient. She does not use supplemental oxygen at baseline. Patient is hypertensive at 202/91 at time of admission. ED course: Rocephin 2000 mg IV Morphine 2 mg IV Toradol 10 mg IV Zofran 4 mg IV Propranolol 80 mg p.o. Hydralazine 10 mg p.o. ROS: Patient endorses pleuritic CP, VOGT x 1 week, productive cough, severe lower back pain, blood in the urine (spotting), and b/l thigh pain. Patient denies fever, chills, dizziness/lightheadedness, CURRIE, Chest pain, SOB at rest, hemoptysis, abdominal pain, N/V/D, change in bowel habits, blood in stool, saddle anesthesia, burning with urination, pain with urination, or numbness/tingling going down the legs. Principal Diagnosis back pain Discharge Exam head atraumatic neck supple chest CTA b/l heart S1S2 regular abdomen soft, nt, nd , bs present extremities no edema neuro alert, awake Discharge Data Allergies Allergy/AdvReac Type Severity Reaction Status Date / Time povidone-iodine Allergy Mild RED RASH Verified 12/19/23 15:55 AND SKIN IRRITATION amoxicillin AdvReac Intermediate NAUSEA Verified 12/19/23 15:55 clavulanic acid AdvReac Intermediate NAUSEA Verified 12/19/23 15:55 doxycycline AdvReac Intermediate NAUSEA Verified 12/19/23 15:55 mometasone furoate AdvReac Intermediate NAUSEA Verified 12/19/23 15:55 nitrofurantoin AdvReac Intermediate nausea Verified 12/19/23 15:55 Sulfa (Sulfonamide AdvReac Mild NAUSEA/VOMI Verified 12/19/23 15:55 Antibiotics) TING Consultations 12/23/23 12:06 ED Decision to Admit Stat 12/25/23 11:40 Consult Orthopedic Surgery Routine 12/30/23 12:21 Consult Pain Management Routine 12/30/23 16:49 Consult Pulmonology Routine Procedures Performed Operation Date: 12/27/23 10:05 Actual Procedures p L3 Kyphoplasty(Not Applicable) - Ilan Elias, Ordered Studies 12/23/23 08:07 CT Abd and Pelvis [CT abd pelvis IV con only] Stat CT hip RT w con Stat CT lumbar spine w con Stat 12/27/23 FL kyphoplasty any level Routine 12/30/23 11:58 CT chest diagnostic wo con Routine 01/02/24 12:05 FL fluoro for pain procedure Routine Hospital Course (1) Lumbar compression fracture: Intractable lower back pain and bilateral sciatic pain (worse on the right side) that has been ongoing for several weeks Unchanged, subacute superior plate compression fracture of L3 seen on lumbar spine CT. No saddle anesthesia or change in bowel habits. CT lumbar spine on 12/22 noting unchanged subacute superior plate compression fracture of L3. Notable review of imaging by orthopedic spine/prior inpatient consult in November w/ severe central stenosis contributing to her pain but at that time did not want any type of surgical intervention Dr Elias consulted * s/p #1 kyphoplasty of L3 vertebral body. #2 biopsy of L3 vertebral body with Dr Elias on 4/2 Pain control - Tylenol, Oxycodone 10mg as needed. DC'd 1mg dilaudid, continued 0.5mg IV for breakthrough if needed but appeared MUCH improved on prior exams - Remained w/ Ativan 0.5mg PO BID prn, lidocaine patch, heating pad as able (asked RN to call for such) Had been ambulating in the room w walker and PT w/o needing significant assistance other than walker and encouraged patient this does indicate doing better despite pain, was alert/oriented and appeared GREAT afternoon 12/30 and only required 10mg ONCE in the afternoon (did get around 245am, but only once throughout the day). Pt w/ ongoing R low back pain c/w SI joint pain on exam Pain management consulted for RIGHT SI joint injection. Initially deferred due to a possible pneumonia however discussed and CT chest as below/pulm consult do not believe infectious or is is not progressive and antibiotics DISCONTINUED as also suspect was contributing to confusion. Messaged Jie from pain management about consideration for injection w/ Dr Thomas on Tuesday as discussed day prior WBC remaining WNL since discontinuing her abx, 7.7k, afebrile remained afebrile OFF abx 12/31 -- doing well but medicated w/ oxycodone 10mg this morning around 5am, followed by lorazepam 0.5mg PO and hydromorphone 0.5mg IV around 722 and likely combination of medications contributing to confusion. Diladudi was DECREASED to 0.25mg IV as needed for breakthrough and encouraged sparing use. Heparin SQ continued but placed on hold for SI joint injection in AM 4/8 Seen by pain management this morning, NPO for R SI injection in OR this afternoon. 1 time dose 0.25mg IV ativan available in meantime prior if needed for anxiety. CM notified to plan for [facility] for tomorrow if stable. Encouraged PO oxy/ativan for pain and anxiety and avoidance of IV dilaudid as needed. Had decreased to 0.25mg IV day prior to limit polypharmacy. Is moving bowels (x2 this morning), remains afebrile. Continue pulmonary toilet and pain control for O2 use (likely drops w/ multiple meds). No cough reported or SOB/fever. Continue pepcid BID for reflux/hiatal hernia BPs stable/improved OFF hydralazine and will continue lisinopril 2.5mg BID as outlined below. BP 165/72 in setting of pain this morning but has been MUCH better controlled. CM notified for potential dc to [facility] for tomorrow pending status post injection. 01/02 insurance company denied SNF, case preparer and liner will inform daughter, who was informed that she is medically stable for discharge 01/03 patient reports diarrhea, stool is positive for C-diff , started on Vancomycin, no need for oxygen at night, overnight oximetry does not indicate hypoxia 01/04 reports feeling better, very anxious to go home, stable for discharge (2) Fall: Patient experienced a fall on 12/18 and endorsed head strike, no LOC. Head CT at that time revealed no acute findings. History of subdural hematoma Hip CT revealed no acute bony abnormality of the right hip or lumbar spine Patient endorses ambulatory dysfunction since the fall, but this is likely secondary to pain in the setting of a lumbar compression fracture Plan to go to rehab upon discharge , planning injection for today Urine cx mod SKIN ludwig, did get Levaquin IV multiple doses for possible PNA as below, RULED OUT PT recommends SNF, insurance denied discharge home with home care (3) Hypertensive emergency: HTN emergency present at time of admission- Labetalol 5 mg IV q15m x 3 max doses as needed for severe, persistent HTN (SBP greater than 180 or DBP greater than 110); PCU status Suspect labile BPs 2nd to pain/anxiety in hospital setting Propranolol 80mg daily, hydralazine continued on admission however prior discussion with daughter last week and patient to be on LISINOPRIL, was not continued on admission but added back 2.5mg PO BID and decreased hydralazine to 2.5mg QID and have been able to DISCONTINUE further hydralazine and BPs have been MUCH improved since that time Monitor BPs/further reduction to once daily lisinopril if needed blood pressure is stable (4) Anxiety and depression: Patient expressed a desire to because of her chronic pain on admission-- denied any HI/SI ideation for myself but is worried about not being able to walk again Continue citalopram, buspar, Lorazepam available 0.5mg PO BID prn Melatonin added for sleep, effective at times. Sleep sherri recommended Frequent orientation, EXPLAIN things to patient BEFORE AND DURING doing things (ie during exam) and reminder of reasons for doing things and expectations has been more effective as she has a lot of anxiety about wanting to know exactly was is going on. One time ativan prior to injection made IV 0.25mg while NPO and continue usual 0.5mg PO BID prn (5) Endometrial mass: Patient endorsed occ vaginal spotting, had been following outpatient. Visit on 12/12 suspicion for endometrial ca Hgb 10.6 on admit, has been stable on repeat (repeat phlebotomy, no significant bleeding). Heparin sq added for DVT proph and remained stable on repeat s/p endometrial biopsy w/ Dr Stack on 12/29, pathology pending -- f/u pathology --> STRIPPED FRAGMENTS OF BENIGN ATROPHIC ENDOMETRIUM, no reported evidence for malignancy (6) Anemia: Chronic and stable compared to priors, no active bleeding reported. suspect again quite stable w/ repeated lab draws and heparin added for DVT proph (add back following injection as able) (7) Pneumonia: Worsening VOGT x 1 week, productive cough, episode of hypoxia at 87% on room air in ED on presentation Per daughter, reports she had productive cough at home and improved at dc first admission in November however then redeveloped after her most recent discharge CXR w/o acute process Flu/RSV/COVID negative, MRSA swab positive Had been given Levaquin IV last week for concerns for MRSA PNA? per CT lumbar spine imaging noting patchy airspace consolidations, held further for concerns contributing to her confusion (improved since stopping) Suspect her hypoxia more from splinting/pain medications, reflux/aspiration No evidence for pneumonia on multiple CXRs Pt w/ have large hiatal hernia on imaging, pepcid added (as prior recommended) and increased to BID and cough pretty much RESOLVED and suspect hypoxia due to pain medications/splinting with pain Abx dc'd, has been afebrile and without leukocytosis at that time CT obtained given ongoing hypoxia for eval and hx bronchiectasis/breast ca/radiation and pulmonology consulted CT chest w no significant change compared to prior in 2016, if CAPO not progressive, hypertonic saline/inhaled budesonide and abx discontinued by pulmonary and recommending pain control, pulmonary toilet with incentive spirometry and flutter valve and home Breo/hospital equivalent Of note, did given dose 20mg PO lasix on 12/29, monitor for repeat dose as needed. ECHO in November w/ moderate aortic valve sclerosis without significant aortic valvular stenosis --> Also resumed her home lisinopril but 2.5mg BID for BP and decreased prior hydralazine w/ improvement in BPs No WBC elevation or fever since discontinuing her abx and DO NOT suspect she had PNA. Procalcitonin was also not elevated, no sputum production reported O2 as needed but to continue pulmonary toilet, IS encouraged still has acute respiratory failure, titrate oxygen as tolerated eval for home oxygen no need for oxygen, stable for discharge (8) Clostridium difficile infection: c-diff positive started on Vancomycin observe 12 hrs, discharge in am if symptoms are better discharge home with Vancomycin 125 mg Q6 Plan DVT proph: SCDs, heparin SQ added 4/5 following biopsy (has refused multiple doses) but placed on hold for SI injection today Pain control, limited use IV dilaudid and decreased to 0.25mg IV prn and encour aged PO oxycodone and ativan as needed in place of IV and notified CM about potential dc to [facility] tomorrow pending injection/ongoing pain control. CM to contact daughter who I have been updating at bedside through weekend and on plan for injection today as able by case management w/ expectations for dc to [facility] in next 24 hours. Total Time Total Time Spent Total Time Spent (In Minutes): 45 Discharge Plan Discharge Items Patient Disposition: Home - Home Health Services Reason For Visit: SEVERE LBP Discharge Diagnosis: back pain, C-diff Condition on Discharge: Fair Activity: Resume your previous activity Non-emergency contact: Primary Care Provider Call non-emergency contact if: your symptoms worsen and your pain is not c ontrolled Follow-up/Referrals: Tani Ruiz [Primary Care Provider] - Diet: Heart Healthy Addtl Attending Provider Instructions: follow up with PCP Pending Studies at Discharge: No Stand-Alone Forms: My [facility] GILUPI, Smoking Cessation Medications and DC Order Prescriptions: New vancomycin 1,000 mg Recon Soln 125 mg PO Q6 7 Days Qty: 42 0RF lidocaine 5 % Adhesive Patch,Medicated 1 patch transdermal DAILY 15 Days Qty: 15 0RF acetaminophen [Pain Reliever (acetaminophen)] 325 mg tablet 650 mg PO Q6H PRN (Reason: fever or pain) Qty: 60 0RF Continued polyethylene glycol 3350 [Miralax] 17 gram/dose powder 17 gm PO QAM sennosides-docusate sodium [Senna Plus] 8.6-50 mg tablet 1 tab PO BID Patient Comments: gave verbal to [facility] varsha Cao at [facility], bid, hold if having loose stools Rx Instructions: hold for loose stools fluticasone propionate 50 mcg/actuation spray,suspension 1 spray intranasal DAILY Qty: 16 3RF Rx Instructions: administer into each nostril daily citalopram [Celexa] 40 mg tablet 40 mg PO QAM Qty: 90 3RF mirtazapine [Remeron] 15 mg tablet 15 mg PO DAILY Qty: 90 1RF nystatin-triamcinolone 100,000-0.1 unit/gram-% ointment 1 applic topical TID Qty: 30 2RF Rx Instructions: apply a generous amount to vulva lorazepam [Ativan] 0.5 mg tablet 0.5 mg PO DAILY PRN (Reason: anxiety) Qty: 20 0RF docusate sodium 100 mg capsule 100 mg PO BIDM calcium carbonate-vitamin D3 600 mg(1,500mg) -200 unit tablet 1 tab PO BIDM alendronate [Fosamax] 70 mg tablet 70 mg PO WK Rx Instructions: wednesdays mecobalamin (vitamin B12) 1,000 mcg tablet,disintegrating 1,000 mcg sublingual DAILY Qty: 30 5RF Rx Instructions: place tablet under tongue and allow to dissolve for at least30 secs before swallowing cholecalciferol (vitamin D3) 50 mcg (2,000 unit) capsule 50 mcg PO QAM propranolol 80 mg capsule,extended release 24hr 80 mg PO QAM Qty: 30 6RF Refresh Classic (PF) 1.4-0.6 % Dropperette 1 drp OPB QID Refresh P.M. 57.3-42.5 % Ointment 1 applic OPB HS lidocaine 5 % Adhesive Patch,Medicated 1 patch transdermal QAM Qty: 20 0RF cyclosporine [Restasis] 0.05 % Dropperette 1 drp OPHTHALMIC (EYE) Q12H albuterol sulfate [Ventolin HFA] 90 mcg/actuation Hfa Aerosol Inhaler 2 puff inhalation QIDR PRN (Reason: cough/wheeze/shortness of breath) Qty: 6.7 0RF Rx Instructions: use with spacer device polyethylene glycol 3350 [Miralax] 17 gram/dose Powder 17 g PO .1-2XDAILY PRN (Reason: Constipation) buspirone 5 mg tablet 5 mg PO BIDM Rx Instructions: 0800 & 1600 budesonide-formoterol 160-4.5 mcg/actuation HFA aerosol inhaler 2 puff inhalation BID17 Rx Instructions: Needs generic, not symbicort Preparation H Rapid Rlf-Lidocn 5-0.25-14.4-15 % Cream 1 applic TOPICAL TID PRN (Reason: rectal pain) hydralazine 10 mg tablet 5 mg PO QID Qty: 100 1RF Changed tramadol 50 mg Tablet 50 mg PO BID PRN (Reason: pain) Qty: 10 0RF Rx Instructions: 0800 & 1900 Discontinued acetaminophen [Tylenol Extra Strength] 500 mg Tablet 500 mg PO .@1200,1900 acetaminophen 500 mg capsule 1,000 mg PO [facility] MDD 3g No Action (DME) Flutter Valve Device See Rx Instructions .MEDSUPPLY Qty: 1 0RF Rx Instructions: Use it every 6 hours when awake. (DME) Spacer for Inhaler Misc See Rx Instructions .Route Qty: 1 0RF Rx Instructions: As directed Discharge Orders: Discharge Order (Routine); Ordered 01/05/24 Ordered By: Cassandra Marquez Admission Data Admit Date/Time: 12/23/23 12:21 Attending Provider: Cassandra Marquez Admit Provider: Gavin Mack Primary Care Provider: Tani Ruiz Other Providers: Gavin Mack; Ilan Elias; Star Farrar [facility]; [facility]; Ranjeet Mcgregor; Lionel Choudhury Other Interventions: Discharge Summary Assessment (RN) Last Done: 01/05/24 10:48 Coding Level of Care Code 21474 INP/OBS DISCH >30 MIN Diagnoses Compression fracture of L3 vertebra with routine healing, subsequent encounter S32.030D Encounter type: subsequent encounter Fracture healing: with routine healing Lumbar vertebra fracture level: L3 Fall W19.XXXA Encounter type: initial encounter Hypertensive emergency I16.1 Anxiety and depression F41.9; F32.A Endometrial mass N94.89 Anemia D64.9 Anemia type: unspecified type Pneumonia J18.9 Laterality: bilateral Lung location: unspecified part of lung Pneumonia type: due to unspecified organism Clostridium difficile infection A49.8
== END 2024-01-05 12:36 | disposition home health service (06) | DRG 477 ==
LOC: ED 07:58 → EDINP 12:21 → SUATTDRO 12:21 → EDINP 16:35 → 2S 18:31